=== PATIENT | female | born 1965 | race Caucasian/White ===

== ENCOUNTER 2017-02-21 13:40 | Emergency (ER) | payer OTHER ==
[~2017-02-21] VITALS: Ht 165.1 cm; Wt 60.0 kg
[~2017-02-21 13:40] MED LIST: CALC500T37 PO; CREON24 PO; FERR325T PO; GABA300C5 PO; HYDR50TA94 PO; LANTUS2P SQ; NOVOLOGP2 SQ; PROT40TA PO
[2017-02-21 13:51] VITALS: BP 105/64; PULSE 80; RESP 15; TEMP 97.6; O2SAT 96
[2017-02-21] MEDS ORDERED: SODIUM CHLOR 0.9% 1000 ML INJ 1,000 ML IV SCH (13:53)
[2017-02-21 13:55] VITALS: O2SAT 96
--- NOTE | 2017-02-21 13:55 | PD ---
HPI Chief Complaint: Syncope/Near-Syncope Time Seen by Provider: 13:55 Travel History International Travel<30 days: No Contact w/Intl Traveler<30days: No Traveled to known affect area: No History of Present Illness HPI 52-year-old female with a history of chronic pancreatitis, hypertension, insulin -dependent diabetes is brought to the emergency department by EMS for evaluation of syncopal episode while at the MD office. The patient states that for the past 5 days she has had difficulty eating due to nausea and abdominal pain. States that this does happen to her frequently due to her pancreatitis and gastroparesis. States she has also felt weak over the past 5 days so she went to the MD office today to try to get some Ensure and when she was sitting in her chair she felt lightheaded and apparently passed out. States that she was told by her significant other she passed out for a few seconds. She is now complaining of pain in her left upper abdomen. Denies any fever, chills, chest pain, shortness of breath, difficulty breathing,. States that she last vomited yesterday. States she had 2 episodes of nonbloody diarrhea today. States that she no longer drinks alcohol. No other complaints. PFSH Past Medical History Hx Anticoagulant Therapy: Yes (HEPARIN WHILE ADMITTED TO THE HOSPITAL ) Anxiety: Yes Depression: No Cancer: No Cardiovascular Problems: Yes (htn) High Cholesterol: Yes (PT STATES [facility] STATIN PREVENTATIV) Diabetes: Yes Patient Takes Glucophage: No Diminished Hearing: No Endocrine: Yes Gastrointestinal Disorders: Yes (chronic PANCREATITIS, GASTROPARESIS) GERD: Yes Genitourinary: No Hypertension: Yes Immune Disorder: No Musculoskeletal: Yes Neurologic: Yes Psychiatric: Yes (PTSD) Reproductive: No Respiratory: No Immunizations Current: Yes Migraines: Yes Pancreatitis: Yes Thyroid Disease: Yes ("7 TUMORS ON THYROID", BEING FOLLOWED. THYROID FUNCTION IS GOOD.) ?: Not : 2 Para: 2 Past Surgical History Abdominal Surgery: Yes (APPENDECTOMY) Appendectomy: Yes Section: Yes (x 1) Gynecologic Surgery: Yes (, HYSTERECTOMY WITH BILATERAL OOPHORECTOMY) Hysterectomy: Yes Other Surgery: Yes Social History Alcohol Use: No Tobacco Use: Yes (1/2 PPD) Substance Use: No Allergies-Medications (Allergen,Severity, Reaction): Coded Allergies: Sulfa (Verified Allergy, Severe, Rash, 11/14/16) Ciprofloxacin (Verified Allergy, Mild, Rash, 11/14/16) Reported Meds & Prescriptions Reported Meds & Active Scripts Active Ferrous Sulfate 325 Mg Tab 325 Mg PO BID 30 Days Creon (Amylase/Lipase/Protease) 24,000-76,000-120,000 Units Cap 1 Cap PO TIDAC 30 Days Reported Vitamin B-12 (Cyanocobalamin) 1,000 Mcg Tab 1,000 Mcg PO DAILY Lisinopril 10 Mg Tab 10 Mg PO DAILY Protonix (Pantoprazole Sodium) 40 Mg Tab 40 Mg PO DAILY Lantus Inj (Insulin Glargine) 1,000 Unit/10 Ml Vial 15 Units SQ DAILY Novolog Inj (Insulin Aspart) 1,000 Unit/10 Ml Vial 0 SQ DIRECTED Sliding Scale as directed. Gabapentin 300 Mg Cap 300 Mg PO TID Calcium Ascorbate 500 Mg Tab 500 Mg PO DAILY Review of Systems Except as stated in HPI: all other systems reviewed are Neg Physical Exam Narrative GENERAL: Well-nourished and well-developed pleasant patient in no acute distress who is nontoxic appearing. SKIN: Warm and dry. HEAD: Normocephalic and atraumatic. EYES: No injection, drainage, or hyphema noted. PERRLA. EOMI. ENT: No nasal drainage noted. Oropharynx is clear. NECK: Supple and the trachea is midline. CARDIOVASCULAR: Regular rate and rhythm. RESPIRATORY: Breath sounds are equal bilaterally with no accessory muscle use, wheezing, rhonchi, or crackles. GASTROINTESTINAL: Mild epigastric and left upper quadrant tenderness to palpation. No rebound tenderness or guarding. Negative Rodríguez sign. Negative McBurney's point. Abdomen is soft and nondistended. MUSCULOSKELETAL: No obvious deformities, swelling, cyanosis, or ecchymosis is present throughout the upper and lower extremities. Patient has full range of motion without any signs of neurovascular compromise. NEUROLOGICAL: Awake, alert, and oriented. Normal speech and gait. Cranial nerves are grossly intact. Data Data Last Documented VS Vital Signs Date Time Temp Pulse Resp B/P Pulse Ox O2 Delivery O2 Flow Rate FiO2 02/21/17 14:57 72 15 125/75 98 Room Air 02/21/17 13:51 97.6 Orders Complete Blood Count With Diff (02/21/17 13:53) Comprehensive Metabolic Panel (02/21/17 13:53) Lipase (02/21/17 13:53) Prothrombin Time / Inr (Pt) (02/21/17 13:53) Act Partial Throm Time (Ptt) (02/21/17 13:53) Urinalysis - C+S If Indicated (02/21/17 13:53) Iv Access Insert/Monitor (02/21/17 13:53) Ecg Monitoring (02/21/17 13:53) Oximetry (02/21/17 13:53) Morphine Inj (Morphine Inj) (02/21/17 14:00) Ondansetron Inj (Zofran Inj) (02/21/17 14:00) Sodium Chlor 0.9% 1000 Ml Inj (Ns 1000 M (02/21/17 13:53) Sodium Chloride 0.9% Flush (Ns Flush) (02/21/17 14:00) Electrocardiogram (02/21/17 13:53) Chest, Single Ap (02/21/17 13:53) Troponin I (02/21/17 13:53) Oxycodone-Acetamin 5-325 Mg (Percocet (02/21/17 16:15) Labs Laboratory Tests Test 02/21/17 02/21/17 14:05 16:03 White Blood Count 7.6 TH/MM3 Red Blood Count 4.14 MIL/MM3 Hemoglobin 11.2 GM/DL Hematocrit 33.7 % Mean Corpuscular Volume 81.6 FL Mean Corpuscular Hemoglobin 27.0 PG Mean Corpuscular Hemoglobin 33.1 % Concent Red Cell Distribution Width 20.6 % Platelet Count 248 TH/MM3 Mean Platelet Volume 7.7 FL Neutrophils (%) (Auto) 79.1 % Lymphocytes (%) (Auto) 15.1 % Monocytes (%) (Auto) 4.3 % Eosinophils (%) (Auto) 0.8 % Basophils (%) (Auto) 0.7 % Neutrophils # (Auto) 6.0 TH/MM3 Lymphocytes # (Auto) 1.2 TH/MM3 Monocytes # (Auto) 0.3 TH/MM3 Eosinophils # (Auto) 0.1 TH/MM3 Basophils # (Auto) 0.1 TH/MM3 CBC Comment DIFF FINAL Differential Comment Prothrombin Time 11.7 SEC Prothromb Time International 1.1 RATIO Ratio Activated Partial 26.4 SEC Thromboplast Time Sodium Level 136 MEQ/L Potassium Level 3.7 MEQ/L Chloride Level 104 MEQ/L Carbon Dioxide Level 26.0 MEQ/L Anion Gap 6 MEQ/L Blood Urea Nitrogen 10 MG/DL Creatinine 0.80 MG/DL Estimat Glomerular Filtration 75 ML/MIN Rate Random Glucose 194 MG/DL Calcium Level 8.7 MG/DL Total Bilirubin 0.5 MG/DL Aspartate Amino Transf 13 U/L (AST/SGOT) Alanine Aminotransferase 13 U/L (ALT/SGPT) Alkaline Phosphatase 94 U/L Troponin I LESS THAN 0.02 NG/ML Total Protein 6.8 GM/DL Albumin 3.0 GM/DL Lipase 628 U/L Urine Color LIGHT-YELLOW Urine Turbidity CLEAR Urine pH 5.5 Urine Specific [place] 1.004 Urine Protein NEG mg/dL Urine Glucose (UA) NEG mg/dL Urine Ketones NEG mg/dL Urine Occult Blood NEG Urine Nitrite NEG Urine Bilirubin NEG Urine Urobilinogen LESS THAN 2.0 MG/DL Urine Leukocyte Esterase SMALL Urine RBC 1 /hpf Urine WBC 4 /hpf Urine Squamous Epithelial 2 /hpf Cells Microscopic Urinalysis Comment CULT NOT INDICATED MDM Medical Decision Making Medical Screen Exam Complete: Yes Emergency Medical Condition: Yes Differential Diagnosis Acute on chronic pancreatitis versus dehydration versus electrolyte abnormality versus other Narrative Course 52-year-old female is brought to the emergency department by EMS for syncopal episode and abdominal pain. Patient is afebrile, vital signs are stable. IV access is obtained, labs were drawn and sent. Patient is placed on cardiac telemetry and pulse oximetry monitoring. She is administered morphine 4 mg IV and IV fluids with Zofran. EKG shows sinus rhythm with no acute ST elevations, inverted T waves in inferior and lateral leads. CBC shows mild anemia with hemoglobin 11.2, hematocrit 33.7. CMP is unremarkable for any acute abnormalities. Troponin is less than 0.02. Lipase is slightly elevated at 628. This is around her baseline. Coags are unremarkable. Urinalysis shows small leukocyte esterase and is otherwise unremarkable. Chest x-ray is negative for any acute abnormalities. Patient has remained stable without complaint while here in the emergency department. Her lipase is elevated however this is secondary to her chronic pancreatitis. Otherwise labs and imaging are all reassuring. She is stable to be discharged and follow-up as an outpatient with her PCP. Patient verbalizes understanding and is in agreement with treatment plan. I discussed the case with my attending physician Dr. Amezquita who is aware of the patients history, physical examination findings, and treatment plan. Diagnosis Primary Impression: Chronic pancreatitis Qualified Code: K86.0 - Alcohol-induced chronic pancreatitis Additional Impressions: Abdominal pain Qualified Code: R10.12 - Left upper quadrant pain Syncope Qualified Code: R55 - Syncope, unspecified syncope type Referrals: Primary Care Physician Patient Instructions: General Instructions, Pancreatitis (ED), Syncope (ED) Additional Instructions: Rest. Drink plenty of fluids. Try to maintain adequate nutrition. Follow-up with your Primary Care Physician. Return to the ED for any acute worsening of symptoms. Med/Other Pt SpecificInfo: No Change to Meds Disposition: 01 DISCHARGE HOME Condition: Stable Libby Luther Feb 21, 2017 13:55
[2017-02-21] MEDS ORDERED: VITA10002 PO (13:57)
[2017-02-21] MEDS ORDERED: LISI10TA3 PO (13:57)
[2017-02-21] MEDS ORDERED: SODIUM CHLORIDE 0.9% FLUSH 10 ML FLUSH IV FLUSH PRN (14:00)
[2017-02-21] MEDS ORDERED: ONDANSETRON HCL 4 MG/2 ML VIAL IVP ONE (14:00)
[2017-02-21] MEDS ORDERED: MORPHINE SULFATE 4 MG/ML INJ IV PUSH ONE (14:00)
[2017-02-21 14:22] LABS: BASOPHIL # 0.1 TH/MM3 (0-0.2); BASOPHIL % 0.7 % (0.0-2.0); EOSINOPHIL # 0.1 TH/MM3 (0-0.4); EOSINOPHIL % 0.8 % (0.0-4.0); HEMATOCRIT 33.7 % (35.0-46.0); HEMO FLAGS DIFF FINAL; LYMPH % 15.1 % (9.0-44.0); LYMPHOCYTE # 1.2 TH/MM3 (1.0-4.8); MEAN CELL VOLUME 81.6 FL (80.0-100.0); MEAN CORPUSCULAR HGB CONC 33.1 % (32.0-36.0); MONO % 4.3 % (0.0-8.0); NEUT % 79.1 % (16.0-70.0); PLATELET COUNT 248 TH/MM3 (150-450); RED BLOOD COUNT 4.14 MIL/MM3 (4.00-5.30); RED CELL DISTRIBUTION WIDTH 20.6 % (11.6-17.2); WHITE BLOOD COUNT 7.6 TH/MM3 (4.0-11.0)
[2017-02-21 14:32] LABS: APTT (PATIENT) 26.4 SEC (24.3-30.1); INTERNATIONAL NORMALIZED RATIO 1.1 RATIO; PROTHROMBIN TIME - PATIENT 11.7 SEC (9.8-11.6)
--- NOTE | 2017-02-21 14:38 | RADRPT ---
EXAM DATE/TIME: 02/21/2017 14:01 [facility] COMPARISON: CHEST SINGLE AP, November 04, 2016, 15:46. INDICATIONS : Patient is having left side abdomen pain for two days. She also passed out this afternoon. MEDICAL HISTORY : Hypertension. Diabetes mellitus type II. Pancreatitis. SURGICAL HISTORY : None. ENCOUNTER: Initial ACUITY: 2 days PAIN SCORE: 9/10 LOCATION: Left abdomen. FINDINGS: A single view of the chest demonstrates stable elevation of left hemidiaphragm with become atelectati c changes in the left base. Lungs are otherwise clear. Heart size is normal. Osseous structures are i ntact. CONCLUSION: 1. Stable elevation of the left hemidiaphragm with concomitant atelectatic changes in the base. 2. Lungs are otherwise clear Octaviano Negro MD on February 21, 2017 at 14:36 Board Certified Radiologist. This report was verified electronically.
[2017-02-21 14:50] LABS: ALT (GPT) 13 U/L (10-53); ANION GAP 6 MEQ/L (5-15); AST (GOT) 13 U/L (15-37); BLOOD UREA NITROGEN 10 MG/DL (7-18); CHLORIDE 104 MEQ/L (98-107); GLOMERULAR FILTRATION RATE 75 ML/MIN (>89); POTASSIUM 3.7 MEQ/L (3.5-5.1); SODIUM (NA) 136 MEQ/L (136-145)
[2017-02-21 14:54] LABS: ALKALINE PHOSPHATASE 94 U/L (45-117); TOTAL BILIRUBIN ADULT 0.5 MG/DL (0.2-1.0)
[2017-02-21 14:57] VITALS: BP 125/75; PULSE 72; RESP 15; O2SAT 98
[2017-02-21 16:00] VITALS: BP 112/73
[2017-02-21] MEDS ORDERED: oxyCODONE/ACETAMINOPHEN 5 MG/325 MG TAB PO ONE (16:15)
[2017-02-21 16:28] LABS: BLOOD, URINE NEG (NEG); COMMENT (UR) CULT NOT INDICATED; CULTURE IF INDICATED CULT NOT INDICATED; GLUCOSE,URINE NEG (NEG); KETONE, URINE NEG (NEG); NITRITE,URINE NEG (NEG); PH, URINE 5.5 (5.0-8.5); SQUAMOUS EPITHELIAL CELL URINE 2 /hpf (0-5); URINE COLOR LIGHT-YELLOW (YELLW/STRAW)
[2017-02-21 16:58] VITALS: BP 171/71; PULSE 73; RESP 16
--- NOTE | 2017-02-22 13:28 | EKG ---
Date Performed: 02/21/2017 Time Performed: 14:17:00 PTAGE: 52 years EKG: Sinus rhythm MODERATE T-WAVE ABNORMALITY, CONSIDER ANTEROLATERAL ISCHEMIA MODERATE T-WAVE ABNORMALITY, CONSIDER I NFERIOR ISCHEMIA ABNORMAL ECG PREVIOUS TRACING : 11/04/2016 15.55 Compared to prior tracing no significant change DOCTOR: Tanner Pina Interpretating Date/Time 02/22/2017 13:28:00
== END 2017-02-21 17:00 | disposition home or self-care (01) ==
LOC: NEPC 13:40
DX: K86.0 Alcohol-induced chronic pancreatitis (principal); R10.12 Left upper quadrant pain; R55 Syncope and collapse; R94.31 Abnormal electrocardiogram [ECG] [EKG]; R53.1 Weakness; E78.00 Pure hypercholesterolemia, unspecified; E11.9 Type 2 diabetes mellitus without complications; I10 Essential (primary) hypertension; E07.9 Disorder of thyroid, unspecified; F17.200 Nicotine dependence, unspecified, uncomplicated; Z79.4 Long term (current) use of insulin; Z86.59 Personal history of other mental and behavioral disorders; Z86.79 Personal history of other diseases of the circulatory system; Z87.19 Personal history of other diseases of the digestive system; Z87.39 Personal history of other diseases of the musculoskeletal system and connective tissue; Z86.69 Personal history of other diseases of the nervous system and sense organs
CPT/HCPCS: 71010; 80053; 81001; 83690; 84484; 85025; 85610; 85730; 93005; 96361; 96374; 96375; 99284; J2270; J2405; J7030

== ENCOUNTER 2017-03-28 07:37 | Emergency (ER) | payer OTHER ==
[2017-03-28] VITALS (8 sets, daily range): BP systolic 96–142; BP diastolic 56–85; PULSE 79–112; RESP 18–26; TEMP 97.6–98.6; O2SAT 93–95
[~2017-03-28] VITALS: Ht 165.1 cm; Wt 61.0 kg
[~2017-03-28 07:37] MED LIST changes: -HYDR50TA94 PO; +LISI10TA3 PO; +VITA10002 PO
[2017-03-28] MEDS ORDERED: ASPIRIN 81 MG CHEW TAB PO ONE (07:45)
[2017-03-28] MEDS ORDERED: SODIUM CHLORID 0.9% 500 ML INJ 500 ML IV ONE (07:45)
[2017-03-28] MEDS ORDERED: MORPHINE SULFATE 4 MG/ML INJ IV PUSH ONE (07:45)
[2017-03-28] MEDS ORDERED: SODIUM CHLORIDE 0.9% FLUSH 10 ML FLUSH IVF PRN (07:45)
[2017-03-28] MEDS ORDERED: ONDANSETRON HCL 4 MG/2 ML VIAL IV PUSH ONE (07:45)
--- NOTE | 2017-03-28 07:52 | PD ---
HPI Chief Complaint: shoulder pain Time Seen by Provider: 07:39 Travel History International Travel<30 days: No Contact w/Intl Traveler<30days: No Traveled to known affect area: No History of Present Illness HPI The patient is a 52-year-old female who presents to the emergency department via EMS for shoulder pain. The patient has a history of recent shoulder pain, was evaluated by her physician at the [facility], Dr. Almanzar, who diagnosed her with referred pain from her chronic pancreatitis. The patient notes increasing pain over the last 5 days of the left shoulder. The pain is located over the anterior, lateral, posterior aspect left shoulder, slightly worse with movement, however, still present at rest. The patient does have a history of chronic pancreatitis secondary to chronic alcohol use, quit eating several days ago because she thought it was secondary to her pancreas. However, she continues to have pain. She denies any weakness or numbness of the left upper extremity. She denies any known trauma to the left shoulder. She also notes a cough that started 5 days ago which is slightly productive, does have a history tobacco use. She denies any fever, chills, or sweats. Symptoms are moderate, slightly worse with movement, and there are no current alleviating factors. The patient does have a history of hypertension, hyperlipidemia, and diabetes. PFSH Past Medical History Hx Anticoagulant Therapy: Yes (HEPARIN WHILE ADMITTED TO THE HOSPITAL ) Anxiety: Yes Depression: No Cancer: No Cardiovascular Problems: Yes (htn) High Cholesterol: Yes (PT STATES [facility] PUT HER ON STATIN PREVENTATIV) Diabetes: Yes Diminished Hearing: No Endocrine: Yes Gastrointestinal Disorders: Yes (chronic PANCREATITIS, GASTROPARESIS) GERD: Yes Genitourinary: No Hypertension: Yes Immune Disorder: No Musculoskeletal: Yes Neurologic: Yes Psychiatric: Yes (PTSD) Reproductive: No Respiratory: No Immunizations Current: Yes Migraines: Yes Pancreatitis: Yes Thyroid Disease: Yes ("7 TUMORS ON THYROID", BEING FOLLOWED. THYROID FUNCTION IS GOOD.) : 2 Para: 2 Past Surgical History Abdominal Surgery: Yes (APPENDECTOMY) Appendectomy: Yes Section: Yes (x 1) Gynecologic Surgery: Yes (, HYSTERECTOMY WITH BILATERAL OOPHORECTOMY) Hysterectomy: Yes Other Surgery: Yes Social History Alcohol Use: No Tobacco Use: Yes (1/2 PPD) Substance Use: No Allergies-Medications (Allergen,Severity, Reaction): Coded Allergies: Sulfa (Verified Allergy, Severe, Rash, 11/14/16) Ciprofloxacin (Verified Allergy, Mild, Rash, 11/14/16) Reported Meds & Prescriptions Reported Meds & Active Scripts Active Ferrous Sulfate 325 Mg Tab 325 Mg PO BID 30 Days Creon (Amylase/Lipase/Protease) 24,000-76,000-120,000 Units Cap 1 Cap PO TIDAC 30 Days Reported Vitamin B-12 (Cyanocobalamin) 1,000 Mcg Tab 1,000 Mcg PO DAILY Lisinopril 10 Mg Tab 10 Mg PO DAILY Protonix (Pantoprazole Sodium) 40 Mg Tab 40 Mg PO DAILY Lantus Inj (Insulin Glargine) 1,000 Unit/10 Ml Vial 15 Units SQ DAILY Novolog Inj (Insulin Aspart) 1,000 Unit/10 Ml Vial 0 SQ DIRECTED Sliding Scale as directed. Gabapentin 300 Mg Cap 300 Mg PO TID Calcium Ascorbate 500 Mg Tab 500 Mg PO DAILY Review of Systems Except as stated in HPI: all other systems reviewed are Neg General / Constitutional: No: Fever Cardiovascular: No: Chest Pain or Discomfort Respiratory: Positive: Cough, Shortness of Breath Gastrointestinal: Positive: Nausea, No: Vomiting, Abdominal Pain Musculoskeletal: Positive: Pain Neurologic: No: Paresthesia, Sensory Disturbance Physical Exam Narrative GENERAL: Awake, alert, somewhat anxious 52-year-old female who appears her stated age and is in no acute respiratory distress. Appears anxious. SKIN: Focused skin assessment warm/dry. HEAD: Atraumatic. Normocephalic. EYES: Pupils equal and round. No scleral icterus. No injection or drainage. ENT: No nasal bleeding or discharge. Mucous membranes pink and moist. NECK: Trachea midline. No JVD. CARDIOVASCULAR: Regular, tachycardic with a heart rate of 114. RESPIRATORY: No accessory muscle use. Clear to auscultation. Breath sounds equal bilaterally. GASTROINTESTINAL: Abdomen soft, non-tender, nondistended. No rebound tenderness. MUSCULOSKELETAL: Patient has pain with palpation of the anterior posterior aspect the left shoulder. Slightly worse with external/internal rotation, however, patient is able to raise her left arm above her head. She is able to flex and extend at the left elbow, supinate and pronate the left forearm, and flex and extend the left wrist. Positive left radial pulse. NEUROLOGICAL: Awake and alert. No obvious cranial nerve deficits. Motor grossly within normal limits. Normal speech. PSYCHIATRIC: Appropriate mood and affect; insight and judgment normal. Data Data Last Documented VS Vital Signs Date Time Temp Pulse Resp B/P Pulse Ox O2 Delivery O2 Flow Rate FiO2 03/28/17 10:00 18 03/28/17 09:59 79 113/71 93 Room Air 03/28/17 09:09 97.6 2 Orders Electrocardiogram (03/28/17 07:45) Ckmb (Isoenzyme) Profile (03/28/17 07:45) Complete Blood Count With Diff (03/28/17 07:45) Comprehensive Metabolic Panel (03/28/17 07:45) D-Dimer (03/28/17 07:45) Magnesium (Mg) (03/28/17 07:45) Prothrombin Time / Inr (Pt) (03/28/17 07:45) Act Partial Throm Time (Ptt) (03/28/17 07:45) Troponin I (03/28/17 07:45) Lipase (03/28/17 07:45) Chest, Single Ap (03/28/17 07:45) Ecg Monitoring (03/28/17 07:45) Bilateral Bp Monitoring (03/28/17 07:45) Iv Access Insert/Monitor (03/28/17 07:45) Oximetry (03/28/17 07:45) Oxygen Administration (03/28/17 07:45) Aspirin Chew (Aspirin Chew) (03/28/17 07:45) Morphine Inj (Morphine Inj) (03/28/17 07:45) Sodium Chloride 0.9% Flush (Ns Flush) (03/28/17 07:45) Sodium Chlorid 0.9% 500 Ml Inj (Ns 500 M (03/28/17 07:45) Ondansetron Inj (Zofran Inj) (03/28/17 07:45) Shoulder, Limited(2vws) (03/28/17 ) Ct Pulmonary Angiogram (03/28/17 ) Ketorolac Inj (Toradol Inj) (03/28/17 09:15) Iohexol 350 Inj (Omnipaque 350 Inj) (03/28/17 09:52) Labs Laboratory Tests Test 03/28/17 07:55 White Blood Count 8.0 TH/MM3 Red Blood Count 4.14 MIL/MM3 Hemoglobin 11.4 GM/DL Hematocrit 33.4 % Mean Corpuscular Volume 80.6 FL Mean Corpuscular Hemoglobin 27.5 PG Mean Corpuscular Hemoglobin 34.2 % Concent Red Cell Distribution Width 19.7 % Platelet Count 301 TH/MM3 Mean Platelet Volume 7.4 FL Neutrophils (%) (Auto) 79.7 % Lymphocytes (%) (Auto) 11.7 % Monocytes (%) (Auto) 6.8 % Eosinophils (%) (Auto) 1.3 % Basophils (%) (Auto) 0.5 % Neutrophils # (Auto) 6.4 TH/MM3 Lymphocytes # (Auto) 0.9 TH/MM3 Monocytes # (Auto) 0.5 TH/MM3 Eosinophils # (Auto) 0.1 TH/MM3 Basophils # (Auto) 0.0 TH/MM3 CBC Comment DIFF FINAL Differential Comment Prothrombin Time 10.6 SEC Prothromb Time International 1.0 RATIO Ratio Activated Partial 29.5 SEC Thromboplast Time D-Dimer Quantitative (PE/DVT) 4.17 MG/L FEU Sodium Level 131 MEQ/L Potassium Level 4.3 MEQ/L Chloride Level 95 MEQ/L Carbon Dioxide Level 27.3 MEQ/L Anion Gap 9 MEQ/L Blood Urea Nitrogen 5 MG/DL Creatinine 0.72 MG/DL Estimat Glomerular Filtration 85 ML/MIN Rate Random Glucose 159 MG/DL Calcium Level 9.4 MG/DL Magnesium Level 2.0 MG/DL Total Bilirubin 0.8 MG/DL Aspartate Amino Transf 25 U/L (AST/SGOT) Alanine Aminotransferase 30 U/L (ALT/SGPT) Alkaline Phosphatase 263 U/L Total Creatine Kinase 35 U/L Troponin I LESS THAN 0.02 NG/ML Total Protein 7.8 GM/DL Albumin 3.0 GM/DL Lipase 451 U/L [facility] Medical Decision Making Medical Screen Exam Complete: Yes Emergency Medical Condition: Yes Medical Record Reviewed: Yes Interpretation(s) EKG reveals sinus tachycardia with a heart rate of 113. Nonspecific T wave changes. Laboratory Tests Test 03/28/17 07:55 White Blood Count 8.0 TH/MM3 Red Blood Count 4.14 MIL/MM3 Hemoglobin 11.4 GM/DL Hematocrit 33.4 % Mean Corpuscular Volume 80.6 FL Mean Corpuscular Hemoglobin 27.5 PG Mean Corpuscular Hemoglobin 34.2 % Concent Red Cell Distribution Width 19.7 % Platelet Count 301 TH/MM3 Mean Platelet Volume 7.4 FL Neutrophils (%) (Auto) 79.7 % Lymphocytes (%) (Auto) 11.7 % Monocytes (%) (Auto) 6.8 % Eosinophils (%) (Auto) 1.3 % Basophils (%) (Auto) 0.5 % Neutrophils # (Auto) 6.4 TH/MM3 Lymphocytes # (Auto) 0.9 TH/MM3 Monocytes # (Auto) 0.5 TH/MM3 Eosinophils # (Auto) 0.1 TH/MM3 Basophils # (Auto) 0.0 TH/MM3 CBC Comment DIFF FINAL Differential Comment Prothrombin Time 10.6 SEC Prothromb Time International 1.0 RATIO Ratio Activated Partial 29.5 SEC Thromboplast Time D-Dimer Quantitative (PE/DVT) 4.17 MG/L FEU Sodium Level 131 MEQ/L Potassium Level 4.3 MEQ/L Chloride Level 95 MEQ/L Carbon Dioxide Level 27.3 MEQ/L Anion Gap 9 MEQ/L Blood Urea Nitrogen 5 MG/DL Creatinine 0.72 MG/DL Estimat Glomerular Filtration 85 ML/MIN Rate Random Glucose 159 MG/DL Calcium Level 9.4 MG/DL Magnesium Level 2.0 MG/DL Total Bilirubin 0.8 MG/DL Aspartate Amino Transf 25 U/L (AST/SGOT) Alanine Aminotransferase 30 U/L (ALT/SGPT) Alkaline Phosphatase 263 U/L Total Creatine Kinase 35 U/L Troponin I LESS THAN 0.02 NG/ML Total Protein 7.8 GM/DL Albumin 3.0 GM/DL Lipase 451 U/L CT, angiogram reveals no evidence of pulmonary embolism. Multiple loculated fluid collections within the left upper quadrant which may represent pseudocysts related to previous bouts of pancreatitis. The largest collection measures 9.4 cm but these collections or incompletely evaluated on this examination. Enlarged pancreas. Patchy opacity within the left lower lobe posteriorly with atelectasis and/or infiltrate. Chronic calcific pancreatitis. Nonspecific AP window and subcarinal mediastinal lymphadenopathy. Apparent right subclavian artery. Stable bilateral thyroid nodules. Scattered fibrotic scarring and/or atelectasis within the right posterior lung base. Differential Diagnosis Differential diagnosis includes chronic pancreatitis, referred pain, bursitis, atypical chest pain, pulmonary embolism, pneumonia, Pancoast tumor. Narrative Course IV was established, labs are drawn and sent, and the patient was placed on cardiac telemetry monitoring and continuous pulse oximetry monitoring. EKG was ordered and interpreted. Chest x-ray and left shoulder x-ray were obtained. The patient was administered aspirin, morphine, Zofran, and IV fluids. Lipase is mildly elevated in the 400s, however, d-dimer is positive greater than 4 with tachycardia and atypical left chest pain and shoulder pain. Therefore, CT pulmonary angiogram was ordered to rule out pulmonary embolism. CT reveals no evidence of pulmonary embolism, patient does have infiltrate in the left lower lobe and multiple loculated fluid collections within the left upper quadrant which represent pseudocyst related to previous bouts pancreatitis. Lipase is minimally elevated in the 400s on this examination. The patient's white count is normal and she is afebrile. The patient will be changed with antibiotics and albuterol inhaler on an outpatient basis. Diagnosis Primary Impression: Pneumonia Qualified Code: J18.1 - Pneumonia of left lower lobe due to infectious organism Additional Impressions: Pleurisy Left shoulder pain Qualified Code: M25.512 - Left shoulder pain, unspecified chronicity Patient Instructions: General Instructions Additional Instructions: Medications as directed. Follow-up with her primary physician. Return if symptoms worsen or progress. Med/Other Pt SpecificInfo: Prescription(s) given Scripts Albuterol 18 GM Inh (Ventolin Hfa 18 GM Inh)90 Mcg/Act Aer2 Puff INH Q4H PRN ( SHORTNESS OF BREATH) #1 INHALER Ref 0 Prov:José Miguel Rojas MD 03/28/17 Azithromycin (Zithromax Z-Klaus)250 Mg [id number] Mg PO DIRECTED #1 DSPK Ref 0 500 MG (2 tabs) day 1, then 1 tab days 2-5. Prov:José Miguel Rojas MD 03/28/17 Disposition: 01 DISCHARGE HOME Condition: Stable José Miguel Rojas MD March 28, 2017 07:52
[2017-03-28 08:25] LABS: AUTOMATED NEUTROPHIL # 6.4 TH/MM3 (1.8-7.7); BASOPHIL % 0.5 % (0.0-2.0); EOSINOPHIL # 0.1 TH/MM3 (0-0.4); EOSINOPHIL % 1.3 % (0.0-4.0); HEMATOCRIT 33.4 % (35.0-46.0); HEMO FLAGS DIFF FINAL; LYMPH % 11.7 % (9.0-44.0); LYMPHOCYTE # 0.9 TH/MM3 (1.0-4.8); MEAN CELL VOLUME 80.6 FL (80.0-100.0); MEAN CORPUSCULAR HEMOGLOBIN 27.5 PG (27.0-34.0); MEAN CORPUSCULAR HGB CONC 34.2 % (32.0-36.0); MONO % 6.8 % (0.0-8.0); NEUT % 79.7 % (16.0-70.0); PLATELET COUNT 301 TH/MM3 (150-450); RED BLOOD COUNT 4.14 MIL/MM3 (4.00-5.30); RED CELL DISTRIBUTION WIDTH 19.7 % (11.6-17.2)
[2017-03-28 08:41] LABS: ANION GAP 9 MEQ/L (5-15); AST (GOT) 25 U/L (15-37); BICARBONATE 27.3 MEQ/L (21.0-32.0); BLOOD UREA NITROGEN 5 MG/DL (7-18); CHLORIDE 95 MEQ/L (98-107); GLOMERULAR FILTRATION RATE 85 ML/MIN (>89); POTASSIUM 4.3 MEQ/L (3.5-5.1); SODIUM (NA) 131 MEQ/L (136-145)
[2017-03-28 08:43] LABS: APTT (PATIENT) 29.5 SEC (24.3-30.1); PROTHROMBIN TIME - PATIENT 10.6 SEC (9.8-11.6)
[2017-03-28 08:46] LABS: ALKALINE PHOSPHATASE 263 U/L (45-117); ALT (GPT) 30 U/L (10-53); TOTAL BILIRUBIN ADULT 0.8 MG/DL (0.2-1.0)
[2017-03-28 08:47] LABS: CREATINE KINASE 35 U/L (26-192)
[2017-03-28] MEDS ORDERED: KETOROLAC TROMETHAMINE 30 MG/ML (IVP) VIAL IV PUSH ONE (09:15)
[2017-03-28] MEDS ORDERED: IOHEXOL 350 MG/ML 10 ML VIAL (for RAD DIAG) IV ONE (09:52)
--- NOTE | 2017-03-28 09:58 | RADRPT ---
EXAM DATE/TIME: 03/28/2017 09:00 [facility] COMPARISON: CHEST SINGLE AP, February 21, 2017, 14:01. INDICATIONS : Left upper chest pains, radiating from shoulder. MEDICAL HISTORY : SURGICAL HISTORY : None. ENCOUNTER: Initial ACUITY: >1 year PAIN SCORE: 10/10 LOCATION: Left chest FINDINGS: There is chronic elevation of the left hemidiaphragm. The heart is stable. The pulmonary vascular p attern is normal. The lungs are clear. CONCLUSION: 1. Chronic elevation of left hemidiaphragm. 2. No acute focal pulmonary infiltrate or pulmonary vascular congestion. Jerel Gunter MD on March 28, 2017 at 9:40 Board Certified Radiologist. This report was verified electronically.
--- NOTE | 2017-03-28 10:36 | RADRPT ---
EXAM DATE/TIME: 03/28/2017 09:43 [facility] COMPARISON: CTA THORACIC ABDOMINAL AORTA W 3D RECON, July 30, 2016, 23:23. CT ABDOMEN & PELVIS W CONTRAST, October 26, 2016, 20:00. INDICATIONS : Left shoulder pain that radiates across left side of chest. IV CONTRAST: 60 cc Omnipaque 350 (iohexol) IV RADIATION DOSE: 6.81 CTDIvol (mGy) MEDICAL HISTORY : Diabetes mellitus type 2. Cardiovascular disease Pancreatitis. Hypertension. SURGICAL HISTORY : Appendectomy. Hysterectomy. section. ENCOUNTER: Initial ACUITY: 4 - 6 days PAIN SCALE: 6/10 LOCATION: Left upper chest TECHNIQUE: Volumetric scanning of the chest was performed using a pulmonary embolism protocol MIP images were re constructed. Using automated exposure control and adjustment of the mA and/or kV according to patien t size, radiation dose was kept as low as reasonably achievable to obtain optimal diagnostic quality images. FINDINGS: There is no evidence of pulmonary embolism. Minimal patchy density is noted within the left posterio r lung base consistent with atelectasis and/or mild infiltrate. No pulmonary nodule or mass is noted. Mildly pr ominent AP window and subcarinal mediastinal lymph nodes are noted and are nonspecific. These measures 2.0 and 1.9 cm respectively. No hilar or axillary lymphadenopathy is noted. There are scattered stable thyroid nod ules. There is an aberrant right subclavian artery. There is elevation of the left hemidiaphragm. There are multi ple loculated fluid collections within the left upper quadrant which are incompletely evaluated on this examination . The largest collection measures 9.4 cm in size. These likely are lately related to previous bouts of pancreatiti s and could represent pseudocysts. Multiple calcifications are noted throughout the body of the pancreas consist ent with chronic calcific pancreatitis. The spleen is prominent in size. Scattered fibrotic scarring and/or atelectasis is noted within the right posterior lung base. CONCLUSION: 1. No evidence of pulmonary embolism. 2. Multiple loculated fluid collections within the left upper quadrant which may represent pseudocys ts related to previous bouts of pancreatitis. The largest collection measures 9.4 cm but these colle ctions are incompletely evaluated on this examination. 3. Mild splenomegaly 4. Patchy opacity within the left lower lobe posteriorly with atelectasis and/or infiltrate. 5. Chronic calcific pancreatitis. 6. Nonspecific AP window and subcarinal mediastinal lymphadenopathy. 7. Aberrant right subclavian artery. 8. Stable bilateral thyroid nodules. 9. Scattered fibrotic scarring and/or atelectasis within the right posterior lung base. Jerel Gunter MD on March 28, 2017 at 9:55 Board Certified Radiologist. This report was verified electronically.
[2017-03-28] MEDS ORDERED: AZITHROMYCIN INJ 500 MG in SODIUM CHLOR 0.9% 250 ML INJ 250 ML IV ONE (10:45)
[2017-03-28] MEDS ORDERED: cefTRIAXone INJ 1,000 MG in SODIUM CHLORIDE 0.9% INJ 100 ML IV ONE (10:45)
[2017-03-28] MEDS ORDERED: ZITHTAB PO (10:46)
[2017-03-28] MEDS ORDERED: VENTAER INH (10:46)
--- NOTE | 2017-03-28 10:51 | RADRPT ---
EXAM DATE/TIME: 03/28/2017 08:58 [facility] COMPARISON: No previous studies available for comparison. INDICATIONS : Left shoulder pain x 2 years. MEDICAL HISTORY : None. SURGICAL HISTORY : None. ENCOUNTER: Initial ACUITY: >1 year PAIN SCORE: 10/10 LOCATION: Left shoulder. FINDINGS: There is some degenerative arthritic change of the a.c. joint. Glenohumeral joint is grossly intact. There is no evidence of fracture, dislocation or bony destruction. The adjacent clavicle and ribs kevin ear intact. CONCLUSION: Mild arthritic change most significantly in the a.c. joint Tim Valencia MD on March 28, 2017 at 10:49 Board Certified Radiologist. This report was verified electronically.
--- NOTE | 2017-03-29 16:23 | EKG ---
Date Performed: 03/28/2017 Time Performed: 07:50:18 PTAGE: 52 years EKG: SINUS TACHYCARDIA ABNORMAL RHYTHM ECG Compared to PREVIOUS TRACING of 02/21/2017, nonspecific T-wave changes have resolved. DOCTOR: Tanner Pina Interpretating Date/Time 03/29/2017 16:22:30
== END 2017-03-28 13:39 | disposition home or self-care (01) ==
LOC: NEPE 07:37
DX: J18.9 Pneumonia, unspecified organism (principal); R09.1 Pleurisy; M25.512 Pain in left shoulder; R00.0 Tachycardia, unspecified; K86.0 Alcohol-induced chronic pancreatitis; I10 Essential (primary) hypertension; E78.00 Pure hypercholesterolemia, unspecified; E11.9 Type 2 diabetes mellitus without complications; K86.1 Other chronic pancreatitis; K21.9 Gastro-esophageal reflux disease without esophagitis; F43.10 Post-traumatic stress disorder, unspecified; F17.210 Nicotine dependence, cigarettes, uncomplicated; Z79.4 Long term (current) use of insulin
CPT/HCPCS: 71010; 71275; 73030; 80053; 82550; 83690; 83735; 84484; 85025; 85379; 85610; 85730; 93005; 96361; 96365; 96366; 96368; 96375; 99284; J0456; J0696; J1885; J2270; J2405; J7040; J7050; Q9967

== ENCOUNTER 2017-04-02 09:47 | Emergency (ER) | payer OTHER ==
[~2017-04-02] VITALS: Ht 165.1 cm; Wt 60.0 kg
[~2017-04-02 09:47] MED LIST changes: +VENTAER INH; +ZITHTAB PO
[2017-04-02 09:49] VITALS: BP 150/117; PULSE 76; RESP 17; TEMP 98.2; O2SAT 98
--- NOTE | 2017-04-02 10:12 | PD ---
HPI Chief Complaint: Pain: Acute or Chronic Time Seen by Provider: 10:12 Travel History International Travel<30 days: No Contact w/Intl Traveler<30days: No Traveled to known affect area: No History of Present Illness HPI 52-year-old female came to the emergency room for chronic left shoulder pain. This is her third visit between the ER and primary care. She was in this emergency room 5 days ago when she received an x-ray of the shoulder along with a cardiac workup. X-ray shoulder showed arthritis. She was today at her primary care's office and was discharged home with stronger pain pill. Patient came here to see if anything else could be done. Strep fever or chills. No history of injury. Patient is on disability. Vital signs are relatively stable. PFSH Past Medical History Narrative Medical List of her past medical, surgical, social and family history was reviewed from the nursing note. Hx Anticoagulant Therapy: Yes (HEPARIN WHILE ADMITTED TO THE HOSPITAL ) Anxiety: Yes Depression: No Cancer: No Cardiovascular Problems: Yes (htn) High Cholesterol: Yes ([facility]) Diabetes: Yes Diminished Hearing: No Endocrine: Yes Gastrointestinal Disorders: Yes (chronic PANCREATITIS, GASTROPARESIS) GERD: Yes Genitourinary: No Hypertension: Yes Immune Disorder: No Musculoskeletal: Yes Neurologic: Yes Psychiatric: Yes (PTSD) Reproductive: No Respiratory: Yes (SMOKERS COUGH) Immunizations Current: Yes Migraines: Yes Pancreatitis: Yes (ALCOHOLIC) Thyroid Disease: Yes ("7 TUMORS ON THYROID", BEING FOLLOWED. THYROID FUNCTION IS GOOD.) ?: Not : 2 Para: 2 Past Surgical History Abdominal Surgery: Yes (APPENDECTOMY) Appendectomy: Yes Section: Yes Gynecologic Surgery: Yes (, HYSTERECTOMY WITH BILATERAL OOPHORECTOMY) Hysterectomy: Yes Other Surgery: Yes Social History Alcohol Use: No (STOPPED YEARS AGO. ) Tobacco Use: Yes Substance Use: No Allergies-Medications (Allergen,Severity, Reaction): Coded Allergies: Sulfa (Verified Allergy, Severe, Rash, 04/02/17) Ciprofloxacin (Verified Allergy, Mild, Rash, 04/02/17) Comments List of her allergies reviewed from the nursing note. Reported Meds & Prescriptions Reported Meds & Active Scripts Active Ventolin Hfa 18 GM Inh (Albuterol Sulfate) 90 Mcg/Act Aer 2 Puff INH Q4H PRN Creon (Amylase/Lipase/Protease) 24,000-76,000-120,000 Units Cap 1 Cap PO TIDAC 30 Days Reported Ibuprofen 600 Mg Tab 600 Mg PO TID Hydrocodone-Acetaminophen 5-325 mg Tab 1 Tab PO Q4H PRN Atenolol 50 Mg Tab 50 Mg PO DAILY Vitamin B-12 (Cyanocobalamin) 1,000 Mcg Tab 1,000 Mcg PO DAILY Protonix (Pantoprazole Sodium) 40 Mg Tab 40 Mg PO DAILY Lantus Inj (Insulin Glargine) 1,000 Unit/10 Ml Vial 15 Units SQ DAILY Novolog Inj (Insulin Aspart) 1,000 Unit/10 Ml Vial 0 SQ DIRECTED Sliding Scale as directed. Gabapentin 300 Mg Cap 300 Mg PO TID Calcium Ascorbate 500 Mg Tab 500 Mg PO DAILY Narrative Medication List of her home medications reviewed from the nursing note. Review of Systems Except as stated in HPI: all other systems reviewed are Neg Physical Exam Narrative GENERAL: Awake, alert, moderate distress, disheveled SKIN: Focused skin assessment warm/dry. HEAD: Atraumatic. Normocephalic. EYES: Pupils equal and round. No scleral icterus. No injection or drainage. ENT: No nasal bleeding or discharge. Mucous membranes pink and moist. NECK: Trachea midline. No JVD. CARDIOVASCULAR: Regular rate and rhythm. No murmur appreciated. RESPIRATORY: No accessory muscle use. Clear to auscultation. Breath sounds equal bilaterally. GASTROINTESTINAL: Abdomen soft, non-tender, nondistended. Hepatic and splenic margins not palpable. MUSCULOSKELETAL: No obvious deformities. No clubbing. No cyanosis. No edema. NEUROLOGICAL: Awake and alert. No obvious cranial nerve deficits. Motor grossly within normal limits. Normal speech. Decreased range of motion at the left shoulder joint due to the pain. PSYCHIATRIC: Appropriate mood and affect; insight and judgment normal. Data Data Last Documented VS Vital Signs Date Time Temp Pulse Resp B/P Pulse Ox O2 Delivery O2 Flow Rate FiO2 04/02/17 11:34 20 04/02/17 09:49 98.2 76 150/117 98 Orders Morphine Inj (Morphine Inj) (04/02/17 10:30) Ketorolac Inj (Toradol Inj) (04/02/17 10:30) [facility] Medical Decision Making Medical Screen Exam Complete: Yes Emergency Medical Condition: Yes Medical Record Reviewed: Yes Differential Diagnosis Shoulder joint arthritis, rotator cuff tear Narrative Course 10:37 AM patient is getting IM injection for pain medication. Her know that she needs to follow up with an orthopedist. She is a patient of [facility] and will try to get a referral from [facility] for that. After that she'll be discharged home. Procedures EKG Prior to Arrival: No Diagnosis Primary Impression: Pain, joint, shoulder Qualified Code: M25.512 - Pain in joint of left shoulder Referrals: Primary Care Physician Additional Instructions: Please ask your primary care to give you a referral to an orthopedist [facility]. Continue taking her pain medications like is supposed to. You can apply warm compresses alternating with cold compress on the joint for pain relief. Med/Other Pt SpecificInfo: No Change to Meds Disposition: 01 DISCHARGE HOME Condition: Stable Juan Amezquita MD April 02, 2017 10:12 Juan Amezquita MD April 02, 2017 10:12
[2017-04-02] MEDS ORDERED: KETOROLAC TROMETHAMINE 60 MG/2 ML (IM) VIAL IM ONE (10:30)
[2017-04-02] MEDS ORDERED: MORPHINE SULFATE 8 MG/ML INJ IM ONE (10:30)
[2017-04-02] MEDS ORDERED: HYDR-3516 PO (10:40)
[2017-04-02] MEDS ORDERED: IBUP-232 PO (10:40)
[2017-04-02] MEDS ORDERED: ATEN50TA PO (10:40)
[2017-04-02 11:34] VITALS: RESP 20
== END 2017-04-02 11:35 | disposition home or self-care (01) ==
LOC: NEPD 09:47
DX: M25.512 Pain in left shoulder (principal); I10 Essential (primary) hypertension; E78.00 Pure hypercholesterolemia, unspecified; E11.9 Type 2 diabetes mellitus without complications; Z79.4 Long term (current) use of insulin; Z72.0 Tobacco use
CPT/HCPCS: 96372; 99283; J1885; J2270

== ENCOUNTER 2017-04-11 11:03 | Emergency (ER) | payer OTHER ==
[~2017-04-11] VITALS: Ht 165.1 cm; Wt 60.0 kg
[~2017-04-11 11:03] MED LIST changes: +ATEN50TA PO; -FERR325T PO; +HYDR-3516 PO; +IBUP-232 PO; -LISI10TA3 PO; -ZITHTAB PO
[2017-04-11 11:05] VITALS: BP 160/88; PULSE 70; RESP 20; TEMP 97.8; O2SAT 98
[2017-04-11] MEDS ORDERED: SODIUM CHLORID 0.9% 500 ML INJ 500 ML IV ONE (11:30)
[2017-04-11] MEDS ORDERED: SODIUM CHLORIDE 0.9% FLUSH 10 ML FLUSH IV FLUSH PRN (11:30)
[2017-04-11 11:58] VITALS: O2SAT 96
--- NOTE | 2017-04-11 12:19 | PD ---
HPI Chief Complaint: Abnormal Results Time Seen by Provider: 11:34 Travel History International Travel<30 days: No Contact w/Intl Traveler<30days: No Traveled to known affect area: No History of Present Illness HPI [facility] having found to be hyperkalemic on recent blood tests. Patient states she is having blood work done as pretesting for MRI for her chronic pancreatitis. Patient denies any chest pain , shortness of breath, numbness or tingling, abdominal pain, fevers, or loss or change in bowel or bladder. Patient states she has had intermittent palpitations over the past 3 days. PFSH Past Medical History Hx Anticoagulant Therapy: Yes Anxiety: Yes Depression: No Cancer: No Cardiovascular Problems: Yes (htn) High Cholesterol: Yes (PT STATES [facility] STATIN [facility]) Diabetes: Yes Patient Takes Glucophage: No Diminished Hearing: No Endocrine: Yes Gastrointestinal Disorders: Yes (chronic PANCREATITIS, GASTROPARESIS) GERD: Yes Genitourinary: No Hypertension: Yes Immune Disorder: No Musculoskeletal: Yes Neurologic: Yes Psychiatric: Yes (PTSD) Reproductive: No Respiratory: Yes (SMOKERS COUGH) Immunizations Current: Yes Migraines: Yes Pancreatitis: Yes (ALCOHOLIC) Thyroid Disease: Yes ("7 TUMORS ON THYROID", BEING FOLLOWED. THYROID FUNCTION IS GOOD.) ?: Not : 2 Para: 2 Miscarriage: 0 : 0 Past Surgical History Abdominal Surgery: Yes (APPENDECTOMY) Appendectomy: Yes Section: Yes Gynecologic Surgery: Yes (, HYSTERECTOMY WITH BILATERAL OOPHORECTOMY) Hysterectomy: Yes Other Surgery: Yes Social History Alcohol Use: No Tobacco Use: Yes Substance Use: No Allergies-Medications (Allergen,Severity, Reaction): Coded Allergies: Sulfa (Verified Allergy, Severe, Rash, 04/11/17) Ciprofloxacin (Verified Allergy, Mild, Rash, 04/11/17) Reported Meds & Prescriptions Reported Meds & Active Scripts Active Ventolin Hfa 18 GM Inh (Albuterol Sulfate) 90 Mcg/Act Aer 2 Puff INH Q4H PRN Creon (Amylase/Lipase/Protease) 24,000-76,000-120,000 Units Cap 1 Cap PO TIDAC 30 Days Reported Ibuprofen 600 Mg Tab 600 Mg PO TID Atenolol 50 Mg Tab 50 Mg PO DAILY Vitamin B-12 (Cyanocobalamin) 1,000 Mcg Tab 1,000 Mcg PO DAILY Protonix (Pantoprazole Sodium) 40 Mg Tab 40 Mg PO DAILY Lantus Inj (Insulin Glargine) 1,000 Unit/10 Ml Vial 15 Units SQ DAILY Novolog Inj (Insulin Aspart) 1,000 Unit/10 Ml Vial 0 SQ DIRECTED Sliding Scale as directed. Gabapentin 300 Mg Cap 300 Mg PO TID Calcium Ascorbate 500 Mg Tab 500 Mg PO DAILY Review of Systems Except as stated in HPI: all other systems reviewed are Neg Physical Exam Narrative GENERAL: Well-developed, well nourished, in no acute distress, and non-ill appearing. SKIN: Focused skin assessment warm and dry. HEAD: Atraumatic. Normocephalic. EYES: Pupils equal and round. EOMI. No scleral icterus. No injection or drainage. ENT: No nasal bleeding or discharge. Mucous membranes pink and moist. NECK: Trachea midline. Supple. No nuclear rigidity. CARDIOVASCULAR: Regular rate and rhythm. No murmur appreciated. RESPIRATORY: No accessory muscle use. No respiratory distress. Clear to auscultation. Breath sounds equal bilaterally. MUSCULOSKELETAL: No obvious deformities. No clubbing. No cyanosis. No edema. Full range of motion. NEUROLOGICAL: Awake and alert. No obvious cranial nerve deficits. Motor grossly within normal limits. Normal speech. PSYCHIATRIC: Appropriate mood and affect; insight and judgment normal. Data Data Last Documented VS Vital Signs Date Time Temp Pulse Resp B/P Pulse Ox O2 Delivery O2 Flow Rate FiO2 04/11/17 11:58 96 Room Air 04/11/17 11:05 97.8 70 20 160/88 Orders Basic Metabolic Panel (Bmp) (04/11/17 11:30) Iv Access Insert/Monitor (04/11/17 11:30) Ecg Monitoring (04/11/17 11:30) Oximetry (04/11/17 11:30) Sodium Chloride 0.9% Flush (Ns Flush) (04/11/17 11:30) Electrocardiogram (04/11/17 11:30) Sodium Chlorid 0.9% 500 Ml Inj (Ns 500 M (04/11/17 11:30) Labs Laboratory Tests Test 04/11/17 11:46 Sodium Level 139 MEQ/L Potassium Level 4.1 MEQ/L Chloride Level 103 MEQ/L Carbon Dioxide Level 27.8 MEQ/L Anion Gap 8 MEQ/L Blood Urea Nitrogen 7 MG/DL Creatinine 0.88 MG/DL Estimat Glomerular Filtration 67 ML/MIN Rate Random Glucose 110 MG/DL Calcium Level 9.4 MG/DL MDM Medical Decision Making Medical Screen Exam Complete: Yes Emergency Medical Condition: Yes Interpretation(s) Reviewed by Dr. Amezquita shows sinus rhythm with a ventricular rate of 66. No STEMI. Differential Diagnosis Hyperkalemia, renal failure, arrhythmia, other Narrative Course Patient in no obvious distress upon re-evaluation. All pertinent laboratory result(s) discussed with patient. I discussed patient with Dr. Amezquita prior to discharge, who is in agreement with plan of care and disposition. Any questions/concerns in reference to patient diagnosis/condition discussed and clarified prior to patient's discharge. Reinforced sheer importance of close follow up with patient's primary physician or primary care clinic. Instructed patient to return to ED immediately, if symptoms return/worsen. Pt showed understanding of above instructions. Further instructions and recommendations were detailed in discharge paperwork. Pt ambulated without difficulty out of ED at discharge. Diagnosis Primary Impression: No problem, feared complaint unfounded Additional Instructions: Follow-up with your primary care physician as scheduled. Return to the emergency department if symptoms get worse. Disposition: 01 DISCHARGE HOME Condition: Stable Antonio Chung April 11, 2017 11:37
[2017-04-11 12:22] LABS: BICARBONATE 27.8 MEQ/L (21.0-32.0); POTASSIUM 4.1 MEQ/L (3.5-5.1)
--- NOTE | 2017-04-12 14:37 | EKG ---
Date Performed: 04/11/2017 Time Performed: 11:39:28 PTAGE: 52 years EKG: Sinus rhythm NONSPECIFIC T-WAVE ABNORMALITY Compared to the previous tracing rate has slowed, T wave abnormality persists Clinical correlation is recommended BORDERLINE ECG PREVIOUS TRACING : 03/28/2017 07.50 DOCTOR: Fer Briggs Interpretating Date/Time 04/12/2017 14:36:38
== END 2017-04-11 12:43 | disposition home or self-care (01) ==
LOC: NEPD 11:03
DX: Z03.89 Encounter for observation for other suspected diseases and conditions ruled out (principal); R00.2 Palpitations; R94.31 Abnormal electrocardiogram [ECG] [EKG]; E11.9 Type 2 diabetes mellitus without complications; I10 Essential (primary) hypertension; E07.9 Disorder of thyroid, unspecified; E78.00 Pure hypercholesterolemia, unspecified; Z72.0 Tobacco use; Z79.4 Long term (current) use of insulin; Z79.01 Long term (current) use of anticoagulants; Z86.59 Personal history of other mental and behavioral disorders; Z86.79 Personal history of other diseases of the circulatory system; Z87.19 Personal history of other diseases of the digestive system; Z87.39 Personal history of other diseases of the musculoskeletal system and connective tissue; Z86.69 Personal history of other diseases of the nervous system and sense organs
CPT/HCPCS: 80048; 93005; 96360; 99283; J7040

== ENCOUNTER 2017-04-19 11:37 | Inpatient (IN) | payer OTHER ==
[~2017-04-19] VITALS: Ht 165.1 cm; Wt 61.7 kg
[2017-04-19] VITALS (10 sets, daily range): BP systolic 104–168; BP diastolic 68–93; PULSE 73–93; RESP 16–24; TEMP 98.5–98.8; O2SAT 94–98
[~2017-04-19 11:37] MED LIST changes: -HYDR-3516 PO
[2017-04-19] MEDS ORDERED: SODIUM CHLORIDE 0.9% FLUSH 10 ML FLUSH IVF PRN (12:30)
--- NOTE | 2017-04-19 12:40 | PD ---
HPI Chief Complaint: Respiratory Symptoms Time Seen by Provider: 12:40 Travel History International Travel<30 days: No Contact w/Intl Traveler<30days: No Traveled to known affect area: No History of Present Illness HPI 52 year old female with history of diabetes, chronic pancreatitis, and tobacco dependency presents to the ED for evaluation of an epigastric pain that bands around her upper abdomen as an ache but becomes a sharp pain in her back. The pain started 3 days ago. She reports the epigastric and abdominal pain more like "a kick in the stomach." Patient is concerned that she may have pneumonia again because the pain is exacerbated by deep inspiration. She has not had any fever or chills however she reports being unable to keep any food or drink down since this morning. He denies any hematemesis. Bowel movements and voids have been regular. Patient denies any chest pain or tightness. No difficulty breathing. Patient does smoke half-pack tobacco cigarettes daily. She has no other symptoms to report. PFSH Past Medical History Hx Anticoagulant Therapy: Yes Anxiety: Yes Depression: No Cancer: No Cardiovascular Problems: Yes (htn) High Cholesterol: Yes (PT STATES [facility] PUT HER ON STATIN PREVENTATIV) Diabetes: Yes Patient Takes Glucophage: No Diminished Hearing: No Endocrine: Yes Gastrointestinal Disorders: Yes (chronic PANCREATITIS, GASTROPARESIS) GERD: Yes Genitourinary: No Hypertension: Yes Immune Disorder: No Musculoskeletal: Yes Neurologic: Yes Psychiatric: Yes (PTSD) Reproductive: No Respiratory: Yes (SMOKERS COUGH) Immunizations Current: Yes Migraines: Yes Pancreatitis: Yes (ALCOHOLIC) Thyroid Disease: Yes ("7 TUMORS ON THYROID", BEING FOLLOWED. THYROID FUNCTION IS GOOD.) ?: Not : 2 Para: 2 Miscarriage: 0 : 0 Past Surgical History Abdominal Surgery: Yes (APPENDECTOMY) Appendectomy: Yes Section: Yes Gynecologic Surgery: Yes (, HYSTERECTOMY WITH BILATERAL OOPHORECTOMY) Hysterectomy: Yes Other Surgery: Yes Social History Alcohol Use: No Tobacco Use: Yes Substance Use: No Allergies-Medications (Allergen,Severity, Reaction): Coded Allergies: Sulfa (Verified Allergy, Severe, Rash, 04/19/17) Ciprofloxacin (Verified Allergy, Mild, Rash, 04/19/17) Reported Meds & Prescriptions Reported Meds & Active Scripts Active Ventolin Hfa 18 GM Inh (Albuterol Sulfate) 90 Mcg/Act Aer 2 Puff INH Q4H PRN Creon (Amylase/Lipase/Protease) 24,000-76,000-120,000 Units Cap 1 Cap PO TIDAC 30 Days Reported Ibuprofen 600 Mg Tab 600 Mg PO TID Atenolol 50 Mg Tab 50 Mg PO DAILY Vitamin B-12 (Cyanocobalamin) 1,000 Mcg Tab 1,000 Mcg PO DAILY Protonix (Pantoprazole Sodium) 40 Mg Tab 40 Mg PO DAILY Lantus Inj (Insulin Glargine) 1,000 Unit/10 Ml Vial 15 Units SQ DAILY Novolog Inj (Insulin Aspart) 1,000 Unit/10 Ml Vial 0 SQ DIRECTED Sliding Scale as directed. Gabapentin 300 Mg Cap 300 Mg PO TID Calcium Ascorbate 500 Mg Tab 500 Mg PO DAILY Review of Systems Except as stated in HPI: all other systems reviewed are Neg Physical Exam Narrative GENERAL: Well-nourished female patient, sitting up in bed, in no acute distress SKIN: Focused skin assessment warm/dry. HEAD: Atraumatic. Normocephalic. EYES: Pupils equal and round. No scleral icterus. No injection or drainage. ENT: No nasal bleeding or discharge. Mucous membranes pink and moist. NECK: Trachea midline. No JVD. CARDIOVASCULAR: Regular rate and rhythm. No murmur appreciated. RESPIRATORY: No accessory muscle use. Diminished bases, likely due to patient' s decreased effort for deep inspiration. Clear bilateral upper lobes. Breath sounds equal bilaterally. GASTROINTESTINAL: Abdomen and distended, soft. There is tenderness elicited to palpation in the epigastrium and left upper quadrant region. Slight guarding. No rebound tenderness.. Hepatic and splenic margins not palpable. MUSCULOSKELETAL: No obvious deformities. No clubbing. No cyanosis. No edema. NEUROLOGICAL: Awake and alert. No obvious cranial nerve deficits. Motor grossly within normal limits. Normal speech. PSYCHIATRIC: Appropriate mood and affect; insight and judgment normal. Data Data Last Documented VS Vital Signs Date Time Temp Pulse Resp B/P Pulse Ox O2 Delivery O2 Flow Rate FiO2 04/19/17 12:51 97 Nasal Cannula 2 04/19/17 12:50 81 146/88 04/19/17 11:39 98.8 24 Orders Electrocardiogram (04/19/17 12:19) Ckmb (Isoenzyme) Profile (04/19/17 12:19) Complete Blood Count With Diff (04/19/17 12:19) Comprehensive Metabolic Panel (04/19/17 12:19) Magnesium (Mg) (04/19/17 12:19) Prothrombin Time / Inr (Pt) (04/19/17 12:19) Act Partial Throm Time (Ptt) (04/19/17 12:19) Troponin I (04/19/17 12:19) Chest, Single Ap (04/19/17 12:19) Ecg Monitoring (04/19/17 12:19) Bilateral Bp Monitoring (04/19/17 12:19) Iv Access Insert/Monitor (04/19/17 12:19) Oximetry (04/19/17 12:19) Oxygen Administration (04/19/17 12:19) Sodium Chloride 0.9% Flush (Ns Flush) (04/19/17 12:30) Lipase (04/19/17 12:19) Urinalysis - C+S If Indicated (04/19/17 12:19) Electrocardiogram (04/19/17 12:19) Morphine Inj (Morphine Inj) (04/19/17 13:30) Admit To Inpatient (04/19/17 ) Inpatient Certification (04/19/17 ) Vital Signs (Adult) ANANT.Q4H (04/19/17 13:51) Activity Oob Ad Kim (04/19/17 13:51) Admit Order (Ed Use Only) (04/19/17 13:51) Labs Laboratory Tests Test 04/19/17 12:30 White Blood Count 8.9 TH/MM3 Red Blood Count 3.78 MIL/MM3 Hemoglobin 10.5 GM/DL Hematocrit 30.8 % Mean Corpuscular Volume 81.5 FL Mean Corpuscular Hemoglobin 27.6 PG Mean Corpuscular Hemoglobin 33.9 % Concent Red Cell Distribution Width 20.9 % Platelet Count 375 TH/MM3 Mean Platelet Volume 7.5 FL Neutrophils (%) (Auto) 70.6 % Lymphocytes (%) (Auto) 18.0 % Monocytes (%) (Auto) 8.8 % Eosinophils (%) (Auto) 1.8 % Basophils (%) (Auto) 0.8 % Neutrophils # (Auto) 6.3 TH/MM3 Lymphocytes # (Auto) 1.6 TH/MM3 Monocytes # (Auto) 0.8 TH/MM3 Eosinophils # (Auto) 0.2 TH/MM3 Basophils # (Auto) 0.1 TH/MM3 CBC Comment DIFF FINAL Differential Comment Prothrombin Time 10.5 SEC Prothromb Time International 1.0 RATIO Ratio Activated Partial 26.9 SEC Thromboplast Time Urine Color LIGHT-YELLOW Urine Turbidity CLEAR Urine pH 6.0 Urine Specific [place] 1.005 Urine Protein NEG mg/dL Urine Glucose (UA) 1000 mg/dL Urine Ketones NEG mg/dL Urine Occult Blood NEG Urine Nitrite NEG Urine Bilirubin NEG Urine Urobilinogen LESS THAN 2.0 MG/DL Urine Leukocyte Esterase NEG Urine RBC LESS THAN 1 /hpf Urine Squamous Epithelial <1 /hpf Cells Urine Bacteria RARE /hpf Microscopic Urinalysis Comment CULT NOT INDICATED Sodium Level 135 MEQ/L Potassium Level 3.8 MEQ/L Chloride Level 101 MEQ/L Carbon Dioxide Level 25.9 MEQ/L Anion Gap 8 MEQ/L Blood Urea Nitrogen 7 MG/DL Creatinine 0.86 MG/DL Estimat Glomerular Filtration 69 ML/MIN Rate Random Glucose 334 MG/DL Calcium Level 9.4 MG/DL Magnesium Level 1.9 MG/DL Total Bilirubin 0.5 MG/DL Aspartate Amino Transf 26 U/L (AST/SGOT) Alanine Aminotransferase 27 U/L (ALT/SGPT) Alkaline Phosphatase 142 U/L Total Creatine Kinase 53 U/L Troponin I LESS THAN 0.02 NG/ML Total Protein 7.5 GM/DL Albumin 3.2 GM/DL Lipase 1298 U/L [facility] Medical Decision Making Medical Screen Exam Complete: Yes Emergency Medical Condition: Yes Medical Record Reviewed: Yes Differential Diagnosis Acute on chronic pancreatitis versus GERD versus cholecystitis versus ACS versus pneumonia Narrative Course 52-year-old female presents to emergency department for evaluation. Patient appears without distress. She does have epigastric left upper quadrant tenderness to deep palpation. She otherwise appears well. Laboratory Tests Test 04/19/17 12:30 White Blood Count 8.9 TH/MM3 Red Blood Count 3.78 MIL/MM3 Hemoglobin 10.5 GM/DL Hematocrit 30.8 % Mean Corpuscular Volume 81.5 FL Mean Corpuscular Hemoglobin 27.6 PG Mean Corpuscular Hemoglobin 33.9 % Concent Red Cell Distribution Width 20.9 % Platelet Count 375 TH/MM3 Mean Platelet Volume 7.5 FL Neutrophils (%) (Auto) 70.6 % Lymphocytes (%) (Auto) 18.0 % Monocytes (%) (Auto) 8.8 % Eosinophils (%) (Auto) 1.8 % Basophils (%) (Auto) 0.8 % Neutrophils # (Auto) 6.3 TH/MM3 Lymphocytes # (Auto) 1.6 TH/MM3 Monocytes # (Auto) 0.8 TH/MM3 Eosinophils # (Auto) 0.2 TH/MM3 Basophils # (Auto) 0.1 TH/MM3 CBC Comment DIFF FINAL Differential Comment Prothrombin Time 10.5 SEC Prothromb Time International 1.0 RATIO Ratio Activated Partial 26.9 SEC Thromboplast Time Urine Color LIGHT-YELLOW Urine Turbidity CLEAR Urine pH 6.0 Urine Specific [place] 1.005 Urine Protein NEG mg/dL Urine Glucose (UA) 1000 mg/dL Urine Ketones NEG mg/dL Urine Occult Blood NEG Urine Nitrite NEG Urine Bilirubin NEG Urine Urobilinogen LESS THAN 2.0 MG/DL Urine Leukocyte Esterase NEG Urine RBC LESS THAN 1 /hpf Urine Squamous Epithelial <1 /hpf Cells Urine Bacteria RARE /hpf Microscopic Urinalysis Comment CULT NOT INDICATED Sodium Level 135 MEQ/L Potassium Level 3.8 MEQ/L Chloride Level 101 MEQ/L Carbon Dioxide Level 25.9 MEQ/L Anion Gap 8 MEQ/L Blood Urea Nitrogen 7 MG/DL Creatinine 0.86 MG/DL Estimat Glomerular Filtration 69 ML/MIN Rate Random Glucose 334 MG/DL Calcium Level 9.4 MG/DL Magnesium Level 1.9 MG/DL Total Bilirubin 0.5 MG/DL Aspartate Amino Transf 26 U/L (AST/SGOT) Alanine Aminotransferase 27 U/L (ALT/SGPT) Alkaline Phosphatase 142 U/L Total Creatine Kinase 53 U/L Troponin I LESS THAN 0.02 NG/ML Total Protein 7.5 GM/DL Albumin 3.2 GM/DL Lipase 1298 U/L I spoke with Dr. Castaneda regarding the patient's lab results. Although a history of chronic pancreatitis, her lipase is quite elevated at 1298. She will be admitting to [facility] service. Plan is discussed with the patient. She is in agreement with plan of care. Diagnosis Primary Impression: Acute on chronic pancreatitis Admitting Information Admitting Physician Requests: Admit Condition: Stable Deisi CaseP April 19, 2017 12:40
[2017-04-19 12:51] LABS: AUTOMATED NEUTROPHIL # 6.3 TH/MM3 (1.8-7.7); BASOPHIL # 0.1 TH/MM3 (0-0.2); BASOPHIL % 0.8 % (0.0-2.0); EOSINOPHIL # 0.2 TH/MM3 (0-0.4); EOSINOPHIL % 1.8 % (0.0-4.0); HEMATOCRIT 30.8 % (35.0-46.0); HEMO FLAGS DIFF FINAL; LYMPHOCYTE # 1.6 TH/MM3 (1.0-4.8); MEAN CELL VOLUME 81.5 FL (80.0-100.0); MEAN CORPUSCULAR HEMOGLOBIN 27.6 PG (27.0-34.0); MEAN CORPUSCULAR HGB CONC 33.9 % (32.0-36.0); MONO % 8.8 % (0.0-8.0); NEUT % 70.6 % (16.0-70.0); PLATELET COUNT 375 TH/MM3 (150-450); RED BLOOD COUNT 3.78 MIL/MM3 (4.00-5.30); RED CELL DISTRIBUTION WIDTH 20.9 % (11.6-17.2); WHITE BLOOD COUNT 8.9 TH/MM3 (4.0-11.0)
[2017-04-19 12:58] LABS: BACTERIA, URINE RARE /hpf; BLOOD, URINE NEG (NEG); COMMENT (UR) CULT NOT INDICATED; CULTURE IF INDICATED CULT NOT INDICATED; GLUCOSE,URINE 1000 mg/dL (NEG); KETONE, URINE NEG (NEG); NITRITE,URINE NEG (NEG); SQUAMOUS EPITHELIAL CELL URINE <1 /hpf (0-5); URINE COLOR LIGHT-YELLOW (YELLW/STRAW)
[2017-04-19 13:01] LABS: APTT (PATIENT) 26.9 SEC (24.3-30.1); PROTHROMBIN TIME - PATIENT 10.5 SEC (9.8-11.6)
[2017-04-19 13:21] LABS: ANION GAP 8 MEQ/L (5-15); AST (GOT) 26 U/L (15-37); BICARBONATE 25.9 MEQ/L (21.0-32.0); BLOOD UREA NITROGEN 7 MG/DL (7-18); CHLORIDE 101 MEQ/L (98-107); GLOMERULAR FILTRATION RATE 69 ML/MIN (>89); MAGNESIUM 1.9 MG/DL (1.5-2.5); POTASSIUM 3.8 MEQ/L (3.5-5.1); SODIUM (NA) 135 MEQ/L (136-145)
--- NOTE | 2017-04-19 13:21 | RADRPT ---
EXAM DATE/TIME: 04/19/2017 12:22 [place] COMPARISON: CHEST SINGLE AP, March 28, 2017, 9:00. INDICATIONS : Chest pain MEDICAL HISTORY : Hypertension. Diabetes mellitus type II. Pancreatitis. SURGICAL HISTORY : None. ENCOUNTER: Initial ACUITY: 3 days PAIN SCORE: 9/10 LOCATION: Bilateral chest FINDINGS: There is stable elevation of the left diaphragm. No evidence of infiltrate or effusion. Cardiomediast inal contours are stable. CONCLUSION: Stable elevation of the left diaphragm. Tim Valencia MD on April 19, 2017 at 13:00 Board Certified Radiologist. This report was verified electronically.
[2017-04-19 13:25] LABS: ALKALINE PHOSPHATASE 142 U/L (45-117); ALT (GPT) 27 U/L (10-53); TOTAL BILIRUBIN ADULT 0.5 MG/DL (0.2-1.0)
[2017-04-19] MEDS ORDERED: MORPHINE SULFATE 8 MG/ML INJ IV PUSH ONE (13:30)
[2017-04-19 13:31] LABS: CREATINE KINASE 53 U/L (26-192)
[2017-04-19] MEDS ORDERED: ONDANSETRON HCL 4 MG/2 ML VIAL IV PUSH ONE (14:00)
[2017-04-19] MEDS: PANTOPRAZOLE SODIUM 40 MG VIAL IV PUSH SCH (15:10)
[2017-04-19] MEDS ORDERED: HYDROmorphone HCL PF 1 MG/ML VIAL IV PUSH PRN (15:45)
[2017-04-19] MEDS: POTASSIUM CHLORIDE INJ 10 MEQ in SODIUM CHLOR 0.9% 1000 ML INJ 1,000 ML IV SCH (15:50)
[2017-04-19] MEDS ORDERED: GLUCAGON 1 MG/ML VIAL OTHER PRN (16:00)
[2017-04-19] MEDS ORDERED: HYDROmorphone HCL PF 1 MG/ML VIAL IV PRN (16:00)
[2017-04-19] MEDS ORDERED: ACETAMINOPHEN 325 MG TAB PO PRN (16:00)
[2017-04-19] MEDS ORDERED: ONDANSETRON HCL 4 MG/2 ML VIAL IVP PRN (16:00)
[2017-04-19] MEDS: REMOVE OLD PATCH T-DERMAL SCH (16:00)
[2017-04-19] MEDS ORDERED: SODIUM CHLORIDE 0.9% FLUSH 10 ML FLUSH IV FLUSH PRN (16:00)
[2017-04-19] MEDS ORDERED: NALOXONE HCL 0.4 MG/ML AMP IV PRN (16:00)
[2017-04-19] MEDS ORDERED: DEXTROSE 50% IN WATER 50 ML VIAL(D50) IV PRN (16:00)
[2017-04-19] MEDS ORDERED: MAGNESIUM HYDROXIDE SUSP 30 ML CUP PO PRN (16:00)
[2017-04-19] MEDS ORDERED: ALBUTEROL SULFATE 90 MCG/ACT HFA 8 GM INHALER INH PRN (16:15)
[2017-04-19] MEDS ORDERED: cloNIDine HCL 0.1 MG TAB PO PRN (16:15)
[2017-04-19] MEDS ORDERED: ENALAPRILAT 1.25 MG/ML VIAL IV PRN (16:15)
--- NOTE | 2017-04-19 16:32 | HHI.HP ---
[facility] Ad[facility] Diagnosis Acute on chronic pancreatitis Diagnoses: Chief Complaint: Abdominal pain Travel History International Travel<30 Days: No Contact w/Intl Traveler <30 Da: No Traveled to Known Affected Are: No History of Present Illness This is a 52 year old female with history of diabetes, hypertension, GERD, chronic pancreatitis, anxiety, PTSD and tobacco dependency. She presents to the ED because of epigastric pain that wraps around her upper abdomen. Describes as a constant ache but becomes a severe sharp pain in her back exacerbated by eating and deep inspiration. The pain started 3 days ago. She has not had any fever or chills however she reports being unable to keep any food or drink down today. Denies any hematemesis, constipation, diarrhea and UTI symptoms. No chest pain or tightness. No difficulty breathing. Patient does smoke half- pack tobacco cigarettes daily. All other systems reviewed negative. Lipase over 1200 and patient has been advised admission for further evaluation and treatment. Patient has quit alcohol Review of Systems Except as stated in HPI: all other systems reviewed are Neg Past Family Social History Past Medical History As previously mentioned Past Surgical History Appendectomy, hysterectomy with bilateral oophorectomy, section Reported Medications Atenolol 50 Mg Tab 50 Mg PO DAILY Vitamin B-12 (Cyanocobalamin) 1,000 Mcg Tab 1,000 Mcg PO DAILY Protonix (Pantoprazole Sodium) 40 Mg Tab 40 Mg PO DAILY Lantus Inj (Insulin Glargine) 1,000 Unit/10 Ml Vial 15 Units SQ DAILY Novolog Inj (Insulin Aspart) 1,000 Unit/10 Ml Vial 0 SQ DIRECTED Sliding Scale as directed. Gabapentin 300 Mg Cap 300 Mg PO TID Albuterol Creon BuSpar Allergies: Coded Allergies: Sulfa (Verified Allergy, Severe, Rash, 04/19/17) Ciprofloxacin (Verified Allergy, Mild, Rash, 04/19/17) Family History No diabetes mellitus Social History Used to drink. Continues to smoke half pack per day. Does not use illicit drugs. Lives with her . Physical Exam Vital Signs Vital Signs Date Time Temp Pulse Resp B/P Pulse Ox O2 Delivery O2 Flow Rate FiO2 04/19/17 12:51 97 Nasal Cannula 2 04/19/17 12:50 81 146/88 04/19/17 12:45 83 168/93 04/19/17 12:07 98 Room Air 04/19/17 11:39 98.8 93 24 163/92 98 Room Air Physical Exam GENERAL: This is a well-nourished, well-developed patient, in no apparent distress. SKIN: No rashes, ecchymoses or lesions. Cool and dry. HEAD: Atraumatic. Normocephalic. No temporal or scalp tenderness. EYES: Pupils equal round and reactive. Extraocular motions intact. No scleral icterus. No injection or drainage. ENT: Nose without bleeding, purulent drainage or septal hematoma. Throat without erythema, tonsillar hypertrophy or exudate. Uvula midline. Airway patent. NECK: Trachea midline. No JVD or lymphadenopathy. Supple, nontender, no meningeal signs. CARDIOVASCULAR: Regular rate and rhythm without murmurs, gallops, or rubs. RESPIRATORY: Clear to auscultation. Breath sounds equal bilaterally. No wheezes , rales, or rhonchi. GASTROINTESTINAL: Abdomen soft, tender epigastric, nondistended. No guarding. MUSCULOSKELETAL: Extremities without clubbing, cyanosis, or edema. No joint tenderness, effusion, or edema noted. No calf tenderness. Negative Homans sign bilaterally. NEUROLOGICAL: Awake and alert. Cranial nerves II through XII intact. Motor and sensory grossly within normal limits. Five out of 5 muscle strength in all muscle groups. Normal speech. Laboratory Laboratory Tests Test 04/19/17 12:30 White Blood Count 8.9 Red Blood Count 3.78 Hemoglobin 10.5 Hematocrit 30.8 Mean Corpuscular Volume 81.5 Mean Corpuscular Hemoglobin 27.6 Mean Corpuscular Hemoglobin 33.9 Concent Red Cell Distribution Width 20.9 Platelet Count 375 Mean Platelet Volume 7.5 Neutrophils (%) (Auto) 70.6 Lymphocytes (%) (Auto) 18.0 Monocytes (%) (Auto) 8.8 Eosinophils (%) (Auto) 1.8 Basophils (%) (Auto) 0.8 Neutrophils # (Auto) 6.3 Lymphocytes # (Auto) 1.6 Monocytes # (Auto) 0.8 Eosinophils # (Auto) 0.2 Basophils # (Auto) 0.1 CBC Comment DIFF FINAL Differential Comment Prothrombin Time 10.5 Prothromb Time International 1.0 Ratio Activated Partial 26.9 Thromboplast Time Urine Color LIGHT-YELLOW Urine Turbidity CLEAR Urine pH 6.0 Urine Specific [place] 1.005 Urine Protein NEG Urine Glucose (UA) 1000 Urine Ketones NEG Urine Occult Blood NEG Urine Nitrite NEG Urine Bilirubin NEG Urine Urobilinogen LESS THAN 2.0 Urine Leukocyte Esterase NEG Urine RBC LESS THAN 1 Urine Squamous Epithelial <1 Cells Urine Bacteria RARE Microscopic Urinalysis Comment CULT NOT INDICATED Sodium Level 135 Potassium Level 3.8 Chloride Level 101 Carbon Dioxide Level 25.9 Anion Gap 8 Blood Urea Nitrogen 7 Creatinine 0.86 Estimat Glomerular Filtration 69 Rate Random Glucose 334 Calcium Level 9.4 Magnesium Level 1.9 Total Bilirubin 0.5 Aspartate Amino Transf 26 (AST/SGOT) Alanine Aminotransferase 27 (ALT/SGPT) Alkaline Phosphatase 142 Total Creatine Kinase 53 Troponin I LESS THAN 0.02 Total Protein 7.5 Albumin 3.2 Lipase 1298 Result Diagram: 04/19/17 1230 04/19/17 1230 Imaging EKG tracing interpreted by me with sinus rhythm with nonspecific ST-T wave changes in the inferior oh anterior leads Chest x-ray image interpreted by me with no acute findings Last Impressions Chest X-Ray 04/19/17 1219 Signed Impressions: Service Date/Time: March 12:22 - CONCLUSION: Stable elevation of the left diaphragm. Tim Valencia MD Assessment and Plan Problem List: (1) Acute on chronic pancreatitis ICD Code: K85.9 Status: Acute Assessment and Plan This is a 52 year old female who presents to the ED because of epigastric pain that wraps around her upper abdomen. Describes as a constant ache but becomes a severe sharp pain in her back exacerbated by eating and deep inspiration. Unable to keep any food or drink down today. Lipase over 1200 Acute on chronic pancreatitis. Keep nothing by mouth and start IV hydration, pain management with IV Dilaudid cancel regarding narcotics. Repeat CBC, CMP and lipase in the morning. Pseudohyponatremia. Repeat BMP in the morning. Chronic anemia. Stable repeat CBC in the morning Chronic medical conditions of of diabetes, hypertension, GERD, anxiety, PTSD and tobacco dependency. Continue outpatient medications as upper plate. Monitor fingersticks with sliding scale coverage hold long-acting insulin for now. Tobacco cessation. Nicotinic patch. Discussed Condition With pt and nursing staff Physician Certification 2 Midnight Certification Type: Admission for Inpatient Services Order for Inpatient Services The services are ordered in accordance with Medicare regulations or non- Medicare payer requirements, as applicable. In the case of services not specified as inpatient-only, they are appropriately provided as inpatient services in accordance with the 2-midnight benchmark. Estimated LOS (days): 2 days is the estimated time the patient will need to remain in the hospital, assuming treatment plan goals are met and no additional complications. Post-Hospital Plan: Home AbandDavid gallardo MD April 19, 2017 16:32
[2017-04-19] MEDS: NICOTINE 21 MG/24 HR PATCH T-DERMAL SCH (16:58)
[2017-04-19] MEDS ORDERED: LIPASE/PROTEASE/AMYLASE (24,000/76,000/120,000) CAP PO SCH (17:00)
[2017-04-19 17:05] LABS: AMPHETAMINE, URINE NEG (NEG); BARBITURATES, URINE NEG (NEG); COCAINE, URINE NEG (NEG)
[2017-04-19] MEDS: INSULIN ASPART SUPPLEMENTAL SCALE SQ SCH ×2 (17:47→21:00)
[2017-04-19] MEDS: GABAPENTIN 300 MG CAP PO SCH (18:01)
[2017-04-19] MEDS ORDERED: CREON12 PO (20:03)
[2017-04-19] MEDS ORDERED: BUSP30TA PO (20:03)
[2017-04-19] MEDS: DOCUSATE SODIUM 50 MG/SENNA 8.6 MG TAB PO SCH (21:10)
[2017-04-19] MEDS: HYDROmorphone HCL PF 1 MG/ML VIAL IV PRN (21:12)
[2017-04-19] MEDS: SODIUM CHLORIDE 0.9% FLUSH 10 ML FLUSH IV FLUSH SCH (21:16)
[2017-04-20] VITALS (7 sets, daily range): BP systolic 103–143; BP diastolic 61–82; PULSE 61–113; RESP 16–18; TEMP 96.3–99.2; O2SAT 93–99
[2017-04-20] MEDS: HYDROmorphone HCL PF 1 MG/ML VIAL IV PRN ×7 (02:11→21:15)
[2017-04-20] MEDS: REMOVE OLD PATCH T-DERMAL SCH (02:28)
[2017-04-20] MEDS: POTASSIUM CHLORIDE INJ 10 MEQ in SODIUM CHLOR 0.9% 1000 ML INJ 1,000 ML IV SCH ×2 (05:22→21:08)
[2017-04-20] MEDS: INSULIN ASPART SUPPLEMENTAL SCALE SQ SCH ×4 (05:38→22:06)
[2017-04-20] MEDS: ATENOLOL 50 MG TAB PO SCH (08:25)
[2017-04-20] MEDS: GABAPENTIN 300 MG CAP PO SCH ×3 (08:25→18:01)
[2017-04-20] MEDS: DOCUSATE SODIUM 50 MG/SENNA 8.6 MG TAB PO SCH ×2 (08:26→21:07)
[2017-04-20] MEDS: SODIUM CHLORIDE 0.9% FLUSH 10 ML FLUSH IV FLUSH SCH ×2 (08:30→21:07)
[2017-04-20] MEDS: NICOTINE 21 MG/24 HR PATCH T-DERMAL SCH (09:00)
[2017-04-20] MEDS: LIPASE/PROTEASE/AMYLASE (12,000/38,000/60,000) CAP PO SCH ×3 (09:30→18:30)
[2017-04-20 09:58] LABS: AUTOMATED NEUTROPHIL # 3.4 TH/MM3 (1.8-7.7); BASOPHIL # 0.1 TH/MM3 (0-0.2); BASOPHIL % 2.3 % (0.0-2.0); EOSINOPHIL # 0.2 TH/MM3 (0-0.4); EOSINOPHIL % 3.3 % (0.0-4.0); HEMATOCRIT 30.1 % (35.0-46.0); HEMO FLAGS DIFF FINAL; LYMPH % 34.5 % (9.0-44.0); LYMPHOCYTE # 2.2 TH/MM3 (1.0-4.8); MEAN CELL VOLUME 81.6 FL (80.0-100.0); MEAN CORPUSCULAR HEMOGLOBIN 26.4 PG (27.0-34.0); MEAN CORPUSCULAR HGB CONC 32.4 % (32.0-36.0); MONO % 6.9 % (0.0-8.0); PLATELET COUNT 348 TH/MM3 (150-450); RED BLOOD COUNT 3.69 MIL/MM3 (4.00-5.30); RED CELL DISTRIBUTION WIDTH 20.3 % (11.6-17.2); WHITE BLOOD COUNT 6.3 TH/MM3 (4.0-11.0)
[2017-04-20 10:32] LABS: ALKALINE PHOSPHATASE 121 U/L (45-117); ALT (GPT) 22 U/L (10-53); ANION GAP 7 MEQ/L (5-15); AST (GOT) 20 U/L (15-37); BICARBONATE 28.5 MEQ/L (21.0-32.0); BLOOD UREA NITROGEN 7 MG/DL (7-18); CHLORIDE 102 MEQ/L (98-107); GLOMERULAR FILTRATION RATE 85 ML/MIN (>89); MAGNESIUM 1.8 MG/DL (1.5-2.5); POTASSIUM 3.5 MEQ/L (3.5-5.1); SODIUM (NA) 137 MEQ/L (136-145); TOTAL BILIRUBIN ADULT 0.6 MG/DL (0.2-1.0)
[2017-04-20] MEDS: PANTOPRAZOLE SODIUM 40 MG VIAL IV PUSH SCH (13:07)
--- NOTE | 2017-04-20 14:30 | EKG ---
Date Performed: 04/19/2017 Time Performed: 12:43:17 PTAGE: 52 years EKG: Sinus rhythm NONSPECIFIC ST & T-WAVE ABNORMALITY BORDERLINE ECG Compared to prior tracing no significant change PREVIOUS TRACING : 04/11/2017 11.39 DOCTOR: Tanner Pina Interpretating Date/Time 04/20/2017 14:24:37
--- NOTE | 2017-04-20 14:48 | HHI.PR ---
Subjective Remarks Patient states abdominal pain is improving lipase is trending down denies nausea and vomiting stable vital signs Objective Vitals Vital Signs Date Time Temp Pulse Resp B/P Pulse Ox O2 Delivery O2 Flow Rate FiO2 04/20/17 08:00 98.2 73 16 107/72 93 04/20/17 04:00 98.3 78 18 132/80 96 04/20/17 00:00 99.2 89 18 112/76 95 04/19/17 23:20 94 21 04/19/17 21:53 84 04/19/17 21:00 98.5 86 18 112/84 95 04/19/17 18:01 87 20 104/68 96 Room Air 04/19/17 16:00 82 16 130/82 97 Room Air I/O 04/19/17 04/19/17 04/19/17 04/20/17 04/20/17 04/20/17 07:00 15:00 23:00 07:00 15:00 23:00 Intake Total 912 ml Balance 912 ml Intake IV Total 912 ml # Voids 4 Result Diagram: 04/20/17 0921 04/20/17 0921 Imaging Last Impressions Chest X-Ray 04/19/17 1219 Signed Impressions: Service Date/Time: March 12:22 - CONCLUSION: Stable elevation of the left diaphragm. Tim Valencia MD Objective Remarks GENERAL: This is a well-nourished, well-developed patient, in no apparent distress. SKIN: No rashes, ecchymoses or lesions. Cool and dry. HEAD: Atraumatic. Normocephalic. No temporal or scalp tenderness. EYES: Pupils equal round and reactive. Extraocular motions intact. No scleral icterus. No injection or drainage. ENT: Nose without bleeding, purulent drainage or septal hematoma. Throat without erythema, tonsillar hypertrophy or exudate. Uvula midline. Airway patent. NECK: Trachea midline. No JVD or lymphadenopathy. Supple, nontender, no meningeal signs. CARDIOVASCULAR: Regular rate and rhythm without murmurs, gallops, or rubs. RESPIRATORY: Clear to auscultation. Breath sounds equal bilaterally. No wheezes , rales, or rhonchi. GASTROINTESTINAL: Abdomen soft, tender epigastric, nondistended. No guarding. MUSCULOSKELETAL: Extremities without clubbing, cyanosis, or edema. No joint tenderness, effusion, or edema noted. No calf tenderness. Negative Homans sign bilaterally. NEUROLOGICAL: Awake and alert. Cranial nerves II through XII intact. Motor and sensory grossly within normal limits. Five out of 5 muscle strength in all muscle groups. Normal speech. Procedures none Medications and IVs Current Medications Medications (Trade) Dose Ordered Sig/Bandar Route Start Time Stop Time Status Last Admin Pantoprazole Sodium 40 mg 40 mg Q24H IV PUSH 04/19/17 14:00 04/20/17 13:07 (KCl Inj/NS 1000 ml Inj) 1,005 ml @ 70 mls/hr [id number] IV 04/19/17 15:00 04/20/17 05:22 (Dilaudid Pf Inj) 0.5 mg Q4H PRN IV PUSH 04/19/17 15:45 04/19/17 15:50 (Habitrol 21 Mg Patch.24 Hr) 1 patch DAILY T-DERMAL 04/19/17 16:00 04/19/17 16:58 Miscellaneous Information 1 DAILY T-DERMAL 04/19/17 16:00 04/20/17 02:28 (D50w (Vial) Inj) 50 ml UNSCH PRN IV 04/19/17 16:00 (Glucagon Inj) 1 mg UNSCH PRN OTHER 04/19/17 16:00 (NS Flush) 2 ml UNSCH PRN IV FLUSH 04/19/17 16:00 (NS Flush) 2 ml BID IV FLUSH 04/19/17 21:00 04/20/17 08:30 (Tylenol) 650 mg Q4H PRN PO 04/19/17 16:00 04/20/17 08:25 (Zofran Inj) 4 mg Q6H PRN IVP 04/19/17 16:00 04/20/17 02:10 (Dilaudid Pf Inj) 0.2 mg Q3H PRN IV 04/19/17 16:00 (Dilaudid Pf Inj) 0.5 mg Q3H PRN IV 04/19/17 16:00 04/20/17 18:01 (Narcan Inj) 0.4 mg UNSCH PRN IV 04/19/17 16:00 (Karina-Colace) 1 tab BID PO 04/19/17 21:00 04/20/17 08:26 (Milk Of Dejuan Liq) 30 ml Q12H PRN PO 04/19/17 16:00 (Vasotec Inj) 1.25 mg Q6H PRN IV 04/19/17 16:15 (Catapres) 0.1 mg Q6H PRN PO 04/19/17 16:15 (Proair Hfa Inh) 2 puff Q4H PRN INH 04/19/17 16:15 (Tenormin) 50 mg DAILY PO 04/20/17 09:00 04/20/17 08:25 (Neurontin) 300 mg TID PO 04/19/17 18:00 04/20/17 18:01 (Creon 12-38-60) 1 cap TIDPC PO 04/20/17 09:30 (Buspar) 30 mg BID PO 04/20/17 21:00 Urinary Catheter: No Vascular Central Line Catheter: No A/P Problem List: (1) Acute on chronic pancreatitis ICD Code: K85.9 Status: Acute Plan: Improving, lipase trending down continue Iv fluids, start patient on clear liquid diet. Continue pain control with IV Dilaudid. Continue pancreatic enzymes. (2) HTN (hypertension) ICD Code: I10 Status: Chronic Plan: stable, continue amlodipine. (3) Anxiety ICD Code: F41.9 Status: Chronic Plan: resume buspirone, stable. (4) Tobacco use ICD Code: Z72.0 Status: Chronic Plan: Continue nicotine patch. (5) Anemia ICD Code: D64.9 Status: Chronic Plan: Upon review of records, patient had iron studies in 2016 concurrent with anemia of chronic disease. Anemia of chronic disease likely secondary to an acute pancreatitis. I will repeat iron studies and percent saturation of iron and total iron still low will give IV iron and start on oral iron replacement. Assessment and Plan GI prophylaxis: PPI. DVT prophylaxis: Will Rx Lovenox subcutaneous. Discharge Planning Continue to monitor in the medical floor. Problem Qualifiers (1) HTN (hypertension): Qualified Code: I10 - Essential hypertension (2) Anemia: Qualified Code: D63.8 - Anemia in other chronic diseases classified elsewhere Stephan Cardenas MD April 20, 2017 14:48
[2017-04-20] MEDS: busPIRone HCL 10 MG TAB PO SCH (21:07)
[2017-04-21] VITALS (10 sets, daily range): BP systolic 97–130; BP diastolic 65–81; PULSE 66–81; RESP 16–20; TEMP 97.3–98; O2SAT 94–97
[2017-04-21] MEDS: HYDROmorphone HCL PF 1 MG/ML VIAL IV PRN ×5 (00:10→12:10)
[2017-04-21] MEDS: INSULIN ASPART SUPPLEMENTAL SCALE SQ SCH ×4 (06:45→21:27)
[2017-04-21] MEDS: REMOVE OLD PATCH T-DERMAL SCH (09:00)
[2017-04-21] MEDS: NICOTINE 21 MG/24 HR PATCH T-DERMAL SCH (09:00)
[2017-04-21] MEDS: DOCUSATE SODIUM 50 MG/SENNA 8.6 MG TAB PO SCH ×2 (09:02→21:00)
[2017-04-21] MEDS: LIPASE/PROTEASE/AMYLASE (12,000/38,000/60,000) CAP PO SCH ×3 (09:02→17:18)
[2017-04-21] MEDS: busPIRone HCL 10 MG TAB PO SCH ×2 (09:02→21:23)
[2017-04-21] MEDS: GABAPENTIN 300 MG CAP PO SCH ×3 (09:02→17:18)
[2017-04-21] MEDS: ATENOLOL 50 MG TAB PO SCH (09:03)
[2017-04-21] MEDS: SODIUM CHLORIDE 0.9% FLUSH 10 ML FLUSH IV FLUSH SCH ×2 (09:03→21:24)
[2017-04-21] MEDS: POTASSIUM CHLORIDE INJ 10 MEQ in SODIUM CHLOR 0.9% 1000 ML INJ 1,000 ML IV SCH (10:06)
[2017-04-21 10:57] LABS: ANION GAP 6 MEQ/L (5-15); BICARBONATE 30.1 MEQ/L (21.0-32.0); BLOOD UREA NITROGEN 5 MG/DL (7-18); CHLORIDE 102 MEQ/L (98-107); FERRITIN 197 NG/ML (8-252); GLOMERULAR FILTRATION RATE 84 ML/MIN (>89); POTASSIUM 3.8 MEQ/L (3.5-5.1); SODIUM (NA) 138 MEQ/L (136-145); TRANSFERRIN IRON PROFILE 216 MG/DL (200-360)
[2017-04-21] MEDS ORDERED: oxyCODONE/ACETAMINOPHEN 5 MG/325 MG TAB PO PRN (12:45)
[2017-04-21] MEDS: PANTOPRAZOLE SODIUM 40 MG VIAL IV PUSH SCH (13:42)
--- NOTE | 2017-04-21 15:33 | HHI.PR ---
Subjective Remarks Follow-up acute on chronic pancreatitis, abdominal pain Patient states that the pain is better, tolerated clear liquid diet well Requesting oral pain medications Vital signs stable Objective Vitals Vital Signs Date Time Temp Pulse Resp B/P Pulse Ox O2 Delivery O2 Flow Rate FiO2 04/21/17 12:00 97.9 69 18 112/67 96 04/21/17 10:23 94 21 04/21/17 08:00 97.7 66 20 112/71 94 04/21/17 06:36 18 04/21/17 04:00 98.0 73 17 119/81 95 04/21/17 00:00 97.4 71 16 130/81 95 04/20/17 20:00 67 04/20/17 20:00 98.2 75 16 123/78 95 04/20/17 16:00 96.9 61 16 143/82 95 I/O 04/20/17 04/20/17 04/20/17 04/21/17 04/21/17 04/21/17 06:59 14:59 22:59 06:59 14:59 22:59 Intake Total 912 ml 600 ml 720 ml 1218 ml Balance 912 ml 600 ml 720 ml 1218 ml Intake Oral 600 ml 720 ml 480 ml IV Total 912 ml 738 ml # Voids 4 4 3 6 Result Diagram: 04/20/17 0921 04/21/17 1001 Imaging Last Impressions Chest X-Ray 04/19/17 1219 Signed Impressions: Service Date/Time: March 12:22 - CONCLUSION: Stable elevation of the left diaphragm. Tim Valencia MD Objective Remarks GENERAL: This is a well-nourished, well-developed patient, in no apparent distress. SKIN: No rashes, ecchymoses or lesions. Cool and dry. HEAD: Atraumatic. Normocephalic. No temporal or scalp tenderness. EYES: Pupils equal round and reactive. Extraocular motions intact. No scleral icterus. No injection or drainage. ENT: Nose without bleeding, purulent drainage or septal hematoma. Throat without erythema, tonsillar hypertrophy or exudate. Uvula midline. Airway patent. NECK: Trachea midline. No JVD or lymphadenopathy. Supple, nontender, no meningeal signs. CARDIOVASCULAR: Regular rate and rhythm without murmurs, gallops, or rubs. RESPIRATORY: Clear to auscultation. Breath sounds equal bilaterally. No wheezes , rales, or rhonchi. GASTROINTESTINAL: Abdomen soft, tender epigastric, nondistended. No guarding. MUSCULOSKELETAL: Extremities without clubbing, cyanosis, or edema. No joint tenderness, effusion, or edema noted. No calf tenderness. Negative Homans sign bilaterally. NEUROLOGICAL: Awake and alert. Cranial nerves II through XII intact. Motor and sensory grossly within normal limits. Five out of 5 muscle strength in all muscle groups. Normal speech. Procedures none Medications and IVs Current Medications Medications (Trade) Dose Ordered Sig/Bandar Route Start Time Stop Time Status Last Admin (Protonix Inj) 40 mg Q24H IV PUSH 04/19/17 14:00 04/21/17 13:42 (Habitrol 21 Mg Patch.24 Hr) 1 patch DAILY T-DERMAL 04/19/17 16:00 04/19/17 16:58 Miscellaneous Information 1 DAILY T-DERMAL 04/19/17 16:00 04/20/17 02:28 (D50w (Vial) Inj) 50 ml UNSCH PRN IV 04/19/17 16:00 (Glucagon Inj) 1 mg UNSCH PRN OTHER 04/19/17 16:00 (NS Flush) 2 ml UNSCH PRN IV FLUSH 04/19/17 16:00 (NS Flush) 2 ml BID IV FLUSH 04/19/17 21:00 04/21/17 09:03 (Tylenol) 650 mg Q4H PRN PO 04/19/17 16:00 04/20/17 08:25 (Zofran Inj) 4 mg Q6H PRN IVP 04/19/17 16:00 04/20/17 02:10 (Narcan Inj) 0.4 mg UNSCH PRN IV 04/19/17 16:00 (Karina-Colace) 1 tab BID PO 04/19/17 21:00 04/21/17 09:02 (Milk Of Magnesia Liq) 30 ml Q12H PRN PO 04/19/17 16:00 (Vasotec Inj) 1.25 mg Q6H PRN IV 04/19/17 16:15 (Catapres) 0.1 mg Q6H PRN PO 04/19/17 16:15 (Proair Hfa Inh) 2 puff Q4H PRN INH 04/19/17 16:15 (Tenormin) 50 mg DAILY PO 04/20/17 09:00 04/21/17 09:03 (Neurontin) 300 mg TID PO 04/19/17 18:00 04/21/17 12:10 (Creon 12-38-60) 1 cap TIDPC PO 04/20/17 09:30 04/21/17 12:10 (Buspar) 30 mg BID PO 04/20/17 21:00 04/21/17 09:02 (Percocet 5-325 Mg) 1 tab Q4H PRN PO 04/21/17 12:45 (Percocet 5-325 Mg) 2 tab Q4H PRN PO 04/21/17 12:45 A/P Problem List: (1) Acute on chronic pancreatitis ICD Code: K85.9 Status: Acute Plan: Initially lipase elevated at 298, lipase trending down now 576. Continue Iv fluids, advanced diet to full liquid. Continue pain control with IV Dilaudid. Continue pancreatic enzymes. (2) HTN (hypertension) ICD Code: I10 Status: Chronic Plan: stable, continue amlodipine. (3) Anxiety ICD Code: F41.9 Status: Chronic Plan: Stable continue buspirone. (4) Tobacco use ICD Code: Z72.0 Status: Chronic Plan: Continue nicotine patch. Advised smoking cessation. (5) Anemia ICD Code: D64.9 Status: Chronic Plan: Upon review of records, patient had iron studies in 2016 concurrent with anemia of chronic disease. Anemia of chronic disease likely secondary to acute pancreatitis. Repeat iron studies show a low iron of 28 with a low percent saturation of iron 9.3, normal TIBC of 302 and a normal ferritin of 197. I will give 1 dose of IV iron and then discharged patient on oral iron therapy. Assessment and Plan GI prophylaxis: PPI. DVT prophylaxis: Will Rx Lovenox subcutaneous. Discharge Planning Continue to monitor in the medical floor. Problem Qualifiers (1) HTN (hypertension): Qualified Code: I10 - Essential hypertension (2) Anemia: Qualified Code: D63.8 - Anemia in other chronic diseases classified elsewhere Stephan Cardenas MD April 21, 2017 15:33
[2017-04-21] MEDS: oxyCODONE/ACETAMINOPHEN 5 MG/325 MG TAB PO PRN ×2 (16:06→21:19)
[2017-04-22] VITALS: BP 123/97; PULSE 74; RESP 17; TEMP 98.4; O2SAT 97
[2017-04-22] MEDS: oxyCODONE/ACETAMINOPHEN 5 MG/325 MG TAB PO PRN ×4 (01:33→13:50)
[2017-04-22 04:00] VITALS: BP 111/78; PULSE 72; RESP 17; TEMP 98.6; O2SAT 96
[2017-04-22 06:06] LABS: HEMATOCRIT 29.7 % (35.0-46.0); MEAN CELL VOLUME 83.3 FL (80.0-100.0); MEAN CORPUSCULAR HEMOGLOBIN 27.1 PG (27.0-34.0); MEAN CORPUSCULAR HGB CONC 32.5 % (32.0-36.0); PLATELET COUNT 315 TH/MM3 (150-450); RED BLOOD COUNT 3.57 MIL/MM3 (4.00-5.30); RED CELL DISTRIBUTION WIDTH 19.6 % (11.6-17.2); REVIEW FLAG FINAL; WHITE BLOOD COUNT 5.9 TH/MM3 (4.0-11.0)
[2017-04-22] MEDS: INSULIN ASPART SUPPLEMENTAL SCALE SQ SCH ×2 (06:06→11:43)
[2017-04-22 07:04] LABS: BICARBONATE 29.2 MEQ/L (21.0-32.0); POTASSIUM 4.3 MEQ/L (3.5-5.1)
[2017-04-22 08:00] VITALS: BP 113/74; PULSE 78; RESP 18; TEMP 98.2; O2SAT 98
[2017-04-22 08:21] VITALS: PULSE 62
[2017-04-22] MEDS: NICOTINE 21 MG/24 HR PATCH T-DERMAL SCH (09:00)
[2017-04-22] MEDS: REMOVE OLD PATCH T-DERMAL SCH (09:00)
[2017-04-22] MEDS: DOCUSATE SODIUM 50 MG/SENNA 8.6 MG TAB PO SCH (09:00)
[2017-04-22] MEDS: SODIUM CHLORIDE 0.9% FLUSH 10 ML FLUSH IV FLUSH SCH (09:01)
[2017-04-22] MEDS: GABAPENTIN 300 MG CAP PO SCH ×2 (09:01→13:10)
[2017-04-22] MEDS: busPIRone HCL 10 MG TAB PO SCH (09:01)
[2017-04-22] MEDS: ATENOLOL 50 MG TAB PO SCH (09:01)
[2017-04-22] MEDS: LIPASE/PROTEASE/AMYLASE (12,000/38,000/60,000) CAP PO SCH ×2 (09:01→11:41)
[2017-04-22] MEDS ORDERED: GLUCAGON 1 MG/ML VIAL OTHER PRN (11:45)
[2017-04-22] MEDS ORDERED: DEXTROSE 50% IN WATER 50 ML VIAL(D50) IV PRN (11:45)
[2017-04-22] MEDS ORDERED: INSULIN DETEMIR 100 UNITS/ML VIAL SQ SCH (11:45)
[2017-04-22 12:00] VITALS: BP 130/86; PULSE 63; RESP 18; TEMP 97; O2SAT 97
[2017-04-22] MEDS ORDERED: OXYC1TAB63 PO (12:21)
[2017-04-22] MEDS: PANTOPRAZOLE SODIUM 40 MG VIAL IV PUSH SCH (13:10)
[2017-04-22] MEDS ORDERED: INSULIN ASPART SUPPLEMENTAL SCALE SQ SCH (16:00)
[2017-04-24 08:26] LABS: HEMOGLOBIN A1a 1.2 %; HEMOGLOBIN A1b 1.9 %; HEMOGLOBIN Ao 83.5 %; HEMOGLOBIN LA1C 2.1 %; HEMOGLOBIN P3 5.4 %
--- NOTE | 2017-04-27 10:34 | HHI.DS ---
Discharge Summary Admission Date April 19, 2017 at 13:54 Discharge Date: May 23, 2017 Admitting Diagnosis Acute on chronic pancreatitis (1) Acute on chronic pancreatitis ICD Code: K85.9 Diagnosis: Principal (2) HTN (hypertension) ICD Code: I10 Diagnosis: Principal (3) Anxiety ICD Code: F41.9 Diagnosis: Principal (4) Tobacco use ICD Code: Z72.0 Diagnosis: Principal (5) Anemia ICD Code: D64.9 Diagnosis: Principal Procedures none Brief History - From Admission This is a 52 year old female with history of diabetes, hypertension, GERD, chronic pancreatitis, anxiety, PTSD and tobacco dependency. She presents to the ED because of epigastric pain that wraps around her upper abdomen. Describes as a constant ache but becomes a severe sharp pain in her back exacerbated by eating and deep inspiration. The pain started 3 days ago. She has not had any fever or chills however she reports being unable to keep any food or drink down today. Denies any hematemesis, constipation, diarrhea and UTI symptoms. No chest pain or tightness. No difficulty breathing. Patient does smoke half- pack tobacco cigarettes daily. All other systems reviewed negative. Lipase over 1200 and patient has been advised admission for further evaluation and treatment. Patient has quit alcohol Imaging Last Impressions Chest X-Ray 04/19/17 1219 Signed Impressions: Service Date/Time: March 12:22 - CONCLUSION: Stable elevation of the left diaphragm. Tim Valencia MD PE at Discharge GENERAL: This is a well-nourished, well-developed patient, in no apparent distress. SKIN: No rashes, ecchymoses or lesions. Cool and dry. HEAD: Atraumatic. Normocephalic. No temporal or scalp tenderness. EYES: Pupils equal round and reactive. Extraocular motions intact. No scleral icterus. No injection or drainage. ENT: Nose without bleeding, purulent drainage or septal hematoma. Throat without erythema, tonsillar hypertrophy or exudate. Uvula midline. Airway patent. NECK: Trachea midline. No JVD or lymphadenopathy. Supple, nontender, no meningeal signs. CARDIOVASCULAR: Regular rate and rhythm without murmurs, gallops, or rubs. RESPIRATORY: Clear to auscultation. Breath sounds equal bilaterally. No wheezes , rales, or rhonchi. GASTROINTESTINAL: Abdomen soft, tender epigastric, nondistended. No guarding. MUSCULOSKELETAL: Extremities without clubbing, cyanosis, or edema. No joint tenderness, effusion, or edema noted. No calf tenderness. Negative Homans sign bilaterally. NEUROLOGICAL: Awake and alert. Cranial nerves II through XII intact. Motor and sensory grossly within normal limits. Five out of 5 muscle strength in all muscle groups. Normal speech. Pt update on day of discharge Patient tolerated well. states has some abdominal pain but much better. Pain today is far better than it has ever been.Denies nausea or vomiting. Wants to go home. Hospital Course (1) Acute on chronic pancreatitis Initially lipase elevated at 298, lipase trending down now 576. Treated w IV fluids, bowel rest. Pain control provided with IV Dilaudid. Patient after 1 day of bowel rest and improvement of pain the patient was started on clear liquids which he tolerated and diet was advanced as tolerated. Patient discharged home. (2) HTN (hypertension) Atenolol continued. Bp remained stable. Vitals monitored. (3) Anxiety Buspirone continued. Stable. (4) Tobacco use Rx'd Nicotine patch. Advised smoking cessation. (5) Anemia Upon review of records, patient had iron studies in 2016 concurrent with anemia of chronic disease. Anemia of chronic disease likely secondary to acute pancreatitis. Repeat iron studies show a low iron of 28 with a low percent saturation of iron 9.3, normal TIBC of 302 and a normal ferritin of 197. I will give 1 dose of IV iron and then discharged patient on oral iron therapy. (6) Hyperglycemia Hemoglobin A1C added to labs on day of discharge. Result not available. Instructed patient to follow up with PMD and to request result of HbA1c. Hb A1c 6.9 patirnt has new onset diabetes. This result became available after patient discharged. GI prophylaxis: PPI. DVT prophylaxis: Will Rx Lovenox subcutaneous. Pt Condition on Discharge: Stable Discharge Disposition: Discharge Home Discharge Time: > 30 minutes Discharge Instructions DIET: Follow Instructions for: Diabetic Diet Activities you can perform: Regular-No Restrictions Follow up Referrals: PCP Follow-up - 1 Week New Medications: Oxycodone-Acetaminophen (Oxycodone-Acetaminophen) 5-325 mg Tab 1 TAB PO Q4H PRN pain #31 Ref 0 TAB Continued Medications: Albuterol 18 GM Inh (Ventolin Hfa 18 GM Inh) 90 Mcg/Act Aer 2 PUFF INH Q4H PRN SHORTNESS OF BREATH #1 Ref 0 INHALER Atenolol (Atenolol) 50 Mg Tab 50 MG PO DAILY Blood Pressure Management Ref 0 TAB Buspirone (Buspirone) 30 Mg Tab 30 MG PO BID Anxiety Ref 0 TAB Calcium Ascorbate (Calcium Ascorbate) 500 Mg Tab 500 MG PO DAILY Calcium Supplement Ref 0 TAB Cyanocobalamin (Vitamin B-12) 1,000 Mcg Tab 1000 MCG PO DAILY Nutritional Supplement #1 Ref 0 BOTTLE Ibuprofen (Ibuprofen) 600 Mg Tab 600 MG PO TID Arthritis Pain Ref 0 TAB Insulin Aspart Inj (Novolog Inj) 1,000 Unit/10 Ml Vial 0 SQ DIRECTED Sliding Scale as directed. Blood Sugar Management #10 Ref 0 ML Insulin Glargine Inj (Lantus Inj) 1,000 Unit/10 Ml Vial 15 UNITS SQ DAILY Blood Sugar Management Ref 0 VIAL Pancrelipase (Creon) 12,000-38,000-60,000 Units Cap 1 CAP PO TIDPC Digestive Aid #90 Ref 0 CAP Pantoprazole (Protonix) 40 Mg Tab 40 MG PO DAILY Reflux #30 Ref 0 TAB Stephan Cardenas MD Apr 27, 2017 10:34
== END 2017-04-22 14:03 | disposition home or self-care (01) | DRG 440 ==
LOC: NEPD 11:37 → NEDA 13:54 → HOCA 20:38
PROVIDERS: ADMIT Hospitalist; ATTEND Hospitalist
DX: K85.90 Acute pancreatitis without necrosis or infection, unspecified (principal); G62.9 Polyneuropathy, unspecified; I10 Essential (primary) hypertension; K31.84 Gastroparesis; E11.9 Type 2 diabetes mellitus without complications; D63.8 Anemia in other chronic diseases classified elsewhere; E78.00 Pure hypercholesterolemia, unspecified; K86.1 Other chronic pancreatitis; K21.9 Gastro-esophageal reflux disease without esophagitis; F43.10 Post-traumatic stress disorder, unspecified; F17.210 Nicotine dependence, cigarettes, uncomplicated
CPT/HCPCS: 71010; 80048; 80053; 80307; 81001; 82550; 82728; 82948; 83036; 83540; 83550; 83690; 83735; 84484; 85025; 85027; 85610; 85730; 93005; 96374; C9113; J1170; J1815; J2270; J2405; J3480; J7030

== ENCOUNTER 2017-05-10 19:44 | Inpatient (IN) | payer OTHER ==
[~2017-05-10] VITALS: Ht 165.1 cm; Wt 73.0 kg
[~2017-05-10 19:44] MED LIST changes: +BUSP30TA PO; +CREON12 PO; -CREON24 PO; -GABA300C5 PO; +OXYC1TAB63 PO
[2017-05-10 19:48] VITALS: BP 180/90; PULSE 109; RESP 22; TEMP 97.6; O2SAT 97
--- NOTE | 2017-05-10 21:37 | PD ---
HPI Chief Complaint: Abdominal Pain Time Seen by Provider: 21:30 Travel History International Travel<30 days: No Contact w/Intl Traveler<30days: No Traveled to known affect area: No History of Present Illness HPI This is a 52-year-old female who has a history of chronic pancreatitis who presents to the emergency department with abdominal discomfort, constant, severe that started earlier today, associated with multiple episodes of vomiting. She says this feels like her pancreatitis. She denies any alcohol use. She was just hospitalized in late March for pancreatitis. PFSH Past Medical History Hx Anticoagulant Therapy: Yes Arthritis: Yes (left shoulder) Asthma: No Anxiety: Yes Depression: No Heart Rhythm Problems: No Cancer: No Cardiovascular Problems: Yes (htn) High Cholesterol: Yes (PT STATES [facility] PUT HER ON STATIN PREVENTATIV) Chest Pain: No Congestive Heart Failure: No COPD: No Cerebrovascular Accident: No Diabetes: Yes Patient Takes Glucophage: No Diminished Hearing: No Endocrine: Yes Gastrointestinal Disorders: Yes (chronic PANCREATITIS, GASTROPARESIS) GERD: Yes Genitourinary: No Headaches: Yes Hiatal Hernia: No Hypertension: Yes Immune Disorder: No Kidney Stones: No Musculoskeletal: Yes Neurologic: Yes Psychiatric: Yes (PTSD) Reproductive: No Respiratory: Yes (SMOKERS COUGH) Immunizations Current: Yes Migraines: Yes Pancreatitis: Yes (ALCOHOLIC) Renal Failure: No Seizures: No Sleep Apnea: No Thyroid Disease: Yes ("7 TUMORS ON THYROID", BEING FOLLOWED. THYROID FUNCTION IS GOOD.) Ulcer: No ?: Not : 2 Para: 2 Miscarriage: 0 : 0 Past Surgical History Abdominal Surgery: Yes (APPENDECTOMY) Appendectomy: Yes Section: Yes Gynecologic Surgery: Yes (, HYSTERECTOMY WITH BILATERAL OOPHORECTOMY) Hysterectomy: Yes Insulin Pump: No Joint Replacement: No Pacemaker: No Other Surgery: Yes Social History Alcohol Use: No Tobacco Use: Yes (1/2 PPD) Substance Use: No Allergies-Medications (Allergen,Severity, Reaction): Coded Allergies: Sulfa (Verified Allergy, Severe, Rash, 04/19/17) Ciprofloxacin (Verified Allergy, Mild, Rash, 04/19/17) Reported Meds & Prescriptions Reported Meds & Active Scripts Active Ventolin Hfa 18 GM Inh (Albuterol Sulfate) 90 Mcg/Act Aer 2 Puff INH Q4H PRN Reported Buspirone (Buspirone HCl) 30 Mg Tab 30 Mg PO BID Creon (Amylase/Lipase/Protease) 12,000-38,000-60,000 Units Cap 1 Cap PO TIDPC Ibuprofen 600 Mg Tab 600 Mg PO TID Atenolol 50 Mg Tab 50 Mg PO DAILY Vitamin B-12 (Cyanocobalamin) 1,000 Mcg Tab 1,000 Mcg PO DAILY Protonix (Pantoprazole Sodium) 40 Mg Tab 40 Mg PO DAILY Lantus Inj (Insulin Glargine) 1,000 Unit/10 Ml Vial 15 Units SQ DAILY Novolog Inj (Insulin Aspart) 1,000 Unit/10 Ml Vial 0 SQ DIRECTED Sliding Scale as directed. Calcium Ascorbate 500 Mg Tab 500 Mg PO DAILY Review of Systems Except as stated in HPI: all other systems reviewed are Neg Physical Exam Narrative GENERAL: Uncomfortable appearing, writhing in bed SKIN: Focused skin assessment warm and dry. HEAD: Atraumatic. Normocephalic. EYES: Pupils equal and round. No injection or drainage. ENT: Moist mucous membranes NECK: Trachea midline. CARDIOVASCULAR: Regular rate and rhythm. No murmur appreciated. RESPIRATORY: Clear to auscultation. Breath sounds equal bilaterally. GASTROINTESTINAL: Abdomen soft, tender to palpation in the epigastrium and left upper abdomen with guarding. MUSCULOSKELETAL: No obvious deformities. NEUROLOGICAL: Awake and alert. No obvious cranial nerve deficits. Moving all extremities. PSYCHIATRIC: Poor eye contact, crying "I need something for pain". Data Data Last Documented VS Vital Signs Date Time Temp Pulse Resp B/P Pulse Ox O2 Delivery O2 Flow Rate FiO2 05/10/17 22:18 87 16 168/100 98 Room Air 05/10/17 19:48 97.6 Orders Complete Blood Count With Diff (05/10/17 21:34) Comprehensive Metabolic Panel (05/10/17 21:34) Lipase (05/10/17 21:34) Alcohol (Ethanol) (05/10/17 21:34) ^ Insert Iv (05/10/17 21:34) Sodium Chlor 0.9% 1000 Ml Inj (Ns 1000 M (05/10/17 21:45) Hydromorphone Pf Inj (Dilaudid Pf Inj) (05/10/17 21:45) Ondansetron Inj (Zofran Inj) (05/10/17 21:45) Hydromorphone Pf Inj (Dilaudid Pf Inj) (05/10/17 22:45) Ct Abd/Pel W Iv Contrast(Rout) (05/10/17 ) Lactic Acid (05/10/17 22:51) Iohexol 350 Inj (Omnipaque 350 Inj) (05/10/17 23:23) Admit Order (Ed Use Only) (05/11/17 00:14) Labs Laboratory Tests Test 05/10/17 05/10/17 21:45 23:50 White Blood Count 15.6 TH/MM3 Red Blood Count 4.90 MIL/MM3 Hemoglobin 13.4 GM/DL Hematocrit 40.3 % Mean Corpuscular Volume 82.1 FL Mean Corpuscular Hemoglobin 27.3 PG Mean Corpuscular Hemoglobin 33.2 % Concent Red Cell Distribution Width 18.7 % Platelet Count 313 TH/MM3 Mean Platelet Volume 8.1 FL Neutrophils (%) (Auto) 85.9 % Lymphocytes (%) (Auto) 9.3 % Monocytes (%) (Auto) 3.9 % Eosinophils (%) (Auto) 0.3 % Basophils (%) (Auto) 0.6 % Neutrophils # (Auto) 13.4 TH/MM3 Lymphocytes # (Auto) 1.4 TH/MM3 Monocytes # (Auto) 0.6 TH/MM3 Eosinophils # (Auto) 0.1 TH/MM3 Basophils # (Auto) 0.1 TH/MM3 CBC Comment DIFF FINAL Differential Comment Sodium Level 137 MEQ/L Potassium Level 3.5 MEQ/L Chloride Level 103 MEQ/L Carbon Dioxide Level 21.6 MEQ/L Anion Gap 12 MEQ/L Blood Urea Nitrogen 9 MG/DL Creatinine 0.88 MG/DL Estimat Glomerular Filtration 67 ML/MIN Rate Random Glucose 195 MG/DL Calcium Level 9.5 MG/DL Total Bilirubin 0.6 MG/DL Aspartate Amino Transf 20 U/L (AST/SGOT) Alanine Aminotransferase 17 U/L (ALT/SGPT) Alkaline Phosphatase 123 U/L Total Protein 8.1 GM/DL Albumin 4.0 GM/DL Lipase 3584 U/L Ethyl Alcohol Level LESS THAN 3 MG/DL Lactic Acid Level 1.2 mmol/L MDM Medical Decision Making Medical Screen Exam Complete: Yes Emergency Medical Condition: Yes Interpretation(s) Afebrile, tachycardic, hypertensive Leukocytosis Lactic acid is 1.2 Lipase is 3584 alcohol is negative Last 24 hours Impressions Abdomen/Pelvis CT 05/10/17 0000 Signed Impressions: Service Date/Time: April 23:18 - CONCLUSION: 1. 14 x 10 CM sub-phrenic fluid collection on the left larger than on the prior study. This could be related to pseudocyst or perhaps splenic hematoma. The findings have worsened when compared with the prior examination. 2. Chronic calcific pancreatitis 3. Chronic portal vein thrombosis Tanner Benson MD Differential Diagnosis Acute pancreatitis, pancreatic pseudocyst, necrotizing pancreatitis, dehydration Narrative Course This is a 52-year-old female who presents to the emergency department with severe symptoms of abdominal pain and vomiting consistent with her history of pancreatitis. Labs are obtained which demonstrate a leukocytosis of 15. Lactic acid was normal. CT abdomen and pelvis demonstrates a fluid collection which is increased in size from prior images. Patient will be admitted for pancreatic pseudocyst and possible necrotizing pancreatitis. Diagnosis Primary Impression: Pancreatic pseudocyst Admitting Information Admitting Physician Requests: Admit Jany Shearer MD May 10, 2017 21:37
[2017-05-10] MEDS ORDERED: SODIUM CHLOR 0.9% 1000 ML INJ 1,000 ML IV ONE (21:45)
[2017-05-10] MEDS ORDERED: HYDROmorphone HCL PF 1 MG/ML VIAL IV PUSH ONE ×2 (21:45→22:45)
[2017-05-10] MEDS ORDERED: ONDANSETRON HCL 4 MG/2 ML VIAL IV PUSH ONE (21:45)
[2017-05-10 22:18] VITALS: BP 168/100; PULSE 87; RESP 16; O2SAT 98
[2017-05-10 22:29] LABS: AUTOMATED NEUTROPHIL # 13.4 TH/MM3 (1.8-7.7); BASOPHIL # 0.1 TH/MM3 (0-0.2); BASOPHIL % 0.6 % (0.0-2.0); EOSINOPHIL # 0.1 TH/MM3 (0-0.4); EOSINOPHIL % 0.3 % (0.0-4.0); HEMATOCRIT 40.3 % (35.0-46.0); HEMO FLAGS DIFF FINAL; LYMPH % 9.3 % (9.0-44.0); LYMPHOCYTE # 1.4 TH/MM3 (1.0-4.8); MEAN CELL VOLUME 82.1 FL (80.0-100.0); MEAN CORPUSCULAR HEMOGLOBIN 27.3 PG (27.0-34.0); MEAN CORPUSCULAR HGB CONC 33.2 % (32.0-36.0); MONO % 3.9 % (0.0-8.0); NEUT % 85.9 % (16.0-70.0); PLATELET COUNT 313 TH/MM3 (150-450); RED CELL DISTRIBUTION WIDTH 18.7 % (11.6-17.2); WHITE BLOOD COUNT 15.6 TH/MM3 (4.0-11.0)
[2017-05-10 22:43] LABS: ANION GAP 12 MEQ/L (5-15); AST (GOT) 20 U/L (15-37); BICARBONATE 21.6 MEQ/L (21.0-32.0); BLOOD UREA NITROGEN 9 MG/DL (7-18); CHLORIDE 103 MEQ/L (98-107); GLOMERULAR FILTRATION RATE 67 ML/MIN (>89); POTASSIUM 3.5 MEQ/L (3.5-5.1); SODIUM (NA) 137 MEQ/L (136-145)
[2017-05-10 22:48] LABS: ALKALINE PHOSPHATASE 123 U/L (45-117); ALT (GPT) 17 U/L (10-53); TOTAL BILIRUBIN ADULT 0.6 MG/DL (0.2-1.0)
[2017-05-10] MEDS ORDERED: IOHEXOL 350 MG/ML 10 ML VIAL (for RAD DIAG) IV ONE (23:23)
--- NOTE | 2017-05-10 23:58 | RADRPT ---
EXAM DATE/TIME: 05/10/2017 23:18 [facility] COMPARISON: CT PULMONARY ANGIOGRAM, March 28, 2017, 9:43. CT ABDOMEN & PELVIS W CONTRAST, October 26, 2016, 20:00 . INDICATIONS : Abdominal pain with nausea and vomiting. IV CONTRAST: 90 cc Omnipaque 350 (iohexol) IV ORAL CONTRAST: No oral contrast ingested. RADIATION DOSE: 6.64 CTDIvol (mGy) MEDICAL HISTORY : Diabetes mellitus type 2. Gastroparesis. Pancreatitis.Hypertension. Liver disease. SURGICAL HISTORY : Appendectomy. Hysterectomy. section. ENCOUNTER: Initial ACUITY: 1 day PAIN SCALE: 8/10 LOCATION: abdomen TECHNIQUE: Volumetric scanning of the abdomen and pelvis was performed. Using automated exposure control and ad justment of the mA and/or kV according to patient size, radiation dose was kept as low as reasonably achievable to obtain optimal diagnostic quality images. FINDINGS: There is subsegmental atelectasis in the right base. The liver is normal in size and free of focal de fects. 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 There is a multilocular fluid collection beneath the left hemidiaphragm which may be related to pseudocyst in this patient with findings of chronic calcific pancreatitis. The findings have worsened when compare d with the prior examination. The gallbladder is normal without wall thickening or pericholecystic fl uid. The adrenal glands and kidneys appear normal bilaterally. No hydronephrosis or mass lesions are identified. Examination of the pelvis demonstrates no evidence of free fluid or pelvic mass. No abnormally enlarg ed inguinal or retroperitoneal lymph nodes are present. The bladder is unremarkable. A staple line is present in the sigmoid colon CONCLUSION: 1. 14 x 10 CM sub-phrenic fluid collection on the left larger than on the prior study. This could be related to pseudocyst or perhaps splenic hematoma. The findings have worsened when compared with the prior examination. 2. Chronic calcific pancreatitis 3. Chronic portal vein thrombosis Tanner Benson MD on May 10, 2017 at 23:52 Board Certified Radiologist. This report was verified electronically.
[2017-05-11] VITALS (8 sets, daily range): BP systolic 115–161; BP diastolic 73–98; PULSE 66–86; RESP 16–20; TEMP 95–98.3; O2SAT 94–98
[2017-05-11] MEDS ORDERED: NALOXONE HCL 0.4 MG/ML AMP IV PRN (00:45)
[2017-05-11] MEDS ORDERED: SODIUM CHLORIDE 0.9% FLUSH 10 ML FLUSH IV FLUSH PRN (00:45)
[2017-05-11] MEDS: SODIUM CHLOR 0.9% 1000 ML INJ 1,000 ML IV SCH ×5 (02:09→22:05)
[2017-05-11] MEDS ORDERED: HYDROmorphone HCL PF 1 MG/ML VIAL IV PUSH PRN (02:45)
[2017-05-11] MEDS ORDERED: GLUCAGON 1 MG/ML VIAL OTHER PRN (02:45)
[2017-05-11] MEDS ORDERED: DEXTROSE 50% IN WATER 50 ML VIAL(D50) IV PRN (02:45)
[2017-05-11] MEDS: ONDANSETRON HCL 4 MG/2 ML VIAL IV PUSH PRN (03:11)
--- NOTE | 2017-05-11 04:46 | HHI.HP ---
[facility] Admission Diagnosis pancreatic pseudocyst Diagnoses: Travel History International Travel<30 Days: No Contact w/Intl Traveler <30 Da: No Traveled to Known Affected Are: No Sepsis Criteria SIRS Criteria (2 or more): Heart rate over 90 History of Present Illness History from patient with at the bedside, ER physician communication, and review of medical records. Patient reported that starting yesterday around noontime she started having severe abdominal pain diffusely, with associated nausea and vomiting. Denies any fever. Reports the vomitus is just yellowish in color. No coffee-ground color vomit or bright red blood. Denies urinary burning or pain on urination. Next and denies diarrhea. Denies any black color stool/red color stool. Patient's PCP is Dr. Almanzar from [facility] [place]. Review of Systems Except as stated in HPI: all other systems reviewed are Neg Past Family Social History Past Medical History htn dm chronic pancreatitis portal vein thrombosis - was told of this before and was prescribed blood thinner Past Surgical History hysterectomy Appendectomy Allergies: Coded Allergies: Sulfa (Verified Allergy, Severe, Rash, 04/19/17) Ciprofloxacin (Verified Allergy, Mild, Rash, 04/19/17) Family History mom- lung cancer Social History half a pack a day used to drink etoh heavily, quit about 1 yr ago no drugs Physical Exam Vital Signs Vital Signs Date Time Temp Pulse Resp B/P Pulse Ox O2 Delivery O2 Flow Rate FiO2 05/11/17 04:36 97.7 79 18 152/95 97 05/11/17 03:55 86 05/11/17 02:24 98.0 78 18 151/98 98 05/11/17 01:43 84 16 160/90 96 Room Air 05/10/17 22:18 87 16 168/100 98 Room Air 05/10/17 19:48 97.6 109 22 180/90 97 Room Air Physical Exam GENERAL: This is a thin lady, in acute distress from pain, crying. SKIN: No rashes, ecchymoses or lesions. Cool and dry. HEAD: Atraumatic. Normocephalic. No temporal or scalp tenderness. EYES: No scleral icterus. No injection or drainage. ENT: Nose without bleeding, purulent drainage or septal hematoma. Airway patent. NECK: Trachea midline. No JVD CARDIOVASCULAR: Regular rate and rhythm without murmurs, gallops, or rubs. RESPIRATORY: Clear to auscultation. Breath sounds equal bilaterally. No wheezes , rales, or rhonchi. GASTROINTESTINAL: Abdomen soft, tenderness diffusely, voluntary guarding present. Bowel sounds hypoactive. MUSCULOSKELETAL: Extremities without clubbing, cyanosis, or edema. . No calf tenderness. NEUROLOGICAL: Awake and alert. Motor and sensory grossly within normal limits. Normal speech. Laboratory Laboratory Tests Test 05/10/17 05/10/17 21:45 23:50 White Blood Count 15.6 Red Blood Count 4.90 Hemoglobin 13.4 Hematocrit 40.3 Mean Corpuscular Volume 82.1 Mean Corpuscular Hemoglobin 27.3 Mean Corpuscular Hemoglobin 33.2 Concent Red Cell Distribution Width 18.7 Platelet Count 313 Mean Platelet Volume 8.1 Neutrophils (%) (Auto) 85.9 Lymphocytes (%) (Auto) 9.3 Monocytes (%) (Auto) 3.9 Eosinophils (%) (Auto) 0.3 Basophils (%) (Auto) 0.6 Neutrophils # (Auto) 13.4 Lymphocytes # (Auto) 1.4 Monocytes # (Auto) 0.6 Eosinophils # (Auto) 0.1 Basophils # (Auto) 0.1 CBC Comment DIFF FINAL Differential Comment Sodium Level 137 Potassium Level 3.5 Chloride Level 103 Carbon Dioxide Level 21.6 Anion Gap 12 Blood Urea Nitrogen 9 Creatinine 0.88 Estimat Glomerular Filtration 67 Rate Random Glucose 195 Calcium Level 9.5 Total Bilirubin 0.6 Aspartate Amino Transf 20 (AST/SGOT) Alanine Aminotransferase 17 (ALT/SGPT) Alkaline Phosphatase 123 Total Protein 8.1 Albumin 4.0 Lipase 3584 Ethyl Alcohol Level LESS THAN 3 Lactic Acid Level 1.2 Date/Time Procedure Status Source Growth 05/11/17 01:30 Aerobic Blood Culture Received Blood Peripheral Pending 05/11/17 01:30 Anaerobic Blood Culture Received Blood Peripheral Pending Result Diagram: 05/10/17214405/10/172144 Imaging Last 48 hours Impressions Abdomen/Pelvis CT 05/10/17 0000 Signed Impressions: Service Date/Time: April 23:18 - CONCLUSION: 1. 14 x 10 CM sub-phrenic fluid collection on the left larger than on the prior study. This could be related to pseudocyst or perhaps splenic hematoma. The findings have worsened when compared with the prior examination. 2. Chronic calcific pancreatitis 3. Chronic portal vein thrombosis Tanner Benson MD Assessment and Plan Problem List: (1) Acute on chronic pancreatitis ICD Code: K85.9 Status: Acute (2) Pancreatic pseudocyst ICD Code: K86.3 Status: Acute (3) PVT (portal vein thrombosis) ICD Code: I81 Status: Acute Assessment and Plan Impression: Acute on chronic pancreatitis Pancreatic pseudocyst Portal vein thrombosisaccording to patient's , they were told of this previously as well. She was at one point on blood thinners. Currently she is only on aspirin. Intractable pain Leukocytosis with left shiftlikely due to stress from pain htn dm chronic pancreatitis portal vein thrombosis - was told of this before and was prescribed blood thinner Plan: Aggressive IV fluids. Increase the rate to 150 cc per hour. Pain control with Dilaudid 0.5 mg IV every 2 hours when necessary. We will follow Alize's criteria. GI consult regarding severe acute pancreatitis and portal vein thrombosis. Question need for anticoagulation. Resume home meds. Hold insulin as patient is likely not needed. We'll monitor fingersticks closely. DVT prophylaxiswith Lovenox. GI prophylaxis on pantoprazole. Discussed Condition With Patient, her at the bedside, ER physician Physician Certification 2 Midnight Certification Type: Admission for Inpatient Services Order for Inpatient Services The services are ordered in accordance with Medicare regulations or non- Medicare payer requirements, as applicable. In the case of services not specified as inpatient-only, they are appropriately provided as inpatient services in accordance with the 2-midnight benchmark. Estimated LOS (days): 2 days is the estimated time the patient will need to remain in the hospital, assuming treatment plan goals are met and no additional complications. Post-Hospital Plan: Home Douglas Martines MD May 11, 2017 04:46
[2017-05-11] MEDS: HYDROmorphone HCL PF 1 MG/ML VIAL IV PUSH PRN ×7 (05:13→23:55)
[2017-05-11] MEDS: busPIRone HCL 10 MG TAB PO SCH ×2 (08:50→21:43)
[2017-05-11] MEDS: SODIUM CHLORIDE 0.9% FLUSH 10 ML FLUSH IV FLUSH SCH ×2 (08:50→21:50)
[2017-05-11] MEDS: CYANOCOBALAMIN 1,000 MCG TAB PO SCH (08:51)
[2017-05-11] MEDS: PANTOPRAZOLE SOD 40 MG DELAYED RELEASE TAB PO SCH (08:51)
[2017-05-11] MEDS: ATENOLOL 50 MG TAB PO SCH (08:51)
[2017-05-11] MEDS: ENOXAPARIN SODIUM 40 MG/0.4 ML SYRINGE SQ SCH (08:52)
[2017-05-11] MEDS ORDERED: PANTOPRAZOLE SOD 40 MG DELAYED RELEASE TAB PO SCH (09:00)
--- NOTE | 2017-05-11 09:54 | PD.CONS ---
HPI History of Present Illness This is a 52 year old female with a history of chronic pancreatitis and abdominal pain who came to the ER for evaluation of abdominal pain. She has had intermittent abdominal pain secondary to this for the past 4 years. She reports that she has frequent episodes, more than 10-12 episodes per year. Her last episode was a few weeks ago and she was hospitalized at that time. She then started having severe abdominal pain yesterday. This is a constant sharp stabbing pain throughout her abdomen that radiates to her back. It is constant but varies in intensity. She reports it is a 10 out of 10 and that her Dilaudid is not working and she needs this increased. She has associated nausea , vomiting with clear emesis but no hematemesis. She denies any fevers or chills. She denies any flushing or diarrhea. She reports that she quit drinking completely over a year ago and that she was is taking Ibuprofen for shoulder pain up until her last hospitalization, but quit taking this when she was told that it may have been the etiology for her pancreatitis. She denies any hx of peptic ulcer disease. She denies any new medications. She denies any family history of pancreatitis. She does have GERD and does not have symptoms as long as she takes the Protonix, but otherwise would have symptoms every day. We evaluated her as inpatient back in October of 2016. She had an abnormal CT scan MRI abdomen at that time with portal vein is now thrombosis, evidence for a mild to moderate pancreatitis with a mass in the head of the pancreas. 2. Inflammatory changes in the left upper quadrant. This was followed up with Abdomen MRI (10/28/16) which revealed 1. No evidence of pancreatic mass. 2. Acute pancreatitis with fluid collection adjacent to the tail of the pancreas measuring approximately 4 cm and likely representing pseudocyst. 3. Inflammatory changes surrounding the splenic flexure with focal wall thickening suggesting acute colitis. 4. Fluid adjacent to the anterior aspect of the spleen likely related to adjacent inflammatory changes. 5. Portal vein thrombosis. 6. 4.9 cm splenic lesion which is unchanged compared to the previous examination. Tumor markers were unremarkable with AFP 2.4, CEA 2.4, Ca19-9 14.1. We had recommended EUS with possible FNA as outpatient, but she did not follow up. She was also evaluated in that hospitalization for flushing, facial swelling, lower abdominal cramping, and uncontrollable diarrhea. She was evaluated with chromogranin A 108.0 ( significantly high), Gastrin 86, VIP less than 50. Our office did try to contact her, but they were unable to get in touch with her despite attempted telephone calls and letters mailed to her home. She reports that she follows at the [facility], but is not currently seeing GI because she was told that there was "nothing they could do for me." She reports that she was told that she had a cyst on her pancreas over a year ago and that she was told that it needed to be removed "but the [facility] won't do anything about this." (Jordyn Puente) PFSH Past Medical History Chronic pancreatitis r/t ETOH abuse Multinodular thyroid Cervicalgia Hypertension Chronic pancreatitis Gastroparesis- used to be EES- not on anything now. 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 Posttraumatic stress disorder Anxiety Portal vein thrombosis Elevated chromogranin level Past Surgical History Appendectomy Hysterectomy Colonoscopy EGD (Jordyn Puente) Coded Allergies: Sulfa (Verified Allergy, Severe, Rash, 04/19/17) Ciprofloxacin (Verified Allergy, Mild, Rash, 04/19/17) Medications Allergies Coded Allergies Type Severity Reaction Last Updated Verified Sulfa Allergy Severe Rash 04/19/17 Yes Ciprofloxacin Allergy Mild Rash 04/19/17 Yes Active Scripts Medications Dose Route/Sig Days Date Category Dose Instructions Buspirone (Buspirone HCl) 30 Mg Tab 30 Mg PO BID 04/19/17 Reported Creon (Amylase/Lipase/Protease) 12,000-38,000-60,000 Units Cap 1 Cap PO TIDPC 04/19/17 Reported Ibuprofen 600 Mg Tab 600 Mg PO TID 04/02/17 Reported Atenolol 50 Mg Tab 50 Mg PO DAILY 04/02/17 Reported Ventolin Hfa 18 GM Inh (Albuterol Sulfate) 90 Mcg/Act Aer 2 Puff INH Q4H PRN 03/28/17 Rx Vitamin B-12 (Cyanocobalamin) 1,000 Mcg Tab 1,000 Mcg PO DAILY 02/21/17 Reported Protonix (Pantoprazole Sodium) 40 Mg Tab 40 Mg PO DAILY 10/27/16 Reported Lantus Inj (Insulin Glargine) 1,000 Unit/10 Ml Vial 15 Units SQ DAILY 10/27/16 Reported Novolog Inj (Insulin Aspart) 1,000 Unit/10 Ml Vial 0 SQ DIRECTED 10/27/16 Reported Sliding Scale as directed. Calcium Ascorbate 500 Mg Tab 500 Mg PO DAILY 10/27/16 Reported Family History Mother with lung cancer Father type 2 diabetes developed in 70's Social History Smokes 1/2 a pack of cigarettes per day Used to drink etoh heavily, quit about 1 yr ago no drugs (Jordyn Puente) Review of Systems Constitutional: COMPLAINS OF: Weight loss (30 lb weight loss 3 months), DENIES : Diaphoretic episodes, Fever, Chills, Night Sweats Respiratory: DENIES: Cough, Shortness of breath Cardiovascular: COMPLAINS OF: Chest pain (occasional radiation from abdomen) Gastrointestinal: COMPLAINS OF: Abdominal pain, Nausea, Vomiting, Heartburn, DENIES: Black stools, Bloody stools, Constipation, Diarrhea Musculoskeletal: COMPLAINS OF: Joint pain Integumentary: DENIES: Rash, Jaundice Neurologic: DENIES: Headache Psychiatric: DENIES: Confusion (Jordyn Puente) GI Exam Vitals I&O Vital Signs Date Time Temp Pulse Resp B/P Pulse Ox O2 Delivery O2 Flow Rate FiO2 05/11/17 07:14 98.1 80 18 156/93 98 05/11/17 04:36 97.7 79 18 152/95 97 05/11/17 03:55 86 05/11/17 02:24 98.0 78 18 151/98 98 05/11/17 01:43 84 16 160/90 96 Room Air 05/10/17 22:18 87 16 168/100 98 Room Air 05/10/17 19:48 97.6 109 22 180/90 97 Room Air I/O 05/10/17 05/10/17 05/10/17 05/11/17 05/11/17 05/11/17 07:00 15:00 23:00 07:00 15:00 23:00 Intake Total 10 ml Balance 10 ml Intake Oral 10 ml Imaging Last Impressions Abdomen/Pelvis CT 05/10/17 0000 Signed Impressions: Service Date/Time: April 23:18 - CONCLUSION: 1. 14 x 10 CM sub-phrenic fluid collection on the left larger than on the prior study. This could be related to pseudocyst or perhaps splenic hematoma. The findings have worsened when compared with the prior examination. 2. Chronic calcific pancreatitis 3. Chronic portal vein thrombosis Tanner Benson MD Laboratory Test 05/10/17 05/10/17 21:45 23:50 White Blood Count 15.6 TH/MM3 Red Blood Count 4.90 MIL/MM3 Hemoglobin 13.4 GM/DL Hematocrit 40.3 % Mean Corpuscular Volume 82.1 FL Mean Corpuscular Hemoglobin 27.3 PG Mean Corpuscular Hemoglobin 33.2 % Concent Red Cell Distribution Width 18.7 % Platelet Count 313 TH/MM3 Mean Platelet Volume 8.1 FL Neutrophils (%) (Auto) 85.9 % Lymphocytes (%) (Auto) 9.3 % Monocytes (%) (Auto) 3.9 % Eosinophils (%) (Auto) 0.3 % Basophils (%) (Auto) 0.6 % Neutrophils # (Auto) 13.4 TH/MM3 Lymphocytes # (Auto) 1.4 TH/MM3 Monocytes # (Auto) 0.6 TH/MM3 Eosinophils # (Auto) 0.1 TH/MM3 Basophils # (Auto) 0.1 TH/MM3 CBC Comment DIFF FINAL Differential Comment Sodium Level 137 MEQ/L Potassium Level 3.5 MEQ/L Chloride Level 103 MEQ/L Carbon Dioxide Level 21.6 MEQ/L Anion Gap 12 MEQ/L Blood Urea Nitrogen 9 MG/DL Creatinine 0.88 MG/DL Estimat Glomerular Filtration 67 ML/MIN Rate Random Glucose 195 MG/DL Calcium Level 9.5 MG/DL Total Bilirubin 0.6 MG/DL Aspartate Amino Transf 20 U/L (AST/SGOT) Alanine Aminotransferase 17 U/L (ALT/SGPT) Alkaline Phosphatase 123 U/L Total Protein 8.1 GM/DL Albumin 4.0 GM/DL Lipase 3584 U/L Ethyl Alcohol Level LESS THAN 3 MG/DL Lactic Acid Level 1.2 mmol/L Date/Time Procedure Status Source Growth 05/11/17 01:30 Aerobic Blood Culture Received Blood Peripheral Pending 05/11/17 01:30 Anaerobic Blood Culture Received Blood Peripheral Pending Physical Examination HEENT: Normocephalic; atraumatic; no jaundice. CHEST: CTA CARDIAC: RRR ABDOMEN: Soft, nondistended, diffuse tenderness, severe; no hepatosplenomegaly ; bowel sounds are present in all four quadrants. EXTREMITIES: No clubbing, cyanosis, or edema. SKIN: Normal; no rash; no jaundice. [employer]: No focal deficits; alert and oriented times three. (Jordyn Puente) Assessment and Plan Plan ASSESSMENT: - Acute on chronic pancreatitis with pseudocyst formation. Pt with 4 year hx of pancreatitis (states she has more than 10-12 episodes per year). States last episode was last month. This episode began suddenly yesterday and is the "worst its ever been." She has severe diffuse abdominal pain radiation to back with associated nausea/vomiting- clear emesis. She denies fever or chills. Abdomen/Pelvis CT (05/10/17)---> 1. 14 x 10 CM sub-phrenic fluid collection on the left larger than on the prior study. This could be related to pseudocyst or perhaps splenic hematoma. The findings have worsened when compared with the prior examination. 2. Chronic calcific pancreatitis 3. Chronic portal vein thrombosis. States dilaudid not helping and that this needs to be increased. She quit ETOH use >1 year ago. She reports that she was told more than a year ago that she had a pseudocyst and needed it removed, but that [facility] not [facility]. States she was told one month ago that her ibuprofen use may have caused her pancreatitis and stopped this. Of note, we did recommend EUS with FNA in past, but she did not follow up and she we were unable to contact her by phone or mail. Lipase 3584. WBC 15.6. Afebrile. NPO. - Leukocytosis. WBC 15.6. Afebrile. BCx pending. - Chronic portal vein thrombosis. This is chronic. - Abnormal weight loss. Reports 30 lb weight loss in 3 months. Unintentional - Hx elevated chromogranin level. During a previous hospitalization, she complained of flushing, diarrhea, abdominal pain. She was evaluated with chromogranin A 108.0 (significantly high), Gastrin 86, VIP less than 50. She did not fu. She is not having flushing or diarrhea at this time. PLAN: - Plan for EUS with FNA today - Obtain consents - NPO - IVF - PPI - Pain control per family - CBC, CMP, Lipase in am - Supportive care - Further recommendations to follow based on results of above - Pt seen and examined by Dr. Soares and myself and this note is written on his behalf (Jordyn Puente) Physician Comments Seen and examined with [facility]ITA, complaining of severe abdominal pain. CT scan reviewed with pt. EUS with possible drainage planned for today. Risks discussed with the pt. Will follow, thank you (Tere Soares MD) Jordyn Puente May 11, 2017 09:54 Tere Soares MD May 11, 2017 15:10
[2017-05-11] MEDS: LIPASE/PROTEASE/AMYLASE (12,000/38,000/60,000) CAP PO SCH ×3 (10:34→18:30)
[2017-05-11] MEDS: ACETAMINOPHEN/HYDROcodone 325 MG/5 MG TAB PO PRN (10:35)
[2017-05-11 13:54] LABS: PROTHROMBIN TIME - PATIENT 10.8 SEC (9.8-11.6)
[2017-05-11] MEDS ORDERED: IOHEXOL 350 MG/ML 100 ML BTL (for RAD DIAG) OTHER ONE (15:45)
[2017-05-11] MEDS ORDERED: PROPOFOL 200 MG/20 ML AMP IV ONE (15:45)
[2017-05-11] MEDS ORDERED: GLYCOPYRROLATE 0.2 MG/ML VIAL IV ONE (15:45)
[2017-05-11] MEDS ORDERED: NEOSTIGMINE 3 MG/3 ML SYR IV ONE (15:45)
[2017-05-11] MEDS ORDERED: ONDANSETRON HCL 4 MG/2 ML VIAL IV PUSH ONE (15:45)
[2017-05-11] MEDS ORDERED: PHENYLEPH/NS 1000 MCG/10 ML SYR IV ONE (15:45)
[2017-05-11] MEDS ORDERED: DO NOT ADM ANY ANTICOAGULANT DRUGS PRN (17:58)
[2017-05-11] MEDS ORDERED: fentaNYL CITRATE 250 MCG/5 ML AMP ONE (17:59)
--- NOTE | 2017-05-11 18:06 | RADRPT ---
EXAM DATE/TIME: 05/11/2017 16:12 [facility] COMPARISON: CT ABDOMEN & PELVIS W CONTRAST, May 10, 2017, 23:18. INDICATIONS : Pancreatic cysts drainage and stent placement. FLUORO TIME: 12.25 minutes IMAGE COUNT: 1 CONTRAST: Instilled by Ordering Physician MEDICAL HISTORY : Diabetes mellitus type 2. Gastroparesis. Pancreatitis.Hypertension. Liver disease. SURGICAL HISTORY : Appendectomy. Hysterectomy. section. ENCOUNTER: Subsequent ACUITY: 4 - 6 days PAIN SCORE: Non-responsive. LOCATION: Left upper quadrant FINDINGS: Single spot intraoperative image shows stent in the left upper quadrant of the abdomen. CONCLUSION: Left upper quadrant stent identified. Pollo Almodovar MD on May 11, 2017 at 18:02 Board Certified Radiologist. This report was verified electronically.
--- NOTE | 2017-05-11 18:26 | PD.PROCEDR ---
GI Procedure REFERRING PHYSICIAN MER PROCEDURE PERFORMED EUS with cyst-gastrostomy INDICATION FOR PROCEDURE Large pseudocyst with abdominal pain and elevated white count PROCEDURE: The procedure, risks and benefits were discussed with Ms. Luther and informed consent was obtained. Anesthesia sedated her with Diprivan. She was placed in the left lateral decubitus position. EUS: The Pentax videoscope was introduced through the oropharynx and advanced to the stomach with an initial EGD performed FINDINGS: EGD findings Normal esophagus Bulging in the stomach with food residue Normal duodenum EUS findings Large hypoechoic homogeneous cyst this was aspirated and dark lactose brownish aspirate was obtained and sent for culture and labs a guidewire was passed subsequently the passage was opened up with a needle-knife and dilation subsequently a 7 Angolan 7 cm double pigtail stent was placed good drainage was noted and the procedure was terminated ESTIMATED BLOOD LOSS: About 20 cc SPECIMENS REMOVED: Cyst aspirate was sent for analysis COMPLICATIONS: None IMPRESSION: Large pseudocyst PLAN: Await labs Supportive care Clear liquid diet EGD with stent removal in 2-3 months Repeat abdominal imaging in 1 month to reassess cyst size Steve Corbett MD May 11, 2017 18:26
[2017-05-12] VITALS (11 sets, daily range): BP systolic 89–138; BP diastolic 50–80; PULSE 80–116; RESP 18–20; TEMP 98–99.8; O2SAT 93–98
[2017-05-12] MEDS: HYDROmorphone HCL PF 1 MG/ML VIAL IV PUSH PRN ×9 (02:20→23:37)
[2017-05-12] MEDS: SODIUM CHLOR 0.9% 1000 ML INJ 1,000 ML IV SCH ×3 (03:45→18:05)
[2017-05-12] MEDS: ATENOLOL 50 MG TAB PO SCH (09:00)
[2017-05-12] MEDS: LIPASE/PROTEASE/AMYLASE (12,000/38,000/60,000) CAP PO SCH ×3 (09:17→18:00)
[2017-05-12] MEDS: PANTOPRAZOLE SOD 40 MG DELAYED RELEASE TAB PO SCH (09:18)
[2017-05-12] MEDS: ENOXAPARIN SODIUM 40 MG/0.4 ML SYRINGE SQ SCH (09:19)
[2017-05-12] MEDS: CYANOCOBALAMIN 1,000 MCG TAB PO SCH (09:19)
[2017-05-12] MEDS: busPIRone HCL 10 MG TAB PO SCH ×2 (09:19→20:25)
[2017-05-12 09:37] LABS: AUTOMATED NEUTROPHIL # 5.3 TH/MM3 (1.8-7.7); BASOPHIL % 0.6 % (0.0-2.0); EOSINOPHIL # 0.1 TH/MM3 (0-0.4); HEMATOCRIT 26.7 % (35.0-46.0); HEMO FLAGS DIFF FINAL; LYMPH % 18.1 % (9.0-44.0); LYMPHOCYTE # 1.4 TH/MM3 (1.0-4.8); MEAN CELL VOLUME 83.3 FL (80.0-100.0); MEAN CORPUSCULAR HEMOGLOBIN 27.5 PG (27.0-34.0); MONO % 9.8 % (0.0-8.0); NEUT % 70.5 % (16.0-70.0); PLATELET COUNT 118 TH/MM3 (150-450); RED BLOOD COUNT 3.21 MIL/MM3 (4.00-5.30); RED CELL DISTRIBUTION WIDTH 18.7 % (11.6-17.2); WHITE BLOOD COUNT 7.5 TH/MM3 (4.0-11.0)
--- NOTE | 2017-05-12 09:41 | HHI.PR ---
Subjective Remarks Patient in bed, appears in nad. Says pain is improved since yesterday after the procedure. Pain is epigastric rariating to the back 7/10 in intensity. She is tolerating CLD. No n/v/d/c. Objective Vitals Vital Signs Date Time Temp Pulse Resp B/P Pulse Ox O2 Delivery O2 Flow Rate FiO2 05/12/17 08:00 99.6 83 18 99/61 95 05/12/17 07:21 18 05/12/17 04:00 99.2 85 20 96/59 93 05/12/17 00:28 86 05/12/17 00:00 98.0 80 20 108/65 93 05/11/17 20:00 97.8 83 20 115/73 94 05/11/17 18:30 72 16 100/68 96 Room Air 05/11/17 18:15 73 16 106/68 97 Room Air 05/11/17 18:00 71 16 107/73 96 Nasal Cannula 2 05/11/17 17:52 98.5 73 14 108/55 98 Nasal Cannula 2 05/11/17 14:20 98.3 05/11/17 14:01 66 16 161/90 96 I/O 05/11/17 05/11/17 05/11/17 05/12/17 05/12/17 05/12/17 07:00 15:00 23:00 07:00 15:00 23:00 Intake Total 10 ml 1000 ml Balance 10 ml 1000 ml Intake Oral 10 ml IV Total 1000 ml # Voids 3 1 Result Diagram: 05/10/17214405/10/172144 Imaging Last Impressions GI Procedure 05/11/17 0000 Signed Impressions: Service Date/Time: Thursday, May 11, 2017 16:12 - CONCLUSION: Left upper quadrant stent identified. Pollo Almodovar MD Abdomen/Pelvis CT 05/10/17 0000 Signed Impressions: Service Date/Time: April 23:18 - CONCLUSION: 1. 14 x 10 CM sub-phrenic fluid collection on the left larger than on the prior study. This could be related to pseudocyst or perhaps splenic hematoma. The findings have worsened when compared with the prior examination. 2. Chronic calcific pancreatitis 3. Chronic portal vein thrombosis Tanner Benson MD Objective Remarks GENERAL: This is a thin 52 yo F, doesn't appear in acute distress. CARDIOVASCULAR: Regular rate and rhythm without murmurs, gallops, or rubs. RESPIRATORY: Clear to auscultation. Breath sounds equal bilaterally. No wheezes , rales, or rhonchi. GASTROINTESTINAL: Abdomen soft, tenderness diffusely, voluntary guarding present. Bowel sounds hypoactive. MUSCULOSKELETAL: Extremities without clubbing, cyanosis, or edema. . No calf tenderness. NEUROLOGICAL: Awake and alert. Motor and sensory grossly within normal limits. Normal speech. A/P Problem List: (1) Acute on chronic pancreatitis ICD Code: K85.9 Status: Acute (2) Pancreatic pseudocyst ICD Code: K86.3 Status: Acute (3) PVT (portal vein thrombosis) ICD Code: I81 Status: Acute Assessment and Plan Large pseudocyst with abdominal pain and elevated white count s/p EUS with cyst- gastrostomy / cyst aspiration by Dr Aric FERNANDEZ on 05/11/17. Pathology pending. EGD with stent removal in 2-3 months Repeat abdominal imaging in 1 month to reassess cyst size Acute on chronic pancreatitis Pancreatic pseudocyst Portal vein thrombosisaccording to patient's , they were told of this previously as well. She was at one point on blood thinners. Currently she is only on aspirin. Intractable pain Leukocytosis with left shiftlikely due to stress from pain HTN DM2 Lipase 3584 on admission. Monitor level. Aggressive IV fluids NS at 150 cc per hour. Pain control with Dilaudid 0.5 mg IV every 2 hours when necessary. We will follow Alize's criteria. GI consult regarding severe acute pancreatitis and portal vein thrombosis. Question need for anticoagulation. S/p stent placement needs follow up for removal in 2-3 month per GI Resume home meds. CLD. Hold insulin as patient is likely not needed. We'll monitor fingersticks closely. DVT prophylaxiswith Lovenox. GI prophylaxis on pantoprazole. Discussed Condition With Patient, nurse DC plan: DC when improved and cleared by Aleida Harmon MD May 12, 2017 09:41
[2017-05-12 10:09] LABS: ALKALINE PHOSPHATASE 83 U/L (45-117); ALT (GPT) 12 U/L (10-53); ANION GAP 8 MEQ/L (5-15); AST (GOT) 30 U/L (15-37); BICARBONATE 25.6 MEQ/L (21.0-32.0); BLOOD UREA NITROGEN 12 MG/DL (7-18); CHLORIDE 105 MEQ/L (98-107); GLOMERULAR FILTRATION RATE 94 ML/MIN (>89); POTASSIUM 4.1 MEQ/L (3.5-5.1); SODIUM (NA) 139 MEQ/L (136-145); TOTAL BILIRUBIN ADULT 0.7 MG/DL (0.2-1.0)
--- NOTE | 2017-05-12 14:34 | HHI.GIFU ---
Subjective Remarks Pt sitting up in bed. Says she feels much better and her LUQ pain is much improved, is very pleased. (Ruby Green) Objective Vitals I&O Vital Signs Date Time Temp Pulse Resp B/P Pulse Ox O2 Delivery O2 Flow Rate FiO2 05/12/17 13:57 116 138/80 05/12/17 11:47 99.4 84 20 89/50 93 05/12/17 10:57 94 21 05/12/17 08:00 99.6 83 18 99/61 95 05/12/17 07:21 18 05/12/17 04:00 99.2 85 20 96/59 93 05/12/17 00:28 86 05/12/17 00:00 98.0 80 20 108/65 93 05/11/17 20:00 97.8 83 20 115/73 94 05/11/17 18:30 72 16 100/68 96 Room Air 05/11/17 18:15 73 16 106/68 97 Room Air 05/11/17 18:00 71 16 107/73 96 Nasal Cannula 2 05/11/17 17:52 98.5 73 14 108/55 98 Nasal Cannula 2 I/O 05/11/17 05/11/17 05/11/17 05/12/17 05/12/17 05/12/17 07:00 15:00 23:00 07:00 15:00 23:00 Intake Total 10 ml 1000 ml Balance 10 ml 1000 ml Intake Oral 10 ml IV Total 1000 ml # Voids 3 1 Laboratory Laboratory Tests Test 05/11/17 05/12/17 16:10 07:46 Miscellaneous Test Result White Blood Count 7.5 Red Blood Count 3.21 Hemoglobin 8.8 Hematocrit 26.7 Mean Corpuscular Volume 83.3 Mean Corpuscular Hemoglobin 27.5 Mean Corpuscular Hemoglobin 33.0 Concent Red Cell Distribution Width 18.7 Platelet Count 118 Mean Platelet Volume 8.2 Neutrophils (%) (Auto) 70.5 Lymphocytes (%) (Auto) 18.1 Monocytes (%) (Auto) 9.8 Eosinophils (%) (Auto) 1.0 Basophils (%) (Auto) 0.6 Neutrophils # (Auto) 5.3 Lymphocytes # (Auto) 1.4 Monocytes # (Auto) 0.7 Eosinophils # (Auto) 0.1 Basophils # (Auto) 0.0 CBC Comment DIFF FINAL Differential Comment Sodium Level 139 Potassium Level 4.1 Chloride Level 105 Carbon Dioxide Level 25.6 Anion Gap 8 Blood Urea Nitrogen 12 Creatinine 0.66 Estimat Glomerular Filtration 94 Rate Random Glucose 117 Calcium Level 7.9 Total Bilirubin 0.7 Aspartate Amino Transf 30 (AST/SGOT) Alanine Aminotransferase 12 (ALT/SGPT) Alkaline Phosphatase 83 Total Protein 5.4 Albumin 2.4 Lipase 217 Date/Time Procedure Status Source Growth 05/11/17 16:10 Gram Stain - Final Resulted Fluid Pancreatic Fluid 05/11/17 16:10 Body Fluid Culture - Preliminary Resulted Fluid Pancreatic Fluid NO GROWTH IN 24 HOURS. 05/11/17 16:10 Cancelled Other 05/11/17 16:10 Cancelled Fluid Pancreatic Fluid 05/11/17 01:30 Aerobic Blood Culture - Preliminary Resulted Blood Peripheral NO GROWTH IN 1 DAY 05/11/17 01:30 Anaerobic Blood Culture - Preliminary Resulted Blood Peripheral NO GROWTH IN 1 DAY Imaging Last Impressions GI Procedure 05/11/17 0000 Signed Impressions: Service Date/Time: Thursday, May 11, 2017 16:12 - CONCLUSION: Left upper quadrant stent identified. Pollo Almodovar MD Abdomen/Pelvis CT 05/10/17 0000 Signed Impressions: Service Date/Time: April 23:18 - CONCLUSION: 1. 14 x 10 CM sub-phrenic fluid collection on the left larger than on the prior study. This could be related to pseudocyst or perhaps splenic hematoma. The findings have worsened when compared with the prior examination. 2. Chronic calcific pancreatitis 3. Chronic portal vein thrombosis Tanner Benson MD Physical Exam HEENT:PERRL; normocephalic; atraumatic; no jaundice. CHEST: CTA CARDIAC: RRR ABDOMEN: Soft, nondistended, mild diffuse TTP; no hepatosplenomegaly; bowel sounds are present in all four quadrants. EXTREMITIES: No clubbing, cyanosis, or edema. SKIN: Normal; no rash; no jaundice. BAKER OPERATOR AUTOMATIC: No focal deficits; alert and oriented times three. (Ruby Green) Assessment and Plan Plan ASSESSMENT: - Acute on chronic pancreatitis with pseudocyst formation. Pt with 4 year hx of pancreatitis (states she has more than 10-12 episodes per year). States last episode was last month. This episode began suddenly yesterday and is the "worst its ever been." She has severe diffuse abdominal pain radiation to back with associated nausea/vomiting- clear emesis. She denies fever or chills. Abdomen/Pelvis CT (05/10/17)---> 1. 14 x 10 CM sub-phrenic fluid collection on the left larger than on the prior study. This could be related to pseudocyst or perhaps splenic hematoma. The findings have worsened when compared with the prior examination. 2. Chronic calcific pancreatitis 3. Chronic portal vein thrombosis. States dilaudid not helping and that this needs to be increased. She quit ETOH use >1 year ago. She reports that she was told more than a year ago that she had a pseudocyst and needed it removed, but that the [facility] will not [facility] this. States she was told one month ago that her ibuprofen use may have caused her pancreatitis and stopped this. Of note, we did recommend EUS with FNA in past, but she did not follow up and she we were unable to contact her by phone or mail. WBC wnl. Afebrile. clears. Lipase WNL. s/p EUS w/ cyst gastrostomy --> bulging in stomach w/ food residue, hypoechoic homogenous cyst aspirated dark lactose brownish aspirate obtained, sent for cx, stent placed - Leukocytosis. improved. Afebrile. Bx pending. - Chronic portal vein thrombosis. This is chronic. - Abnormal weight loss. Reports 30 lb weight loss in 3 months. Unintentional - Hx elevated chromogranin level. During a previous hospitalization, she complained of flushing, diarrhea, abdominal pain. She was evaluated with chromogranin A 108.0 (significantly high), Gastrin 86, VIP less than 50. She did not fu. She is not having flushing or diarrhea at this time. PLAN: - clears - PPI - repeat imaging in 1 m to reassess cyst - EGD w/ stent removal 2-3m - Pain control per family - Supportive care - Further recommendations to follow based on results of above - Pt seen and examined by Dr. Corbett and myself and this note is written on his behalf (Ruby Green PA[employer] UP COPY CAMERA OPERATOR) Physician Comments Patient seen and examined Agree with above Continue with current supportive care Monitor labs (Steve Corbett MD) Ruby Green May 12, 2017 14:34 Steve Corbett MD May 12, 2017 15:29
[2017-05-12] MEDS: SODIUM CHLORIDE 0.9% FLUSH 10 ML FLUSH IV FLUSH SCH ×2 (20:25→21:00)
[2017-05-13] VITALS (10 sets, daily range): BP systolic 102–131; BP diastolic 53–76; PULSE 80–111; RESP 20; TEMP 98.2–99.6; O2SAT 93–96
[2017-05-13] MEDS: SODIUM CHLOR 0.9% 1000 ML INJ 1,000 ML IV SCH ×2 (00:45→21:13)
[2017-05-13] MEDS: HYDROmorphone HCL PF 1 MG/ML VIAL IV PUSH PRN ×11 (01:37→23:11)
[2017-05-13] MEDS: ONDANSETRON HCL 4 MG/2 ML VIAL IV PUSH PRN ×3 (03:45→18:55)
[2017-05-13] MEDS: ENOXAPARIN SODIUM 40 MG/0.4 ML SYRINGE SQ SCH (08:22)
[2017-05-13] MEDS: CYANOCOBALAMIN 1,000 MCG TAB PO SCH (08:25)
[2017-05-13] MEDS: LIPASE/PROTEASE/AMYLASE (12,000/38,000/60,000) CAP PO SCH ×3 (08:25→16:47)
[2017-05-13] MEDS: PANTOPRAZOLE SOD 40 MG DELAYED RELEASE TAB PO SCH (08:26)
[2017-05-13] MEDS: SODIUM CHLORIDE 0.9% FLUSH 10 ML FLUSH IV FLUSH SCH ×2 (09:00→21:00)
[2017-05-13] MEDS: ATENOLOL 50 MG TAB PO SCH (09:00)
[2017-05-13] MEDS: busPIRone HCL 10 MG TAB PO SCH ×2 (09:00→21:14)
--- NOTE | 2017-05-13 11:39 | HHI.GIFU ---
Subjective Remarks Pt resting in bed, visiting with friend, and talking on phone. She says she had a bad night with lower abdominal cramping, nausea. She says she needs more pain meds. (Ruby Green) Objective Vitals I&O Vital Signs Date Time Temp Pulse Resp B/P Pulse Ox O2 Delivery O2 Flow Rate FiO2 05/13/17 08:15 96 21 05/13/17 08:00 99.0 93 20 116/68 94 05/13/17 04:00 99.6 105 20 120/75 94 05/13/17 01:16 95 05/13/17 00:00 98.9 111 20 131/76 94 05/12/17 21:07 98 21 05/12/17 20:00 99.7 101 20 115/65 98 05/12/17 16:05 99.8 90 20 116/73 97 05/12/17 13:57 116 138/80 05/12/17 11:47 99.4 84 20 89/50 93 I/O 05/12/17 05/12/17 05/12/17 05/13/17 05/13/17 05/13/17 07:00 15:00 23:00 07:00 15:00 23:00 Intake Total 1000 ml 240 ml Balance 1000 ml 240 ml Intake Oral 240 ml IV Total 1000 ml # Voids 4 2 1 # Bowel Movements 0 0 Laboratory Date/Time Procedure Status Source Growth 05/11/17 16:10 Gram Stain - Final Resulted Fluid Pancreatic Fluid 05/11/17 16:10 Body Fluid Culture - Preliminary Resulted Fluid Pancreatic Fluid NO GROWTH IN 24 HOURS. 05/11/17 16:10 Cancelled Other 05/11/17 16:10 Cancelled Fluid Pancreatic Fluid 05/11/17 01:30 Aerobic Blood Culture - Preliminary Resulted Blood Peripheral NO GROWTH IN 2 DAYS 05/11/17 01:30 Anaerobic Blood Culture - Preliminary Resulted Blood Peripheral NO GROWTH IN 2 DAYS Imaging Last Impressions GI Procedure 05/11/17 0000 Signed Impressions: Service Date/Time: Thursday, May 11, 2017 16:12 - CONCLUSION: Left upper quadrant stent identified. Pollo Almodovar MD Abdomen/Pelvis CT 05/10/17 0000 Signed Impressions: Service Date/Time: April 23:18 - CONCLUSION: 1. 14 x 10 CM sub-phrenic fluid collection on the left larger than on the prior study. This could be related to pseudocyst or perhaps splenic hematoma. The findings have worsened when compared with the prior examination. 2. Chronic calcific pancreatitis 3. Chronic portal vein thrombosis Tanner Benson MD Physical Exam HEENT:PERRL; normocephalic; atraumatic; no jaundice. CHEST: CTA CARDIAC: RRR ABDOMEN: Soft, nondistended,diffuse TTP to light palpation but no TTP to pressure with stethoscope; no hepatosplenomegaly; bowel sounds are present in all four quadrants. EXTREMITIES: No clubbing, cyanosis, or edema. SKIN: Normal; no rash; no jaundice. PROGRAM DIRECTOR/MUSIC DIRECTOR: No focal deficits; alert and oriented times three. (Ruby Green [facility]) Assessment and Plan Plan ASSESSMENT: - Acute on chronic pancreatitis with pseudocyst formation. Pt with 4 year hx of pancreatitis (states she has more than 10-12 episodes per year). States last episode was last month. This episode began suddenly yesterday and is the "worst its ever been." She has severe diffuse abdominal pain radiation to back with associated nausea/vomiting- clear emesis. She denies fever or chills. Abdomen/Pelvis CT (05/10/17)---> 1. 14 x 10 CM sub-phrenic fluid collection on the left larger than on the prior study. This could be related to pseudocyst or perhaps splenic hematoma. The findings have worsened when compared with the prior examination. 2. Chronic calcific pancreatitis 3. Chronic portal vein thrombosis. States dilaudid not helping and that this needs to be increased. She quit ETOH use >1 year ago. She reports that she was told more than a year ago that she had a pseudocyst and needed it removed, but that the [facility] will not approve this. States she was told one month ago that her ibuprofen use may have caused her pancreatitis and stopped this. Of note, we did recommend EUS with FNA in past, but she did not follow up and she we were unable to contact her by phone or mail. WBC wnl. Afebrile. clears. Lipase WNL. s/p EUS w/ cyst gastrostomy --> bulging in stomach w/ food residue, hypoechoic homogenous cyst aspirated dark lactose brownish aspirate obtained, sent for cx, stent placed - Leukocytosis. improved. Afebrile. Bx pending. - Chronic portal vein thrombosis. This is chronic. - Abnormal weight loss. Reports 30 lb weight loss in 3 months. Unintentional - Hx elevated chromogranin level. During a previous hospitalization, she complained of flushing, diarrhea, abdominal pain. She was evaluated with chromogranin A 108.0 (significantly high), Gastrin 86, VIP less than 50. She did not fu. She is not having flushing or diarrhea at this time. PLAN: - rck LFTs, lipase, CBC - clears - PPI - repeat imaging in 1 m to reassess cyst - EGD w/ stent removal 2-3m - Pain control per family - Supportive care - Further recommendations to follow based on results of above - Pt seen and examined by Dr. Corbett and myself and this note is written on his behalf (Ruby Green) Physician Comments Patient seen and examined Agree with above Continue with current supportive care Monitor labs May repeat imaging earlier if any worsening symptoms (Steve Corbett MD) Ruby Green May 13, 2017 11:39 Steve Corbett MD May 13, 2017 13:26
--- NOTE | 2017-05-13 12:22 | HHI.PR ---
Subjective Remarks Still with nausea nad pain. Did not vomit. Doesn't feel comfortable to advance food. She is on CLD at this time. No fever or chills. Pain is still 7/10 in intensity radiating to the back. Objective Vitals Vital Signs Date Time Temp Pulse Resp B/P Pulse Ox O2 Delivery O2 Flow Rate FiO2 05/13/17 11:43 98.9 80 20 102/64 94 05/13/17 08:15 96 21 05/13/17 08:00 99.0 93 20 116/68 94 05/13/17 04:00 99.6 105 20 120/75 94 05/13/17 01:16 95 05/13/17 00:00 98.9 111 20 131/76 94 05/12/17 21:07 98 21 05/12/17 20:00 99.7 101 20 115/65 98 05/12/17 16:05 99.8 90 20 116/73 97 05/12/17 13:57 116 138/80 I/O 05/12/17 05/12/17 05/12/17 05/13/17 05/13/17 05/13/17 07:00 15:00 23:00 07:00 15:00 23:00 Intake Total 1000 ml 240 ml Balance 1000 ml 240 ml Intake Oral 240 ml IV Total 1000 ml # Voids 4 2 1 # Bowel Movements 0 0 Result Diagram: 05/12/17 0746 05/12/17 0746 Imaging Last Impressions GI Procedure 05/11/17 0000 Signed Impressions: Service Date/Time: Thursday, May 11, 2017 16:12 - CONCLUSION: Left upper quadrant stent identified. Pollo Almodovar MD Abdomen/Pelvis CT 05/10/17 0000 Signed Impressions: Service Date/Time: April 23:18 - CONCLUSION: 1. 14 x 10 CM sub-phrenic fluid collection on the left larger than on the prior study. This could be related to pseudocyst or perhaps splenic hematoma. The findings have worsened when compared with the prior examination. 2. Chronic calcific pancreatitis 3. Chronic portal vein thrombosis Tanner Benson MD Objective Remarks GENERAL: This is a thin 52 yo F, doesn't appear in acute distress. CARDIOVASCULAR: Regular rate and rhythm without murmurs, gallops, or rubs. RESPIRATORY: Clear to auscultation. Breath sounds equal bilaterally. No wheezes , rales, or rhonchi. GASTROINTESTINAL: Abdomen soft, tenderness diffusely, voluntary guarding present. Bowel sounds hypoactive. MUSCULOSKELETAL: Extremities without clubbing, cyanosis, or edema. . No calf tenderness. NEUROLOGICAL: Awake and alert. Motor and sensory grossly within normal limits. Normal speech. A/P Problem List: (1) Acute on chronic pancreatitis ICD Code: K85.9 Status: Acute (2) Pancreatic pseudocyst ICD Code: K86.3 Status: Acute (3) PVT (portal vein thrombosis) ICD Code: I81 Status: Acute Assessment and Plan Large pseudocyst with abdominal pain and elevated white count s/p EUS with cyst- gastrostomy / cyst aspiration by Dr Aric FERNANDEZ on 05/11/17. Pathology pending. EGD with stent removal in 2-3 months Repeat abdominal imaging in 1 month to reassess cyst size Acute on chronic pancreatitis Pancreatic pseudocyst Portal vein thrombosisaccording to patient's , they were told of this previously as well. She was at one point on blood thinners. Currently she is only on aspirin. Intractable pain Leukocytosis with left shiftlikely due to stress from pain HTN DM2 Lipase 3584 on admission. Monitor level.Repeat lipase back to normal. Aggressive IV fluids NS at 150 cc per hour. GI consult regarding severe acute pancreatitis and portal vein thrombosis. Question need for anticoagulation. S/p stent placement needs follow up for removal in 2-3 month per GI Resume home meds. CLD. Advance diet as tolerated. Antiemetics as need, pain meds ass need. Hold insulin as patient is likely not needed. We'll monitor fingersticks closely. DVT prophylaxiswith Lovenox. GI prophylaxis on pantoprazole. Discussed Condition With Patient, nurse DC plan: DC when improved and cleared by Aleida Harmon MD May 13, 2017 12:22
[2017-05-14] VITALS (8 sets, daily range): BP systolic 91–119; BP diastolic 54–68; PULSE 75–117; RESP 18–20; TEMP 99–101.1; O2SAT 93–95
[2017-05-14] MEDS: ACETAMINOPHEN 325 MG TAB PO PRN ×2 (00:35→11:42)
--- NOTE | 2017-05-14 00:37 | RADRPT ---
EXAM DATE/TIME: 05/14/2017 00:15 [facility] COMPARISON: CT ABDOMEN & PELVIS W CONTRAST, May 10, 2017, 23:18. CHEST SINGLE AP, April 19, 2017, 12:22. INDICATIONS : Low grade fever. MEDICAL HISTORY : Diabetes mellitus type II. Gastroparesis. Pancreatitis. Hypertension SURGICAL HISTORY : Appendectomy. Hysterectomy. section. ENCOUNTER: Subsequent ACUITY: 1 week PAIN SCORE: 0/10 LOCATION: Bilateral chest FINDINGS: Consolidation and a small effusion have developed at the left lung base. Elevation of the left hemidi aphragm unchanged. No pneumothorax. Normal, stable heart size. CONCLUSION: Consolidation and small effusion have developed at the left lung base. Tim Tinajero MD on May 14, 2017 at 0:34 Board Certified Radiologist. This report was verified electronically.
[2017-05-14] MEDS: HYDROmorphone HCL PF 1 MG/ML VIAL IV PUSH PRN ×9 (01:17→22:55)
[2017-05-14] MEDS: ACETAMINOPHEN/HYDROcodone 325 MG/5 MG TAB PO PRN ×3 (02:21→13:06)
[2017-05-14] MEDS: PIPERACIL-TAZO 4.5 GM PREMIX 100 ML IV SCH ×4 (02:29→20:13)
[2017-05-14 04:26] LABS: BLOOD, URINE NEG (NEG); GLUCOSE,URINE NEG (NEG); KETONE, URINE NEG (NEG); NITRITE,URINE NEG (NEG); URINE COLOR LIGHT-YELLOW (YELLW/STRAW)
[2017-05-14 04:29] LABS: COMMENT (UR) CULT NOT INDICATED; CULTURE IF INDICATED CULT NOT INDICATED
[2017-05-14] MEDS: ENOXAPARIN SODIUM 40 MG/0.4 ML SYRINGE SQ SCH (08:01)
[2017-05-14] MEDS: ATENOLOL 50 MG TAB PO SCH (08:01)
[2017-05-14] MEDS: LIPASE/PROTEASE/AMYLASE (12,000/38,000/60,000) CAP PO SCH ×3 (08:01→17:36)
[2017-05-14] MEDS: PANTOPRAZOLE SOD 40 MG DELAYED RELEASE TAB PO SCH (08:01)
[2017-05-14] MEDS: busPIRone HCL 10 MG TAB PO SCH ×2 (08:01→20:13)
[2017-05-14] MEDS: CYANOCOBALAMIN 1,000 MCG TAB PO SCH (08:01)
[2017-05-14] MEDS: SODIUM CHLORIDE 0.9% FLUSH 10 ML FLUSH IV FLUSH SCH ×2 (08:02→20:14)
[2017-05-14 08:46] LABS: BASOPHIL % 0.4 % (0.0-2.0); EOSINOPHIL # 0.1 TH/MM3 (0-0.4); EOSINOPHIL % 0.6 % (0.0-4.0); HEMATOCRIT 22.8 % (35.0-46.0); HEMO FLAGS DIFF FINAL; LYMPH % 4.8 % (9.0-44.0); LYMPHOCYTE # 0.5 TH/MM3 (1.0-4.8); MEAN CELL VOLUME 84.1 FL (80.0-100.0); MEAN CORPUSCULAR HEMOGLOBIN 27.7 PG (27.0-34.0); MEAN CORPUSCULAR HGB CONC 32.9 % (32.0-36.0); MONO % 9.2 % (0.0-8.0); PLATELET COUNT 144 TH/MM3 (150-450); RED BLOOD COUNT 2.71 MIL/MM3 (4.00-5.30); RED CELL DISTRIBUTION WIDTH 18.5 % (11.6-17.2); WHITE BLOOD COUNT 10.6 TH/MM3 (4.0-11.0)
[2017-05-14 09:13] LABS: INDIRECT BILIRUBIN 0.7 MG/DL (0.0-0.8); TOTAL BILIRUBIN ADULT 1.3 MG/DL (0.2-1.0)
[2017-05-14] MEDS: SODIUM CHLOR 0.9% 1000 ML INJ 1,000 ML IV SCH ×3 (10:05→20:15)
--- NOTE | 2017-05-14 12:12 | HHI.PR ---
Subjective Remarks Says she still has pain in her belly 7/10 in intensity she is asking for more pain meds. She is still nauseated however did not vomit. No feevr or chills. Says she is ready to advance diet. Objective Vitals Vital Signs Date Time Temp Pulse Resp B/P Pulse Ox O2 Delivery O2 Flow Rate FiO2 05/14/17 12:02 100.2 85 18 110/68 94 05/14/17 11:46 16 05/14/17 10:05 15 05/14/17 08:24 93 21 05/14/17 08:02 99.6 90 18 113/67 93 05/14/17 06:21 99.0 75 20 101/58 93 05/14/17 00:10 101.1 98 18 119/64 95 05/13/17 22:44 89 05/13/17 21:41 99.6 105 20 113/53 93 05/13/17 16:00 98.2 92 20 118/71 96 I/O 05/13/17 05/13/17 05/13/17 05/14/17 05/14/17 05/14/17 07:00 15:00 23:00 07:00 15:00 23:00 Intake Total 1578 ml Balance 1578 ml IV Total 1578 ml # Voids 1 2 9 # Bowel Movements 0 Result Diagram: 05/14/17 0837 05/12/17 0746 Imaging Last Impressions Chest X-Ray 05/14/17 0011 Signed Impressions: Service Date/Time: Sunday, May 14, 2017 00:15 - CONCLUSION: Consolidation and small effusion have developed at the left lung base. Tim Tinajero MD GI Procedure 05/11/17 0000 Signed Impressions: Service Date/Time: Thursday, May 11, 2017 16:12 - CONCLUSION: Left upper quadrant stent identified. Pollo Almodovar MD Abdomen/Pelvis CT 05/10/17 0000 Signed Impressions: Service Date/Time: April 23:18 - CONCLUSION: 1. 14 x 10 CM sub-phrenic fluid collection on the left larger than on the prior study. This could be related to pseudocyst or perhaps splenic hematoma. The findings have worsened when compared with the prior examination. 2. Chronic calcific pancreatitis 3. Chronic portal vein thrombosis Tanner Benson MD Objective Remarks GENERAL: This is a thin 52 yo F, doesn't appear in acute distress. CARDIOVASCULAR: Regular rate and rhythm without murmurs, gallops, or rubs. RESPIRATORY: Clear to auscultation. Breath sounds equal bilaterally. No wheezes , rales, or rhonchi. GASTROINTESTINAL: Abdomen soft, tenderness diffusely, voluntary guarding present. Bowel sounds hypoactive. MUSCULOSKELETAL: Extremities without clubbing, cyanosis, or edema. . No calf tenderness. NEUROLOGICAL: Awake and alert. Motor and sensory grossly within normal limits. Normal speech. A/P Problem List: (1) Acute on chronic pancreatitis ICD Code: K85.9 Status: Acute (2) Pancreatic pseudocyst ICD Code: K86.3 Status: Acute (3) PVT (portal vein thrombosis) ICD Code: I81 Status: Acute Assessment and Plan Large pseudocyst with abdominal pain and elevated white count s/p EUS with cyst- gastrostomy / cyst aspiration by Dr Aric FERNANDEZ on 05/11/17. Pathology pending. EGD with stent removal in 2-3 months Repeat abdominal imaging in 1 month to reassess cyst size Acute on chronic pancreatitis Pancreatic pseudocyst Portal vein thrombosisaccording to patient's , they were told of this previously as well. She was at one point on blood thinners. Currently she is only on aspirin. Intractable pain Leukocytosis with left shiftlikely due to stress from pain HTN DM2 Lipase 3584 on admission. Monitor level.Repeat lipase back to normal. Aggressive IV fluids NS at 150 cc per hour. GI consult regarding severe acute pancreatitis and portal vein thrombosis. Question need for anticoagulation. S/p stent placement needs follow up for removal in 2-3 month per GI Resume home meds. Advance to thick liquid diet. Advance diet as tolerated. Antiemetics as need, pain meds ass need. Hold insulin as patient is likely not needed. We'll monitor fingersticks closely. DVT prophylaxiswith Lovenox. GI prophylaxis on pantoprazole. Discussed Condition With Patient, nurse DC plan: DC when improved and cleared by Aleida Harmon MD May 14, 2017 12:12
--- NOTE | 2017-05-14 12:27 | HHI.GIFU ---
Subjective Remarks Resting in bed. No n/v. States pain is slowly improving since procedure, much improved from when she first came in. Does report fevers. (Jordyn Puente) Objective Vitals I&O Vital Signs Date Time Temp Pulse Resp B/P Pulse Ox O2 Delivery O2 Flow Rate FiO2 05/14/17 12:02 100.2 85 18 110/68 94 05/14/17 11:46 16 05/14/17 10:05 15 05/14/17 08:24 93 21 05/14/17 08:02 99.6 90 18 113/67 93 05/14/17 06:21 99.0 75 20 101/58 93 05/14/17 00:10 101.1 98 18 119/64 95 05/13/17 22:44 89 05/13/17 21:41 99.6 105 20 113/53 93 05/13/17 16:00 98.2 92 20 118/71 96 I/O 05/13/17 05/13/17 05/13/17 05/14/17 05/14/17 05/14/17 07:00 15:00 23:00 07:00 15:00 23:00 Intake Total 1578 ml Balance 1578 ml IV Total 1578 ml # Voids 1 2 9 # Bowel Movements 0 Laboratory Laboratory Tests Test 05/14/17 05/14/17 04:05 08:37 Urine Color LIGHT-YELLOW Urine Turbidity CLEAR Urine pH 6.0 Urine Specific [place] 1.002 Urine Protein NEG Urine Glucose (UA) NEG Urine Ketones NEG Urine Occult Blood NEG Urine Nitrite NEG Urine Bilirubin NEG Urine Urobilinogen LESS THAN 2.0 Urine Leukocyte Esterase NEG Urine WBC LESS THAN 1 Microscopic Urinalysis Comment CULT NOT INDICATED White Blood Count 10.6 Red Blood Count 2.71 Hemoglobin 7.5 Hematocrit 22.8 Mean Corpuscular Volume 84.1 Mean Corpuscular Hemoglobin 27.7 Mean Corpuscular Hemoglobin 32.9 Concent Red Cell Distribution Width 18.5 Platelet Count 144 Mean Platelet Volume 7.5 Neutrophils (%) (Auto) 85.0 Lymphocytes (%) (Auto) 4.8 Monocytes (%) (Auto) 9.2 Eosinophils (%) (Auto) 0.6 Basophils (%) (Auto) 0.4 Neutrophils # (Auto) 9.0 Lymphocytes # (Auto) 0.5 Monocytes # (Auto) 1.0 Eosinophils # (Auto) 0.1 Basophils # (Auto) 0.0 CBC Comment DIFF FINAL Differential Comment Total Bilirubin 1.3 Direct Bilirubin 0.6 Indirect Bilirubin 0.7 Aspartate Amino Transf 24 (AST/SGOT) Alanine Aminotransferase 17 (ALT/SGPT) Alkaline Phosphatase 182 Total Protein 5.3 Albumin 2.1 Lipase 246 Date/Time Procedure Status Source Growth 05/14/17 00:59 Aerobic Blood Culture Received Blood Peripheral Pending 05/14/17 00:59 Anaerobic Blood Culture Received Blood Peripheral Pending 05/11/17 16:10 Gram Stain - Final Resulted Fluid Pancreatic Fluid 05/11/17 16:10 Body Fluid Culture - Preliminary Resulted Fluid Pancreatic Fluid 05/11/17 16:10 Cancelled Other 05/11/17 16:10 Cancelled Fluid Pancreatic Fluid 05/11/17 01:30 Aerobic Blood Culture - Preliminary Resulted Blood Peripheral NO GROWTH IN 3 DAYS 05/11/17 01:30 Anaerobic Blood Culture - Preliminary Resulted Blood Peripheral NO GROWTH IN 3 DAYS Imaging Last Impressions Chest X-Ray 05/14/17 0011 Signed Impressions: Service Date/Time: Sunday, May 14, 2017 00:15 - CONCLUSION: Consolidation and small effusion have developed at the left lung base. Tim Tinajero MD GI Procedure 05/11/17 0000 Signed Impressions: Service Date/Time: Thursday, May 11, 2017 16:12 - CONCLUSION: Left upper quadrant stent identified. Pollo Almodovar MD Abdomen/Pelvis CT 05/10/17 0000 Signed Impressions: Service Date/Time: April 23:18 - CONCLUSION: 1. 14 x 10 CM sub-phrenic fluid collection on the left larger than on the prior study. This could be related to pseudocyst or perhaps splenic hematoma. The findings have worsened when compared with the prior examination. 2. Chronic calcific pancreatitis 3. Chronic portal vein thrombosis Tanner Benson MD Physical Exam HEENT:PERRL; normocephalic; atraumatic; no jaundice. CHEST: CTA CARDIAC: RRR ABDOMEN: Soft, nondistended,diffuse tenderness; no hepatosplenomegaly; bowel sounds are present in all four quadrants. EXTREMITIES: No clubbing, cyanosis, or edema. SKIN: Normal; no rash; no jaundice. RACK CLEANER: No focal deficits; alert and oriented times three. (CindiJordyn Bautista [facility]) Assessment and Plan Plan ASSESSMENT: - Acute on chronic pancreatitis with large pseudocyst formation. Pt with 4 year hx of pancreatitis (states she has more than 10-12 episodes per year). States last episode was last month. Abdomen/Pelvis CT (05/10/17)---> 1. 14 x 10 CM sub-phrenic fluid collection on the left larger than on the prior study. This could be related to pseudocyst or perhaps splenic hematoma. The findings have worsened when compared with the prior examination. 2. Chronic calcific pancreatitis 3. Chronic portal vein thrombosis. She quit ETOH use >1 year ago. She reports that she was told more than a year ago that she had a pseudocyst and needed it removed, but that the [facility] will not [facility] this. States she was told one month ago that her ibuprofen use may have caused her pancreatitis and stopped this. Of note, we did recommend EUS with FNA in past, but she did not follow up and she we were unable to contact her by phone or mail. S/P EUS w/ cyst gastrostomy (05/11/17) --> EGD findings Normal esophagus, Bulging in the stomach with food residue, Normal duodenum, EUS findings with hypoechoic homogeneous cyst, which was aspirated and dark lactose brownish aspirate was obtained and sent for culture and labs, s/p 7 Brazilian 7 cm double pigtail stent placement. Pain slowly improving, much improved from admission. Lipase normalized. Tolerating diet. (+) Fevers. Cx pancreatic fluid preliminary- rare WBC, no organisms seen , immature growth of gram positive elisa, no anaerobes, no growth in 24 hours. T Max 101.1. Zosyn. Creon. - Fever/Leukocytosis. BCx pending. T Max 101.1. Zosyn. - Chronic portal vein thrombosis. This is chronic. - Abnormal weight loss. Reports 30 lb weight loss in 3 months. Unintentional - Hx elevated chromogranin level. During a previous hospitalization, she complained of flushing, diarrhea, abdominal pain. She was evaluated with chromogranin A 108.0 (significantly high), Gastrin 86, VIP less than 50. She did not fu. She is not having flushing or diarrhea at this time. PLAN: - MARAH - Await BCx - Cont. PPI - Cont. Creon - Cont. Zosyn - Repeat imaging in 1 month to reassess cyst - EGD w/ stent removal 2-3m - Supportive care - Further recommendations to follow based on results of above - Pt seen and examined by Dr. Escamilla and myself and this note is written on his behalf (Jordyn Puente) Plan Agree with above. (Watson Escamilla MD) Jordyn Puente May 14, 2017 12:27 Watson Escamilla MD May 14, 2017 17:11
--- NOTE | 2017-05-14 15:01 | RADRPT ---
EXAM DATE/TIME: 05/14/2017 14:32 [facility] COMPARISON: GI LAB WIRE DILATATION, May 11, 2017, 16:12. CT ABDOMEN & PELVIS W CONTRAST, May 10, 2017, 23:18. ABDOMEN KUB ONLY, November 14, 2016, 4:05. INDICATIONS : Abdominal pain and fever. MEDICAL HISTORY : Pancreatitis. SURGICAL HISTORY : None. ENCOUNTER: Initial ACUITY: 1 day PAIN SCORE: 10/10 LOCATION: Bilateral lower quadrant abdomen. FINDINGS: There is a stent seen in the left upper quadrant. This is seen on the prior GI wire dilatation exami [facility]. It is unchanged in position when compared to the prior exam. There appears to be increased density and air lucency seen in the left upper quadrant. There is a left pleural effusion. Contrast is identified within the left colon below this level. Calcifications are seen in the region of the pancreas. Bowel zurdo are seen in the rectal region. CONCLUSION: Persistent stent like area seen in the left upper quadrant. There does appear to be increased densit y and air lucency seen in the left upper quadrant. This could be seen if the stent communicates with the known large fluid collection in the left upper quadrant and the stomach. Tim Chadwick MD on May 14, 2017 at 14:43 Board Certified Radiologist. This report was verified electronically.
[2017-05-14] MEDS ORDERED: ACETAMINOPHEN 1000 MG/100 ML VIAL IV ONE ×2 (16:00→17:30)
[2017-05-14 17:43] LABS: AUTOMATED NEUTROPHIL # 8.8 TH/MM3 (1.8-7.7); BASOPHIL % 0.5 % (0.0-2.0); EOSINOPHIL # 0.1 TH/MM3 (0-0.4); EOSINOPHIL % 0.6 % (0.0-4.0); HEMATOCRIT 24.2 % (35.0-46.0); LYMPH % 8.5 % (9.0-44.0); LYMPHOCYTE # 0.9 TH/MM3 (1.0-4.8); MEAN CELL VOLUME 84.3 FL (80.0-100.0); MEAN CORPUSCULAR HGB CONC 32.1 % (32.0-36.0); MONO % 7.6 % (0.0-8.0); NEUT % 82.8 % (16.0-70.0); RED BLOOD COUNT 2.87 MIL/MM3 (4.00-5.30); WHITE BLOOD COUNT 10.6 TH/MM3 (4.0-11.0)
[2017-05-14 17:45] LABS: HEMO FLAGS AUTO DIFF
[2017-05-14] MEDS ORDERED: IBUPROFEN 200 MG TAB PO PRN (18:15)
[2017-05-14] MEDS ORDERED: SODIUM CHLOR 0.9% 1000 ML INJ 1,000 ML IV ONE (18:15)
[2017-05-14] MEDS ORDERED: LEVOFLOXACIN 750 MG PREMIX INJ 150 ML IV SCH (18:30)
[2017-05-14 19:16] LABS: PLATELET COUNT 179 TH/MM3 (150-450)
[2017-05-14 19:17] LABS: SCAN/DIFF AUTO DIFF CONFIRMED
[2017-05-15 00:13] VITALS: BP 104/67; PULSE 73; RESP 20; TEMP 98.4; O2SAT 94
[2017-05-15] MEDS: PIPERACIL-TAZO 4.5 GM PREMIX 100 ML IV SCH ×4 (01:24→20:27)
[2017-05-15] MEDS: HYDROmorphone HCL PF 1 MG/ML VIAL IV PUSH PRN ×10 (01:24→23:11)
[2017-05-15] MEDS: SODIUM CHLOR 0.9% 1000 ML INJ 1,000 ML IV SCH ×3 (03:52→20:28)
[2017-05-15 05:29] VITALS: BP 107/66; PULSE 90; RESP 20; TEMP 99.5; O2SAT 92
[2017-05-15 08:00] VITALS: BP 111/64; PULSE 70; RESP 18; TEMP 98.7; O2SAT 90
[2017-05-15] MEDS: PANTOPRAZOLE SOD 40 MG DELAYED RELEASE TAB PO SCH (08:37)
[2017-05-15] MEDS: ATENOLOL 50 MG TAB PO SCH (08:37)
[2017-05-15] MEDS: LIPASE/PROTEASE/AMYLASE (12,000/38,000/60,000) CAP PO SCH ×3 (08:38→18:02)
[2017-05-15] MEDS: ENOXAPARIN SODIUM 40 MG/0.4 ML SYRINGE SQ SCH (08:38)
[2017-05-15] MEDS: busPIRone HCL 10 MG TAB PO SCH ×2 (08:39→20:26)
[2017-05-15] MEDS: SODIUM CHLORIDE 0.9% FLUSH 10 ML FLUSH IV FLUSH SCH ×2 (08:46→20:27)
[2017-05-15] MEDS: CYANOCOBALAMIN 1,000 MCG TAB PO SCH (10:39)
--- NOTE | 2017-05-15 11:07 | HHI.PR ---
Subjective Remarks No fever overnight. Stilol with nausea/dry heaves, no vomiting. Did not have a BM. No cough. Feels sob at times. Says she is not able to cough because she has pain in her belly. Will add incentive spirometry Objective Vitals Vital Signs Date Time Temp Pulse Resp B/P Pulse Ox O2 Delivery O2 Flow Rate FiO2 05/15/17 09:26 17 05/15/17 08:00 98.7 70 18 111/64 90 05/15/17 05:29 99.5 90 20 107/66 92 05/15/17 00:13 98.4 73 20 104/67 94 05/14/17 23:00 117 05/14/17 20:33 99.7 97 20 110/68 93 05/14/17 18:00 15 05/14/17 16:02 100.0 85 18 91/54 94 05/14/17 12:02 100.2 85 18 110/68 94 I/O 05/14/17 05/14/17 05/14/17 05/15/17 05/15/17 05/15/17 07:00 15:00 23:00 07:00 15:00 23:00 Intake Total 1578 ml 480 ml 1760 ml Balance 1578 ml 480 ml 1760 ml Intake Oral 480 ml IV Total 1578 ml 1760 ml # Voids 9 6 5 Result Diagram: 05/14/17 1657 05/12/17 0746 Imaging Last Impressions Chest X-Ray 05/14/17 0011 Signed Impressions: Service Date/Time: Sunday, May 14, 2017 00:15 - CONCLUSION: Consolidation and small effusion have developed at the left lung base. Tim Tinajero MD Abdomen X-Ray 05/14/17 0000 Signed Impressions: Service Date/Time: Sunday, May 14, 2017 14:32 - CONCLUSION: Persistent stent like area seen in the left upper quadrant. There does appear to be increased density and air lucency seen in the left upper quadrant. This could be seen if the stent communicates with the known large fluid collection in the left upper quadrant and the stomach. Tim Chadwick MD GI Procedure 05/11/17 0000 Signed Impressions: Service Date/Time: Thursday, May 11, 2017 16:12 - CONCLUSION: Left upper quadrant stent identified. Pollo lAmodovar MD Abdomen/Pelvis CT 05/10/17 0000 Signed Impressions: Service Date/Time: April 23:18 - CONCLUSION: 1. 14 x 10 CM sub-phrenic fluid collection on the left larger than on the prior study. This could be related to pseudocyst or perhaps splenic hematoma. The findings have worsened when compared with the prior examination. 2. Chronic calcific pancreatitis 3. Chronic portal vein thrombosis Tanner Benson MD Objective Remarks GENERAL: This is a thin 52 yo F, doesn't appear in acute distress. CARDIOVASCULAR: Regular rate and rhythm without murmurs, gallops, or rubs. RESPIRATORY: Clear to auscultation. Breath sounds equal bilaterally. No wheezes , rales, or rhonchi. GASTROINTESTINAL: Abdomen soft, tenderness diffusely, voluntary guarding present. Bowel sounds hypoactive. MUSCULOSKELETAL: Extremities without clubbing, cyanosis, or edema. . No calf tenderness. NEUROLOGICAL: Awake and alert. Motor and sensory grossly within normal limits. Normal speech. A/P Problem List: (1) Acute on chronic pancreatitis ICD Code: K85.9 Status: Acute (2) Pancreatic pseudocyst ICD Code: K86.3 Status: Acute (3) PVT (portal vein thrombosis) ICD Code: I81 Status: Acute Assessment and Plan Large pseudocyst with abdominal pain and elevated white count s/p EUS with cyst- gastrostomy / cyst aspiration by Dr Aric FERNANDEZ on 05/11/17. Pathology pending. EGD with stent removal in 2-3 months Repeat abdominal imaging in 1 month to reassess cyst size Acute on chronic pancreatitis Pancreatic pseudocyst Portal vein thrombosisaccording to patient's , they were told of this previously as well. She was at one point on blood thinners. Currently she is only on aspirin. Intractable pain Leukocytosis with left shiftlikely due to stress from pain HTN DM2 Lipase 3584 on admission. Monitor level.Repeat lipase back to normal. Aggressive IV fluids NS at 150 cc per hour. GI consult regarding severe acute pancreatitis and portal vein thrombosis. Question need for anticoagulation. S/p stent placement needs follow up for removal in 2-3 month per GI Resume home meds. Advance to thick liquid diet. Advance diet as tolerated. Antiemetics as need, pain meds ass need. Hold insulin as patient is likely not needed. We'll monitor fingersticks closely. On Zosyn. Plan to do CT abdomen discussed with GI specialist. Pneumonia, poss sepsis (tachycardia/ fever, pna). With fever 101. No leukocytosis. Check blood cultures, CXR with infiltrate, poss effusion, patient however without coughing, on IV zosyn. Consul ID specialist. DVT prophylaxiswith Lovenox. GI prophylaxis on pantoprazole. Discussed Condition With Patient, nurse DC plan: DC when improved and cleared by Aleida Harmon MD May 15, 2017 11:07
[2017-05-15 12:00] VITALS: BP 133/70; PULSE 81; RESP 16; TEMP 97.5; O2SAT 93
--- NOTE | 2017-05-15 12:13 | HHI.GIFU ---
Subjective Remarks Pt c/o worsening abdominal pain today. States she is having more bloating and pain today. Continues to have intermittent fevers. C/O constipation with no bowel movement since 05/10. Objective Vitals I&O Vital Signs Date Time Temp Pulse Resp B/P Pulse Ox O2 Delivery O2 Flow Rate FiO2 05/15/17 09:26 17 05/15/17 08:00 98.7 70 18 111/64 90 05/15/17 05:29 99.5 90 20 107/66 92 05/15/17 00:13 98.4 73 20 104/67 94 05/14/17 23:00 117 05/14/17 20:33 99.7 97 20 110/68 93 05/14/17 18:00 15 05/14/17 16:02 100.0 85 18 91/54 94 I/O 05/14/17 05/14/17 05/14/17 05/15/17 05/15/17 05/15/17 07:00 15:00 23:00 07:00 15:00 23:00 Intake Total 1578 ml 480 ml 1760 ml Balance 1578 ml 480 ml 1760 ml Intake Oral 480 ml IV Total 1578 ml 1760 ml # Voids 9 6 5 Laboratory Laboratory Tests Test 05/14/17 16:57 White Blood Count 10.6 Red Blood Count 2.87 Hemoglobin 7.8 Hematocrit 24.2 Mean Corpuscular Volume 84.3 Mean Corpuscular Hemoglobin 27.0 Mean Corpuscular Hemoglobin 32.1 Concent Red Cell Distribution Width 19.0 Platelet Count 179 Mean Platelet Volume 7.9 Neutrophils (%) (Auto) 82.8 Lymphocytes (%) (Auto) 8.5 Monocytes (%) (Auto) 7.6 Eosinophils (%) (Auto) 0.6 Basophils (%) (Auto) 0.5 Neutrophils # (Auto) 8.8 Lymphocytes # (Auto) 0.9 Monocytes # (Auto) 0.8 Eosinophils # (Auto) 0.1 Basophils # (Auto) 0.0 CBC Comment AUTO DIFF Differential Comment AUTO DIFF CONFIRMED B-Type Natriuretic Peptide 154 Date/Time Procedure Status Source Growth 05/14/17 17:09 Aerobic Blood Culture - Preliminary Resulted Blood Peripheral NO GROWTH IN 1 DAY 05/14/17 17:09 Anaerobic Blood Culture - Preliminary Resulted Blood Peripheral NO GROWTH IN 1 DAY 05/11/17 16:10 Gram Stain - Final Resulted Fluid Pancreatic Fluid 05/11/17 16:10 Body Fluid Culture - Preliminary Resulted Viridans Streptococcus Grp 05/11/17 16:10 Cancelled Other 05/11/17 16:10 Cancelled Fluid Pancreatic Fluid Imaging Last Impressions Chest X-Ray 05/14/17 0011 Signed Impressions: Service Date/Time: Sunday, May 14, 2017 00:15 - CONCLUSION: Consolidation and small effusion have developed at the left lung base. Tim Tinajero MD Abdomen X-Ray 05/14/17 0000 Signed Impressions: Service Date/Time: Sunday, May 14, 2017 14:32 - CONCLUSION: Persistent stent like area seen in the left upper quadrant. There does appear to be increased density and air lucency seen in the left upper quadrant. This could be seen if the stent communicates with the known large fluid collection in the left upper quadrant and the stomach. Tim Chadwick MD GI Procedure 05/11/17 0000 Signed Impressions: Service Date/Time: Thursday, May 11, 2017 16:12 - CONCLUSION: Left upper quadrant stent identified. Pollo Almodovar MD Abdomen/Pelvis CT 05/10/17 0000 Signed Impressions: Service Date/Time: April 23:18 - CONCLUSION: 1. 14 x 10 CM sub-phrenic fluid collection on the left larger than on the prior study. This could be related to pseudocyst or perhaps splenic hematoma. The findings have worsened when compared with the prior examination. 2. Chronic calcific pancreatitis 3. Chronic portal vein thrombosis Tanner Benson MD Physical Exam HEENT: Normocephalic; atraumatic; no jaundice. CHEST: CTA CARDIAC: RRR ABDOMEN: Soft, mildly distended, diffuse tenderness; no hepatosplenomegaly; bowel sounds are present in all four quadrants. EXTREMITIES: No clubbing, cyanosis, or edema. SKIN: Normal; no rash; no jaundice. SUIT ATTENDANT: No focal deficits; alert and oriented times three. Assessment and Plan Plan ASSESSMENT: - Acute on chronic pancreatitis with large pseudocyst formation. Pt with 4 year hx of pancreatitis (states she has more than 10-12 episodes per year). States last episode was last month. Abdomen/Pelvis CT (05/10/17)---> 1. 14 x 10 CM sub-phrenic fluid collection on the left larger than on the prior study. This could be related to pseudocyst or perhaps splenic hematoma. The findings have worsened when compared with the prior examination. 2. Chronic calcific pancreatitis 3. Chronic portal vein thrombosis. She quit ETOH use >1 year ago. She reports that she was told more than a year ago that she had a pseudocyst and needed it removed, but that the [facility] will not [facility] this. States she was told one month ago that her ibuprofen use may have caused her pancreatitis and stopped this. Of note, we did recommend EUS with FNA in past, but she did not follow up and she we were unable to contact her by phone or mail. S/P EUS w/ cyst gastrostomy (05/11/17) --> EGD findings Normal esophagus, Bulging in the stomach with food residue, Normal duodenum, EUS findings with hypoechoic homogeneous cyst, which was aspirated and dark lactose brownish aspirate was obtained and sent for culture and labs, s/p 7 Wallisian 7 cm double pigtail stent placement. Lipase normalized. C/O worsening abdominal pain and persistent fevers. Fevers. Pancreatic fluid culture Viridans Streptococcus Grp. On Zosyn. KUB (05/14/17)----> Persistent stent like area seen in the left upper quadrant. There does appear to be increased density and air lucency seen in the left upper quadrant. This could be seen if the stent communicates with the known large fluid collection in the left upper quadrant and the stomach. Will get repeat CT scan today for further evaluation. - Fever/Leukocytosis. BCx no growth 1 day. Pancreatic fluid culture Viridans Streptococcus Grp. T. Max 100.0. On Zosyn - Elevated LFTs, new. T. Bili 1.3, Direct 0.6, AST 24, ALT 17, Alk Phosph 182. Will get CT today. - Chronic portal vein thrombosis. This is chronic. - Abnormal weight loss. Reports 30 lb weight loss in 3 months. Unintentional - Hx elevated chromogranin level. During a previous hospitalization, she complained of flushing, diarrhea, abdominal pain. She was evaluated with chromogranin A 108.0 (significantly high), Gastrin 86, VIP less than 50. She did not fu. She is not having flushing or diarrhea at this time. PLAN: - MARAH - Await final BCx - CT scan abdomen and pelvis - Cont. PPI - Cont. Creon - Cont. Zosyn - Monitor labs - Repeat imaging in 1 month to reassess cyst - EGD w/ stent removal 2-3m - Supportive care - Further recommendations to follow based on results of above - Pt seen and examined by Dr. Escamilla and myself and this note is written on his behalf Jordyn Puente May 15, 2017 12:13
[2017-05-15] MEDS: ACETAMINOPHEN/HYDROcodone 325 MG/5 MG TAB PO PRN ×2 (12:19→18:52)
[2017-05-15] MEDS ORDERED: IOHEXOL 350 MG/ML 10 ML VIAL (for RAD DIAG) IV ONE (15:38)
[2017-05-15 16:00] VITALS: BP 128/72; PULSE 82; RESP 18; TEMP 97.8; O2SAT 94
--- NOTE | 2017-05-15 17:08 | RADRPT ---
EXAM DATE/TIME: 05/15/2017 15:16 [facility] COMPARISON: ABDOMEN KUB ONLY, May 14, 2017, 14:32. CT ABDOMEN & PELVIS W CONTRAST, May 10, 2017, 23:18. INDICATIONS : Abdominal pain, nausea and vomiting status post pancreatic stent insertion on 05-13-2017 IV CONTRAST: 100 cc Omnipaque 350 (iohexol) IV ORAL CONTRAST: Prescribed oral contrast ingested. RADIATION DOSE: 9.21 CTDIvol (mGy) MEDICAL HISTORY : Hypertension. Cardiovascular disease SURGICAL HISTORY : Appendectomy. section .Hysterectomy .pancreatic stent ENCOUNTER: Initial ACUITY: 2 days PAIN SCALE: 7/10 LOCATION: middle abdomen TECHNIQUE: Volumetric scanning of the abdomen and pelvis was performed. Using automated exposure control and ad justment of the mA and/or kV according to patient size, radiation dose was kept as low as reasonably achievable to obtain optimal diagnostic quality images. FINDINGS: There continues to be a complex fluid collection seen in the left upper quadrant. This appears to page rround an abnormal appearance of the spleen. There is air and fluid in this collection. There is a drain extending from the collection into the stomach. Overall the collection currently measures 10.9 x 8.8 x 15.5 cm and is clearly smaller than the prior exam. There is a second fluid collection seen medial to this posterior to the stomach in the lesser sac region measuring 4.6 x 3.8 x 7.1 cm. This collection appears larger on the current exam. There is atrophy at the pancreas. There are calcifications seen throughout the pancreas consistent w ith a pancreatitis. The splenic vein is not clearly seen. It is likely thrombosed. There is vickey us vessels seen at the evaristo hepatis region likely related to cavernous transformation of the portal vein. The liver does appear enlarged. The liver demonstrates diffuse decreased attenuation likely r elated to hepatic steatosis. The adrenal glands and kidneys appear grossly normal. There does appear to be thickening of the colon in the splenic flexure region likely related to infla mmatory change. It does abut the large fluid collection in the left upper quadrant. Again noted is the catheter extending from the large left upper quadrant fluid collection into the stomach. Otherwi se the bowel appears normal. There is a mild amount of ascites seen throughout the peritoneal cavity being most prominent in the p elizabeth. Patient appears to be status post hysterectomy. Bowel zurdo are seen in the lower rectal r egion. There is a moderate left pleural effusion with accompanying atelectasis or consolidation at the left lower lobe. There is a mild right pleural effusion present. The bony structures are grossly intact. CONCLUSION: 1. Persistent large complex fluid collection in the left upper quadrant surrounding an abnormal appe aring spleen. This is smaller. This fluid collection is now being drained into the stomach with an internal drain. 2. Second fluid collection seen medial to this posterior to the stomach likely related to another ps eudo cyst. This cyst appears larger. 3. Inflammatory change in the left side of the colon at the splenic flexure region. This could be s econdary to it being in close proximity to the fluid collection in the left upper quadrant. Focal co litis should be suspected in this region. 4. 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 Tim Chadwick MD on May 15, 2017 at 16:26 Board Certified Radiologist. This report was verified electronically.
--- NOTE | 2017-05-15 17:40 | MB ---
cc: CHAD SAUCEDA MD DATE OF CONSULTATION: 05/15/2017 REQUESTING PHYSICIAN: Dr. Montes. REASON FOR CONSULTATION: Sepsis for antibiotic recommendation. HISTORY OF PRESENT ILLNESS: This is a 52-year-old white female who was readmitted to the hospital on May 11, 2017. The patient was recently discharged from the hospital on April 22, 2017 after treatment for acute pancreatitis. She was released after abdominal pain improved. She did have marked elevation of lipase which had improved down to 576 on 04/21 and on 04/22 it had increased again to 794. The patient was not released with any antibiotics. A white blood cell count was normal on the day of discharge. She was readmitted again on May 01 after she presented with recurring abdominal pain. She also noted to have multiple bouts of vomiting. The temperature was normal and the white blood cell count was elevated at 15.6 and lipase was elevated at 3,584. A CT scan showed a 14 x 10 cm subphrenic fluid collection on the left which was noted to be larger than on previous study. The patient tells me currently she has pain in the 9/10 scale at the left lower abdomen and also across the lower abdomen and radiating to the back. She had temperature of 101.1 degrees on 05/14 which was yesterday morning. Blood cultures were taken. These have no growth so far. Culture of abdominal fluid from 05/11 has Strep viridans. White blood cell count is 10.6. The patient denies cough or sputum production. PAST MEDICAL HISTORY 1. Hypertension 2. Diabetes mellitus 3. Chronic pancreatitis 4. Portal vein thrombosis. 5. Chronic back pain. 6. Gastroesophageal reflux disease 7. Posttraumatic stress disorder 8. Gastroparesis. PAST SURGICAL HISTORY: History of hysterectomy. History of appendectomy. . ALLERGIES SULFA CIPROFLOXACIN MEDICATIONS: Ibuprofen p.r.n. Piperacillin. Tazobactam [place] five p.r.n. Creon BuSpar Vitamin B12 Protonix Lovenox Dilaudid p.r.n. SOCIAL HISTORY The patient is . She smokes half-a-pack of cigarettes a day. No alcohol use. No illicit drugs. FAMILY HISTORY Noncontributory. REVIEW OF SYSTEMS Pertinent mentioned history of present illness otherwise negative. PHYSICAL EXAMINATION IN GENERAL: This is a slender female who is in no acute distress. She is awake and alert and oriented. VITAL SIGNS: Temperature 97.5, blood pressure 133/70, respirations 18, heart rate is 80, HEAD, EYES, EARS, NOSE, AND THROAT: The head is atraumatic. Extraocular movements grossly intact, pupils reactive to light. No icterus. Oropharynx moist mucosa without lesions. NECK: Supple without adenopathy. LUNGS: Clear decreased breath sounds. HEART: Regular S1, S2 without murmurs. ABDOMEN: Distended, soft, mild tenderness of the left lower quadrant and the left upper quadrant. RECTUM: The rectal was not performed. EXTREMITIES: No clubbing, cyanosis or edema. SKIN: No rash. NEUROLOGIC: Nonfocal. PSYCHIATRIC: Calm and cooperative. LABORATORY DATA WBC 10.6, platelets 179, 8% neutrophils, hemoglobin 7.8, creatinine 0.66, BUN 12, sodium 139. IMPRESSION Pancreatitis acute. Probable pancreatic pseudocyst. Patient with history of chronic pancreatitis. Now with improved lipase. Pancreatic fluid with strep viridans group on culture from 05/11. Patient status post endoscopic ultrasound with sphincterotomy, balloon dilatation and the double pigtail stent placement into the common bile duct. After aspiration of a very large pseudocyst. The patient with continued pain. The patient had a leukocytosis which has improved. Culture showing strep. Chest x-ray Shows consolidation and small effusion in the left lung base. However, the patient without clinical evidence of pneumonia. RECOMMENDATIONS 1. Discontinue piperacillin/Tazobactam. 2. Begin ceftriaxone 3. Monitor clinical status and clinical response. 4. Follow repeat radiographic studies to assess the pseudocyst. Thank you for this consultation. I will monitor the patient's progress with you and make further recommendations on followup. Chad Sauceda MD FD/keisha /2:38 PM /5:10 PM LESLIE
[2017-05-15 20:00] VITALS: BP 137/82; PULSE 105; RESP 20; TEMP 100.6; O2SAT 90
[2017-05-15] MEDS: ACETAMINOPHEN 325 MG TAB PO PRN (20:27)
[2017-05-15] MEDS: POLYETHYLENE GLYCOL 17 GM PKG PO SCH (23:09)
[2017-05-16] VITALS (14 sets, daily range): BP systolic 85–191; BP diastolic 53–112; PULSE 73–105; RESP 16–20; TEMP 97.4–100.9; O2SAT 91–98
[2017-05-16] MEDS: PIPERACIL-TAZO 4.5 GM PREMIX 100 ML IV SCH ×3 (01:45→14:15)
[2017-05-16] MEDS: HYDROmorphone HCL PF 1 MG/ML VIAL IV PUSH PRN ×11 (01:46→22:40)
[2017-05-16] MEDS: SODIUM CHLOR 0.9% 1000 ML INJ 1,000 ML IV SCH ×4 (02:05→16:11)
[2017-05-16] MEDS ORDERED: SODIUM CHLORID 0.9% 500 ML IV PRN (06:00)
[2017-05-16] MEDS ORDERED: CHLORHEXIDINE GLUCONATE 2 % 1 PACK (2 CLOTHS) TOPICAL PRN (06:00)
[2017-05-16] MEDS ORDERED: METOPROLOL TARTRATE 25 MG TAB PO PRN (06:00)
[2017-05-16] MEDS ORDERED: LACTATED RINGER'S 1000 ML IV PRN (06:00)
[2017-05-16] MEDS ORDERED: POVIDONE IODINE 5% (ANTISEPSIS KIT) 4 APPLICATIONS EACH NARE PRN (06:00)
[2017-05-16] MEDS ORDERED: INSULIN HUMAN REGULAR 1,000 UNITS/10 ML VIAL SQ PRN (06:00)
[2017-05-16] MEDS: POLYETHYLENE GLYCOL 17 GM PKG PO SCH (08:24)
[2017-05-16] MEDS: ENOXAPARIN SODIUM 40 MG/0.4 ML SYRINGE SQ SCH (08:24)
[2017-05-16] MEDS: LIPASE/PROTEASE/AMYLASE (12,000/38,000/60,000) CAP PO SCH ×3 (08:25→15:11)
[2017-05-16] MEDS: busPIRone HCL 10 MG TAB PO SCH ×2 (08:25→20:21)
[2017-05-16] MEDS: SODIUM CHLORIDE 0.9% FLUSH 10 ML FLUSH IV FLUSH SCH ×2 (08:26→20:21)
[2017-05-16] MEDS: PANTOPRAZOLE SOD 40 MG DELAYED RELEASE TAB PO SCH (08:26)
[2017-05-16] MEDS: CYANOCOBALAMIN 1,000 MCG TAB PO SCH (08:26)
[2017-05-16] MEDS: ATENOLOL 50 MG TAB PO SCH (08:27)
[2017-05-16 08:32] LABS: ALKALINE PHOSPHATASE 202 U/L (45-117); ALT (GPT) 19 U/L (10-53); ANION GAP 10 MEQ/L (5-15); AST (GOT) 21 U/L (15-37); BICARBONATE 23.8 MEQ/L (21.0-32.0); BLOOD UREA NITROGEN 3 MG/DL (7-18); CHLORIDE 109 MEQ/L (98-107); GLOMERULAR FILTRATION RATE 109 ML/MIN (>89); SODIUM (NA) 143 MEQ/L (136-145); TOTAL BILIRUBIN ADULT 0.8 MG/DL (0.2-1.0)
[2017-05-16 08:39] LABS: POTASSIUM 2.5 MEQ/L (3.5-5.1)
[2017-05-16] MEDS ORDERED: POLYETHYLENE GLYCOL 17 GM PKG PO SCH (09:00)
[2017-05-16] MEDS: POTASSIUM CHLOR 10 MEQ PREMIX 100 ML IV SCH ×2 (09:00→09:58)
[2017-05-16] MEDS: POTASSIUM CHLOR 20 MEQ PREMIX 100 ML IV SCH ×3 (10:05→14:55)
[2017-05-16 10:41] LABS: AUTOMATED NEUTROPHIL # 4.5 TH/MM3 (1.8-7.7); BASOPHIL % 0.6 % (0.0-2.0); EOSINOPHIL # 0.1 TH/MM3 (0-0.4); EOSINOPHIL % 1.4 % (0.0-4.0); LYMPH % 10.2 % (9.0-44.0); LYMPHOCYTE # 0.6 TH/MM3 (1.0-4.8); MEAN CELL VOLUME 82.2 FL (80.0-100.0); MEAN CORPUSCULAR HEMOGLOBIN 26.9 PG (27.0-34.0); MEAN CORPUSCULAR HGB CONC 32.7 % (32.0-36.0); MONO % 10.5 % (0.0-8.0); NEUT % 77.3 % (16.0-70.0); PLATELET COUNT 196 TH/MM3 (150-450); RED BLOOD COUNT 2.54 MIL/MM3 (4.00-5.30); RED CELL DISTRIBUTION WIDTH 18.9 % (11.6-17.2); WHITE BLOOD COUNT 5.8 TH/MM3 (4.0-11.0)
[2017-05-16 10:45] LABS: HEMO FLAGS DIFF FINAL
[2017-05-16 10:46] LABS: HEMATOCRIT 20.9 % (35.0-46.0)
[2017-05-16] MEDS ORDERED: SODIUM CHLOR 0.9% 250 ML INJ 250 ML IV ONE (13:00)
--- NOTE | 2017-05-16 14:44 | HHI.GIFU ---
Subjective Remarks Pt resting in bed, c/o of pain in the right mid back. She is very upset that she is not having an EUS today. Objective Vitals I&O Vital Signs Date Time Temp Pulse Resp B/P Pulse Ox O2 Delivery O2 Flow Rate FiO2 05/16/17 12:28 99.6 105 18 116/69 94 05/16/17 08:49 73 05/16/17 08:21 98.3 82 20 111/67 91 05/16/17 04:00 98.8 84 18 116/71 94 05/16/17 00:00 97.8 76 18 85/53 98 05/15/17 20:00 100.6 105 20 137/82 90 05/15/17 18:30 10 05/15/17 16:00 97.8 82 18 128/72 94 I/O 05/15/17 05/15/17 05/15/17 05/16/17 05/16/17 05/16/17 07:00 15:00 23:00 07:00 15:00 23:00 Intake Total 700 ml 1460 ml 400 ml Balance 700 ml 1460 ml 400 ml Intake Oral 700 ml IV Total 1460 ml 400 ml # Voids 5 3 1 4 # Bowel Movements 1 Laboratory Laboratory Tests Test 05/16/17 05/16/17 06:16 10:07 Sodium Level 143 Potassium Level 2.5 Chloride Level 109 Carbon Dioxide Level 23.8 Anion Gap 10 Blood Urea Nitrogen 3 Creatinine 0.58 Estimat Glomerular Filtration 109 Rate Random Glucose 119 Calcium Level 7.9 Total Bilirubin 0.8 Aspartate Amino Transf 21 (AST/SGOT) Alanine Aminotransferase 19 (ALT/SGPT) Alkaline Phosphatase 202 Total Protein 4.9 Albumin 1.8 White Blood Count 5.8 Red Blood Count 2.54 Hemoglobin 6.8 Hematocrit 20.9 Mean Corpuscular Volume 82.2 Mean Corpuscular Hemoglobin 26.9 Mean Corpuscular Hemoglobin 32.7 Concent Red Cell Distribution Width 18.9 Platelet Count 196 Mean Platelet Volume 7.9 Neutrophils (%) (Auto) 77.3 Lymphocytes (%) (Auto) 10.2 Monocytes (%) (Auto) 10.5 Eosinophils (%) (Auto) 1.4 Basophils (%) (Auto) 0.6 Neutrophils # (Auto) 4.5 Lymphocytes # (Auto) 0.6 Monocytes # (Auto) 0.6 Eosinophils # (Auto) 0.1 Basophils # (Auto) 0.0 CBC Comment DIFF FINAL Differential Comment Magnesium Level 1.7 Date/Time Procedure Status Source Growth 05/14/17 17:09 Aerobic Blood Culture - Preliminary Resulted Blood Peripheral NO GROWTH IN 2 DAYS 05/14/17 17:09 Anaerobic Blood Culture - Preliminary Resulted Blood Peripheral NO GROWTH IN 2 DAYS 05/11/17 16:10 Gram Stain - Final Complete Fluid Pancreatic Fluid 05/11/17 16:10 Body Fluid Culture - Final Complete Fluid Pancreatic Fluid NO GROWTH IN 72 HRS.--AEROBICALLY OR ... 05/11/17 16:10 Cancelled Other 05/11/17 16:10 Cancelled Fluid Pancreatic Fluid Imaging Last Impressions Abdomen/Pelvis CT 05/15/17 0000 Signed Impressions: Service Date/Time: Monday, May 15, 2017 15:16 - CONCLUSION: 1. Persistent large complex fluid collection in the left upper quadrant surrounding an abnormal appearing spleen. This is smaller. This fluid collection is now being drained into the stomach with an internal drain. 2. Second fluid collection seen medial to this posterior to the stomach likely related to another pseudo cyst. This cyst appears larger. 3. Inflammatory change in the left side of the colon at the splenic flexure region. This could be secondary to it being in close proximity to the fluid collection in the left upper quadrant. Focal colitis should be suspected in this region. 4. 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 Tim Chadwick MD Chest X-Ray 05/14/17 0011 Signed Impressions: Service Date/Time: Sunday, May 14, 2017 00:15 - CONCLUSION: Consolidation and small effusion have developed at the left lung base. Tim Tinajero MD Abdomen X-Ray 05/14/17 0000 Signed Impressions: Service Date/Time: Sunday, May 14, 2017 14:32 - CONCLUSION: Persistent stent like area seen in the left upper quadrant. There does appear to be increased density and air lucency seen in the left upper quadrant. This could be seen if the stent communicates with the known large fluid collection in the left upper quadrant and the stomach. Tim Chadwick MD GI Procedure 05/11/17 0000 Signed Impressions: Service Date/Time: Thursday, May 11, 2017 16:12 - CONCLUSION: Left upper quadrant stent identified. Pollo Almodovar MD Physical Exam HEENT: Normocephalic; atraumatic; no jaundice. CHEST: CTA CARDIAC: RRR ABDOMEN: Soft, mildly distended, diffuse tenderness; no hepatosplenomegaly; bowel sounds are present in all four quadrants. EXTREMITIES: No clubbing, cyanosis, or edema. SKIN: Normal; no rash; no jaundice. [employer]: No focal deficits; alert and oriented times three. Assessment and Plan Plan ASSESSMENT: - Acute on chronic pancreatitis with large pseudocyst formation. Pt with 4 year hx of pancreatitis (states she has more than 10-12 episodes per year). States last episode was last month. Abdomen/Pelvis CT (05/10/17)---> 1. 14 x 10 CM sub-phrenic fluid collection on the left larger than on the prior study. This could be related to pseudocyst or perhaps splenic hematoma. The findings have worsened when compared with the prior examination. 2. Chronic calcific pancreatitis 3. Chronic portal vein thrombosis. She quit ETOH use >1 year ago. She reports that she was told more than a year ago that she had a pseudocyst and needed it removed, but that the [facility] will not approve this. States she was told one month ago that her ibuprofen use may have caused her pancreatitis and stopped this. Of note, we did recommend EUS with FNA in past, but she did not follow up and she we were unable to contact her by phone or mail. S/P EUS w/ cyst gastrostomy (05/11/17) --> EGD findings Normal esophagus, Bulging in the stomach with food residue, Normal duodenum, EUS findings with hypoechoic homogeneous cyst, which was aspirated and dark lactose brownish aspirate was obtained and sent for culture and labs, s/p 7 [place] 7 cm double pigtail stent placement. Lipase normalized. C/O worsening abdominal pain and persistent fevers. Fevers. Pancreatic fluid culture Viridans Streptococcus Grp. On Zosyn. KUB (05/14/17)----> Persistent stent like area seen in the left upper quadrant. There does appear to be increased density and air lucency seen in the left upper quadrant. This could be seen if the stent communicates with the known large fluid collection in the left upper quadrant and the stomach. CT --> 1. Persistent large complex fluid collection in the left upper quadrant surrounding an abnormal appearing spleen. This is smaller. This fluid collection is now being drained into the stomach with an internal drain. 2. Second fluid collection seen medial to this posterior to the stomach likely related to another pseudo cyst. This cyst appears larger. 3. Inflammatory change in the left side of the colon at the splenic flexure region. This could be secondary to it being in close proximity to the fluid collection in the left upper quadrant. Focal colitis should be suspected in this region. 4. 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 - Fever/Leukocytosis. BCx no growth 2d. Pancreatic fluid culture Viridans Streptococcus Grp. T. Max 100.0. On Zosyn - Elevated LFTs, new. trending down, ALP remains elevated. - Chronic portal vein thrombosis. This is chronic. - Abnormal weight loss. Reports 30 lb weight loss in 3 months. Unintentional - Hx elevated chromogranin level. During a previous hospitalization, she complained of flushing, diarrhea, abdominal pain. She was evaluated with chromogranin A 108.0 (significantly high), Gastrin 86, VIP less than 50. She did not fu. She is not having flushing or diarrhea at this time. PLAN: - EUS tomorrow - obtain consents - NPO after midnight - MARAH today - Await final BCx - Cont. PPI - Cont. Creon - Cont. Zosyn - Monitor labs - Repeat imaging in 1 month to reassess cyst - EGD w/ stent removal 2-3m - Supportive care - Further recommendations to follow based on results of above - Pt seen and examined by Dr. Escamilla and myself and this note is written on his behalf Ruby Green May 16, 2017 14:44
--- NOTE | 2017-05-16 15:04 | HHI.PR ---
Subjective Remarks Patient seen this morning around 11:30 AM. She says that left-sided abdominal pain worsened. Denies any chest pain or shortness of breath. Denies any nausea or vomiting currently. Objective Vital Signs Date Time Temp Pulse Resp B/P Pulse Ox O2 Delivery O2 Flow Rate FiO2 05/16/17 12:28 99.6 105 18 116/69 94 05/16/17 08:49 73 05/16/17 08:21 98.3 82 20 111/67 91 05/16/17 04:00 98.8 84 18 116/71 94 05/16/17 00:00 97.8 76 18 85/53 98 05/15/17 20:00 100.6 105 20 137/82 90 05/15/17 18:30 10 05/15/17 16:00 97.8 82 18 128/72 94 I/O 05/15/17 05/15/17 05/15/17 05/16/17 05/16/17 05/16/17 07:00 15:00 23:00 07:00 15:00 23:00 Intake Total 700 ml 1460 ml 400 ml Balance 700 ml 1460 ml 400 ml Intake Oral 700 ml IV Total 1460 ml 400 ml # Voids 5 3 1 4 # Bowel Movements 1 Result Diagram: 05/16/17 1007 05/16/17 0616 Objective Remarks GENERAL: Patient sitting up in bed. Appears uncomfortable. Alert and oriented 3. SKIN: Warm and dry. HEAD: Normocephalic. EYES: No scleral icterus. No injection or drainage. NECK: Supple, trachea midline. No JVD. CARDIOVASCULAR: Regular rate and rhythm without murmurs, gallops, or rubs. RESPIRATORY: Breath sounds equal bilaterally. No accessory muscle use. GASTROINTESTINAL: Abdomen soft. Tender to moderate palpation left upper and lower quadrants. Nontender on the right. No rebound or guarding. MUSCULOSKELETAL: No cyanosis, or edema. BACK: Nontender without obvious deformity. No CVA tenderness. A/P Assessment and Plan ===05/16/17 //Anemia. Hemoglobin 6.8. Replaced. No signs of bleeding. Follow. //Hypokalemia. Potassium 2.5. Replaced. Follow. //Large pancreatic pseudocyst //Acute on chronic pancreatitis -Lipase 3584 on admission. Repeat normalized. - with abdominal pain and elevated white count s/p EUS with cyst-gastrostomy / cyst aspiration by Dr Corbett GI on 05/11/17. Pathology pending. EGD with stent removal in 2-3 months Repeat abdominal imaging in 1 month to reassess cyst size -Narcotic pain control -Antibiotics as necessary -05/11 fluid culture with viridans strep. ID following. Continue antibiotics as per ID. Appreciate assistance = 05/16. Patient still with pain. Low-grade fever overnight. Continue antibiotics as per ID. Continue to monitor. Appreciate GI assistance. //Sepsis. //Pneumonia. -Chest x-ray 05/14 with consolidation, small effusion left lung base. -Continue antibiotics as per ID. Appreciate assistance //Portal vein thrombosisaccording to patient's , they were told of this previously as well. She was at one point on blood thinners. Currently she is only on aspirin. = Continue aspirin //Leukocytosis with left shiftlikely due to stress from pain //HTN //DM2. Blood sugars acceptable. Most recent A1c 6.9. Blood sugars acceptable. No ketones on most recent UA. continue to monitor. //Prophylaxis. On prophylactic Lovenox. Ger Downey MD May 16, 2017 15:04
[2017-05-16] MEDS ORDERED: cefTRIAXone INJ 2,000 MG in SODIUM CHLORIDE 0.9% INJ 100 ML IV SCH (16:00)
--- NOTE | 2017-05-16 16:04 | HHI.IDPN ---
Note Infectious Disease Note Patient notes severe pain in her abdomen. Afebrile. No other complaints. Patient was readmitted to the hospital on May 11, 2017. The patient was recently discharged from the hospital on April 22, 2017 after treatment for acute pancreatitis. PAST MEDICAL HISTORY 1. Hypertension 2. Diabetes mellitus 3. Chronic pancreatitis 4. Portal vein thrombosis. 5. Chronic back pain. 6. Gastroesophageal reflux disease 7. Posttraumatic stress disorder 8. Gastroparesis. PAST SURGICAL HISTORY: History of hysterectomy. History of appendectomy. . ALLERGIES SULFA CIPROFLOXACIN MEDICATIONS: Medications (Trade) Dose Ordered Sig/Abndar Route PRN Reason Start Time Stop Time Status Last Admin Dose Admin Sodium Chloride (NS 1000 ml Inj) 1,000 ml @ 150 mls/hr Q6H40M IV 05/11/17 00:40 05/15/17 20:28 Sodium Chloride (NS Flush) 2 ml UNSCH PRN IV FLUSH FLUSH AFTER USING IV ACCESS 05/11/17 00:45 Sodium Chloride (NS Flush) 2 ml BID IV FLUSH 05/11/17 09:00 05/15/17 20:27 Naloxone HCl (Narcan Inj) 0.4 mg UNSCH PRN IV SEE LABEL COMMENTS 05/11/17 00:45 Ondansetron HCl (Zofran Inj) 4 mg Q6HR PRN IV PUSH nausea 05/11/17 02:45 05/13/17 18:55 Dextrose (D50w (Vial) Inj) 50 ml UNSCH PRN IV HYPOGLYCEMIA-SEE COMMENTS 05/11/17 02:45 Glucagon (Glucagon Inj) 1 mg UNSCH PRN OTHER HYPOGLYCEMIA-SEE COMMENTS 05/11/17 02:45 Buspirone HCl (Buspar) 30 mg BID PO 05/11/17 09:00 05/16/17 08:25 Cyanocobalamin (Vitamin B12) 1,000 mcg DAILY PO 05/11/17 09:00 05/16/17 08:26 Amylase/Lipase/ Protease (Creon 12-38-60) 1 cap TIDPC PO 05/11/17 09:30 05/16/17 15:11 Pantoprazole Sodium (Protonix) 40 mg DAILY PO 05/11/17 09:00 05/16/17 08:26 Hydromorphone HCl (Dilaudid Pf Inj) 0.5 mg Q2H PRN IV PUSH PAIN SCALE 6 TO 10;IF NPO 05/11/17 05:00 05/16/17 14:13 Enoxaparin Sodium (Lovenox Inj) 40 mg Q24H SQ 05/11/17 09:00 05/15/17 08:38 Acetaminophen/ Hydrocodone Bitart ([place] 5-325 Mg) 1 tab Q6H PRN PO BREAKTHROUGH PAIN 05/11/17 10:30 05/15/17 18:52 Acetaminophen 650 mg 650 mg Q6H PRN PO fever > 100.4 05/14/17 00:15 05/15/17 20:27 Piperacillin Sod/ Tazobactam Sod (Zosyn 4.5 Gm Premix) 100 ml @ 200 mls/hr Q6H IV 05/14/17 02:00 05/16/17 14:15 Atenolol (Tenormin) 50 mg DAILY PO 05/15/17 09:00 Ibuprofen (Advil) 200 mg Q8H PRN PO SEE LABEL COMMENTS 05/14/17 18:15 Polyethylene Glycol 34 gm 34 gm DAILY PO 05/15/17 21:00 05/15/17 23:09 Lactated Ringer's 1,000 ml @ 30 mls/hr Q24H PRN IV SEE LABEL COMMENTS 05/16/17 06:00 05/19/17 05:59 Sodium Chloride 500 ml @ 30 mls/hr [id number] PRN IV SEE LABEL COMMENTS 05/16/17 06:00 05/19/17 05:59 Sodium Chloride (NS 250 ml Inj) 250 ml @ 15 mls/hr ONCE ONCE IV 05/16/17 13:00 05/17/17 05:39 SOCIAL HISTORY The patient is . She smokes half-a-pack of cigarettes a day. No alcohol use. No illicit drugs. OBJECTIVE: Vital Signs Date Time Temp Pulse Resp B/P Pulse Ox O2 Delivery O2 Flow Rate FiO2 05/16/17 12:28 99.6 105 18 116/69 94 05/16/17 08:49 73 05/16/17 08:21 98.3 82 20 111/67 91 05/16/17 04:00 98.8 84 18 116/71 94 05/16/17 00:00 97.8 76 18 85/53 98 05/15/17 20:00 100.6 105 20 137/82 90 05/15/17 18:30 10 05/15/17 16:00 97.8 82 18 128/72 94 05/15/17 05/15/17 05/16/17 15:00 23:00 07:00 Intake Total 700 ml 1460 ml Balance 700 ml 1460 ml Intake Oral 700 ml IV Total 1460 ml # Voids 3 1 4 # Bowel Movements 1 Laboratory Tests Test 05/14/17 05/16/17 16:57 10:07 White Blood Count 10.6 TH/MM3 5.8 TH/MM3 Red Blood Count 2.87 MIL/MM3 2.54 MIL/MM3 Hemoglobin 7.8 GM/DL 6.8 GM/DL Hematocrit 24.2 % 20.9 % Mean Corpuscular Volume 84.3 FL 82.2 FL Mean Corpuscular Hemoglobin 27.0 PG 26.9 PG Mean Corpuscular Hemoglobin 32.1 % 32.7 % Concent Red Cell Distribution Width 19.0 % 18.9 % Platelet Count 179 TH/MM3 196 TH/MM3 Mean Platelet Volume 7.9 FL 7.9 FL Neutrophils (%) (Auto) 82.8 % 77.3 % Lymphocytes (%) (Auto) 8.5 % 10.2 % Monocytes (%) (Auto) 7.6 % 10.5 % Eosinophils (%) (Auto) 0.6 % 1.4 % Basophils (%) (Auto) 0.5 % 0.6 % Neutrophils # (Auto) 8.8 TH/MM3 4.5 TH/MM3 Lymphocytes # (Auto) 0.9 TH/MM3 0.6 TH/MM3 Monocytes # (Auto) 0.8 TH/MM3 0.6 TH/MM3 Eosinophils # (Auto) 0.1 TH/MM3 0.1 TH/MM3 Basophils # (Auto) 0.0 TH/MM3 0.0 TH/MM3 CBC Comment AUTO DIFF DIFF FINAL Differential Comment AUTO DIFF CONFIRMED Laboratory Tests Test 05/14/17 05/16/17 05/16/17 16:57 06:16 10:07 B-Type Natriuretic Peptide 154 PG/ML Sodium Level 143 MEQ/L Potassium Level 2.5 MEQ/L Chloride Level 109 MEQ/L Carbon Dioxide Level 23.8 MEQ/L Anion Gap 10 MEQ/L Blood Urea Nitrogen 3 MG/DL Creatinine 0.58 MG/DL Estimat Glomerular Filtration 109 ML/MIN Rate Random Glucose 119 MG/DL Calcium Level 7.9 MG/DL Total Bilirubin 0.8 MG/DL Aspartate Amino Transf 21 U/L (AST/SGOT) Alanine Aminotransferase 19 U/L (ALT/SGPT) Alkaline Phosphatase 202 U/L Total Protein 4.9 GM/DL Albumin 1.8 GM/DL Magnesium Level 1.7 MG/DL Microbiology Date/Time Procedure Status Source Growth 05/14/17 00:52 Aerobic Blood Culture - Preliminary Resulted Blood Peripheral NO GROWTH IN 2 DAYS 05/14/17 00:52 Anaerobic Blood Culture - Preliminary Resulted Blood Peripheral NO GROWTH IN 2 DAYS 05/14/17 00:59 Aerobic Blood Culture - Preliminary Resulted Blood Peripheral NO GROWTH IN 2 DAYS 05/14/17 00:59 Anaerobic Blood Culture - Preliminary Resulted Blood Peripheral NO GROWTH IN 2 DAYS 05/14/17 16:50 Aerobic Blood Culture - Preliminary Resulted Blood Peripheral NO GROWTH IN 2 DAYS 05/14/17 16:50 Anaerobic Blood Culture - Preliminary Resulted Blood Peripheral NO GROWTH IN 2 DAYS 05/14/17 17:09 Aerobic Blood Culture - Preliminary Resulted Blood Peripheral NO GROWTH IN 2 DAYS 05/14/17 17:09 Anaerobic Blood Culture - Preliminary Resulted Blood Peripheral NO GROWTH IN 2 DAYS IMAGING: Abdomen/Pelvis CT 05/15/17 0000 Signed Impressions: Service Date/Time: Monday, May 15, 2017 15:16 - CONCLUSION: 1. Persistent large complex fluid collection in the left upper quadrant surrounding an abnormal appearing spleen. This is smaller. This fluid collection is now being drained into the stomach with an internal drain. 2. Second fluid collection seen medial to this posterior to the stomach likely related to another pseudo cyst. This cyst appears larger. 3. Inflammatory change in the left side of the colon at the splenic flexure region. This could be secondary to it being in close proximity to the fluid collection in the left upper quadrant. Focal colitis should be suspected in this region. 4. 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 Tim Chadwick MD Chest X-Ray 05/14/17 0011 Signed Impressions: Service Date/Time: Sunday, May 14, 2017 00:15 - CONCLUSION: Consolidation and small effusion have developed at the left lung base. Tim Tinajero MD Abdomen X-Ray 05/14/17 0000 Signed Impressions: Service Date/Time: Sunday, May 14, 2017 14:32 - CONCLUSION: Persistent stent like area seen in the left upper quadrant. There does appear to be increased density and air lucency seen in the left upper quadrant. This could be seen if the stent communicates with the known large fluid collection in the left upper quadrant and the stomach. Tim Chadwick MD GI Procedure 05/11/17 0000 Signed Impressions: Service Date/Time: Thursday, May 11, 2017 16:12 - CONCLUSION: Left upper quadrant stent identified. Pollo Almodovar MD PHYSICAL EXAMINATION GENERAL: No acute distress. She is awake and alert and oriented. HEENT: No icterus. Oropharynx: moist mucosa without lesions. NECK: Supple without adenopathy. LUNGS: Decreased breath sounds. Minute wheezing at R base. HEART: Regular S1, S2 without murmurs. ABDOMEN: Distended, soft, mild tenderness of the left lower quadrant and the left upper quadrant. EXTREMITIES: No clubbing, cyanosis or edema. SKIN: No rash. NEUROLOGIC: Nonfocal. PSYCHIATRIC: Calm and cooperative. IMPRESSION Pancreatitis acute. Probable pancreatic pseudocyst. Patient with history of chronic pancreatitis. Pancreatic fluid with strep viridans group on culture from 05/11. Patient status post endoscopic ultrasound with sphincterotomy, balloon dilatation and the double pigtail stent placement into the common bile duct. After aspiration of a very large pseudocyst. Continues to have abdominal pain. RECOMMENDATIONS 1. Discontinue piperacillin/Tazobactam. 2. Begin ceftriaxone 3. Monitor clinical status.4 4. Reculture if any new drainage of pseudocyst. Anderson Sharpe MD May 16, 2017 16:04
[2017-05-16 16:42] LABS: BICARBONATE 24.1 MEQ/L (21.0-32.0); POTASSIUM 3.2 MEQ/L (3.5-5.1)
[2017-05-16] MEDS: ACETAMINOPHEN 325 MG TAB PO PRN (17:58)
[2017-05-16] MEDS: cefTRIAXone INJ 2,000 MG in SODIUM CHLORIDE 0.9% INJ 100 ML IV SCH (22:38)
[2017-05-17] VITALS (11 sets, daily range): BP systolic 126–175; BP diastolic 77–84; PULSE 68–96; RESP 19–20; TEMP 97.3–99; O2SAT 92–98
[2017-05-17 00:16] LABS: HEMATOCRIT 25.2 % (35.0-46.0); MEAN CELL VOLUME 83.2 FL (80.0-100.0); MEAN CORPUSCULAR HGB CONC 33.7 % (32.0-36.0); PLATELET COUNT 200 TH/MM3 (150-450); RED BLOOD COUNT 3.03 MIL/MM3 (4.00-5.30); REVIEW FLAG FINAL; WHITE BLOOD COUNT 6.6 TH/MM3 (4.0-11.0)
[2017-05-17 00:36] LABS: BICARBONATE 26.7 MEQ/L (21.0-32.0)
[2017-05-17 00:40] LABS: POTASSIUM 2.8 MEQ/L (3.5-5.1)
[2017-05-17] MEDS: HYDROmorphone HCL PF 1 MG/ML VIAL IV PUSH PRN ×6 (00:53→14:47)
[2017-05-17] MEDS ORDERED: MAGNESIUM SULFATE 1 GM PREMIX 100 ML IV ONE (01:15)
[2017-05-17] MEDS ORDERED: POTASSIUM CHLORIDE 20 MEQ CONTROLLED RELEASE TAB PO ONE (01:15)
[2017-05-17] MEDS: NS + KCL 20 MEQ INJ 1,000 ML IV SCH ×2 (01:56→13:49)
[2017-05-17] MEDS: POTASSIUM CHLOR 20 MEQ PREMIX 100 ML IV SCH ×2 (01:59→04:00)
[2017-05-17 06:58] LABS: AUTOMATED NEUTROPHIL # 4.6 TH/MM3 (1.8-7.7); BASOPHIL % 0.6 % (0.0-2.0); EOSINOPHIL # 0.2 TH/MM3 (0-0.4); EOSINOPHIL % 2.5 % (0.0-4.0); HEMATOCRIT 25.2 % (35.0-46.0); HEMO FLAGS DIFF FINAL; LYMPH % 12.7 % (9.0-44.0); LYMPHOCYTE # 0.8 TH/MM3 (1.0-4.8); MEAN CELL VOLUME 82.5 FL (80.0-100.0); MEAN CORPUSCULAR HEMOGLOBIN 27.5 PG (27.0-34.0); MEAN CORPUSCULAR HGB CONC 33.3 % (32.0-36.0); MONO % 11.4 % (0.0-8.0); NEUT % 72.8 % (16.0-70.0); PLATELET COUNT 189 TH/MM3 (150-450); RED BLOOD COUNT 3.05 MIL/MM3 (4.00-5.30); RED CELL DISTRIBUTION WIDTH 18.4 % (11.6-17.2); WHITE BLOOD COUNT 6.3 TH/MM3 (4.0-11.0)
[2017-05-17 07:02] LABS: INTERNATIONAL NORMALIZED RATIO 1.1 RATIO; PROTHROMBIN TIME - PATIENT 12.6 SEC (9.8-11.6)
[2017-05-17 07:25] LABS: BICARBONATE 21.1 MEQ/L (21.0-32.0); MAGNESIUM 1.8 MG/DL (1.5-2.5); POTASSIUM 3.6 MEQ/L (3.5-5.1)
[2017-05-17] MEDS: PANTOPRAZOLE SOD 40 MG DELAYED RELEASE TAB PO SCH (09:00)
[2017-05-17] MEDS: SODIUM CHLORIDE 0.9% FLUSH 10 ML FLUSH IV FLUSH SCH ×2 (09:00→21:57)
[2017-05-17] MEDS: busPIRone HCL 10 MG TAB PO SCH ×2 (09:00→21:00)
[2017-05-17] MEDS: ATENOLOL 50 MG TAB PO SCH (09:00)
[2017-05-17] MEDS: ENOXAPARIN SODIUM 40 MG/0.4 ML SYRINGE SQ SCH (09:00)
[2017-05-17] MEDS: CYANOCOBALAMIN 1,000 MCG TAB PO SCH (09:00)
[2017-05-17] MEDS: POLYETHYLENE GLYCOL 17 GM PKG PO SCH (09:00)
[2017-05-17] MEDS ORDERED: HYDROmorphone HCL PF 1 MG/ML VIAL IV PUSH ONE (09:15)
[2017-05-17] MEDS: ONDANSETRON HCL 4 MG/2 ML VIAL IV PUSH PRN ×2 (09:19→15:28)
[2017-05-17] MEDS: LIPASE/PROTEASE/AMYLASE (12,000/38,000/60,000) CAP PO SCH ×3 (09:30→18:30)
[2017-05-17] MEDS ORDERED: HYDROmorphone HCL PF 1 MG/ML VIAL IV PUSH PRN (11:00)
[2017-05-17] MEDS ORDERED: SODIUM PHOSPHATE INJ 15 MMOL in SODIUM CHLORIDE 0.9% INJ 150 ML IV ONE (11:00)
--- NOTE | 2017-05-17 13:13 | HHI.GIFU ---
Subjective Remarks Pt sitting on edge of bed. C/o abd distension, pain. Nausea, no vomiting. SHe has had liquid BM today. Objective Vitals I&O Vital Signs Date Time Temp Pulse Resp B/P Pulse Ox O2 Delivery O2 Flow Rate FiO2 05/17/17 11:56 96 20 175/77 92 05/17/17 10:48 76 05/17/17 08:00 97.3 92 20 133/83 94 05/17/17 04:00 97.8 84 20 126/77 95 05/17/17 00:00 98.0 87 20 139/84 97 05/16/17 23:00 83 05/16/17 20:00 97.8 91 18 118/73 93 05/16/17 19:54 95 05/16/17 19:53 97.8 91 18 118/73 93 05/16/17 18:18 99.7 85 18 139/86 94 05/16/17 18:00 100.9 95 16 140/89 94 05/16/17 17:42 100.7 93 16 148/80 94 05/16/17 17:27 99.7 98 16 153/90 94 05/16/17 16:00 98.7 86 18 142/87 98 I/O 05/16/17 05/16/17 05/16/17 05/17/17 05/17/17 05/17/17 06:59 14:59 22:59 06:59 14:59 22:59 Intake Total 1460 ml 400 ml 584 ml 1883 ml Output Total 5000 ml Balance 1460 ml 400 ml 584 ml -3117 ml IV Total 1460 ml 400 ml 584 ml 1883 ml Output Urine Total 5000 ml # Voids 4 6 # Bowel Movements 2 Laboratory Laboratory Tests Test 05/16/17 05/16/17 05/16/17 05/17/17 14:08 15:47 23:59 06:43 Blood Type A POSITIVE Antibody Screen NEGATIVE Crossmatch Leukocyte-Reduced Red Blood Cells Blood Bank Comment Sodium Level 141 143 140 Potassium Level 3.2 2.8 3.6 Chloride Level 108 107 108 Carbon Dioxide Level 24.1 26.7 21.1 Anion Gap 9 9 11 Blood Urea Nitrogen 3 4 4 Creatinine 0.66 0.67 0.49 Estimat Glomerular Filtration 94 92 133 Rate Random Glucose 116 114 116 Calcium Level 8.3 8.1 7.6 White Blood Count 6.6 6.3 Red Blood Count 3.03 3.05 Hemoglobin 8.5 8.4 Hematocrit 25.2 25.2 Mean Corpuscular Volume 83.2 82.5 Mean Corpuscular Hemoglobin 28.0 27.5 Mean Corpuscular Hemoglobin 33.7 33.3 Concent Red Cell Distribution Width 18.0 18.4 Platelet Count 200 189 Mean Platelet Volume 7.9 7.7 Neutrophils (%) (Auto) 72.8 Lymphocytes (%) (Auto) 12.7 Monocytes (%) (Auto) 11.4 Eosinophils (%) (Auto) 2.5 Basophils (%) (Auto) 0.6 Neutrophils # (Auto) 4.6 Lymphocytes # (Auto) 0.8 Monocytes # (Auto) 0.7 Eosinophils # (Auto) 0.2 Basophils # (Auto) 0.0 CBC Comment DIFF FINAL Differential Comment Prothrombin Time 12.6 Prothromb Time International 1.1 Ratio Phosphorus Level 1.6 Magnesium Level 1.8 Albumin 1.8 Date/Time Procedure Status Source Growth 05/17/17 07:50 Stool Occult Blood ([facility]) - Final Complete Stool Stool HEMOCCULT POSITIVE 05/14/17 17:09 Aerobic Blood Culture - Preliminary Resulted Blood Peripheral NO GROWTH IN 3 DAYS 05/14/17 17:09 Anaerobic Blood Culture - Preliminary Resulted Blood Peripheral NO GROWTH IN 3 DAYS Imaging Last Impressions Abdomen/Pelvis CT 05/15/17 0000 Signed Impressions: Service Date/Time: Monday, May 15, 2017 15:16 - CONCLUSION: 1. Persistent large complex fluid collection in the left upper quadrant surrounding an abnormal appearing spleen. This is smaller. This fluid collection is now being drained into the stomach with an internal drain. 2. Second fluid collection seen medial to this posterior to the stomach likely related to another pseudo cyst. This cyst appears larger. 3. Inflammatory change in the left side of the colon at the splenic flexure region. This could be secondary to it being in close proximity to the fluid collection in the left upper quadrant. Focal colitis should be suspected in this region. 4. 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 Tim Chadwick MD Chest X-Ray 05/14/17 0011 Signed Impressions: Service Date/Time: Sunday, May 14, 2017 00:15 - CONCLUSION: Consolidation and small effusion have developed at the left lung base. Tim Tinajero MD Abdomen X-Ray 05/14/17 0000 Signed Impressions: Service Date/Time: Sunday, May 14, 2017 14:32 - CONCLUSION: Persistent stent like area seen in the left upper quadrant. There does appear to be increased density and air lucency seen in the left upper quadrant. This could be seen if the stent communicates with the known large fluid collection in the left upper quadrant and the stomach. Tim Chadwick MD GI Procedure 05/11/17 0000 Signed Impressions: Service Date/Time: Thursday, May 11, 2017 16:12 - CONCLUSION: Left upper quadrant stent identified. Pollo Almodovar MD Physical Exam HEENT: Normocephalic; atraumatic; no jaundice. CHEST: CTA CARDIAC: RRR ABDOMEN: Soft, mildly distended, diffuse TTP; no hepatosplenomegaly; bowel sounds faint EXTREMITIES: No clubbing, cyanosis, or edema. SKIN: Normal; no rash; no jaundice. LENS MOLDER: No focal deficits; alert and oriented times three. Assessment and Plan Plan ASSESSMENT: - abdominal pain, distention - pt has not had solid BM in ? she cannot tell me today. SHe has had liquid stool. will do stat CT, NGT. - Acute on chronic pancreatitis with large pseudocyst formation. Pt with 4 year hx of pancreatitis (states she has more than 10-12 episodes per year). States last episode was last month. Abdomen/Pelvis CT (05/10/17)---> 1. 14 x 10 CM sub-phrenic fluid collection on the left larger than on the prior study. This could be related to pseudocyst or perhaps splenic hematoma. The findings have worsened when compared with the prior examination. 2. Chronic calcific pancreatitis 3. Chronic portal vein thrombosis. She quit ETOH use >1 year ago. She reports that she was told more than a year ago that she had a pseudocyst and needed it removed, but that the [facility] will not [facility] this. States she was told one month ago that her ibuprofen use may have caused her pancreatitis and stopped this. Of note, we did recommend EUS with FNA in past, but she did not follow up and she we were unable to contact her by phone or mail. S/P EUS w/ cyst gastrostomy (05/11/17) --> EGD findings Normal esophagus, Bulging in the stomach with food residue, Normal duodenum, EUS findings with hypoechoic homogeneous cyst, which was aspirated and dark lactose brownish aspirate was obtained and sent for culture and labs, s/p 7 Maltese 7 cm double pigtail stent placement. Lipase normalized. C/O worsening abdominal pain and persistent fevers. Fevers. Pancreatic fluid culture Viridans Streptococcus Grp. On Zosyn. KUB (05/14/17)----> Persistent stent like area seen in the left upper quadrant. There does appear to be increased density and air lucency seen in the left upper quadrant. This could be seen if the stent communicates with the known large fluid collection in the left upper quadrant and the stomach. CT --> 1. Persistent large complex fluid collection in the left upper quadrant surrounding an abnormal appearing spleen. This is smaller. This fluid collection is now being drained into the stomach with an internal drain. 2. Second fluid collection seen medial to this posterior to the stomach likely related to another pseudo cyst. This cyst appears larger. 3. Inflammatory change in the left side of the colon at the splenic flexure region. This could be secondary to it being in close proximity to the fluid collection in the left upper quadrant. Focal colitis should be suspected in this region. 4. 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 - Fever/Leukocytosis. BCx no growth 2d. Pancreatic fluid culture Viridans Streptococcus Grp. T. Max 100.0. On Zosyn - Elevated LFTs, new. trending down, ALP remains elevated. - Chronic portal vein thrombosis. This is chronic. - Abnormal weight loss. Reports 30 lb weight loss in 3 months. Unintentional - Hx elevated chromogranin level. During a previous hospitalization, she complained of flushing, diarrhea, abdominal pain. She was evaluated with chromogranin A 108.0 (significantly high), Gastrin 86, VIP less than 50. She did not fu. She is not having flushing or diarrhea at this time. PLAN: - NGT to LIWS - NPO - Await final BCx - Cont. PPI - Cont. Creon - Cont. Zosyn - Monitor labs - Repeat imaging in 1 month to reassess cyst - EGD w/ stent removal 2-3m - Supportive care - Further recommendations to follow based on results of above - Pt seen and examined by Dr. Escamilla and myself and this note is written on his behalf Ruby Green May 17, 2017 13:13
[2017-05-17 13:54] LABS: INDIRECT BILIRUBIN 0.6 MG/DL (0.0-0.8); TOTAL BILIRUBIN ADULT 1.3 MG/DL (0.2-1.0)
--- NOTE | 2017-05-17 14:12 | HHI.PR ---
Subjective Remarks Patient seen this morning around 11:30 AM. She says that abdominal pain is worsening. Denies any chest pain or shortness of breath. She requests increase in pain medication. Objective Vital Signs Date Time Temp Pulse Resp B/P Pulse Ox O2 Delivery O2 Flow Rate FiO2 05/17/17 11:56 96 20 175/77 92 05/17/17 10:48 76 05/17/17 08:00 97.3 92 20 133/83 94 05/17/17 04:00 97.8 84 20 126/77 95 05/17/17 00:00 98.0 87 20 139/84 97 05/16/17 23:00 83 05/16/17 20:00 97.8 91 18 118/73 93 05/16/17 19:54 95 05/16/17 19:53 97.8 91 18 118/73 93 05/16/17 18:18 99.7 85 18 139/86 94 05/16/17 18:00 100.9 95 16 140/89 94 05/16/17 17:42 100.7 93 16 148/80 94 05/16/17 17:27 99.7 98 16 153/90 94 05/16/17 16:00 98.7 86 18 142/87 98 I/O 05/16/17 05/16/17 05/16/17 05/17/17 05/17/17 05/17/17 07:00 15:00 23:00 07:00 15:00 23:00 Intake Total 1460 ml 400 ml 584 ml 1883 ml Output Total 5000 ml Balance 1460 ml 400 ml 584 ml -3117 ml IV Total 1460 ml 400 ml 584 ml 1883 ml Output Urine Total 5000 ml # Voids 4 6 # Bowel Movements 2 Result Diagram: 05/17/17 0643 05/17/17 0643 Objective Remarks GENERAL: Patient sitting up in bed. Appears uncomfortable. Alert and oriented 3. SKIN: Warm and dry. HEAD: Normocephalic. EYES: No scleral icterus. No injection or drainage. NECK: Supple, trachea midline. No JVD. CARDIOVASCULAR: Regular rate and rhythm without murmurs, gallops, or rubs. RESPIRATORY: Breath sounds equal bilaterally. No accessory muscle use. GASTROINTESTINAL: Abdomen more distended today. Increased Tenderness to moderate palpation left upper and lower quadrants. Nontender on the right. No rebound or guarding. MUSCULOSKELETAL: No cyanosis, or edema. BACK: Nontender without obvious deformity. No CVA tenderness. A/P Assessment and Plan ===05/17/17 //Anemia. Appropriate increased to 8.4 after transfusion. Continue to monitor. //Hypokalemia. Resolved after replacement. Potassium 3.6. Continue to monitor. //Pancreatic pseudocyst. Worsening abdominal pain. Increase pain medication. Place Vega to help with abdominal distention. Planning for EUS was afternoon with GI. Discussed with GI. -LFTs reviewed with bilirubin increase. GI assistance appreciated. //Large pancreatic pseudocyst //Acute on chronic pancreatitis -Lipase 3584 on admission. Repeat normalized. - with abdominal pain and elevated white count s/p EUS with cyst-gastrostomy / cyst aspiration by Dr Aric FERNANDEZ on 05/11/17. Pathology pending. EGD with stent removal in 2-3 months Repeat abdominal imaging in 1 month to reassess cyst size -Narcotic pain control -Antibiotics as necessary -05/11 fluid culture with viridans strep. ID following. Continue antibiotics as per ID. Appreciate assistance = 05/16. Patient still with pain. Low-grade fever overnight. = 05/17. Worsening abdominal pain. Increase pain medication. Place Vega to help with abdominal distention. Planning for EUS was afternoon with GI. Discussed with GI. Continue antibiotics as per ID. Continue to monitor. Appreciate GI assistance. //Sepsis. //Pneumonia. -Chest x-ray 05/14 with consolidation, small effusion left lung base. -Continue antibiotics as per ID. Appreciate assistance //Portal vein thrombosisaccording to patient's , they were told of this previously as well. She was at one point on blood thinners. Currently she is only on aspirin. = Continue aspirin //Leukocytosis with left shiftlikely due to stress from pain //Anemia. Hemoglobin 6.8 on 05/16. Replaced. -Possibly secondary to chronic inflammation. -No signs of bleeding Follow. //Hypokalemia. Resolved after replacement. Continue to monitor. //HTN. Blood pressure variable, likely secondary to pain. Continue to monitor. //DM2. Blood sugars continue acceptable. Most recent A1c 6.9. Blood sugars acceptable. No ketones on most recent UA. continue to monitor. Discharge Planning Continued hospitalization for intractable abdominal pain, pancreatitis, sepsis. Ger Downey MD May 17, 2017 14:11
[2017-05-17] MEDS ORDERED: DIATRIZOATE MEGLUM/DIATRIZOATE SOD 9 ML CUP PO ONE (15:00)
--- NOTE | 2017-05-17 15:32 | RADRPT ---
EXAM DATE/TIME: 05/17/2017 15:05 [facility] COMPARISON: GI LAB WIRE DILATATION, May 11, 2017, 16:12. CT ABDOMEN & PELVIS W CONTRAST, May 15, 2017, 15:16. INDICATIONS : Evaluate for distention. ORAL CONTRAST: Prescribed oral contrast ingested. RADIATION DOSE: 9.62 CTDIvol (mGy) MEDICAL HISTORY : Cardiovascular disease. Hypertension. Pancreatitis.Gastroparesis. SURGICAL HISTORY : Appendectomy. section.Hysterectomy.Bilateral oophorectomy. ENCOUNTER: Initial ACUITY: 2 days PAIN SCALE: 10/10 LOCATION: Bilateral upper quadrant TECHNIQUE: Volumetric scanning of the abdomen and pelvis was performed. Using automated exposure control and ad justment of the mA and/or kV according to patient size, radiation dose was kept as low as reasonably achievable to obtain optimal diagnostic quality images. FINDINGS: Imaging through the lung bases demonstrate small bilateral effusions and consolidative changes in the left lung base. Evaluation of the left upper quadrant demonstrates a grossly abnormal appearance the spleen. 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 There is a drain which traverses f rom the stomach into the collection around the splenic capsule. There is gas within this collection. The collection measures at least 14.8 x 11.8 cm however a good portion of this represents splenic tis christie itself. This is compared to the previous study of 05/15/17 and is unchanged. There are multiple calcifications within the pancreas suggesting previous pancreatitis. The liver is normal in appearance. The abdominal aorta is normal in caliber. No significant retroperitoneal adenopathy is seen. The visualized loops of small and large bowel demonstrates contrast to pass or the small bowel be pre sent throughout the colon. There no findings to indicate a bowel obstruction. There is a small amount of free fluid within the pelvis. No iliac or inguinal adenopathy is present. CONCLUSION: 1. There is a 14.8 x 11.8 cm complex fluid collection in the left upper quadrant. 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 There was apparently a large pseudocyst wh ich traversed up into the splenic hilum. There is still considerable residual splenic tissue. There i s a drain which decompresses this collection into the stomach. There is gas within this. The examinat ion also demonstrates a 3.8 x 4.6 cm fluid collection posterior to the stomach. Both of these are unc hanged from previous. 2. No findings to indicate bowel obstruction. 3. Bilateral pleural effusion with consolidative changes in the left lung base. 4. Small amount of free fluid within the pelvis. 5. Vega catheter in good position. Venkata Costa MD on May 17, 2017 at 15:20 Board Certified Radiologist. This report was verified electronically.
[2017-05-17] MEDS ORDERED: KETAMINE HCL 500 MG/5 ML VIAL ONE (16:29)
[2017-05-17] MEDS ORDERED: IOHEXOL 350 MG/ML 100 ML BTL (for RAD DIAG) OTHER ONE (16:41)
[2017-05-17] MEDS ORDERED: SIMETHICONE SUSP DROPS 40 MG/0.6 ML 30 ML BTL ONE (16:45)
[2017-05-17] MEDS ORDERED: methylPREDNISolone SOD SUCC 125 MG/2 ML VIAL ONE (17:31)
--- NOTE | 2017-05-17 18:19 | PD.PROCEDR ---
GI Procedure REFERRING PHYSICIAN MER SEO PERFORMED EUS with cyst gastrostomy INDICATION FOR PROCEDURE A second large pseudocyst PROCEDURE: The procedure, risks and benefits were discussed with Ms. Luther and informed consent was obtained. Anesthesia sedated her with Diprivan she underwent general anesthesia. She was placed in the left lateral decubitus position. EUS: The Pentax videoscope was introduced through the oropharynx and advanced to the stomach. FINDINGS: A large cyst was noted through the gastric wall aspiration revealed darkish chocolatey thick type fluid and a wire was passed then the passage was dilated initially using a Soehendra dilator and then a balloon dilator then a 7 [place] Islander 10 cm stent was placed positioning appeared to be adequate noted was a thin brownish material draining from the cyst ESTIMATED BLOOD LOSS: None SPECIMENS REMOVED: None COMPLICATIONS: None IMPRESSION: Pancreatic pseudocyst PLAN: Supportive care Monitor labs Steve Corbett MD May 17, 2017 18:19
[2017-05-17] MEDS ORDERED: PROPOFOL 1000 MG/100 ML INJ 100 ML ONE (18:36)
[2017-05-17] MEDS ORDERED: DO NOT ADM ANY ANTICOAGULANT DRUGS PRN (18:36)
[2017-05-17 18:45] LABS: BLOOD GAS BASE EXCESS -5.1 mmol/L (-2-2); BLOOD GAS CARBOXYHEMOGLOBIN 2.3 % (0-4); BLOOD GAS HCO3 20 mmol/L (22-26); BLOOD GAS METHEMOGLOBIN 1.1 % (0-2); BLOOD GAS O2 HGB SATURATION 93 % (90-100); BLOOD GAS OXYGEN CONTENT 13.2 Vol % (12.0-20.0); BLOOD GAS PCO2 38 mmHg (38-42); BLOOD GAS PO2 98 mmHg (61-120); CRITICAL VALUE NO; DRAW SITE ART LINE; FIO2 100 %; OXYGEN DEVICE VENTILATOR; STAT NO; TEMP CORR TO 98.6; VENT SETTINGS AC/14/450/PEEP10
--- NOTE | 2017-05-17 18:58 | RADRPT ---
EXAM DATE/TIME: 05/17/2017 17:06 [facility] COMPARISON: GI LAB WIRE DILATATION, May 11, 2017, 16:12. INDICATIONS : Pancreatic cyst; attempted drainage. FLUORO TIME: 7.6 minutes IMAGE COUNT: 1 CONTRAST: Instilled by Ordering Physician MEDICAL HISTORY : Cardiovascular disease. Hypertension. Pancreatitis. Gastroparesis SURGICAL HISTORY : Appendectomy. section. Hysterectomy. Bilateral oophorectomy ENCOUNTER: Subsequent ACUITY: 3 days PAIN SCORE: Non-responsive. LOCATION: Abdomen FINDINGS: A single AP coned down view of the mid and left upper and central abdomen was obtained and again demo nstrates the radius and noted stent catheter in the left upper quadrant. A second pigtail catheter is now visualized in the left side of the abdomen. The endoscope is in place. There is a nonspecific talia wel gas pattern with multiple loops of borderline dilated air containing small L. CONCLUSION: 1. Interval placement of second stent catheter in the left upper quadrant. 2. The previously noted stent catheter is unchanged in appearance. 3. Nonspecific bowel gas pattern. Feng Mahoney MD on May 17, 2017 at 18:53 Board Certified Radiologist. This report was verified electronically.
--- NOTE | 2017-05-17 19:23 | RADRPT ---
EXAM DATE/TIME: 05/17/2017 19:07 [facility] COMPARISON: CHEST SINGLE AP, May 14, 2017, 0:15. INDICATIONS : ET tube and central line placement. MEDICAL HISTORY : Cardiovascular disease. Hypertension. Pancreatitis. Gastroparesis SURGICAL HISTORY : Appendectomy. section. Hysterectomy. Bilateral oophorectomy ENCOUNTER: Subsequent ACUITY: 3 days PAIN SCORE: Non-responsive. LOCATION: chest FINDINGS: A single AP supine view of the chest was obtained and demonstrates interval intubation with the endot hector tube tip 3 cm above the tara. There has been placement of a right internal jugular central venous line with the tip projected over the superior vena cava. There is volume loss now noted in the right hemithorax with mediastinal shift to the right. There is alveolar opacity throughout the left lung and apparent consolidation in the right upper lobe. The heart size is at the upper limits of nor mal. Both costophrenic angles appear blunted. CONCLUSION: 1. Interval intubation and placement of right internal jugular central venous line. There is no visua lized pneumothorax however the sensitivity is limited on this single view supine study. 2. New diffuse opacity in the left lung as well as consolidation in the right upper lobe which could represent partial collapse. 3. Volume loss in the right hemithorax with mediastinal shift to the right. Feng Mahoney MD on May 17, 2017 at 19:18 Board Certified Radiologist. This report was verified electronically.
--- NOTE | 2017-05-17 19:27 | RADRPT ---
EXAM DATE/TIME: 05/17/2017 19:10 [facility] COMPARISON: CT ABDOMEN & PELVIS W/O CONTRAST, May 17, 2017, 15:05. ABDOMEN KUB ONLY, May 14, 2017, 14:32. INDICATIONS : Rule out free air in abdomen post ERCP. MEDICAL HISTORY : Cardiovascular disease. Hypertension. Pancreatitis. Gastroparesis SURGICAL HISTORY : Appendectomy. section. Hysterectomy. Bilateral oophorectomy. ENCOUNTER: Subsequent ACUITY: 3 days PAIN SCORE: Non-responsive. LOCATION: Abdomen. FINDINGS: 2 AP supine views of the abdomen and pelvis were obtained and demonstrate multiple loops of overlying dilated air-containing small bowel throughout the abdomen and pelvis. There is mild gaseous distenti on of the cecum and descending colon. A large ill-defined gas collection is present in the upper and mid abdomen just to left of midline. There are stent catheters along the upper portion of this. This may represent gas within the previously known large complex fluid collection seen on the CT. CONCLUSION: 1. No definite evidence of free air however there is a large ill-defined gas collection in the upper and left abdomen which likely represents gas in the previous known large complex fluid collection was seen on the recent CT.. 2. Nonspecific bowel gas pattern most consistent with an ileus. 3. 2 stent catheters are now identified in the left upper quadrant. Feng Mahoney MD on May 17, 2017 at 19:21 Board Certified Radiologist. This report was verified electronically.
[2017-05-17] MEDS: PROPOFOL 1000 MG/100 ML IV SCH ×2 (20:45→22:01)
--- NOTE | 2017-05-17 21:48 | PD.CONS ---
[facility] Service Critical Care Medicine Consult Requested By [facility] Reason for Consult Hypoxemic Respiratory Failure Primary Care Physician [facility] History of Present Illness 52 y/o woman with chronic pancreatitis underwent endoscopic pseudocyst- gastrostomy today in OR. Cyst was mature and there is no evidence of tract leak. Unable to wean from ventilator after procedure, complicated by large left subphrenic collection, left pleural effusion, and consolidation of left lower lobe. Review of Systems ROS Intubated, no family. Unobtainable. Past Family Social History Allergies: Coded Allergies: Sulfa (Verified Allergy, Severe, Rash, 04/19/17) Ciprofloxacin (Verified Allergy, Mild, Rash, 04/19/17) Past Medical History Past Medical History htn dm chronic pancreatitis portal vein thrombosis - was told of this before and was prescribed blood thinner Past Surgical History hysterectomy Appendectomy Allergies: Coded Allergies: Sulfa (Verified Allergy, Severe, Rash, 04/19/17) Ciprofloxacin (Verified Allergy, Mild, Rash, 04/19/17) Family History mom- lung cancer Social History half a pack a day used to drink etoh heavily, quit about 1 yr ago no drugs Physical Exam Vital Signs Vital Signs Date Time Temp Pulse Resp B/P Pulse Ox O2 Delivery O2 Flow Rate FiO2 05/17/17 20:05 96 100 05/17/17 20:00 81 14 142/99 96 Mechanical Ventilator 05/17/17 19:45 81 14 138/92 95 Mechanical Ventilator 05/17/17 19:30 90 14 143/99 97 Mechanical Ventilator 05/17/17 19:23 95 100 05/17/17 19:15 86 14 141/96 96 Mechanical Ventilator 05/17/17 19:00 83 14 140/88 95 Mechanical Ventilator 05/17/17 18:45 82 14 127/82 96 Mechanical Ventilator 05/17/17 18:37 96 100 05/17/17 18:35 100 05/17/17 18:35 97.5 87 14 147/93 96 Mechanical Ventilator 100 05/17/17 15:53 05/17/17 11:56 96 20 175/77 92 05/17/17 10:48 76 05/17/17 08:00 97.3 92 20 133/83 94 05/17/17 04:00 97.8 84 20 126/77 95 05/17/17 00:00 98.0 87 20 139/84 97 05/16/17 23:00 83 Physical Exam Gen: Intubated, sedated. Head: Normal. Neck: Supple, orally intubated. Lungs: Few rhonchi. Decreased BS bases. Heart: RRR, NL S1S2, no m,r. No JVD. Abdomen: Distended, soft. No peritoneal irritation. BS active. Extremities: Warm, well perfused. Neuro: PERRL. Withdraws 4 limbs. Breathes over vent. Laboratory Laboratory Tests Test 05/16/17 05/17/17 05/17/17 23:59 06:43 18:40 White Blood Count 6.6 6.3 Red Blood Count 3.03 3.05 Hemoglobin 8.5 8.4 Hematocrit 25.2 25.2 Mean Corpuscular Volume 83.2 82.5 Mean Corpuscular Hemoglobin 28.0 27.5 Mean Corpuscular Hemoglobin 33.7 33.3 Concent Red Cell Distribution Width 18.0 18.4 Platelet Count 200 189 Mean Platelet Volume 7.9 7.7 Sodium Level 143 140 Potassium Level 2.8 3.6 Chloride Level 107 108 Carbon Dioxide Level 26.7 21.1 Anion Gap 9 11 Blood Urea Nitrogen 4 4 Creatinine 0.67 0.49 Estimat Glomerular Filtration 92 133 Rate Random Glucose 114 116 Calcium Level 8.1 7.6 Neutrophils (%) (Auto) 72.8 Lymphocytes (%) (Auto) 12.7 Monocytes (%) (Auto) 11.4 Eosinophils (%) (Auto) 2.5 Basophils (%) (Auto) 0.6 Neutrophils # (Auto) 4.6 Lymphocytes # (Auto) 0.8 Monocytes # (Auto) 0.7 Eosinophils # (Auto) 0.2 Basophils # (Auto) 0.0 CBC Comment DIFF FINAL Differential Comment Prothrombin Time 12.6 Prothromb Time International 1.1 Ratio Phosphorus Level 1.6 Magnesium Level 1.8 Total Bilirubin 1.3 Direct Bilirubin 0.7 Indirect Bilirubin 0.6 Aspartate Amino Transf 19 (AST/SGOT) Alanine Aminotransferase 19 (ALT/SGPT) Alkaline Phosphatase 203 Total Protein 5.2 Albumin 1.8 Lipase 143 Blood Gas Puncture Site ART LINE Blood Gas Patient Temperature 98.6 Blood Gas HCO3 20 Blood Gas Base Excess -5.1 Blood Gas Oxygen Saturation 93 Arterial Blood pH 7.33 Arterial Blood Partial 38 Pressure CO2 Arterial Blood Partial 98 Pressure O2 Arterial Blood Oxygen Content 13.2 Arterial Blood 2.3 Carboxyhemoglobin Arterial Blood Methemoglobin 1.1 Blood Gas Hemoglobin 10.0 Oxygen Delivery Device VENTILATOR Blood Gas Ventilator Setting AC/14/450/PEEP10 Blood Gas Inspired Oxygen 100 Date/Time Procedure Status Source Growth 05/17/17 07:50 Stool Occult Blood (FAVIOLA) - Final Complete Stool Stool HEMOCCULT POSITIVE 05/14/17 17:09 Aerobic Blood Culture - Preliminary Resulted Blood Peripheral NO GROWTH IN 3 DAYS 05/14/17 17:09 Anaerobic Blood Culture - Preliminary Resulted Blood Peripheral NO GROWTH IN 3 DAYS Result Diagram: 05/17/17 0643 05/17/17 0643 Imaging CXR with LLL consolidation. ET tube acceptable position. Assessment and Plan Assessment and Plan Assessment: 1. Hypoxemic Respiratory Failure. 2. Chronic Pancreatitis with pseudocyst. 3. S/P cyst-gastrostomy 05/17/17 Plan: 1. PRVC vent mode. 2. Maint IV fluid. 3. Propofol sedation. 4. Electrolyte protocol. 5. Avoid NG tube for fear of snagging stent - unless approved by GI. 6. Change out right neck CVL. Overall impression: She is critically ill with acute hypoxemic respiratory failure and left lung consolidation. She may benefit from a left thoracentesis before extubation. Will consider increased airway mean pressures if left lung does not re-expand. Abdomen is benign tonight aside from moderate distention. Critical Care 48 mins Randy Kent MD May 17, 2017 21:48
[2017-05-17] MEDS: cefTRIAXone INJ 2,000 MG in SODIUM CHLORIDE 0.9% INJ 100 ML IV SCH (22:01)
[2017-05-18] VITALS (19 sets, daily range): BP systolic 125–159; BP diastolic 76–97; PULSE 46–60; RESP 14–15; TEMP 97.6–98.2; O2SAT 95–100
[2017-05-18] MEDS: PROPOFOL 1000 MG/100 ML INJ 100 ML IV SCH ×4 (01:49→20:39)
[2017-05-18] MEDS: HYDROmorphone HCL PF 1 MG/ML VIAL IV PUSH PRN ×4 (04:10→14:35)
[2017-05-18] MEDS: NS + KCL 20 MEQ INJ 1,000 ML IV SCH (04:19)
[2017-05-18 04:31] LABS: HEMATOCRIT 25.4 % (35.0-46.0); MEAN CELL VOLUME 81.9 FL (80.0-100.0); MEAN CORPUSCULAR HGB CONC 34.1 % (32.0-36.0); PLATELET COUNT 223 TH/MM3 (150-450); RED CELL DISTRIBUTION WIDTH 18.4 % (11.6-17.2); REVIEW FLAG FINAL
[2017-05-18 04:51] LABS: ALT (GPT) 17 U/L (10-53); ANION GAP 9 MEQ/L (5-15); AST (GOT) 23 U/L (15-37); BICARBONATE 24.9 MEQ/L (21.0-32.0); BLOOD UREA NITROGEN 6 MG/DL (7-18); CHLORIDE 109 MEQ/L (98-107); GLOMERULAR FILTRATION RATE 133 ML/MIN (>89); POTASSIUM 3.4 MEQ/L (3.5-5.1); SODIUM (NA) 143 MEQ/L (136-145)
[2017-05-18 04:53] LABS: ALKALINE PHOSPHATASE 176 U/L (45-117); TOTAL BILIRUBIN ADULT 0.6 MG/DL (0.2-1.0)
[2017-05-18] MEDS: CHLORHEXIDINE 0.12% (ORAL KIT) 15 ML CUP MT SCH ×2 (08:00→20:00)
--- NOTE | 2017-05-18 08:09 | HHI.CCPN ---
Subjective Remarks/Hospital Course Hospital Course: 52 y/o woman with chronic pancreatitis underwent endoscopic pseudocyst- gastrostomy today in OR. Cyst was mature and there is no evidence of tract leak. Unable to wean from ventilator after procedure, complicated by large left subphrenic collection, left pleural effusion, and consolidation of left lower lobe. Subjective: 05/18: continues to be intubated, but awake and alert at this point. endorses pain over LUQ. denies other complaints. ultrasound of left chest with significant effusion. Objective Vital Signs Date Time Temp Pulse Resp B/P Pulse Ox O2 Delivery O2 Flow Rate FiO2 05/18/17 07:25 95 50 05/18/17 06:00 56 05/18/17 04:40 15 05/18/17 04:00 97.7 134/97 05/17/17 20:00 Mechanical Ventilator Intake and Output 05/17/17 05/17/17 05/18/17 08:00 16:00 00:00 Intake Total 1883 ml 1071 ml Output Total 5000 ml 780 ml Balance -3117 ml 291 ml Result Diagram: 05/18/17 0405 05/18/17 0405 Other Results Microbiology Date/Time Procedure Status Source Growth 05/17/17 07:50 Stool Occult Blood (FAVIOLA) - Final Complete Stool Stool HEMOCCULT POSITIVE Laboratory Tests Test 05/17/17 18:40 Blood Gas Puncture Site ART LINE Blood Gas Patient Temperature 98.6 Blood Gas HCO3 20 mmol/L (22-26) Blood Gas Base Excess -5.1 mmol/L (-2-2) Blood Gas Oxygen Saturation 93 % (90-100) Arterial Blood pH 7.33 (7.380-7.420) Arterial Blood Partial 38 mmHg (38-42) Pressure CO2 Arterial Blood Partial 98 mmHg Pressure O2 (61-120) Arterial Blood Oxygen Content 13.2 Vol % (12.0-20.0) Arterial Blood 2.3 % (0-4) Carboxyhemoglobin Arterial Blood Methemoglobin 1.1 % (0-2) Blood Gas Hemoglobin 10.0 G/DL (12.0-16.0) Oxygen Delivery Device VENTILATOR Blood Gas Ventilator Setting AC/14/450/PEEP10 Blood Gas Inspired Oxygen 100 % Imaging CXR with LLL consolidation. ET tube acceptable position. Objective Remarks Gen: Intubated, sedated. Head: Normal. Neck: Supple, orally intubated. Lungs: Few rhonchi. Decreased BS bases. Heart: RRR, NL S1S2, no m,r. No JVD. Abdomen: Distended, soft. No peritoneal irritation. BS active. Extremities: Warm, well perfused. Neuro: PERRL. Withdraws 4 limbs. Breathes over vent. A/P Assessment and Plan Assessment: 52yF with chronic pancreatitis, pseudocyst and now acute hypoxic respiratory failure. A large component of her respiratory failure is her pseudocyst, but also this large pleural effusion. given the space occupying mass of the pseudocyst raising the diaphragm, will ask interventional radiology to drain left pleural effusion with image guided technology, as I think this is safest for the patient. once drained we can attempt to wean to extubate patient. 1. Acute hypoxic Respiratory Failure. 2. left pleural effusion 3. Chronic Pancreatitis with pseudocyst. 4. S/P cyst-gastrostomy 05/17/17 5. acute pain associated with pancreatic pseudocyst Plan: 1. PRVC vent mode. 2. Maint IV fluid. 3. Propofol sedation. 4. Electrolyte protocol. 5. Avoid NG tube for fear of snagging stent - unless approved by GI. 6. add dilaudid prn for pain 7. consult interventional radiology for left pleural effusion drainage 8. SBT after left chest drainage. Edu Blanco MD May 18, 2017 08:09
[2017-05-18] MEDS: SODIUM CHLORIDE 0.9% FLUSH 10 ML FLUSH IV FLUSH SCH ×2 (08:16→21:00)
[2017-05-18] MEDS: ATENOLOL 50 MG TAB PO SCH (09:00)
[2017-05-18] MEDS: CYANOCOBALAMIN 1,000 MCG TAB PO SCH (09:00)
[2017-05-18] MEDS: busPIRone HCL 10 MG TAB PO SCH ×2 (09:00→20:40)
[2017-05-18] MEDS: POLYETHYLENE GLYCOL 17 GM PKG PO SCH (09:00)
[2017-05-18] MEDS: PANTOPRAZOLE SOD 40 MG DELAYED RELEASE TAB PO SCH (09:00)
[2017-05-18] MEDS: ENOXAPARIN SODIUM 40 MG/0.4 ML SYRINGE SQ SCH (09:00)
[2017-05-18] MEDS: LIPASE/PROTEASE/AMYLASE (12,000/38,000/60,000) CAP PO SCH ×3 (09:30→17:55)
--- NOTE | 2017-05-18 09:49 | RADRPT ---
EXAM DATE/TIME: 05/18/2017 09:09 [place] COMPARISON: No previous studies available for comparison. INDICATIONS : Left pleural effusion. MEDICAL HISTORY : Hypertension. Pancreatitis. Gastroparesis. Thyroid disease. Syncope. Migraines. GERD. Arthritis. Diab etes. Liver disease. PTSD. Anxiety. Anticoagulant therapy. SURGICAL HISTORY : Appendectomy. section. Hysterectomy with bilateral oophorectomy. Blood transfusions. ENCOUNTER: Initial ACUITY: 1 day PAIN SCORE: Nonresponsive. LOCATION: Left chest MEASUREMENTS: SKIN TO PARIETAL PLEURA: 4.5 cm SKIN TO MAX SAFE DEPTH: 7.0 cm ESTIMATED FLUID VOLUME: 890 cc FLUID COMPOSITION: simple FINDINGS: Pleural effusion as above. A iris was placed on the skin surface superficial to the pleural fluid col lection. CONCLUSION: 1. There is a moderate pleural effusion on the left. A iris was placed on the skin surface. Venkata Costa MD on May 18, 2017 at 9:45 Board Certified Radiologist. This report was verified electronically.
--- NOTE | 2017-05-18 14:13 | HHI.GIFU ---
Subjective Remarks Pt going to CT for thoracentesis. Sedated on the ventilator. Nurse reports that they want to place NGT if okay with GI. Objective Vitals I&O Vital Signs Date Time Temp Pulse Resp B/P Pulse Ox O2 Delivery O2 Flow Rate FiO2 05/18/17 12:00 98.2 46 14 99 134/77 05/18/17 12:00 46 05/18/17 11:59 22 05/18/17 11:58 98 50 05/18/17 10:00 47 05/18/17 08:00 53 05/18/17 08:00 97.6 53 14 99 150/85 05/18/17 07:25 95 50 05/18/17 07:00 99 Mechanical Ventilator 14.00 50 05/18/17 06:00 56 05/18/17 04:20 98 70 05/18/17 04:00 97.7 50 15 98 134/97 05/18/17 04:00 50 05/18/17 02:00 54 05/18/17 01:57 98 70 05/18/17 00:00 60 05/18/17 00:00 98.2 60 15 98 147/77 05/17/17 22:51 98 80 05/17/17 22:00 68 05/17/17 20:05 96 100 05/17/17 20:00 99.0 80 19 93 145/82 05/17/17 20:00 80 05/17/17 20:00 81 14 142/99 96 Mechanical Ventilator 05/17/17 19:45 81 14 138/92 95 Mechanical Ventilator 05/17/17 19:30 90 14 143/99 97 Mechanical Ventilator 05/17/17 19:23 95 100 05/17/17 19:15 86 14 141/96 96 Mechanical Ventilator 05/17/17 19:00 83 14 140/88 95 Mechanical Ventilator 05/17/17 18:45 82 14 127/82 96 Mechanical Ventilator 05/17/17 18:37 96 100 05/17/17 18:35 100 05/17/17 18:35 97.5 87 14 147/93 96 Mechanical Ventilator 100 05/17/17 15:53 I/O 05/17/17 05/17/17 05/17/17 05/18/17 05/18/17 05/18/17 07:00 15:00 23:00 07:00 15:00 23:00 Intake Total 1883 ml 1071 ml 815 ml Output Total 5000 ml 780 ml 575 ml Balance -3117 ml 291 ml 240 ml IV Total 1883 ml 271 ml 815 ml Other 800 ml Output Urine Total 5000 ml 775 ml 575 ml Estimated Blood Loss 5 ml # Voids 3 # Bowel Movements 1 0 3 Laboratory Laboratory Tests Test 05/17/17 05/17/17 05/18/17 18:40 21:45 04:05 Blood Gas Puncture Site ART LINE Blood Gas Patient Temperature 98.6 Blood Gas HCO3 20 Blood Gas Base Excess -5.1 Blood Gas Oxygen Saturation 93 Arterial Blood pH 7.33 Arterial Blood Partial 38 Pressure CO2 Arterial Blood Partial 98 Pressure O2 Arterial Blood Oxygen Content 13.2 Arterial Blood 2.3 Carboxyhemoglobin Arterial Blood Methemoglobin 1.1 Blood Gas Hemoglobin 10.0 Oxygen Delivery Device VENTILATOR Blood Gas Ventilator Setting AC/14/450/PEEP10 Blood Gas Inspired Oxygen 100 Nasal Screen MRSA (PCR) MRSA NOT DETECTED White Blood Count 9.0 Red Blood Count 3.10 Hemoglobin 8.7 Hematocrit 25.4 Mean Corpuscular Volume 81.9 Mean Corpuscular Hemoglobin 28.0 Mean Corpuscular Hemoglobin 34.1 Concent Red Cell Distribution Width 18.4 Platelet Count 223 Mean Platelet Volume 7.9 Sodium Level 143 Potassium Level 3.4 Chloride Level 109 Carbon Dioxide Level 24.9 Anion Gap 9 Blood Urea Nitrogen 6 Creatinine 0.49 Estimat Glomerular Filtration 133 Rate Random Glucose 165 Calcium Level 8.1 Total Bilirubin 0.6 Aspartate Amino Transf 23 (AST/SGOT) Alanine Aminotransferase 17 (ALT/SGPT) Alkaline Phosphatase 176 Total Protein 5.3 Albumin 1.8 Date/Time Procedure Status Source Growth 05/17/17 07:50 Stool Occult Blood (FAVIOLA) - Final Complete Stool Stool HEMOCCULT POSITIVE 05/14/17 17:09 Aerobic Blood Culture - Preliminary Resulted Blood Peripheral NO GROWTH IN 4 DAYS 05/14/17 17:09 Anaerobic Blood Culture - Preliminary Resulted Blood Peripheral NO GROWTH IN 4 DAYS Imaging Last Impressions Chest Ultrasound 05/18/17 0000 Signed Impressions: Service Date/Time: Thursday, May 18, 2017 09:09 - CONCLUSION: 1. There is a moderate pleural effusion on the left. A iris was placed on the skin surface. Venkata Costa MD Abdomen/Pelvis CT 05/17/17 1447 Signed Impressions: Service Date/Time: April 15:05 - CONCLUSION: 1. There is a 14.8 x 11.8 cm complex fluid collection in the left upper quadrant. This appears to represent liquefaction of the spleen post splenic infarction. There was apparently a large pseudocyst which traversed up into the splenic hilum. There is still considerable residual splenic tissue. There is a drain which decompresses this collection into the stomach. There is gas within this. The examination also demonstrates a 3.8 x 4.6 cm fluid collection posterior to the stomach. Both of these are unchanged from previous. 2. No findings to indicate bowel obstruction. 3. Bilateral pleural effusion with consolidative changes in the left lung base. 4. Small amount of free fluid within the pelvis. 5. Vega catheter in good position. Venkata Costa MD GI Procedure 05/17/17 0000 Signed Impressions: Service Date/Time: April 17:06 - CONCLUSION: 1. Interval placement of second stent catheter in the left upper quadrant. 2. The previously noted stent catheter is unchanged in appearance. 3. Nonspecific bowel gas pattern. Feng Mahoney MD Chest X-Ray 05/17/17 0000 Signed Impressions: Service Date/Time: April 19:07 - CONCLUSION: 1. Interval intubation and placement of right internal jugular central venous line. There is no visualized pneumothorax however the sensitivity is limited on this single view supine study. 2. New diffuse opacity in the left lung as well as consolidation in the right upper lobe which could represent partial collapse. 3. Volume loss in the right hemithorax with mediastinal shift to the right. Feng Mahoney MD Abdomen X-Ray 05/17/17 0000 Signed Impressions: Service Date/Time: April 19:10 - CONCLUSION: 1. No definite evidence of free air however there is a large ill-defined gas collection in the upper and left abdomen which likely represents gas in the previous known large complex fluid collection was seen on the recent CT.. 2. Nonspecific bowel gas pattern most consistent with an ileus. 3. 2 stent catheters are now identified in the left upper quadrant. Feng Mahoney MD Physical Exam HEENT: Normocephalic; atraumatic; no jaundice. CHEST: Resp even/unlabored. OETT to vent. Diminished CARDIAC: SB ABDOMEN: Soft, mildly distended, no hepatosplenomegaly; bowel sounds faint EXTREMITIES: No clubbing, cyanosis, or edema. SKIN: Normal; no rash; no jaundice. HABITAT MANAGEMENT COORDINATOR: Sedated on vent Assessment and Plan Plan ASSESSMENT: - Acute on chronic pancreatitis with large pseudocyst formation. Pt with 4 year hx of pancreatitis (states she has more than 10-12 episodes per year). States last episode was last month. Abdomen/Pelvis CT (05/10/17)---> 1. 14 x 10 CM sub-phrenic fluid collection on the left larger than on the prior study. This could be related to pseudocyst or perhaps splenic hematoma. The findings have worsened when compared with the prior examination. 2. Chronic calcific pancreatitis 3. Chronic portal vein thrombosis. She quit ETOH use >1 year ago. She reports that she was told more than a year ago that she had a pseudocyst and needed it removed, but that the [facility] will not [facility] this. States she was told one month ago that her ibuprofen use may have caused her pancreatitis and stopped this. Of note, we did recommend EUS with FNA in past, but she did not follow up and she we were unable to contact her by phone or mail. S/P EUS w/ cyst gastrostomy (05/11/17) --> EGD findings Normal esophagus, Bulging in the stomach with food residue, Normal duodenum, EUS findings with hypoechoic homogeneous cyst, which was aspirated and dark lactose brownish aspirate was obtained and sent for culture and labs, s/p 7 Polish 7 cm double pigtail stent placement. Lipase normalized. KUB (05/14/17)----> Persistent stent like area seen in the left upper quadrant. There does appear to be increased density and air lucency seen in the left upper quadrant. This could be seen if the stent communicates with the known large fluid collection in the left upper quadrant and the stomach. CT Abdomen/pelvis ()----> 1. Persistent large complex fluid collection in the left upper quadrant surrounding an abnormal appearing spleen. This is smaller. This fluid collection is now being drained into the stomach with an internal drain. 2. Second fluid collection seen medial to this posterior to the stomach likely related to another pseudo cyst. This cyst appears larger. 3. Inflammatory change in the left side of the colon at the splenic flexure region. This could be secondary to it being in close proximity to the fluid collection in the left upper quadrant. Focal colitis should be suspected in this region. 4. 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 Abdomen/Pelvis CT (05/17/17)----> 1. There is a 14.8 x 11.8 cm complex fluid collection in the left upper quadrant. This appears to represent liquefaction of the spleen post splenic infarction. There was apparently a large pseudocyst which traversed up into the splenic hilum. There is still considerable residual splenic tissue. There is a drain which decompresses this collection into the stomach. There is gas within this. The examination also demonstrates a 3.8 x 4.6 cm fluid collection posterior to the stomach. Both of these are unchanged from previous. 2. No findings to indicate bowel obstruction. 3. Bilateral pleural effusion with consolidative changes in the left lung base. 4. Small amount of free fluid within the pelvis. 5. Vega catheter in good position. S/P EUS with cyst gastrostomy (05/17/17)----> Pancreatic pseudocyst. HH stable. Will d/c lovenox. Pancreatic fluid with viridans streptococcus, no growth. Ceftriaxone, - Splenic infarction with liquefaction, ? secondary to compression from large pseudocyst. GS consulted. D/C Lovenox - Fever/Leukocytosis. BCx no growth 4d. Pancreatic fluid culture Viridans Streptococcus Grp. Ceftriaxone - Respiratory failure, left pleural effusion. Vent per CCM, going for thoracentesis. - Elevated LFTs, new. LFTs improved. T. Bili 0.6, AST 23, ALT 17, ALk Phosph 176. - Chronic portal vein thrombosis. This is chronic. - Abnormal weight loss. Reports 30 lb weight loss in 3 months. Unintentional - Hx elevated chromogranin level. During a previous hospitalization, she complained of flushing, diarrhea, abdominal pain. She was evaluated with chromogranin A 108.0 (significantly high), Gastrin 86, VIP less than 50. She did not fu. She is not having flushing or diarrhea at this time. PLAN: - NPO - Okay to place NGT - KUB afterwards, to confirm placement - D/C Lovenox. - GS evaluation - Cont. Abx - Await final BCx - Cont. PPI - Cont. Creon - Monitor labs - Supportive care - Repeat imaging in 1 month to reassess cyst - EGD w/ stent removal 2-3m - Further recommendations to follow based on results of above - Pt seen and examined by Dr. Escamilla and myself and this note is written on his behalf Jordyn Puente May 18, 2017 14:13
--- NOTE | 2017-05-18 15:46 | HHI.IDPN ---
Note Infectious Disease Note Patient transferred to [facility] after endoscopic ultrasound - pseudocyst gastrostomy. 05/17. Failure to extubate post procedure. On the vent. Went for thoracentesis today 01/18. chest tube placed. pleural fluid culture sent. Afebrile. D/W RN. CT noted. Patient was readmitted to the hospital on May 11, 2017. The patient was recently discharged from the hospital on April 22, 2017 after treatment for acute pancreatitis. PAST MEDICAL HISTORY 1. Hypertension 2. Diabetes mellitus 3. Chronic pancreatitis 4. Portal vein thrombosis. 5. Chronic back pain. 6. Gastroesophageal reflux disease 7. Posttraumatic stress disorder 8. Gastroparesis. PAST SURGICAL HISTORY: History of hysterectomy. History of appendectomy. . ALLERGIES SULFA CIPROFLOXACIN MEDICATIONS: Current Medications Medications (Trade) Dose Ordered Sig/Bandar Route PRN Reason Start Time Stop Time Status Last Admin Dose Admin Sodium Chloride (NS Flush) 2 ml UNSCH PRN IV FLUSH FLUSH AFTER USING IV ACCESS 05/11/17 00:45 Sodium Chloride (NS Flush) 2 ml BID IV FLUSH 05/11/17 09:00 05/18/17 08:16 Naloxone HCl (Narcan Inj) 0.4 mg UNSCH PRN IV SEE LABEL COMMENTS 05/11/17 00:45 Ondansetron HCl (Zofran Inj) 4 mg Q6HR PRN IV PUSH nausea 05/11/17 02:45 05/17/17 15:28 Dextrose (D50w (Vial) Inj) 50 ml UNSCH PRN IV HYPOGLYCEMIA-SEE COMMENTS 05/11/17 02:45 Glucagon (Glucagon Inj) 1 mg UNSCH PRN OTHER HYPOGLYCEMIA-SEE COMMENTS 05/11/17 02:45 Buspirone HCl (Buspar) 30 mg BID PO 05/11/17 09:00 05/16/17 20:21 Cyanocobalamin (Vitamin B12) 1,000 mcg DAILY PO 05/11/17 09:00 05/16/17 08:26 Amylase/Lipase/ Protease ([place] 12-38-60) 1 cap TIDPC PO 05/11/17 09:30 05/16/17 15:11 Pantoprazole Sodium (Protonix) 40 mg DAILY PO 05/11/17 09:00 05/16/17 08:26 Acetaminophen/ Hydrocodone Bitart ([place] 5-325 Mg) 1 tab Q6H PRN PO BREAKTHROUGH PAIN 05/11/17 10:30 05/15/17 18:52 Acetaminophen (Tylenol) 650 mg Q6H PRN PO fever > 100.4 05/14/17 00:15 05/16/17 17:58 Atenolol (Tenormin) 50 mg DAILY PO 05/15/17 09:00 Polyethylene Glycol 34 gm 34 gm DAILY PO 05/15/17 21:00 05/15/17 23:09 Sodium Chloride 500 ml @ 30 mls/hr [id number] PRN IV SEE LABEL COMMENTS 05/16/17 06:00 05/19/17 05:59 Ceftriaxone Sodium/Sodium Chloride (Rocephin Inj/NS Inj) 100 ml @ 200 mls/hr Q24H IV 05/16/17 22:00 05/17/17 22:01 Hydromorphone HCl (Dilaudid Pf Inj) 1.5 mg Q2H PRN IV PUSH PAIN SCALE 6 TO 10;IF NPO 05/17/17 13:00 05/18/17 14:35 Miscellaneous Information ALL NURSING DEPARTME... UNSCH PRN .XX SEE LABEL COMMENTS 05/17/17 18:36 05/18/17 18:35 Chlorhexidine Gluconate 15 ml 15 ml BID@08,20 MT 05/18/17 08:00 05/18/17 08:00 Propofol (Diprivan 1000 Mg/100ml Inj) 100 ml @ 0 mls/hr TITRATE IV 05/17/17 22:15 05/18/17 06:17 SOCIAL HISTORY The patient is . She smokes half-a-pack of cigarettes a day. No alcohol use. No illicit drugs. OBJECTIVE: Vital Signs Date Time Temp Pulse Resp B/P Pulse Ox O2 Delivery O2 Flow Rate FiO2 05/18/17 14:45 100 100 05/18/17 14:00 56 05/18/17 13:59 60 05/18/17 12:00 98.2 46 14 99 134/77 05/18/17 12:00 46 05/18/17 11:59 22 05/18/17 11:58 98 50 05/18/17 10:00 47 05/18/17 08:00 53 05/18/17 08:00 97.6 53 14 99 150/85 05/18/17 07:25 95 50 05/18/17 07:00 99 Mechanical Ventilator 14.00 50 05/18/17 06:00 56 05/18/17 04:20 98 70 05/18/17 04:00 97.7 50 15 98 134/97 05/18/17 04:00 50 05/18/17 02:00 54 05/18/17 01:57 98 70 05/18/17 00:00 60 05/18/17 00:00 98.2 60 15 98 147/77 05/17/17 22:51 98 80 05/17/17 22:00 68 05/17/17 20:05 96 100 05/17/17 20:00 99.0 80 19 93 145/82 05/17/17 20:00 80 05/17/17 20:00 81 14 142/99 96 Mechanical Ventilator 05/17/17 19:45 81 14 138/92 95 Mechanical Ventilator 05/17/17 19:30 90 14 143/99 97 Mechanical Ventilator 05/17/17 19:23 95 100 05/17/17 19:15 86 14 141/96 96 Mechanical Ventilator 05/17/17 19:00 83 14 140/88 95 Mechanical Ventilator 05/17/17 18:45 82 14 127/82 96 Mechanical Ventilator 05/17/17 18:37 96 100 05/17/17 18:35 100 05/17/17 18:35 97.5 87 14 147/93 96 Mechanical Ventilator 100 05/17/17 15:53 05/17/17 05/17/17 05/18/17 15:00 23:00 07:00 Intake Total 1071 ml 815 ml Output Total 780 ml 575 ml Balance 291 ml 240 ml IV Total 271 ml 815 ml Other 800 ml Output Urine Total 775 ml 575 ml Estimated Blood Loss 5 ml # Voids 3 # Bowel Movements 1 0 3 Laboratory Tests Test 05/16/17 05/17/17 05/18/17 23:59 06:43 04:05 White Blood Count 6.6 TH/MM3 6.3 TH/MM3 9.0 TH/MM3 Red Blood Count 3.03 MIL/MM3 3.05 MIL/MM3 3.10 MIL/MM3 Hemoglobin 8.5 GM/DL 8.4 GM/DL 8.7 GM/DL Hematocrit 25.2 % 25.2 % 25.4 % Mean Corpuscular Volume 83.2 FL 82.5 FL 81.9 FL Mean Corpuscular Hemoglobin 28.0 PG 27.5 PG 28.0 PG Mean Corpuscular Hemoglobin 33.7 % 33.3 % 34.1 % Concent Red Cell Distribution Width 18.0 % 18.4 % 18.4 % Platelet Count 200 TH/MM3 189 TH/MM3 223 TH/MM3 Mean Platelet Volume 7.9 FL 7.7 FL 7.9 FL Neutrophils (%) (Auto) 72.8 % Lymphocytes (%) (Auto) 12.7 % Monocytes (%) (Auto) 11.4 % Eosinophils (%) (Auto) 2.5 % Basophils (%) (Auto) 0.6 % Neutrophils # (Auto) 4.6 TH/MM3 Lymphocytes # (Auto) 0.8 TH/MM3 Monocytes # (Auto) 0.7 TH/MM3 Eosinophils # (Auto) 0.2 TH/MM3 Basophils # (Auto) 0.0 TH/MM3 CBC Comment DIFF FINAL Differential Comment Laboratory Tests Test 05/16/17 05/16/17 05/17/17 05/18/17 15:47 23:59 06:43 04:05 Sodium Level 141 MEQ/L 143 MEQ/L 140 MEQ/L 143 MEQ/L Potassium Level 3.2 MEQ/L 2.8 MEQ/L 3.6 MEQ/L 3.4 MEQ/L Chloride Level 108 MEQ/L 107 MEQ/L 108 MEQ/L 109 MEQ/L Carbon Dioxide Level 24.1 MEQ/L 26.7 MEQ/L 21.1 MEQ/L 24.9 MEQ/L Anion Gap 9 MEQ/L 9 MEQ/L 11 MEQ/L 9 MEQ/L Blood Urea Nitrogen 3 MG/DL 4 MG/DL 4 MG/DL 6 MG/DL Creatinine 0.66 MG/DL 0.67 MG/DL 0.49 MG/DL 0.49 MG/DL Estimat Glomerular Filtration 94 ML/MIN 92 ML/MIN 133 ML/MIN 133 ML/MIN Rate Random Glucose 116 MG/DL 114 MG/DL 116 MG/DL 165 MG/DL Calcium Level 8.3 MG/DL 8.1 MG/DL 7.6 MG/DL 8.1 MG/DL Phosphorus Level 1.6 MG/DL Magnesium Level 1.8 MG/DL Total Bilirubin 1.3 MG/DL 0.6 MG/DL Direct Bilirubin 0.7 MG/DL Indirect Bilirubin 0.6 MG/DL Aspartate Amino Transf 19 U/L 23 U/L (AST/SGOT) Alanine Aminotransferase 19 U/L 17 U/L (ALT/SGPT) Alkaline Phosphatase 203 U/L 176 U/L Total Protein 5.2 GM/DL 5.3 GM/DL Albumin 1.8 GM/DL 1.8 GM/DL Lipase 143 U/L Microbiology Date/Time Procedure Status Source Growth 05/17/17 07:50 Stool Occult Blood ([facility]VIOLA) - Final Complete Stool Stool HEMOCCULT POSITIVE 05/18/17 13:45 Gram Stain Received Fluid Pleural Fluid Pending 05/18/17 13:45 Body Fluid Culture Received Fluid Pleural Fluid Pending 05/18/17 13:45 Gram Stain Received Abscess Lung Pending 05/18/17 13:45 Wound Culture Received Abscess Lung Pending IMAGING: Chest Ultrasound 05/18/17 0000 Signed Impressions: Service Date/Time: Thursday, May 18, 2017 09:09 - CONCLUSION: 1. There is a moderate pleural effusion on the left. A iris was placed on the skin surface. Venkata Costa MD Abdomen/Pelvis CT 05/17/17 1447 Signed Impressions: Service Date/Time: April 15:05 - CONCLUSION: 1. There is a 14.8 x 11.8 cm complex fluid collection in the left upper quadrant. This appears to represent liquefaction of the spleen post splenic infarction. There was apparently a large pseudocyst which traversed up into the splenic hilum. There is still considerable residual splenic tissue. There is a drain which decompresses this collection into the stomach. There is gas within this. The examination also demonstrates a 3.8 x 4.6 cm fluid collection posterior to the stomach. Both of these are unchanged from previous. 2. No findings to indicate bowel obstruction. 3. Bilateral pleural effusion with consolidative changes in the left lung base. 4. Small amount of free fluid within the pelvis. 5. Vega catheter in good position. Venkata Costa MD GI Procedure 05/17/17 0000 Signed Impressions: Service Date/Time: April 17:06 - CONCLUSION: 1. Interval placement of second stent catheter in the left upper quadrant. 2. The previously noted stent catheter is unchanged in appearance. 3. Nonspecific bowel gas pattern. Feng Mahoney MD Chest X-Ray 05/17/17 0000 Signed Impressions: Service Date/Time: April 19:07 - CONCLUSION: 1. Interval intubation and placement of right internal jugular central venous line. There is no visualized pneumothorax however the sensitivity is limited on this single view supine study. 2. New diffuse opacity in the left lung as well as consolidation in the right upper lobe which could represent partial collapse. 3. Volume loss in the right hemithorax with mediastinal shift to the right. Feng Mahoney MD Abdomen X-Ray 05/17/17 0000 Signed Impressions: Service Date/Time: April 19:10 - CONCLUSION: 1. No definite evidence of free air however there is a large ill-defined gas collection in the upper and left abdomen which likely represents gas in the previous known large complex fluid collection was seen on the recent CT.. 2. Nonspecific bowel gas pattern most consistent with an ileus. 3. 2 stent catheters are now identified in the left upper quadrant. Feng Mahoney MD Abdomen/Pelvis CT 05/15/17 Signed Impressions: Service Date/Time: Monday, May 15, 2017 15:16 - CONCLUSION: 1. Persistent large complex fluid collection in the left upper quadrant surrounding an abnormal appearing spleen. This is smaller. This fluid collection is now being drained into the stomach with an internal drain. 2. Second fluid collection seen medial to this posterior to the stomach likely related to another pseudo cyst. This cyst appears larger. 3. Inflammatory change in the left side of the colon at the splenic flexure region. This could be secondary to it being in close proximity to the fluid collection in the left upper quadrant. Focal colitis should be suspected in this region. 4. 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 Tim Chadwick MD Chest X-Ray 05/14/17 0011 Signed Impressions: Service Date/Time: Sunday, May 14, 2017 00:15 - CONCLUSION: Consolidation and small effusion have developed at the left lung base. Tim Tinajero MD Abdomen X-Ray 05/14/17 0000 Signed Impressions: Service Date/Time: Sunday, May 14, 2017 14:32 - CONCLUSION: Persistent stent like area seen in the left upper quadrant. There does appear to be increased density and air lucency seen in the left upper quadrant. This could be seen if the stent communicates with the known large fluid collection in the left upper quadrant and the stomach. Tim Chadwick MD GI Procedure 05/11/17 0000 Signed Impressions: Service Date/Time: Thursday, May 11, 2017 16:12 - CONCLUSION: Left upper quadrant stent identified. Pollo Almodovar MD PHYSICAL EXAMINATION GENERAL: No acute distress. On the vent. HEENT: No icterus. NECK: Supple without adenopathy. LUNGS: Decreased breath sounds. HEART: Regular S1, S2 without murmurs. ABDOMEN: Distended, soft. EXTREMITIES: No clubbing, cyanosis or edema. SKIN: No rash. NEUROLOGIC: intubated. IMPRESSION Pancreatitis acute. Infected pancreatic pseudocyst. Strep viridans group on culture from 05/11. Patient status post endoscopic ultrasound with sphincterotomy, balloon dilatation and the double pigtail stent placement into the common bile duct. Acute resp. failure. RECOMMENDATIONS 1. Continue ceftriaxone 2. Monitor pleural fluid culture. 3. Monitor WBC and temp. 4. Monitor clinical status. Anderson Sharpe MD May 18, 2017 15:46
--- NOTE | 2017-05-18 16:35 | RADRPT ---
EXAM DATE/TIME: 05/18/2017 15:45 [place] COMPARISON: No previous studies available for comparison. INDICATIONS : Evaluate for OG tube placement. MEDICAL HISTORY : Cardiovascular disease. Hypertension. Pancreatitis. Gastroparesis SURGICAL HISTORY : Appendectomy. section. Hysterectomy. Bilateral oophorectomy ENCOUNTER: Subsequent ACUITY: 1 day LOCATION: Abdomen FINDINGS: Examination of the abdomen demonstrates 2 separate looped catheters in the left upper quadrant. OG in the stomach. Elevated left hemidiaphragm. No free air identified. CONCLUSION: 1. Orogastric tube tip or overlies distal stomach. Additional catheters present in the left upper dread drant. No free air. Tyrel Aguilar MD on May 18, 2017 at 16:30 Board Certified Radiologist. This report was verified electronically.
--- NOTE | 2017-05-18 16:38 | RADRPT ---
EXAM DATE/TIME: 05/18/2017 13:33 INDICATIONS : Left pleural effusion. DEVICE(S): 1.) 8 Fr Dinh FLUID: Total volume of400 cc of clear, yellow fluid was remoted. Fluid was sent for laboratory ordered studies. MEDICAL HISTORY : Hypertension. Pancreatitis. Diabetes SURGICAL HISTORY : Appendectomy. Hysterectomy. ENCOUNTER: Initial ACUITY: 1 day PAIN SCORE: 0/10 LOCATION: Left chest PROCEDURE : 1. CT guided chest tube placement. The risks, benefits and alternatives to the procedure were explained and verbal and written consent w as obtained. The site was prepped in sterile fashion. Full sterile technique was used, including ca p, mask, sterile gloves and gown and a large sterile sheet. Hand hygiene and 2% chlorhexidine and/or betadine/alcohol prep was utilized per protocol for cutaneous antisepsis. The skin and subcutaneous tissues were infiltrated with local anesthetic solution. Using automated exposure control and adjus tment of the mA and/or kV according to patient size, radiation dose was kept as low as reasonably ach ievable to obtain optimal diagnostic quality images. DICOM format image data is available electronic ally for review and comparison. Under CT guidance an 8-[place] catheter was placed in the left pleural space and 70 cc of fluid were r emoved and sent for stat Gram stain and culture. Chest tube was left in good position to Pleur-evac suction at 40 cm. If the cultures Gram stain is negative the tube can be removed. CONCLUSION: Uncomplicated left chest tube placement. If Gram stain is negative the tube can be removed. Chest x -ray is pending in the a.. Seamus Costa MD FACR on May 18, 2017 at 16:34 Board Certified Radiologist. This report was verified electronically.
--- NOTE | 2017-05-18 17:06 | PD.CONS ---
cc: Michael Chan MD HPI Service General Surgery Consult Requested By Jordyn MOYA Reason for Consult Large pseudocysts s/p EUS; splenic infarction Primary Care Physician [facility] History of Present Illness This is a 52 year old female with a longstanding history of pancreatitis. She arrived to the emergency room with abdominal pain, nausea and vomiting. She has been evaluated by GI and had a endoscopic pseudocyst-gastrostomy. The cyst was mature and there was no evidence of tract leak. Post- procedure she unable to wean from ventilator and she was transferred to [facility]. She has been followed by GI for sometime but has not been compliant with outpatient follow up or procedures. A General Surgery consultation has been requested for evaluation of large pseudocysts s/p EUS and splenic infarction. Review of Systems ROS Limitations: Other (information from ROS from ) Constitutional: COMPLAINS OF: Weight loss Endocrine: DENIES: Polydipsia, Polyuria, Polyphagia Eyes: DENIES: Diplopia Ears, nose, mouth, throat: DENIES: Hearing loss Cardiovascular: DENIES: Chest pain Gastrointestinal: COMPLAINS OF: Abdominal pain, Nausea Genitourinary: DENIES: Urinary frequency Musculoskeletal: COMPLAINS OF: Joint pain (LEFT shoulder pain ) Integumentary: DENIES: Rash Hematologic/lymphatic: DENIES: Bruising Immunologic/allergic: DENIES: Eczema Neurologic: DENIES: Headache Psychiatric: DENIES: Mood changes, Depression, Hallucinations Past Family Social History Past Medical History Hypertension Diabetes Mellitus Chronic pancreatitis Portal Vein Thrombosis Past Surgical History Hysterectomy Appendectomy Reported Medications Buspirone Albuterol Atenolol Creon Insulin Ibuprofen Protonix Vitam B-12 Calcium Allergies: Coded Allergies: Sulfa (Verified Allergy, Severe, Rash, 04/19/17) Ciprofloxacin (Verified Allergy, Mild, Rash, 04/19/17) Active Ordered Medications Current Medications Medications (Trade) Dose Ordered Sig/Bandar Route Start Time Stop Time Status Last Admin (NS Flush) 2 ml UNSCH PRN IV FLUSH 05/11/17 00:45 (NS Flush) 2 ml BID IV FLUSH 05/11/17 09:00 05/18/17 08:16 (Narcan Inj) 0.4 mg UNSCH PRN IV 05/11/17 00:45 (Zofran Inj) 4 mg Q6HR PRN IV PUSH 05/11/17 02:45 05/17/17 15:28 (D50w (Vial) Inj) 50 ml UNSCH PRN IV 05/11/17 02:45 (Glucagon Inj) 1 mg UNSCH PRN OTHER 05/11/17 02:45 (Buspar) 30 mg BID PO 05/11/17 09:00 05/16/17 20:21 (Vitamin B12) 1,000 mcg DAILY PO 05/11/17 09:00 05/16/17 08:26 (Creon 12-38-60) 1 cap TIDPC PO 05/11/17 09:30 05/16/17 15:11 (Protonix) 40 mg DAILY PO 05/11/17 09:00 05/16/17 08:26 ([place] 5-325 Mg) 1 tab Q6H PRN PO 05/11/17 10:30 05/15/17 18:52 (Tylenol) 650 mg Q6H PRN PO 05/14/17 00:15 05/16/17 17:58 (Tenormin) 50 mg DAILY PO 05/15/17 09:00 Polyethylene Glycol 34 gm 34 gm DAILY PO 05/15/17 21:00 05/15/17 23:09 Sodium Chloride 500 ml @ 30 mls/hr [id number] PRN IV 05/16/17 06:00 05/19/17 05:59 (Rocephin Inj/NS Inj) 100 ml @ 200 mls/hr Q24H IV 05/16/17 22:00 05/17/17 22:01 (Dilaudid Pf Inj) 1.5 mg Q2H PRN IV PUSH 05/17/17 13:00 05/18/17 14:35 Miscellaneous Information ALL NURSING DEPARTME... UNSCH PRN .XX 05/17/17 18:36 05/18/17 18:35 Chlorhexidine Gluconate 15 ml 15 ml BID@08,20 MT 05/18/17 08:00 05/18/17 08:00 (Diprivan 1000 Mg/100ml Inj) 100 ml @ 0 mls/hr TITRATE IV 05/17/17 22:15 05/18/17 06:17 Family History Mother had lung cancer Social History Information obtained from at bedside: Tobacco use--- 1/2 PPD ETOH-- prior history of heavy ETOH use; quit appx 1 year ago Denies illicit drug use Physical Exam Vital Signs Vital Signs Date Time Temp Pulse Resp B/P Pulse Ox O2 Delivery O2 Flow Rate FiO2 05/18/17 16:13 99 50 05/18/17 14:45 100 100 05/18/17 14:00 56 05/18/17 13:59 60 05/18/17 12:00 98.2 46 14 99 134/77 05/18/17 12:00 46 05/18/17 11:59 22 05/18/17 11:58 98 50 05/18/17 10:00 47 05/18/17 08:00 53 05/18/17 08:00 97.6 53 14 99 150/85 05/18/17 07:25 95 50 05/18/17 07:00 99 Mechanical Ventilator 14.00 50 05/18/17 06:00 56 05/18/17 04:20 98 70 05/18/17 04:00 97.7 50 15 98 134/97 05/18/17 04:00 50 05/18/17 02:00 54 05/18/17 01:57 98 70 05/18/17 00:00 60 05/18/17 00:00 98.2 60 15 98 147/77 05/17/17 22:51 98 80 05/17/17 22:00 68 05/17/17 20:05 96 100 05/17/17 20:00 99.0 80 19 93 145/82 05/17/17 20:00 80 05/17/17 20:00 81 14 142/99 96 Mechanical Ventilator 05/17/17 19:45 81 14 138/92 95 Mechanical Ventilator 05/17/17 19:30 90 14 143/99 97 Mechanical Ventilator 05/17/17 19:23 95 100 05/17/17 19:15 86 14 141/96 96 Mechanical Ventilator 05/17/17 19:00 83 14 140/88 95 Mechanical Ventilator 05/17/17 18:45 82 14 127/82 96 Mechanical Ventilator 05/17/17 18:37 96 100 05/17/17 18:35 100 6/22/17 18:35 97.5 87 14 147/93 96 Mechanical Ventilator 100 Physical Exam GENERAL: Critically ill 52 year old female in bed on mechanical ventilator. SKIN: Warm and dry. HEAD: Atraumatic. Normocephalic. EYES: Pupils equal and round. No scleral icterus. No injection or drainage. ENT: No nasal bleeding or discharge. Mucous membranes pink and moist. NECK: Trachea midline. CARDIOVASCULAR: Regular rate and rhythm. RESPIRATORY: No accessory muscle use. Clear to auscultation. Breath sounds equal bilaterally. GASTROINTESTINAL: Abdomen soft, mildly distended; faint healed midline incision ; healed low transverse incision. MUSCULOSKELETAL: Extremities without clubbing, cyanosis, or edema. No obvious deformities. NEUROLOGICAL: Unable to exam. PSYCHIATRIC: Unable to exam. Laboratory Laboratory Tests Test 05/17/17 05/17/17 05/18/17 18:40 21:45 04:05 Blood Gas Puncture Site ART LINE Blood Gas Patient Temperature 98.6 Blood Gas HCO3 20 Blood Gas Base Excess -5.1 Blood Gas Oxygen Saturation 93 Arterial Blood pH 7.33 Arterial Blood Partial 38 Pressure CO2 Arterial Blood Partial 98 Pressure O2 Arterial Blood Oxygen Content 13.2 Arterial Blood 2.3 Carboxyhemoglobin Arterial Blood Methemoglobin 1.1 Blood Gas Hemoglobin 10.0 Oxygen Delivery Device VENTILATOR Blood Gas Ventilator Setting AC/14/450/PEEP10 Blood Gas Inspired Oxygen 100 Nasal Screen MRSA (PCR) MRSA NOT DETECTED White Blood Count 9.0 Red Blood Count 3.10 Hemoglobin 8.7 Hematocrit 25.4 Mean Corpuscular Volume 81.9 Mean Corpuscular Hemoglobin 28.0 Mean Corpuscular Hemoglobin 34.1 Concent Red Cell Distribution Width 18.4 Platelet Count 223 Mean Platelet Volume 7.9 Sodium Level 143 Potassium Level 3.4 Chloride Level 109 Carbon Dioxide Level 24.9 Anion Gap 9 Blood Urea Nitrogen 6 Creatinine 0.49 Estimat Glomerular Filtration 133 Rate Random Glucose 165 Calcium Level 8.1 Total Bilirubin 0.6 Aspartate Amino Transf 23 (AST/SGOT) Alanine Aminotransferase 17 (ALT/SGPT) Alkaline Phosphatase 176 Total Protein 5.3 Albumin 1.8 Date/Time Procedure Status Source Growth 05/18/17 13:45 Gram Stain Received Fluid Pleural Fluid Pending 05/18/17 13:45 Body Fluid Culture Received Fluid Pleural Fluid Pending 05/17/17 07:50 Stool Occult Blood (FAVIOLA) - Final Complete Stool Stool HEMOCCULT POSITIVE 05/14/17 17:09 Aerobic Blood Culture - Preliminary Resulted Blood Peripheral NO GROWTH IN 4 DAYS 05/14/17 17:09 Anaerobic Blood Culture - Preliminary Resulted Blood Peripheral NO GROWTH IN 4 DAYS Result Diagram: 05/18/17 0405 05/18/17 0405 Imaging Last 48 hours Impressions Chest Tube Insertion 05/18/17 1308 Signed Impressions: Service Date/Time: Thursday, May 18, 2017 13:33 - CONCLUSION: Uncomplicated left chest tube placement. If Gram stain is negative the tube can be removed. Chest x-ray is pending in the a.m. Seamus Costa MD FACR Chest Ultrasound 05/18/17 0000 Signed Impressions: Service Date/Time: Thursday, May 18, 2017 09:09 - CONCLUSION: 1. There is a moderate pleural effusion on the left. A iris was placed on the skin surface. Venkata Costa MD Abdomen X-Ray 05/18/17 0000 Signed Impressions: Service Date/Time: Thursday, May 18, 2017 15:45 - CONCLUSION: 1. Orogastric tube tip or overlies distal stomach. Additional catheters present in the left upper quadrant. No free air. Tyrel Aguilar MD Abdomen/Pelvis CT 05/17/17 1447 Signed Impressions: Service Date/Time: April 15:05 - CONCLUSION: 1. There is a 14.8 x 11.8 cm complex fluid collection in the left upper quadrant. This appears to represent liquefaction of the spleen post splenic infarction. There was apparently a large pseudocyst which traversed up into the splenic hilum. There is still considerable residual splenic tissue. There is a drain which decompresses this collection into the stomach. There is gas within this. The examination also demonstrates a 3.8 x 4.6 cm fluid collection posterior to the stomach. Both of these are unchanged from previous. 2. No findings to indicate bowel obstruction. 3. Bilateral pleural effusion with consolidative changes in the left lung base. 4. Small amount of free fluid within the pelvis. 5. Vega catheter in good position. Venkata Costa MD GI Procedure 05/17/17 0000 Signed Impressions: Service Date/Time: April 17:06 - CONCLUSION: 1. Interval placement of second stent catheter in the left upper quadrant. 2. The previously noted stent catheter is unchanged in appearance. 3. Nonspecific bowel gas pattern. Feng Mahoney MD Chest X-Ray 05/17/17 0000 Signed Impressions: Service Date/Time: , May 17, 2017 19:07 - CONCLUSION: 1. Interval intubation and placement of right internal jugular central venous line. There is no visualized pneumothorax however the sensitivity is limited on this single view supine study. 2. New diffuse opacity in the left lung as well as consolidation in the right upper lobe which could represent partial collapse. 3. Volume loss in the right hemithorax with mediastinal shift to the right. Feng Mahoney MD Abdomen X-Ray 05/17/17 0000 Signed Impressions: Service Date/Time: April 19:10 - CONCLUSION: 1. No definite evidence of free air however there is a large ill-defined gas collection in the upper and left abdomen which likely represents gas in the previous known large complex fluid collection was seen on the recent CT.. 2. Nonspecific bowel gas pattern most consistent with an ileus. 3. 2 stent catheters are now identified in the left upper quadrant. Feng Mahoney MD Assessment and Plan Assessment and Plan 52 year old female with longstanding history of chronic pancreatitis s/p endoscopic pseudocyst-gastrostomy; splenic infarction -NPO -NGT -CT scans reviewed -s/p LEFT chest tube place for pleural effusion -Vent per [facility] -Need to closely monitor H/H -Currently patient stable and not in septic shock -No operative plans at this time -Thank you for this consult; we will continue to follow Discussed Condition With Dr. Dustin Frost RN Luther () Attending Statement The exam, history, and the medical decision-making described in the above note were completed with the assistance of the mid-level provider. I reviewed and agree with the findings presented. I attest that I had a [id number] encounter with the patient on the same day, and personally performed and documented my assessment and findings in the medical record. abdominal exam soft, non-distended, no rebound tenderness or peritonitis imaging reviewed agree with GI management and internal drainage, would only consider surgical drainage if internal drainage fails follow up with surgery on a PRN basis, contact information provided Lissa Pandey May 18, 2017 17:06 Michael Chan MD May 23, 2017 13:38
[2017-05-18] MEDS: cefTRIAXone INJ 2,000 MG in SODIUM CHLORIDE 0.9% INJ 100 ML IV SCH (20:39)
[2017-05-19] VITALS (19 sets, daily range): BP systolic 148–174; BP diastolic 60–90; PULSE 44–84; RESP 14–28; TEMP 97.5–98.7; O2SAT 93–100
[2017-05-19] MEDS: HYDROmorphone HCL PF 1 MG/ML VIAL IV PUSH PRN ×5 (00:17→21:03)
[2017-05-19] MEDS: PROPOFOL 1000 MG/100 ML INJ 100 ML IV SCH ×2 (03:59→08:00)
--- NOTE | 2017-05-19 04:43 | RADRPT ---
EXAM DATE/TIME: 05/19/2017 03:56 [place] COMPARISON: CHEST SINGLE AP, May 17, 2017, 19:07. INDICATIONS : Evaluate left side pnuemothorax and chest tube- taken upon expiration. MEDICAL HISTORY : Cardiovascular disease. Hypertension. Pancreatitis. Gastroparesis SURGICAL HISTORY : Appendectomy. section. Hysterectomy. Bilateral oophorectomy ENCOUNTER: Subsequent ACUITY: 4 - 6 days PAIN SCORE: Non-responsive. LOCATION: Bilateral chest FINDINGS: A single frontal expiratory view of the chest was performed. Bibasilar densities. Endotracheal tube u nchanged. Nasogastric tube with tip likely in stomach. Right jugular central line stable. Small calib er left-sided chest tubes. No pneumothorax.. The cardio-mediastinal contours and bronchopulmonary markings are unremarkable for an expiratory exam . Osseous structures are intact. CONCLUSION: Bibasilar densities. No pneumothorax. Tavares Hartley MD on May 19, 2017 at 4:41 Board Certified Radiologist. This report was verified electronically.
[2017-05-19 05:05] LABS: HEMATOCRIT 22.7 % (35.0-46.0); MEAN CELL VOLUME 82.5 FL (80.0-100.0); MEAN CORPUSCULAR HEMOGLOBIN 27.7 PG (27.0-34.0); MEAN CORPUSCULAR HGB CONC 33.5 % (32.0-36.0); PLATELET COUNT 236 TH/MM3 (150-450); RED BLOOD COUNT 2.74 MIL/MM3 (4.00-5.30); RED CELL DISTRIBUTION WIDTH 18.4 % (11.6-17.2); REVIEW FLAG FINAL; WHITE BLOOD COUNT 7.9 TH/MM3 (4.0-11.0)
[2017-05-19 05:39] LABS: BICARBONATE 27.3 MEQ/L (21.0-32.0); POTASSIUM 3.8 MEQ/L (3.5-5.1)
[2017-05-19] MEDS: CHLORHEXIDINE 0.12% (ORAL KIT) 15 ML CUP MT SCH ×2 (08:00→20:00)
[2017-05-19] MEDS: POLYETHYLENE GLYCOL 17 GM PKG PO SCH (08:16)
[2017-05-19] MEDS: busPIRone HCL 10 MG TAB PO SCH ×2 (08:16→21:04)
[2017-05-19] MEDS: CYANOCOBALAMIN 1,000 MCG TAB PO SCH (08:17)
[2017-05-19] MEDS: PANTOPRAZOLE SOD 40 MG DELAYED RELEASE TAB PO SCH (08:17)
[2017-05-19] MEDS: ATENOLOL 50 MG TAB PO SCH (08:18)
[2017-05-19] MEDS: SODIUM CHLORIDE 0.9% FLUSH 10 ML FLUSH IV FLUSH SCH ×2 (08:18→21:04)
--- NOTE | 2017-05-19 08:19 | HHI.CCPN ---
Subjective Remarks/Hospital Course Hospital Course: 52 y/o woman with chronic pancreatitis underwent endoscopic pseudocyst- gastrostomy today in OR. Cyst was mature and there is no evidence of tract leak. Unable to wean from ventilator after procedure, complicated by large left subphrenic collection, left pleural effusion, and consolidation of left lower lobe. Subjective: 05/18: continues to be intubated, but awake and alert at this point. endorses pain over LUQ. denies other complaints. ultrasound of left chest with significant effusion. 05/19: IR guided left chest tube placed yesterday with 490 mL milky serous fluid drained. pulmonary mechanics slightly improved. somewhat agitated overnight. still follows commands. Objective Vital Signs Date Time Temp Pulse Resp B/P Pulse Ox O2 Delivery O2 Flow Rate FiO2 05/19/17 07:00 100 Mechanical Ventilator 45 05/19/17 06:00 44 05/19/17 04:00 97.8 14 159/80 05/18/17 19:00 14.00 Intake and Output 05/18/17 05/18/17 05/19/17 08:00 16:00 00:00 Intake Total 815 ml 835 ml 309 ml Output Total 575 ml 850 ml 330 ml Balance 240 ml -15 ml -21 ml Result Diagram: 05/19/17 0452 05/19/17 0452 Other Results Microbiology Date/Time Procedure Status Source Growth 05/17/17 07:50 Stool Occult Blood (FAVIOLA) - Final Complete Stool Stool HEMOCCULT POSITIVE Imaging CXR with LLL consolidation. ET tube acceptable position. Objective Remarks Gen: Intubated, sedated. Head: Normal. Neck: trachea midline, orally intubated. Lungs: Few rhonchi. Decreased BS bases. Heart: RRR, sinus by tele. no JVD. Abdomen: Distended, soft. No peritoneal irritation. Extremities: Warm, well perfused. Neuro: PERRL. Withdraws 4 limbs. Breathes over vent. A/P Assessment and Plan Assessment: 52yF with chronic pancreatitis, pseudocyst and now acute hypoxic respiratory failure. Pulmonary mechanics are improving. will attempt to wean to extubate. Agitation may be a problem. 1. Acute hypoxic Respiratory Failure. 2. left pleural effusion 3. Chronic Pancreatitis with pseudocyst. 4. S/P cyst-gastrostomy 05/17/17 5. acute pain associated with pancreatic pseudocyst Plan: 1. PRVC vent mode. vent bundle. nebs 2. Maint IV fluid. 3. Propofol sedation. 4. Electrolyte protocol. 5. Avoid NG tube for fear of snagging stent - unless approved by GI. 6. continue dilaudid. 7. wean fio2 for spo2 > 90%. 8. continue left chest tube to suction 9. f/u cultures 10. continue to hold abx 11. SBT today. will pursue extubation if she passes. Edu Blanco MD May 19, 2017 08:18
[2017-05-19] MEDS: LIPASE/PROTEASE/AMYLASE (12,000/38,000/60,000) CAP PO SCH ×3 (09:30→16:30)
--- NOTE | 2017-05-19 12:27 | HHI.PR ---
Subjective Subjective Notes flailing around on vent, wants to be extubated Objective Vitals/I&O Vital Signs Date Time Temp Pulse Resp B/P Pulse Ox O2 Delivery O2 Flow Rate FiO2 05/19/17 11:45 94 40 05/19/17 10:00 50 05/19/17 08:00 97.5 20 152/89 05/19/17 07:00 Mechanical Ventilator 05/18/17 19:00 14.00 Labs Laboratory Tests Test 05/18/17 05/19/17 18:00 04:52 Potassium Level 3.8 3.8 White Blood Count 7.9 Red Blood Count 2.74 Hemoglobin 7.6 Hematocrit 22.7 Mean Corpuscular Volume 82.5 Mean Corpuscular Hemoglobin 27.7 Mean Corpuscular Hemoglobin 33.5 Concent Red Cell Distribution Width 18.4 Platelet Count 236 Mean Platelet Volume 8.1 Sodium Level 144 Chloride Level 110 Carbon Dioxide Level 27.3 Anion Gap 7 Blood Urea Nitrogen 13 Creatinine 0.50 Estimat Glomerular Filtration 130 Rate Random Glucose 145 Calcium Level 8.0 Date/Time Procedure Status Source Growth 05/18/17 13:45 Gram Stain - Final Resulted Fluid Pleural Fluid 05/18/17 13:45 Body Fluid Culture Resulted Fluid Pleural Fluid Pending 05/18/17 13:45 Cancelled Abscess Lung 05/17/17 07:50 Stool Occult Blood (FAVIOLA) - Final Complete Stool Stool HEMOCCULT POSITIVE 05/14/17 17:09 Aerobic Blood Culture - Final Complete Blood Peripheral NO GROWTH IN 5 DAYS 05/14/17 17:09 Anaerobic Blood Culture - Final Complete Blood Peripheral NO GROWTH IN 5 DAYS Radiology Last 48 hours Impressions Chest Tube Insertion 05/18/17 1308 Signed Impressions: Service Date/Time: Thursday, May 18, 2017 13:33 - CONCLUSION: Uncomplicated left chest tube placement. If Gram stain is negative the tube can be removed. Chest x-ray is pending in the a.m. Seamus Costa MD FACR Chest Ultrasound 05/18/17 0000 Signed Impressions: Service Date/Time: Thursday, May 18, 2017 09:09 - CONCLUSION: 1. There is a moderate pleural effusion on the left. A iris was placed on the skin surface. Venkata Costa MD Abdomen X-Ray 05/18/17 0000 Signed Impressions: Service Date/Time: Thursday, May 18, 2017 15:45 - CONCLUSION: 1. Orogastric tube tip or overlies distal stomach. Additional catheters present in the left upper quadrant. No free air. Tyrel Aguilar MD Abdomen/Pelvis CT 05/17/17 1447 Signed Impressions: Service Date/Time: April 15:05 - CONCLUSION: 1. There is a 14.8 x 11.8 cm complex fluid collection in the left upper quadrant. This appears to represent liquefaction of the spleen post splenic infarction. There was apparently a large pseudocyst which traversed up into the splenic hilum. There is still considerable residual splenic tissue. There is a drain which decompresses this collection into the stomach. There is gas within this. The examination also demonstrates a 3.8 x 4.6 cm fluid collection posterior to the stomach. Both of these are unchanged from previous. 2. No findings to indicate bowel obstruction. 3. Bilateral pleural effusion with consolidative changes in the left lung base. 4. Small amount of free fluid within the pelvis. 5. Vega catheter in good position. Venkata Costa MD GI Procedure 05/17/17 0000 Signed Impressions: Service Date/Time: April 17:06 - CONCLUSION: 1. Interval placement of second stent catheter in the left upper quadrant. 2. The previously noted stent catheter is unchanged in appearance. 3. Nonspecific bowel gas pattern. Feng Mahoney MD Chest X-Ray 05/17/17 0000 Signed Impressions: Service Date/Time: April 19:07 - CONCLUSION: 1. Interval intubation and placement of right internal jugular central venous line. There is no visualized pneumothorax however the sensitivity is limited on this single view supine study. 2. New diffuse opacity in the left lung as well as consolidation in the right upper lobe which could represent partial collapse. 3. Volume loss in the right hemithorax with mediastinal shift to the right. Feng Mahoney MD Abdomen X-Ray 05/17/17 0000 Signed Impressions: Service Date/Time: , May 17, 2017 19:10 - CONCLUSION: 1. No definite evidence of free air however there is a large ill-defined gas collection in the upper and left abdomen which likely represents gas in the previous known large complex fluid collection was seen on the recent CT.. 2. Nonspecific bowel gas pattern most consistent with an ileus. 3. 2 stent catheters are now identified in the left upper quadrant. Feng Mahoney MD Abdomen: Non-distended, Non-tender A/P Assessment and Plan large pancreatic pseudocyst dw dr george - no surgical indications at this time. he agrees will follow peripherally - dr george will be here Iris Almazan MD May 19, 2017 12:27
--- NOTE | 2017-05-19 12:28 | HHI.IDPN ---
Note Infectious Disease Note ID COVERAGE Patient was readmitted to the hospital on May 11, 2017. The patient was recently discharged from the hospital on April 22, 2017 after treatment for acute pancreatitis. Notes reviewed D/W RN Underwent endoscopic ultrasound - pseudocyst gastrostomy. 05/17. Remained on the vent post procedure On CPAP this morning, has been very restless [place] Has CT on L - clear yellow fluid PAST MEDICAL HISTORY 1. Hypertension 2. Diabetes mellitus 3. Chronic pancreatitis 4. Portal vein thrombosis. 5. Chronic back pain. 6. Gastroesophageal reflux disease 7. Posttraumatic stress disorder 8. Gastroparesis. PAST SURGICAL HISTORY: History of hysterectomy. History of appendectomy. . ALLERGIES SULFA CIPROFLOXACIN SOCIAL HISTORY The patient is . She smokes half-a-pack of cigarettes a day. No alcohol use. No illicit drugs. OBJECTIVE: Vital Signs Date Time Temp Pulse Resp B/P Pulse Ox O2 Delivery O2 Flow Rate FiO2 05/19/17 11:45 94 40 05/19/17 10:17 100 40 05/19/17 10:00 50 05/19/17 08:18 100 40 05/19/17 08:00 46 05/19/17 08:00 45 05/19/17 08:00 97.5 46 20 152/89 100 05/19/17 07:00 100 Mechanical Ventilator 45 05/19/17 06:00 44 05/19/17 04:01 100 45 05/19/17 04:00 49 05/19/17 04:00 97.8 46 14 100 159/80 05/19/17 04:00 45 05/19/17 02:00 49 05/19/17 00:47 99 45 05/19/17 00:00 47 05/19/17 00:00 45 05/19/17 00:00 98.7 62 19 99 174/90 05/18/17 22:00 49 05/18/17 20:20 100 45 05/18/17 20:00 45 05/18/17 20:00 50 05/18/17 20:00 97.7 50 14 100 159/76 05/18/17 19:00 100 Mechanical Ventilator 14.00 45 05/18/17 18:00 48 05/18/17 16:13 99 50 05/18/17 16:00 50 05/18/17 16:00 97.6 50 14 100 125/77 05/18/17 16:00 45 05/18/17 14:45 100 100 05/18/17 14:00 56 05/18/17 13:59 60 Vital Signs Date Time Temp Pulse Resp B/P Pulse Ox O2 Delivery O2 Flow Rate FiO2 05/18/17 14:45 100 100 05/18/17 14:00 56 05/18/17 13:59 60 05/18/17 12:00 98.2 46 14 99 134/77 05/18/17 12:00 46 05/18/17 11:59 22 05/18/17 11:58 98 50 05/18/17 10:00 47 05/18/17 08:00 53 05/18/17 08:00 97.6 53 14 99 150/85 05/18/17 07:25 95 50 05/18/17 07:00 99 Mechanical Ventilator 14.00 50 05/18/17 06:00 56 05/18/17 04:20 98 70 05/18/17 04:00 97.7 50 15 98 134/97 05/18/17 04:00 50 05/18/17 02:00 54 05/18/17 01:57 98 70 05/18/17 00:00 60 05/18/17 00:00 98.2 60 15 98 147/77 05/17/17 22:51 98 80 05/17/17 22:00 68 05/17/17 20:05 96 100 05/17/17 20:00 99.0 80 19 93 145/82 05/17/17 20:00 80 05/17/17 20:00 81 14 142/99 96 Mechanical Ventilator 05/17/17 19:45 81 14 138/92 95 Mechanical Ventilator 05/17/17 19:30 90 14 143/99 97 Mechanical Ventilator 05/17/17 19:23 95 100 05/17/17 19:15 86 14 141/96 96 Mechanical Ventilator 05/17/17 19:00 83 14 140/88 95 Mechanical Ventilator 05/17/17 18:45 82 14 127/82 96 Mechanical Ventilator 05/17/17 18:37 96 100 05/17/17 18:35 100 05/17/17 18:35 97.5 87 14 147/93 96 Mechanical Ventilator 100 05/17/17 15:53 05/17/17 05/17/17 05/18/17 15:00 23:00 07:00 Intake Total 1071 ml 815 ml Output Total 780 ml 575 ml Balance 291 ml 240 ml IV Total 271 ml 815 ml Other 800 ml Output Urine Total 775 ml 575 ml Estimated Blood Loss 5 ml # Voids 3 # Bowel Movements 1 0 3 Laboratory Tests Test 05/18/17 05/19/17 04:05 04:52 White Blood Count 9.0 TH/MM3 7.9 TH/MM3 Red Blood Count 3.10 MIL/MM3 2.74 MIL/MM3 Hemoglobin 8.7 GM/DL 7.6 GM/DL Hematocrit 25.4 % 22.7 % Mean Corpuscular Volume 81.9 FL 82.5 FL Mean Corpuscular Hemoglobin 28.0 PG 27.7 PG Mean Corpuscular Hemoglobin 34.1 % 33.5 % Concent Red Cell Distribution Width 18.4 % 18.4 % Platelet Count 223 TH/MM3 236 TH/MM3 Mean Platelet Volume 7.9 FL 8.1 FL Laboratory Tests Test 05/18/17 05/18/17 05/19/17 04:05 18:00 04:52 Sodium Level 143 MEQ/L 144 MEQ/L Potassium Level 3.4 MEQ/L 3.8 MEQ/L 3.8 MEQ/L Chloride Level 109 MEQ/L 110 MEQ/L Carbon Dioxide Level 24.9 MEQ/L 27.3 MEQ/L Anion Gap 9 MEQ/L 7 MEQ/L Blood Urea Nitrogen 6 MG/DL 13 MG/DL Creatinine 0.49 MG/DL 0.50 MG/DL Estimat Glomerular Filtration 133 ML/MIN 130 ML/MIN Rate Random Glucose 165 MG/DL 145 MG/DL Calcium Level 8.1 MG/DL 8.0 MG/DL Total Bilirubin 0.6 MG/DL Aspartate Amino Transf 23 U/L (AST/SGOT) Alanine Aminotransferase 17 U/L (ALT/SGPT) Alkaline Phosphatase 176 U/L Total Protein 5.3 GM/DL Albumin 1.8 GM/DL Microbiology Date/Time Procedure Status Source Growth 05/17/17 07:50 Stool Occult Blood (FAVIOLA) - Final Complete Stool Stool HEMOCCULT POSITIVE 05/18/17 13:45 Gram Stain - Final Resulted Fluid Pleural Fluid 05/18/17 13:45 Body Fluid Culture Resulted Fluid Pleural Fluid Pending 05/18/17 13:45 Cancelled Abscess Lung Laboratory Tests Test 05/16/17 05/17/17 05/18/17 23:59 06:43 04:05 White Blood Count 6.6 TH/MM3 6.3 TH/MM3 9.0 TH/MM3 Red Blood Count 3.03 MIL/MM3 3.05 MIL/MM3 3.10 MIL/MM3 Hemoglobin 8.5 GM/DL 8.4 GM/DL 8.7 GM/DL Hematocrit 25.2 % 25.2 % 25.4 % Mean Corpuscular Volume 83.2 FL 82.5 FL 81.9 FL Mean Corpuscular Hemoglobin 28.0 PG 27.5 PG 28.0 PG Mean Corpuscular Hemoglobin 33.7 % 33.3 % 34.1 % Concent Red Cell Distribution Width 18.0 % 18.4 % 18.4 % Platelet Count 200 TH/MM3 189 TH/MM3 223 TH/MM3 Mean Platelet Volume 7.9 FL 7.7 FL 7.9 FL Neutrophils (%) (Auto) 72.8 % Lymphocytes (%) (Auto) 12.7 % Monocytes (%) (Auto) 11.4 % Eosinophils (%) (Auto) 2.5 % Basophils (%) (Auto) 0.6 % Neutrophils # (Auto) 4.6 TH/MM3 Lymphocytes # (Auto) 0.8 TH/MM3 Monocytes # (Auto) 0.7 TH/MM3 Eosinophils # (Auto) 0.2 TH/MM3 Basophils # (Auto) 0.0 TH/MM3 CBC Comment DIFF FINAL Differential Comment Laboratory Tests Test 05/16/17 05/16/17 05/17/17 05/18/17 15:47 23:59 06:43 04:05 Sodium Level 141 MEQ/L 143 MEQ/L 140 MEQ/L 143 MEQ/L Potassium Level 3.2 MEQ/L 2.8 MEQ/L 3.6 MEQ/L 3.4 MEQ/L Chloride Level 108 MEQ/L 107 MEQ/L 108 MEQ/L 109 MEQ/L Carbon Dioxide Level 24.1 MEQ/L 26.7 MEQ/L 21.1 MEQ/L 24.9 MEQ/L Anion Gap 9 MEQ/L 9 MEQ/L 11 MEQ/L 9 MEQ/L Blood Urea Nitrogen 3 MG/DL 4 MG/DL 4 MG/DL 6 MG/DL Creatinine 0.66 MG/DL 0.67 MG/DL 0.49 MG/DL 0.49 MG/DL Estimat Glomerular Filtration 94 ML/MIN 92 ML/MIN 133 ML/MIN 133 ML/MIN Rate Random Glucose 116 MG/DL 114 MG/DL 116 MG/DL 165 MG/DL Calcium Level 8.3 MG/DL 8.1 MG/DL 7.6 MG/DL 8.1 MG/DL Phosphorus Level 1.6 MG/DL Magnesium Level 1.8 MG/DL Total Bilirubin 1.3 MG/DL 0.6 MG/DL Direct Bilirubin 0.7 MG/DL Indirect Bilirubin 0.6 MG/DL Aspartate Amino Transf 19 U/L 23 U/L (AST/SGOT) Alanine Aminotransferase 19 U/L 17 U/L (ALT/SGPT) Alkaline Phosphatase 203 U/L 176 U/L Total Protein 5.2 GM/DL 5.3 GM/DL Albumin 1.8 GM/DL 1.8 GM/DL Lipase 143 U/L Microbiology Date/Time Procedure Status Source Growth 05/17/17 07:50 Stool Occult Blood (FAVIOLA) - Final Complete Stool Stool HEMOCCULT POSITIVE 05/18/17 13:45 Gram Stain Received Fluid Pleural Fluid Pending 05/18/17 13:45 Body Fluid Culture Received Fluid Pleural Fluid Pending 05/18/17 13:45 Gram Stain Received Abscess Lung Pending 05/18/17 13:45 Wound Culture Received Abscess Lung Pending IMAGING: Chest Ultrasound 05/18/17 0000 Signed Impressions: Service Date/Time: Thursday, May 18, 2017 09:09 - CONCLUSION: 1. There is a moderate pleural effusion on the left. A iris was placed on the skin surface. Venkata Costa MD Abdomen/Pelvis CT 05/17/17 1447 Signed Impressions: Service Date/Time: April 15:05 - CONCLUSION: 1. There is a 14.8 x 11.8 cm complex fluid collection in the left upper quadrant. This appears to represent liquefaction of the spleen post splenic infarction. There was apparently a large pseudocyst which traversed up into the splenic hilum. There is still considerable residual splenic tissue. There is a drain which decompresses this collection into the stomach. There is gas within this. The examination also demonstrates a 3.8 x 4.6 cm fluid collection posterior to the stomach. Both of these are unchanged from previous. 2. No findings to indicate bowel obstruction. 3. Bilateral pleural effusion with consolidative changes in the left lung base. 4. Small amount of free fluid within the pelvis. 5. Vega catheter in good position. Venkata Costa MD GI Procedure 05/17/17 Signed Impressions: Service Date/Time: April 17:06 - CONCLUSION: 1. Interval placement of second stent catheter in the left upper quadrant. 2. The previously noted stent catheter is unchanged in appearance. 3. Nonspecific bowel gas pattern. Feng Mahoney MD Chest X-Ray 05/17/17 0000 Signed Impressions: Service Date/Time: April 19:07 - CONCLUSION: 1. Interval intubation and placement of right internal jugular central venous line. There is no visualized pneumothorax however the sensitivity is limited on this single view supine study. 2. New diffuse opacity in the left lung as well as consolidation in the right upper lobe which could represent partial collapse. 3. Volume loss in the right hemithorax with mediastinal shift to the right. Feng Mahoney MD Abdomen X-Ray 05/17/17 Signed Impressions: Service Date/Time: April 19:10 - CONCLUSION: 1. No definite evidence of free air however there is a large ill-defined gas collection in the upper and left abdomen which likely represents gas in the previous known large complex fluid collection was seen on the recent CT.. 2. Nonspecific bowel gas pattern most consistent with an ileus. 3. 2 stent catheters are now identified in the left upper quadrant. Feng Mahoney MD Abdomen/Pelvis CT 05/15/17 0000 Signed Impressions: Service Date/Time: Monday, May 15, 2017 15:16 - CONCLUSION: 1. Persistent large complex fluid collection in the left upper quadrant surrounding an abnormal appearing spleen. This is smaller. This fluid collection is now being drained into the stomach with an internal drain. 2. Second fluid collection seen medial to this posterior to the stomach likely related to another pseudo cyst. This cyst appears larger. 3. Inflammatory change in the left side of the colon at the splenic flexure region. This could be secondary to it being in close proximity to the fluid collection in the left upper quadrant. Focal colitis should be suspected in this region. 4. 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 Tim Chadwick MD Chest X-Ray 05/14/17 0011 Signed Impressions: Service Date/Time: Sunday, May 14, 2017 00:15 - CONCLUSION: Consolidation and small effusion have developed at the left lung base. Tim Tinajero MD Abdomen X-Ray 05/14/17 0000 Signed Impressions: Service Date/Time: Sunday, May 14, 2017 14:32 - CONCLUSION: Persistent stent like area seen in the left upper quadrant. There does appear to be increased density and air lucency seen in the left upper quadrant. This could be seen if the stent communicates with the known large fluid collection in the left upper quadrant and the stomach. Tim Chadwick MD GI Procedure 05/11/17 0000 Signed Impressions: Service Date/Time: Thursday, May 11, 2017 16:12 - CONCLUSION: Left upper quadrant stent identified. Pollo Almodovar MD PHYSICAL EXAMINATION GENERAL: Awake, very restless, on the vent, tachypneic. SKIN: Warm, no rash HEENT: [place] conjunctivae. No icterus. No nasal discharge. Orally intubated NECK: Supple without adenopathy. LUNGS: Decreased breath sounds. L CT in place, with serous fluid HEART: Regular S1, S2 without murmurs. ABDOMEN: Distended, soft. (+) BS, no guarding EXTREMITIES: No clubbing, cyanosis or edema. NEUROLOGIC: Restless : Vega in place, urine clear IMPRESSION Pancreatitis acute. Infected pancreatic pseudocyst. Strep viridans group on culture from 05/11. EUS, S/P endoscopic cyst gastrostomy, and S/P stent placement in CBD Acute resp. failure. RECOMMENDATIONS Continue ceftriaxone Monitor pleural fluid culture. Monitor WBC and temp. Monitor clinical status. Weaning per [facility] Spoke with D/W RN D/W Leonila Mckinnon MD May 19, 2017 12:28
[2017-05-19] MEDS ORDERED: LABETALOL HCL 100 MG/20 ML VIAL ONE (12:39)
--- NOTE | 2017-05-19 13:05 | HHI.GIFU ---
Subjective Remarks Resting in bed. Recently extubated. C/O significant back pain and is requesting pain meds, but concerned about the dosage of her Dilaudid being too low. No vomiting. She denies any abdominal pain- stating it is always her back , not her abdomen. at the bedside. (Jordyn Puente) Objective Vitals I&O Vital Signs Date Time Temp Pulse Resp B/P Pulse Ox O2 Delivery O2 Flow Rate FiO2 05/19/17 11:45 94 40 05/19/17 10:17 100 40 05/19/17 10:00 50 05/19/17 08:18 100 40 05/19/17 08:00 46 05/19/17 08:00 45 05/19/17 08:00 97.5 46 20 152/89 100 05/19/17 07:00 100 Mechanical Ventilator 45 05/19/17 06:00 44 05/19/17 04:01 100 45 05/19/17 04:00 49 05/19/17 04:00 97.8 46 14 100 159/80 05/19/17 04:00 45 05/19/17 02:00 49 05/19/17 00:47 99 45 05/19/17 00:00 47 05/19/17 00:00 45 05/19/17 00:00 98.7 62 19 99 174/90 05/18/17 22:00 49 05/18/17 20:20 100 45 05/18/17 20:00 45 05/18/17 20:00 50 05/18/17 20:00 97.7 50 14 100 159/76 05/18/17 19:00 100 Mechanical Ventilator 14.00 45 05/18/17 18:00 48 05/18/17 16:13 99 50 05/18/17 16:00 50 05/18/17 16:00 97.6 50 14 100 125/77 05/18/17 16:00 45 05/18/17 14:45 100 100 05/18/17 14:00 56 05/18/17 13:59 60 I/O 05/18/17 05/18/17 05/18/17 05/19/17 05/19/17 05/19/17 07:00 15:00 23:00 07:00 15:00 23:00 Intake Total 815 ml 835 ml 309 ml 478 ml Output Total 575 ml 850 ml 330 ml 535 ml Balance 240 ml -15 ml -21 ml -57 ml IV Total 815 ml 835 ml 309 ml 478 ml Output Urine Total 575 ml 250 ml 300 ml 375 ml Stool Total 200 ml 0 ml 100 ml Chest Tube Drainage Total 400 ml 30 ml 60 ml # Bowel Movements 3 Laboratory Laboratory Tests Test 05/18/17 05/19/17 18:00 04:52 Potassium Level 3.8 3.8 White Blood Count 7.9 Red Blood Count 2.74 Hemoglobin 7.6 Hematocrit 22.7 Mean Corpuscular Volume 82.5 Mean Corpuscular Hemoglobin 27.7 Mean Corpuscular Hemoglobin 33.5 Concent Red Cell Distribution Width 18.4 Platelet Count 236 Mean Platelet Volume 8.1 Sodium Level 144 Chloride Level 110 Carbon Dioxide Level 27.3 Anion Gap 7 Blood Urea Nitrogen 13 Creatinine 0.50 Estimat Glomerular Filtration 130 Rate Random Glucose 145 Calcium Level 8.0 Date/Time Procedure Status Source Growth 05/18/17 13:45 Gram Stain - Final Resulted Fluid Pleural Fluid 05/18/17 13:45 Body Fluid Culture - Preliminary Resulted Fluid Pleural Fluid NO GROWTH IN 24 HOURS. 05/18/17 13:45 Cancelled Abscess Lung 05/17/17 07:50 Stool Occult Blood (FAVIOLA) - Final Complete Stool Stool HEMOCCULT POSITIVE 05/14/17 17:09 Aerobic Blood Culture - Final Complete Blood Peripheral NO GROWTH IN 5 DAYS 05/14/17 17:09 Anaerobic Blood Culture - Final Complete Blood Peripheral NO GROWTH IN 5 DAYS Imaging Last Impressions Chest X-Ray 05/19/17 0000 Signed Impressions: Service Date/Time: Friday, May 19, 2017 03:56 - CONCLUSION: Bibasilar densities. No pneumothorax. Tavares Hartley MD Chest Tube Insertion 05/18/17 1308 Signed Impressions: Service Date/Time: Thursday, May 18, 2017 13:33 - CONCLUSION: Uncomplicated left chest tube placement. If Gram stain is negative the tube can be removed. Chest x-ray is pending in the a.m. Seamus Costa MD FACR Chest Ultrasound 05/18/17 0000 Signed Impressions: Service Date/Time: Thursday, May 18, 2017 09:09 - CONCLUSION: 1. There is a moderate pleural effusion on the left. A iris was placed on the skin surface. Venkata Costa MD Abdomen X-Ray 05/18/17 0000 Signed Impressions: Service Date/Time: Thursday, May 18, 2017 15:45 - CONCLUSION: 1. Orogastric tube tip or overlies distal stomach. Additional catheters present in the left upper quadrant. No free air. Tyrel Aguilar MD Abdomen/Pelvis CT 05/17/17 1447 Signed Impressions: Service Date/Time: April 15:05 - CONCLUSION: 1. There is a 14.8 x 11.8 cm complex fluid collection in the left upper quadrant. This appears to represent liquefaction of the spleen post splenic infarction. There was apparently a large pseudocyst which traversed up into the splenic hilum. There is still considerable residual splenic tissue. There is a drain which decompresses this collection into the stomach. There is gas within this. The examination also demonstrates a 3.8 x 4.6 cm fluid collection posterior to the stomach. Both of these are unchanged from previous. 2. No findings to indicate bowel obstruction. 3. Bilateral pleural effusion with consolidative changes in the left lung base. 4. Small amount of free fluid within the pelvis. 5. Vega catheter in good position. Venkata Costa MD GI Procedure 05/17/17 0000 Signed Impressions: Service Date/Time: April 17:06 - CONCLUSION: 1. Interval placement of second stent catheter in the left upper quadrant. 2. The previously noted stent catheter is unchanged in appearance. 3. Nonspecific bowel gas pattern. Feng Mahoney MD Physical Exam HEENT: Normocephalic; atraumatic; no jaundice. CHEST: Resp shallow, mildly labored. Just extubated. On 5L via n/c. O2 Sat 92%., CT on left CARDIAC: RRR ABDOMEN: Soft, mildly distended, diffuse tenderness no hepatosplenomegaly; bowel sounds faint EXTREMITIES: No clubbing, cyanosis, or edema. SKIN: Normal; no rash; no jaundice. AUTHORIZATION REPRESENTATIVE: Awake, oriented to self an dplace (Jordyn Puente) Assessment and Plan Plan ASSESSMENT: - Acute on chronic pancreatitis with large pseudocyst formation. Pt with 4 year hx of pancreatitis (states she has more than 10-12 episodes per year). States last episode was last month. Abdomen/Pelvis CT (05/10/17)---> 1. 14 x 10 CM sub-phrenic fluid collection on the left larger than on the prior study. This could be related to pseudocyst or perhaps splenic hematoma. The findings have worsened when compared with the prior examination. 2. Chronic calcific pancreatitis 3. Chronic portal vein thrombosis. She quit ETOH use >1 year ago. She reports that she was told more than a year ago that she had a pseudocyst and needed it removed, but that the [facility] will not [facility] this. States she was told one month ago that her ibuprofen use may have caused her pancreatitis and stopped this. Of note, we did recommend EUS with FNA in past, but she did not follow up and she we were unable to contact her by phone or mail. S/P EUS w/ cyst gastrostomy (05/11/17) --> EGD findings Normal esophagus, Bulging in the stomach with food residue, Normal duodenum, EUS findings with hypoechoic homogeneous cyst, which was aspirated and dark lactose brownish aspirate was obtained and sent for culture and labs, s/p 7 [place] 7 cm double pigtail stent placement. Lipase normalized. KUB (05/14/17)----> Persistent stent like area seen in the left upper quadrant. There does appear to be increased density and air lucency seen in the left upper quadrant. This could be seen if the stent communicates with the known large fluid collection in the left upper quadrant and the stomach. CT Abdomen/pelvis ()----> 1. Persistent large complex fluid collection in the left upper quadrant surrounding an abnormal appearing spleen. This is smaller. This fluid collection is now being drained into the stomach with an internal drain. 2. Second fluid collection seen medial to this posterior to the stomach likely related to another pseudo cyst. This cyst appears larger. 3. Inflammatory change in the left side of the colon at the splenic flexure region. This could be secondary to it being in close proximity to the fluid collection in the left upper quadrant. Focal colitis should be suspected in this region. 4. 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 Abdomen/Pelvis CT (05/17/17)----> 1. There is a 14.8 x 11.8 cm complex fluid collection in the left upper quadrant. This appears to represent liquefaction of the spleen post splenic infarction. There was apparently a large pseudocyst which traversed up into the splenic hilum. There is still considerable residual splenic tissue. There is a drain which decompresses this collection into the stomach. There is gas within this. The examination also demonstrates a 3.8 x 4.6 cm fluid collection posterior to the stomach. Both of these are unchanged from previous. 2. No findings to indicate bowel obstruction. 3. Bilateral pleural effusion with consolidative changes in the left lung base. 4. Small amount of free fluid within the pelvis. 5. Vega catheter in good position. S/P EUS with cyst gastrostomy (05/17/17)----> Pancreatic pseudocyst. HH stable. Pancreatic fluid with viridans streptococcus and then no growth. WBC 7.9 Ceftriaxone. - Splenic infarction with liquefaction, ? secondary to compression from large pseudocyst. Lovenox d/c'd. HH from 8.7/25.4----> 7.6/22.7. WBC 7.9. Temp. 97.5. GS following. - Fever/Leukocytosis. Pancreatic fluid culture Viridans Streptococcus Grp. and then no growth on 05/11. BCx no growth 5 day, Pleural fluid no growth 24 hours. Afebrile. Ceftriaxone - Respiratory failure, left pleural effusion. S/P CT insertion on left. - Elevated LFTs, new. LFTs improved. - Chronic portal vein thrombosis. This is chronic. - Abnormal weight loss. Reports 30 lb weight loss in 3 months. Unintentional - Hx elevated chromogranin level. During a previous hospitalization, she complained of flushing, diarrhea, abdominal pain. She was evaluated with chromogranin A 108.0 (significantly high), Gastrin 86, VIP less than 50. She did not fu. She is not having flushing or diarrhea at this time. PLAN: - Clear liquids - Cont. PPI - Cont. Creon - Cont. Abx per ID recommendations - GS following - Monitor labs - Supportive care - Repeat imaging in 1 month to reassess cyst - EGD w/ stent removal 2-3m - Further recommendations to follow based on results of above - Pt seen and examined by Dr. Mehta and myself and this note is written on his behalf (Jordyn Puente) Plan Patient was seen and examined, agree with above note and plan (Juan Mehta MD ) Jordyn Puente May 19, 2017 13:05 Juan Mehta MD May 19, 2017 17:27
[2017-05-19] MEDS ORDERED: DEXTROSE 50% IN WATER 50 ML VIAL(D50) IV PUSH PRN (18:00)
[2017-05-19] MEDS: INSULIN NovoLIN REGULAR SUPPLEMENTAL SCALE SQ SCH (21:00)
[2017-05-19] MEDS: cefTRIAXone INJ 2,000 MG in SODIUM CHLORIDE 0.9% INJ 100 ML IV SCH (21:03)
--- NOTE | 2017-05-19 21:58 | RADRPT ---
EXAM DATE/TIME: 05/19/2017 21:42 [facility] COMPARISON: CHEST SINGLE AP, May 17, 2017, 19:07. INDICATIONS : Evaluate central line placement. MEDICAL HISTORY : Cardiovascular disease. Hypertension. Pancreatitis. Gastroparesis SURGICAL HISTORY : Appendectomy. section. Hysterectomy. Bilateral oophorectomy ENCOUNTER: Subsequent ACUITY: 1 day PAIN SCORE: 3/10 LOCATION: Bilateral chest FINDINGS: Right internal jugular central line has its tip in the superior vena cava. There is no pneumothorax. Right perihilar and bibasilar patchiness is noted consistent with atelectasis and/or pneumonia. CONCLUSION: 1. No pneumothorax status post placement of right internal jugular central line which has its tip in the superior vena cava. 2. Right perihilar and bibasilar patchiness consistent with atelectasis and/or infiltrates. 3. Stable mild cardiomegaly. Jerel Gunter MD on May 19, 2017 at 21:51 Board Certified Radiologist. This report was verified electronically.
[2017-05-20] VITALS (13 sets, daily range): BP systolic 154–168; BP diastolic 65–96; PULSE 72–95; RESP 16–21; TEMP 97.2–98.4; O2SAT 94–98
[2017-05-20] MEDS: HYDROmorphone HCL PF 1 MG/ML VIAL IV PUSH PRN (02:49)
[2017-05-20] MEDS: INSULIN NovoLIN REGULAR SUPPLEMENTAL SCALE SQ SCH ×5 (03:00→20:21)
[2017-05-20 04:09] LABS: MEAN CELL VOLUME 82.7 FL (80.0-100.0); MEAN CORPUSCULAR HEMOGLOBIN 27.7 PG (27.0-34.0); MEAN CORPUSCULAR HGB CONC 33.5 % (32.0-36.0); PLATELET COUNT 277 TH/MM3 (150-450); RED BLOOD COUNT 3.14 MIL/MM3 (4.00-5.30); RED CELL DISTRIBUTION WIDTH 18.9 % (11.6-17.2); REVIEW FLAG FINAL; WHITE BLOOD COUNT 8.2 TH/MM3 (4.0-11.0)
[2017-05-20 04:31] LABS: BICARBONATE 28.9 MEQ/L (21.0-32.0); POTASSIUM 3.4 MEQ/L (3.5-5.1)
[2017-05-20] MEDS: ACETAMINOPHEN/HYDROcodone 325 MG/5 MG TAB PO PRN ×2 (05:51→18:19)
[2017-05-20] MEDS ORDERED: MAGNESIUM SULFATE INJ 2 GM in SODIUM CHLORIDE 0.9% INJ 96 ML IV PRN (06:15)
[2017-05-20] MEDS ORDERED: SODIUM PHOSPHATE INJ 30 MMOL in SODIUM CHLOR 0.9% 250 ML INJ 240 ML IV PRN (06:15)
[2017-05-20] MEDS ORDERED: POTASSIUM PHOSPHATE MONOBASIC 500 MG TAB PO/TUBE PRN (06:15)
[2017-05-20] MEDS ORDERED: MAGNESIUM SULFATE INJ 4 GM in SODIUM CHLORIDE 0.9% INJ 92 ML IV PRN (06:15)
[2017-05-20] MEDS ORDERED: POTASSIUM PHOSPHATE INJ 30 MMOL in SODIUM CHLOR 0.9% 250 ML INJ 250 ML IV PRN (06:15)
[2017-05-20] MEDS ORDERED: MAGNESIUM OXIDE 400 MG TAB PO PRN (06:15)
[2017-05-20] MEDS ORDERED: POTASSIUM PHOSPHATE MONOBASIC 500 MG TAB PO PRN (06:15)
[2017-05-20] MEDS ORDERED: POTASSIUM CHLOR 40 MEQ PREMIX 100 ML IV PRN ×2 (06:15)
[2017-05-20] MEDS ORDERED: POTASSIUM CHLOR 20 MEQ PREMIX 100 ML IV PRN ×2 (06:15)
[2017-05-20] MEDS: SODIUM CHLORIDE 0.9% FLUSH 10 ML FLUSH IV FLUSH SCH ×2 (07:28→20:18)
[2017-05-20] MEDS: CHLORHEXIDINE 0.12% (ORAL KIT) 15 ML CUP MT SCH (07:28)
[2017-05-20] MEDS: ATENOLOL 50 MG TAB PO SCH (08:50)
[2017-05-20] MEDS: POLYETHYLENE GLYCOL 17 GM PKG PO SCH (08:50)
[2017-05-20] MEDS: LIPASE/PROTEASE/AMYLASE (12,000/38,000/60,000) CAP PO SCH ×3 (08:52→17:16)
[2017-05-20] MEDS: PANTOPRAZOLE SOD 40 MG DELAYED RELEASE TAB PO SCH (08:52)
[2017-05-20] MEDS: CYANOCOBALAMIN 1,000 MCG TAB PO SCH (08:52)
[2017-05-20] MEDS: busPIRone HCL 10 MG TAB PO SCH ×2 (08:53→20:18)
--- NOTE | 2017-05-20 10:19 | HHI.CCPN ---
Subjective Remarks/Hospital Course Hospital Course: 52 y/o woman with chronic pancreatitis underwent endoscopic pseudocyst- gastrostomy today in OR. Cyst was mature and there is no evidence of tract leak. Unable to wean from ventilator after procedure, complicated by large left subphrenic collection, left pleural effusion, and consolidation of left lower lobe. Subjective: 05/18: continues to be intubated, but awake and alert at this point. endorses pain over LUQ. denies other complaints. ultrasound of left chest with significant effusion. 05/19: IR guided left chest tube placed yesterday with 490 mL milky serous fluid drained. pulmonary mechanics slightly improved. somewhat agitated overnight. still follows commands. 05/20: extubated yesterday. tolerating regular diet. clinically improving. chest tube put out ~150cc/12h, serous. cultures have been NGTD. denies complaints. pain better controlled. Objective Vital Signs Date Time Temp Pulse Resp B/P Pulse Ox O2 Delivery O2 Flow Rate FiO2 05/20/17 10:00 77 05/20/17 08:00 98.4 19 156/65 96 05/20/17 07:53 Nasal Cannula 2.00 05/19/17 12:00 45 Intake and Output 05/19/17 05/19/17 05/20/17 08:00 16:00 00:00 Intake Total 478 ml 513 ml 296 ml Output Total 535 ml 800 ml 950 ml Balance -57 ml -287 ml -654 ml Result Diagram: 05/20/17 0355 05/20/17 0355 Imaging CXR with LLL consolidation. ET tube acceptable position. Objective Remarks Gen: awake, alert, no acute distress. Head: Normal. Neck: trachea midline no jvd. Lungs: Few rhonchi. Decreased BS bases. Heart: RRR, sinus by tele. no JVD. Abdomen: Distended, soft. No peritoneal irritation. Extremities: Warm, well perfused. Neuro: PERRL. a+ox3. fc x 4. RASS 0. CAM -. A/P Assessment and Plan Assessment: 52yF with chronic pancreatitis, pseudocyst and now acute hypoxic respiratory failure. Pulmonary mechanics improved. chest tube with minimal output. will d/c chest tube today and follow up chest xray. stable for transfer to floor. 1. Acute hypoxic Respiratory Failure - resolved. 2. left pleural effusion - resolved. 3. Chronic Pancreatitis with pseudocyst - persistent, stable. 4. S/P cyst-gastrostomy 05/17/17 5. acute pain associated with pancreatic pseudocyst - improved. Plan: 1. d/c art line 2. oob to chair and ambulating tid. 3. pt/ot consult 4. advance diet as tolerated. 5. continue current pain regimen. 6. wean NC o2 for spo2 > 90% 7. will remove chest tube today. follow up cxr 8. f/u cultures: currently NGTD. stable for transfer to floor. will consult hospitalists. Edu Blanco MD May 20, 2017 10:19
--- NOTE | 2017-05-20 11:22 | HHI.GIFU ---
Subjective Remarks Resting in bed, in no apparent distress. Was extubated yesterday. Tolerating diet. Denies vomiting. No abdominal pain. (Tawnya Alejandra) Objective Vitals I&O Vital Signs Date Time Temp Pulse Resp B/P Pulse Ox O2 Delivery O2 Flow Rate FiO2 05/20/17 10:00 77 05/20/17 08:00 85 05/20/17 08:00 98.4 84 19 156/65 96 05/20/17 07:53 98 Nasal Cannula 2.00 05/20/17 07:00 98 Nasal Cannula 3.00 05/20/17 06:51 13 05/20/17 06:00 90 05/20/17 04:00 97.7 86 21 154/90 96 05/20/17 04:00 74 05/20/17 02:00 97.6 83 16 159/85 95 05/20/17 02:00 74 05/20/17 00:00 74 05/19/17 22:00 74 05/19/17 20:39 97 Nasal Cannula 2.00 05/19/17 20:00 97.6 84 19 148/60 96 05/19/17 20:00 96 Nasal Cannula 3.00 05/19/17 20:00 72 05/19/17 18:00 82 05/19/17 16:00 82 05/19/17 16:00 97.8 61 16 158/85 98 05/19/17 14:00 81 05/19/17 12:25 96 Nasal Cannula 4 05/19/17 12:00 98.5 62 28 157/89 93 05/19/17 12:00 45 05/19/17 12:00 62 05/19/17 11:45 94 40 I/O 05/19/17 05/19/17 05/19/17 05/20/17 05/20/17 05/20/17 07:00 15:00 23:00 07:00 15:00 23:00 Intake Total 478 ml 513 ml 296 ml 1286 ml Output Total 535 ml 800 ml 950 ml 730 ml Balance -57 ml -287 ml -654 ml 556 ml Intake Oral 720 ml IV Total 478 ml 513 ml 296 ml 566 ml Output Urine Total 375 ml 700 ml 850 ml 650 ml Stool Total 100 ml 0 ml 0 ml 0 ml Chest Tube Drainage Total 60 ml 100 ml 100 ml 80 ml Laboratory Laboratory Tests Test 05/20/17 03:55 White Blood Count 8.2 Red Blood Count 3.14 Hemoglobin 8.7 Hematocrit 26.0 Mean Corpuscular Volume 82.7 Mean Corpuscular Hemoglobin 27.7 Mean Corpuscular Hemoglobin 33.5 Concent Red Cell Distribution Width 18.9 Platelet Count 277 Mean Platelet Volume 7.8 Sodium Level 144 Potassium Level 3.4 Chloride Level 109 Carbon Dioxide Level 28.9 Anion Gap 6 Blood Urea Nitrogen 8 Creatinine 0.51 Estimat Glomerular Filtration 127 Rate Random Glucose 96 Calcium Level 7.8 Date/Time Procedure Status Source Growth 05/18/17 13:45 Gram Stain - Final Resulted Fluid Pleural Fluid 05/18/17 13:45 Body Fluid Culture - Preliminary Resulted Fluid Pleural Fluid NO GROWTH IN 48 HOURS. 05/18/17 13:45 Cancelled Abscess Lung 05/17/17 07:50 Stool Occult Blood (FAVIOLA) - Final Complete Stool Stool HEMOCCULT POSITIVE Physical Exam HEENT: Normocephalic; atraumatic; no jaundice. CHEST: Decreased breath sounds in bases. On 2L via n/c. O2 Sat 98%., CT on left CARDIAC: RRR ABDOMEN: Soft, mildly distended, diffuse tenderness no hepatosplenomegaly; bowel sounds faint EXTREMITIES: No clubbing, cyanosis, or edema. SKIN: Normal; no rash; no jaundice. GRAVE CLEANER: Awake and oriented. (Tawnya Alejandra) Assessment and Plan Plan ASSESSMENT: - Acute on chronic pancreatitis with large pseudocyst formation. Pt with 4 year hx of pancreatitis (states she has more than 10-12 episodes per year). States last episode was last month. Abdomen/Pelvis CT (05/10/17)---> 1. 14 x 10 CM sub-phrenic fluid collection on the left larger than on the prior study. This could be related to pseudocyst or perhaps splenic hematoma. The findings have worsened when compared with the prior examination. 2. Chronic calcific pancreatitis 3. Chronic portal vein thrombosis. She quit ETOH use >1 year ago. She reports that she was told more than a year ago that she had a pseudocyst and needed it removed, but that the [facility] will not [facility] this. States she was told one month ago that her ibuprofen use may have caused her pancreatitis and stopped this. Of note, we did recommend EUS with FNA in past, but she did not follow up and she we were unable to contact her by phone or mail. S/P EUS w/ cyst gastrostomy (05/11/17) --> EGD findings Normal esophagus, Bulging in the stomach with food residue, Normal duodenum, EUS findings with hypoechoic homogeneous cyst, which was aspirated and dark lactose brownish aspirate was obtained and sent for culture and labs, s/p 7 [place] 7 cm double pigtail stent placement. Lipase normalized. KUB (05/14/17)----> Persistent stent like area seen in the left upper quadrant. There does appear to be increased density and air lucency seen in the left upper quadrant. This could be seen if the stent communicates with the known large fluid collection in the left upper quadrant and the stomach. CT Abdomen/pelvis ()----> 1. Persistent large complex fluid collection in the left upper quadrant surrounding an abnormal appearing spleen. This is smaller. This fluid collection is now being drained into the stomach with an internal drain. 2. Second fluid collection seen medial to this posterior to the stomach likely related to another pseudo cyst. This cyst appears larger. 3. Inflammatory change in the left side of the colon at the splenic flexure region. This could be secondary to it being in close proximity to the fluid collection in the left upper quadrant. Focal colitis should be suspected in this region. 4. 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 Abdomen/Pelvis CT (05/17/17)----> 1. There is a 14.8 x 11.8 cm complex fluid collection in the left upper quadrant. This appears to represent liquefaction of the spleen post splenic infarction. There was apparently a large pseudocyst which traversed up into the splenic hilum. There is still considerable residual splenic tissue. There is a drain which decompresses this collection into the stomach. There is gas within this. The examination also demonstrates a 3.8 x 4.6 cm fluid collection posterior to the stomach. Both of these are unchanged from previous. 2. No findings to indicate bowel obstruction. 3. Bilateral pleural effusion with consolidative changes in the left lung base. 4. Small amount of free fluid within the pelvis. 5. Vega catheter in good position. S/P EUS with cyst gastrostomy (05/17/17)----> Pancreatic pseudocyst. HH stable. Pancreatic fluid with viridans streptococcus and then no growth. WBC 8.2 Ceftriaxone. - Splenic infarction with liquefaction, ? secondary to compression from large pseudocyst. Lovenox d/c'd. HH from 7.6/22.7 to 8.7/26. WBC 8.2. Temp. 98.4 GS following. - Fever/Leukocytosis. Pancreatic fluid culture Viridans Streptococcus Grp. and then no growth on 05/11. BCx no growth 5 day, Pleural fluid no growth 48 hours. Afebrile. Ceftriaxone - Respiratory failure, left pleural effusion. S/P CT insertion on left. - Elevated LFTs, new. LFTs improved. - Chronic portal vein thrombosis. This is chronic. - Abnormal weight loss. Reports 30 lb weight loss in 3 months. Unintentional - Hx elevated chromogranin level. During a previous hospitalization, she complained of flushing, diarrhea, abdominal pain. She was evaluated with chromogranin A 108.0 (significantly high), Gastrin 86, VIP less than 50. She did not fu. She is not having flushing or diarrhea at this time. PLAN: - Clear liquids - Cont. PPI - Cont. Creon - Cont. Abx per ID recommendations - GS following - Monitor labs - Supportive care - Repeat imaging in 1 month to reassess cyst - EGD w/ stent removal 2-3m - Further recommendations to follow based on results of above Patient seen and examined by Dr. Mehta and myself and this note is written on his behalf (Tawnya Alejandra) Physician Comments Patient was seen and examined agree with above note, continue supportive care and agree with the plan (Juan Mehta MD) Tawnya Alejandra May 20, 2017 11:22 Juan Mehta MD May 20, 2017 12:49
--- NOTE | 2017-05-20 11:30 | HHI.IDPN ---
Note Infectious Disease Note ID COVERAGE Patient was readmitted to the hospital on May 11, 2017. The patient was recently discharged from the hospital on April 22, 2017 after treatment for acute pancreatitis. Notes reviewed D/W RN Extubated and doing well On nasal O2 Underwent endoscopic ultrasound - pseudocyst gastrostomy. 05/17. [place] Has CT on L - clear yellow fluid PAST MEDICAL HISTORY 1. Hypertension 2. Diabetes mellitus 3. Chronic pancreatitis 4. Portal vein thrombosis. 5. Chronic back pain. 6. Gastroesophageal reflux disease 7. Posttraumatic stress disorder 8. Gastroparesis. PAST SURGICAL HISTORY: History of hysterectomy. History of appendectomy. . ALLERGIES SULFA CIPROFLOXACIN SOCIAL HISTORY The patient is . She smokes half-a-pack of cigarettes a day. No alcohol use. No illicit drugs. OBJECTIVE: Vital Signs Date Time Temp Pulse Resp B/P Pulse Ox O2 Delivery O2 Flow Rate FiO2 05/20/17 10:00 77 05/20/17 08:00 85 05/20/17 08:00 98.4 84 19 156/65 96 05/20/17 07:53 98 Nasal Cannula 2.00 05/20/17 07:00 98 Nasal Cannula 3.00 05/20/17 06:51 13 05/20/17 06:00 90 05/20/17 04:00 97.7 86 21 154/90 96 05/20/17 04:00 74 05/20/17 02:00 97.6 83 16 159/85 95 05/20/17 02:00 74 05/20/17 00:00 74 05/19/17 22:00 74 05/19/17 20:39 97 Nasal Cannula 2.00 05/19/17 20:00 97.6 84 19 148/60 96 05/19/17 20:00 96 Nasal Cannula 3.00 05/19/17 20:00 72 05/19/17 18:00 82 05/19/17 16:00 82 05/19/17 16:00 97.8 61 16 158/85 98 05/19/17 14:00 81 05/19/17 12:25 96 Nasal Cannula 4 05/19/17 12:00 98.5 62 28 157/89 93 05/19/17 12:00 45 05/19/17 12:00 62 05/19/17 11:45 94 40 Vital Signs Date Time Temp Pulse Resp B/P Pulse Ox O2 Delivery O2 Flow Rate FiO2 05/19/17 11:45 94 40 05/19/17 10:17 100 40 05/19/17 10:00 50 05/19/17 08:18 100 40 05/19/17 08:00 46 05/19/17 08:00 45 05/19/17 08:00 97.5 46 20 152/89 100 05/19/17 07:00 100 Mechanical Ventilator 45 05/19/17 06:00 44 05/19/17 04:01 100 45 05/19/17 04:00 49 05/19/17 04:00 97.8 46 14 100 159/80 05/19/17 04:00 45 05/19/17 02:00 49 05/19/17 00:47 99 45 05/19/17 00:00 47 05/19/17 00:00 45 05/19/17 00:00 98.7 62 19 99 174/90 05/18/17 22:00 49 05/18/17 20:20 100 45 05/18/17 20:00 45 05/18/17 20:00 50 05/18/17 20:00 97.7 50 14 100 159/76 05/18/17 19:00 100 Mechanical Ventilator 14.00 45 05/18/17 18:00 48 05/18/17 16:13 99 50 05/18/17 16:00 50 05/18/17 16:00 97.6 50 14 100 125/77 05/18/17 16:00 45 05/18/17 14:45 100 100 05/18/17 14:00 56 05/18/17 13:59 60 Laboratory Tests Test 05/19/17 05/20/17 04:52 03:55 White Blood Count 7.9 TH/MM3 8.2 TH/MM3 Red Blood Count 2.74 MIL/MM3 3.14 MIL/MM3 Hemoglobin 7.6 GM/DL 8.7 GM/DL Hematocrit 22.7 % 26.0 % Mean Corpuscular Volume 82.5 FL 82.7 FL Mean Corpuscular Hemoglobin 27.7 PG 27.7 PG Mean Corpuscular Hemoglobin 33.5 % 33.5 % Concent Red Cell Distribution Width 18.4 % 18.9 % Platelet Count 236 TH/MM3 277 TH/MM3 Mean Platelet Volume 8.1 FL 7.8 FL Laboratory Tests Test 05/18/17 05/19/17 05/20/17 18:00 04:52 03:55 Potassium Level 3.8 MEQ/L 3.8 MEQ/L 3.4 MEQ/L Sodium Level 144 MEQ/L 144 MEQ/L Chloride Level 110 MEQ/L 109 MEQ/L Carbon Dioxide Level 27.3 MEQ/L 28.9 MEQ/L Anion Gap 7 MEQ/L 6 MEQ/L Blood Urea Nitrogen 13 MG/DL 8 MG/DL Creatinine 0.50 MG/DL 0.51 MG/DL Estimat Glomerular Filtration 130 ML/MIN 127 ML/MIN Rate Random Glucose 145 MG/DL 96 MG/DL Calcium Level 8.0 MG/DL 7.8 MG/DL Microbiology Date/Time Procedure Status Source Growth 05/18/17 13:45 Gram Stain - Final Resulted Fluid Pleural Fluid 05/18/17 13:45 Body Fluid Culture - Preliminary Resulted Fluid Pleural Fluid NO GROWTH IN 48 HOURS. 05/18/17 13:45 Cancelled Abscess Lung IMAGING: Chest Ultrasound 05/18/17 0000 Signed Impressions: Service Date/Time: Thursday, May 18, 2017 09:09 - CONCLUSION: 1. There is a moderate pleural effusion on the left. A iris was placed on the skin surface. Venkata Costa MD Abdomen/Pelvis CT 05/17/17 1447 Signed Impressions: Service Date/Time: April 15:05 - CONCLUSION: 1. There is a 14.8 x 11.8 cm complex fluid collection in the left upper quadrant. This appears to represent liquefaction of the spleen post splenic infarction. There was apparently a large pseudocyst which traversed up into the splenic hilum. There is still considerable residual splenic tissue. There is a drain which decompresses this collection into the stomach. There is gas within this. The examination also demonstrates a 3.8 x 4.6 cm fluid collection posterior to the stomach. Both of these are unchanged from previous. 2. No findings to indicate bowel obstruction. 3. Bilateral pleural effusion with consolidative changes in the left lung base. 4. Small amount of free fluid within the pelvis. 5. Vega catheter in good position. Venkata Costa MD GI Procedure 05/17/17 0000 Signed Impressions: Service Date/Time: April 17:06 - CONCLUSION: 1. Interval placement of second stent catheter in the left upper quadrant. 2. The previously noted stent catheter is unchanged in appearance. 3. Nonspecific bowel gas pattern. Feng Mahoney MD Chest X-Ray 05/17/17 0000 Signed Impressions: Service Date/Time: April 19:07 - CONCLUSION: 1. Interval intubation and placement of right internal jugular central venous line. There is no visualized pneumothorax however the sensitivity is limited on this single view supine study. 2. New diffuse opacity in the left lung as well as consolidation in the right upper lobe which could represent partial collapse. 3. Volume loss in the right hemithorax with mediastinal shift to the right. Feng Mahoney MD Abdomen X-Ray 05/17/17 Signed Impressions: Service Date/Time: April 19:10 - CONCLUSION: 1. No definite evidence of free air however there is a large ill-defined gas collection in the upper and left abdomen which likely represents gas in the previous known large complex fluid collection was seen on the recent CT.. 2. Nonspecific bowel gas pattern most consistent with an ileus. 3. 2 stent catheters are now identified in the left upper quadrant. Feng Mahoney MD Abdomen/Pelvis CT 05/15/17 Signed Impressions: Service Date/Time: Monday, May 15, 2017 15:16 - CONCLUSION: 1. Persistent large complex fluid collection in the left upper quadrant surrounding an abnormal appearing spleen. This is smaller. This fluid collection is now being drained into the stomach with an internal drain. 2. Second fluid collection seen medial to this posterior to the stomach likely related to another pseudo cyst. This cyst appears larger. 3. Inflammatory change in the left side of the colon at the splenic flexure region. This could be secondary to it being in close proximity to the fluid collection in the left upper quadrant. Focal colitis should be suspected in this region. 4. 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 Tim Chadwick MD Chest X-Ray 05/14/17 0011 Signed Impressions: Service Date/Time: Sunday, May 14, 2017 00:15 - CONCLUSION: Consolidation and small effusion have developed at the left lung base. Tim Tinajero MD Abdomen X-Ray 05/14/17 0000 Signed Impressions: Service Date/Time: Sunday, May 14, 2017 14:32 - CONCLUSION: Persistent stent like area seen in the left upper quadrant. There does appear to be increased density and air lucency seen in the left upper quadrant. This could be seen if the stent communicates with the known large fluid collection in the left upper quadrant and the stomach. Tim Chadwick MD GI Procedure 05/11/17 0000 Signed Impressions: Service Date/Time: Thursday, May 11, 2017 16:12 - CONCLUSION: Left upper quadrant stent identified. Pollo Almodovar MD PHYSICAL EXAMINATION GENERAL: Awake, and alert, NAD SKIN: Warm, no rash HEENT: [place] conjunctivae. No icterus. No nasal discharge. Orally intubated NECK: Supple without adenopathy. LUNGS: Decreased breath sounds L side. L CT in place, with serous fluid HEART: Regular S1, S2 without murmurs. ABDOMEN: Distended, soft. (+) BS, no guarding EXTREMITIES: No clubbing, cyanosis or edema. NEUROLOGIC: Non-focal PSYCH: calm and cooperative : Vega in place, urine clear IMPRESSION Pancreatitis acute. Infected pancreatic pseudocyst. Strep viridans group on culture from 05/11. EUS, S/P endoscopic cyst gastrostomy, and S/P stent placement in CBD Acute resp. failure., doing well post extubation RECOMMENDATIONS Continue ceftriaxone Monitor pleural fluid culture. Monitor WBC and temp. Monitor progress D/W Leonila Torre MD May 20, 2017 11:29
--- NOTE | 2017-05-20 14:44 | HHI.PR ---
Subjective Subjective Notes feels better, no pain currently, eating Objective Vitals/I&O Vital Signs Date Time Temp Pulse Resp B/P Pulse Ox O2 Delivery O2 Flow Rate FiO2 05/20/17 14:00 82 05/20/17 12:00 97.8 16 154/91 98 Arterial Line 05/20/17 07:53 Nasal Cannula 2.00 05/19/17 12:00 45 Labs Laboratory Tests Test 05/20/17 03:55 White Blood Count 8.2 Red Blood Count 3.14 Hemoglobin 8.7 Hematocrit 26.0 Mean Corpuscular Volume 82.7 Mean Corpuscular Hemoglobin 27.7 Mean Corpuscular Hemoglobin 33.5 Concent Red Cell Distribution Width 18.9 Platelet Count 277 Mean Platelet Volume 7.8 Sodium Level 144 Potassium Level 3.4 Chloride Level 109 Carbon Dioxide Level 28.9 Anion Gap 6 Blood Urea Nitrogen 8 Creatinine 0.51 Estimat Glomerular Filtration 127 Rate Random Glucose 96 Calcium Level 7.8 Date/Time Procedure Status Source Growth 05/18/17 13:45 Gram Stain - Final Resulted Fluid Pleural Fluid 05/18/17 13:45 Body Fluid Culture - Preliminary Resulted Fluid Pleural Fluid NO GROWTH IN 48 HOURS. 05/18/17 13:45 Cancelled Abscess Lung 05/17/17 07:50 Stool Occult Blood (FAVIOLA) - Final Complete Stool Stool HEMOCCULT POSITIVE Radiology Last 48 hours Impressions Chest Tube Insertion 05/18/17 1308 Signed Impressions: Service Date/Time: Thursday, May 18, 2017 13:33 - CONCLUSION: Uncomplicated left chest tube placement. If Gram stain is negative the tube can be removed. Chest x-ray is pending in the a.m. Seamus Costa MD FACR Chest Ultrasound 05/18/17 0000 Signed Impressions: Service Date/Time: Thursday, May 18, 2017 09:09 - CONCLUSION: 1. There is a moderate pleural effusion on the left. A iris was placed on the skin surface. Venkata Costa MD Abdomen X-Ray 05/18/17 0000 Signed Impressions: Service Date/Time: Thursday, May 18, 2017 15:45 - CONCLUSION: 1. Orogastric tube tip or overlies distal stomach. Additional catheters present in the left upper quadrant. No free air. Tyrel Aguilar MD Abdomen/Pelvis CT 05/17/17 1447 Signed Impressions: Service Date/Time: April 15:05 - CONCLUSION: 1. There is a 14.8 x 11.8 cm complex fluid collection in the left upper quadrant. This appears to represent liquefaction of the spleen post splenic infarction. There was apparently a large pseudocyst which traversed up into the splenic hilum. There is still considerable residual splenic tissue. There is a drain which decompresses this collection into the stomach. There is gas within this. The examination also demonstrates a 3.8 x 4.6 cm fluid collection posterior to the stomach. Both of these are unchanged from previous. 2. No findings to indicate bowel obstruction. 3. Bilateral pleural effusion with consolidative changes in the left lung base. 4. Small amount of free fluid within the pelvis. 5. Vega catheter in good position. Venkata Costa MD GI Procedure 05/17/17 0000 Signed Impressions: Service Date/Time: April 17:06 - CONCLUSION: 1. Interval placement of second stent catheter in the left upper quadrant. 2. The previously noted stent catheter is unchanged in appearance. 3. Nonspecific bowel gas pattern. Feng Mahoney MD Chest X-Ray 05/17/17 0000 Signed Impressions: Service Date/Time: April 19:07 - CONCLUSION: 1. Interval intubation and placement of right internal jugular central venous line. There is no visualized pneumothorax however the sensitivity is limited on this single view supine study. 2. New diffuse opacity in the left lung as well as consolidation in the right upper lobe which could represent partial collapse. 3. Volume loss in the right hemithorax with mediastinal shift to the right. Feng Mahoney MD Abdomen X-Ray 05/17/17 0000 Signed Impressions: Service Date/Time: April 19:10 - CONCLUSION: 1. No definite evidence of free air however there is a large ill-defined gas collection in the upper and left abdomen which likely represents gas in the previous known large complex fluid collection was seen on the recent CT.. 2. Nonspecific bowel gas pattern most consistent with an ileus. 3. 2 stent catheters are now identified in the left upper quadrant. Feng Mahoney MD Abdomen: Non-distended, Non-tender A/P Assessment and Plan 52yo female with pseudocyst s/p endoscopic drainage, dong well. agree with current plan of care and follow up if fails endoscopic drainage will need surgical eval, d/w patient and family can follow up with me on a PRN basis, will sign off Michael Chan MD May 20, 2017 14:44
--- NOTE | 2017-05-20 16:05 | RADRPT ---
EXAM DATE/TIME: 05/20/2017 15:12 [facility] COMPARISON: CHEST SINGLE AP, May 19, 2017, 21:42. INDICATIONS : Left chest tube removal. Chest pain and shortness of breath. MEDICAL HISTORY : Pancreatitis. Cardiovascular disease. Hypertension. SURGICAL HISTORY : None. ENCOUNTER: Initial ACUITY: 1 day PAIN SCORE: 3/10 LOCATION: Left chest FINDINGS: There is increased density at the bases bilaterally being worse on the left. There appears to be two drainage tubes seen over the left lower chest and upper abdomen region. There is silhouetting of th e hemidiaphragms bilaterally. The cardiac silhouette is difficult to evaluate given that the left he art border is silhouetted. Overall, it is suspected to be enlarged. The previously seen right inter nal jugular central catheter has been removed. There was a left-sided chest tube in place which appe ars to have been removed. CONCLUSION: 1. Drainage catheters over the left lower chest and upper abdomen region. 2. Suspected bibasilar areas of consolidation, atelectasis and effusions. When compared to the prio r examination, the right-sided changes appear worse. The left-sided changes appear stable. Tim Chadwick MD on May 20, 2017 at 15:53 Board Certified Radiologist. This report was verified electronically.
[2017-05-20] MEDS: cefTRIAXone INJ 2,000 MG in SODIUM CHLORIDE 0.9% INJ 100 ML IV SCH (22:49)
[2017-05-21] VITALS (9 sets, daily range): BP systolic 117–161; BP diastolic 81–97; PULSE 78–143; RESP 18–35; TEMP 97.3–98.5; O2SAT 93–100
[2017-05-21] MEDS: ACETAMINOPHEN/HYDROcodone 325 MG/5 MG TAB PO PRN ×4 (01:27→19:00)
[2017-05-21] MEDS: INSULIN NovoLIN REGULAR SUPPLEMENTAL SCALE SQ SCH ×5 (03:00→21:00)
[2017-05-21 06:03] LABS: MEAN CELL VOLUME 82.6 FL (80.0-100.0); MEAN CORPUSCULAR HEMOGLOBIN 28.1 PG (27.0-34.0); MEAN CORPUSCULAR HGB CONC 33.9 % (32.0-36.0); PLATELET COUNT 271 TH/MM3 (150-450); RED BLOOD COUNT 3.02 MIL/MM3 (4.00-5.30); RED CELL DISTRIBUTION WIDTH 19.3 % (11.6-17.2); REVIEW FLAG FINAL; WHITE BLOOD COUNT 8.1 TH/MM3 (4.0-11.0)
[2017-05-21 06:26] LABS: BICARBONATE 28.8 MEQ/L (21.0-32.0)
[2017-05-21] MEDS: POLYETHYLENE GLYCOL 17 GM PKG PO SCH (09:00)
--- NOTE | 2017-05-21 09:21 | HHI.GIFU ---
Subjective Remarks Pt sitting up in bed. Waiting on her creon before she eats breakfast. No n/v. C/O left sided pain that radiates to back. Improved. C/O Diarrhea- 3 dark stools today. Objective Vitals I&O Vital Signs Date Time Temp Pulse Resp B/P Pulse Ox O2 Delivery O2 Flow Rate FiO2 05/21/17 04:00 98.4 96 19 161/83 93 05/21/17 00:00 97.3 98 19 158/83 93 05/20/17 20:23 Room Air 05/20/17 20:03 95 05/20/17 20:00 97.2 88 18 168/96 94 05/20/17 19:54 96 21 05/20/17 16:55 162/93 94 05/20/17 16:30 Room Air 05/20/17 14:00 82 05/20/17 12:00 78 05/20/17 12:00 97.8 72 16 154/91 98 Arterial Line 05/20/17 10:00 77 I/O 05/20/17 05/20/17 05/20/17 05/21/17 05/21/17 05/21/17 07:00 15:00 23:00 07:00 15:00 23:00 Intake Total 1286 ml 840 ml 240 ml 390 ml Output Total 730 ml 1701 ml 1250 ml 1250 ml Balance 556 ml -861 ml -1010 ml -860 ml Intake Oral 720 ml 840 ml 240 ml 280 ml IV Total 566 ml 110 ml Output Urine Total 650 ml 1600 ml 1250 ml 1250 ml Stool Total 0 ml 1 ml Chest Tube Drainage Total 80 ml 100 ml # Bowel Movements 1 1 Laboratory Laboratory Tests Test 05/20/17 05/21/17 18:47 05:42 Potassium Level 3.2 3.0 White Blood Count 8.1 Red Blood Count 3.02 Hemoglobin 8.5 Hematocrit 25.0 Mean Corpuscular Volume 82.6 Mean Corpuscular Hemoglobin 28.1 Mean Corpuscular Hemoglobin 33.9 Concent Red Cell Distribution Width 19.3 Platelet Count 271 Mean Platelet Volume 7.8 Sodium Level 143 Chloride Level 105 Carbon Dioxide Level 28.8 Anion Gap 9 Blood Urea Nitrogen 2 Creatinine 0.44 Estimat Glomerular Filtration 150 Rate Random Glucose 117 Calcium Level 8.1 Date/Time Procedure Status Source Growth 05/18/17 13:45 Gram Stain - Final Complete Fluid Pleural Fluid 05/18/17 13:45 Body Fluid Culture - Final Complete Fluid Pleural Fluid NO GROWTH IN 72 HRS.--AEROBICALLY OR ... 05/18/17 13:45 Cancelled Abscess Lung 05/17/17 07:50 Stool Occult Blood (FAVIOLA) - Final Complete Stool Stool HEMOCCULT POSITIVE Imaging Last Impressions Chest X-Ray 05/20/17 1400 Signed Impressions: Service Date/Time: Saturday, May 20, 2017 15:12 - CONCLUSION: 1. Drainage catheters over the left lower chest and upper abdomen region. 2. Suspected bibasilar areas of consolidation, atelectasis and effusions. When compared to the prior examination, the right-sided changes appear worse. The left-sided changes appear stable. Tim Chadwick MD Chest Tube Insertion 05/18/17 1308 Signed Impressions: Service Date/Time: Thursday, May 18, 2017 13:33 - CONCLUSION: Uncomplicated left chest tube placement. If Gram stain is negative the tube can be removed. Chest x-ray is pending in the a.m. Seamus Costa MD FACR Chest Ultrasound 05/18/17 0000 Signed Impressions: Service Date/Time: Thursday, May 18, 2017 09:09 - CONCLUSION: 1. There is a moderate pleural effusion on the left. A iris was placed on the skin surface. Venkata Costa MD Abdomen X-Ray 05/18/17 0000 Signed Impressions: Service Date/Time: Thursday, May 18, 2017 15:45 - CONCLUSION: 1. Orogastric tube tip or overlies distal stomach. Additional catheters present in the left upper quadrant. No free air. Tyrel Aguilar MD Abdomen/Pelvis CT 05/17/17 1447 Signed Impressions: Service Date/Time: April 15:05 - CONCLUSION: 1. There is a 14.8 x 11.8 cm complex fluid collection in the left upper quadrant. This appears to represent liquefaction of the spleen post splenic infarction. There was apparently a large pseudocyst which traversed up into the splenic hilum. There is still considerable residual splenic tissue. There is a drain which decompresses this collection into the stomach. There is gas within this. The examination also demonstrates a 3.8 x 4.6 cm fluid collection posterior to the stomach. Both of these are unchanged from previous. 2. No findings to indicate bowel obstruction. 3. Bilateral pleural effusion with consolidative changes in the left lung base. 4. Small amount of free fluid within the pelvis. 5. Vega catheter in good position. Venkata Costa MD GI Procedure 05/17/17 0000 Signed Impressions: Service Date/Time: April 17:06 - CONCLUSION: 1. Interval placement of second stent catheter in the left upper quadrant. 2. The previously noted stent catheter is unchanged in appearance. 3. Nonspecific bowel gas pattern. Feng Mahoney MD Physical Exam HEENT: Normocephalic; atraumatic; no jaundice. CHEST: Resp. even/unlabored CARDIAC: RRR ABDOMEN: Soft, mildly distended, diffuse tenderness no hepatosplenomegaly; bowel sounds present EXTREMITIES: No clubbing, cyanosis, or edema. SKIN: Normal; no rash; no jaundice. KETTLE ROOM HELPER: Awake and oriented. Assessment and Plan Plan ASSESSMENT: - Acute on chronic pancreatitis with large pseudocyst formation. Pt with 4 year hx of pancreatitis (states she has more than 10-12 episodes per year). States last episode was last month. Abdomen/Pelvis CT (05/10/17)---> 1. 14 x 10 CM sub-phrenic fluid collection on the left larger than on the prior study. This could be related to pseudocyst or perhaps splenic hematoma. The findings have worsened when compared with the prior examination. 2. Chronic calcific pancreatitis 3. Chronic portal vein thrombosis. She quit ETOH use >1 year ago. She reports that she was told more than a year ago that she had a pseudocyst and needed it removed, but that the [facility] will not [facility] this. States she was told one month ago that her ibuprofen use may have caused her pancreatitis and stopped this. Of note, we did recommend EUS with FNA in past, but she did not follow up and she we were unable to contact her by phone or mail. S/P EUS w/ cyst gastrostomy (05/11/17) --> EGD findings Normal esophagus, Bulging in the stomach with food residue, Normal duodenum, EUS findings with hypoechoic homogeneous cyst, which was aspirated and dark lactose brownish aspirate was obtained and sent for culture and labs, s/p 7 Greek 7 cm double pigtail stent placement. Lipase normalized. KUB (05/14/17)----> Persistent stent like area seen in the left upper quadrant. There does appear to be increased density and air lucency seen in the left upper quadrant. This could be seen if the stent communicates with the known large fluid collection in the left upper quadrant and the stomach. CT Abdomen/pelvis ()----> 1. Persistent large complex fluid collection in the left upper quadrant surrounding an abnormal appearing spleen. This is smaller. This fluid collection is now being drained into the stomach with an internal drain. 2. Second fluid collection seen medial to this posterior to the stomach likely related to another pseudo cyst. This cyst appears larger. 3. Inflammatory change in the left side of the colon at the splenic flexure region. This could be secondary to it being in close proximity to the fluid collection in the left upper quadrant. Focal colitis should be suspected in this region. 4. 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 Abdomen/Pelvis CT (05/17/17)----> 1. There is a 14.8 x 11.8 cm complex fluid collection in the left upper quadrant. This appears to represent liquefaction of the spleen post splenic infarction. There was apparently a large pseudocyst which traversed up into the splenic hilum. There is still considerable residual splenic tissue. There is a drain which decompresses this collection into the stomach. There is gas within this. The examination also demonstrates a 3.8 x 4.6 cm fluid collection posterior to the stomach. Both of these are unchanged from previous. 2. No findings to indicate bowel obstruction. 3. Bilateral pleural effusion with consolidative changes in the left lung base. 4. Small amount of free fluid within the pelvis. 5. Vega catheter in good position. S/P EUS with cyst gastrostomy (05/17/17)----> Pancreatic pseudocyst. HH stable. Pancreatic fluid with viridans streptococcus and then no growth. WBC 8.2 Ceftriaxone. - Diarrhea. 3 dark stools so far today. States she has been having diarrhea for a few days. Will send for cdiff. - Splenic infarction with liquefaction, ? secondary to compression from large pseudocyst. HH stable 8.6/25.3. WBC 8.1. Afebrile GS following. - Fever/Leukocytosis. Pancreatic fluid culture Viridans Streptococcus Grp. and then no growth on 05/11. BCx no growth 5 day, Pleural fluid no growth 48 hours. Afebrile. Ceftriaxone - Respiratory failure, left pleural effusion. S/P CT insertion on left. - Elevated LFTs, new. LFTs improved. - Chronic portal vein thrombosis. This is chronic. - Abnormal weight loss. Reports 30 lb weight loss in 3 months. Unintentional - Hx elevated chromogranin level. During a previous hospitalization, she complained of flushing, diarrhea, abdominal pain. She was evaluated with chromogranin A 108.0 (significantly high), Gastrin 86, VIP less than 50. She did not fu. She is not having flushing or diarrhea at this time. PLAN: - Low fat diet - Send stool for cdiff pcr - Cont. PPI - Cont. Creon - Cont. Abx per ID recommendations - Monitor labs - S/P GS evaluation, signed off - Supportive care - Repeat imaging in 1 month to reassess cyst - EGD w/ stent removal 2-3m - Further recommendations to follow based on results of above - Patient seen and examined by Dr. Escamilla and myself and this note is written on his behalf Jordyn Puente May 21, 2017 09:21
[2017-05-21] MEDS: LIPASE/PROTEASE/AMYLASE (12,000/38,000/60,000) CAP PO SCH ×3 (09:28→17:36)
[2017-05-21] MEDS: ATENOLOL 50 MG TAB PO SCH (09:29)
[2017-05-21] MEDS: busPIRone HCL 10 MG TAB PO SCH ×2 (09:29→21:00)
[2017-05-21] MEDS: CYANOCOBALAMIN 1,000 MCG TAB PO SCH (09:29)
[2017-05-21] MEDS: PANTOPRAZOLE SOD 40 MG DELAYED RELEASE TAB PO SCH (09:29)
[2017-05-21] MEDS: SODIUM CHLORIDE 0.9% FLUSH 10 ML FLUSH IV FLUSH SCH (09:30)
[2017-05-21] MEDS: POTASSIUM CHLOR 20 MEQ PREMIX 100 ML IV SCH ×2 (14:05→17:43)
--- NOTE | 2017-05-21 14:21 | HHI.IDPN ---
Note Infectious Disease Note Patient feels better. Notes reviewed. Afebrile. Post thoracentesis 01/18. chest tube placed and removed. pleural fluid culture has no growth. Notes she is having pasty dark stools. pseudocyst gastrostomy. 05/17. Patient was readmitted to the hospital on May 11, 2017. The patient was recently discharged from the hospital on April 22, 2017 after treatment for acute pancreatitis. PAST MEDICAL HISTORY 1. Hypertension 2. Diabetes mellitus 3. Chronic pancreatitis 4. Portal vein thrombosis. 5. Chronic back pain. 6. Gastroesophageal reflux disease 7. Posttraumatic stress disorder 8. Gastroparesis. PAST SURGICAL HISTORY: History of hysterectomy. History of appendectomy. . ALLERGIES SULFA CIPROFLOXACIN MEDICATIONS: SOCIAL HISTORY The patient is . She smokes half-a-pack of cigarettes a day. No alcohol use. No illicit drugs. OBJECTIVE: Vital Signs Date Time Temp Pulse Resp B/P Pulse Ox O2 Delivery O2 Flow Rate FiO2 05/21/17 12:00 97.9 78 18 135/95 95 05/21/17 08:00 98.2 89 18 141/81 93 05/21/17 04:00 98.4 96 19 161/83 93 05/21/17 00:00 97.3 98 19 158/83 93 05/20/17 20:23 Room Air 05/20/17 20:03 95 05/20/17 20:00 97.2 88 18 168/96 94 05/20/17 19:54 96 21 05/20/17 16:55 162/93 94 05/20/17 16:30 Room Air 05/20/17 05/20/17 05/21/17 15:00 23:00 07:00 Intake Total 840 ml 240 ml 390 ml Output Total 1701 ml 1250 ml 1250 ml Balance -861 ml -1010 ml -860 ml Intake Oral 840 ml 240 ml 280 ml IV Total 110 ml Output Urine Total 1600 ml 1250 ml 1250 ml Stool Total 1 ml Chest Tube Drainage Total 100 ml # Bowel Movements 1 1 Laboratory Tests Test 05/20/17 05/21/17 03:55 05:42 White Blood Count 8.2 TH/MM3 8.1 TH/MM3 Red Blood Count 3.14 MIL/MM3 3.02 MIL/MM3 Hemoglobin 8.7 GM/DL 8.5 GM/DL Hematocrit 26.0 % 25.0 % Mean Corpuscular Volume 82.7 FL 82.6 FL Mean Corpuscular Hemoglobin 27.7 PG 28.1 PG Mean Corpuscular Hemoglobin 33.5 % 33.9 % Concent Red Cell Distribution Width 18.9 % 19.3 % Platelet Count 277 TH/MM3 271 TH/MM3 Mean Platelet Volume 7.8 FL 7.8 FL Laboratory Tests Test 05/20/17 05/20/17 05/21/17 03:55 18:47 05:42 Sodium Level 144 MEQ/L 143 MEQ/L Potassium Level 3.4 MEQ/L 3.2 MEQ/L 3.0 MEQ/L Chloride Level 109 MEQ/L 105 MEQ/L Carbon Dioxide Level 28.9 MEQ/L 28.8 MEQ/L Anion Gap 6 MEQ/L 9 MEQ/L Blood Urea Nitrogen 8 MG/DL 2 MG/DL Creatinine 0.51 MG/DL 0.44 MG/DL Estimat Glomerular Filtration 127 ML/MIN 150 ML/MIN Rate Random Glucose 96 MG/DL 117 MG/DL Calcium Level 7.8 MG/DL 8.1 MG/DL IMAGING: Chest X-Ray 05/20/17 1400 Signed Impressions: Service Date/Time: Saturday, May 20, 2017 15:12 - CONCLUSION: 1. Drainage catheters over the left lower chest and upper abdomen region. 2. Suspected bibasilar areas of consolidation, atelectasis and effusions. When compared to the prior examination, the right-sided changes appear worse. The left-sided changes appear stable. Tim Chadwick MD Chest Ultrasound 05/18/17 0000 Signed Impressions: Service Date/Time: Thursday, May 18, 2017 09:09 - CONCLUSION: 1. There is a moderate pleural effusion on the left. A iris was placed on the skin surface. Venkata Costa MD Abdomen/Pelvis CT 05/17/17 1447 Signed Impressions: Service Date/Time: April 15:05 - CONCLUSION: 1. There is a 14.8 x 11.8 cm complex fluid collection in the left upper quadrant. This appears to represent liquefaction of the spleen post splenic infarction. There was apparently a large pseudocyst which traversed up into the splenic hilum. There is still considerable residual splenic tissue. There is a drain which decompresses this collection into the stomach. There is gas within this. The examination also demonstrates a 3.8 x 4.6 cm fluid collection posterior to the stomach. Both of these are unchanged from previous. 2. No findings to indicate bowel obstruction. 3. Bilateral pleural effusion with consolidative changes in the left lung base. 4. Small amount of free fluid within the pelvis. 5. Vega catheter in good position. Venkata Costa MD GI Procedure 05/17/17 Signed Impressions: Service Date/Time: April 17:06 - CONCLUSION: 1. Interval placement of second stent catheter in the left upper quadrant. 2. The previously noted stent catheter is unchanged in appearance. 3. Nonspecific bowel gas pattern. Feng Mahoney MD Chest X-Ray 05/17/17 Signed Impressions: Service Date/Time: April 19:07 - CONCLUSION: 1. Interval intubation and placement of right internal jugular central venous line. There is no visualized pneumothorax however the sensitivity is limited on this single view supine study. 2. New diffuse opacity in the left lung as well as consolidation in the right upper lobe which could represent partial collapse. 3. Volume loss in the right hemithorax with mediastinal shift to the right. Feng Mahoney MD Abdomen X-Ray 05/17/17 Signed Impressions: Service Date/Time: April 19:10 - CONCLUSION: 1. No definite evidence of free air however there is a large ill-defined gas collection in the upper and left abdomen which likely represents gas in the previous known large complex fluid collection was seen on the recent CT.. 2. Nonspecific bowel gas pattern most consistent with an ileus. 3. 2 stent catheters are now identified in the left upper quadrant. Feng Mahoney MD Abdomen/Pelvis CT 05/15/17 Signed Impressions: Service Date/Time: Monday, May 15, 2017 15:16 - CONCLUSION: 1. Persistent large complex fluid collection in the left upper quadrant surrounding an abnormal appearing spleen. This is smaller. This fluid collection is now being drained into the stomach with an internal drain. 2. Second fluid collection seen medial to this posterior to the stomach likely related to another pseudo cyst. This cyst appears larger. 3. Inflammatory change in the left side of the colon at the splenic flexure region. This could be secondary to it being in close proximity to the fluid collection in the left upper quadrant. Focal colitis should be suspected in this region. 4. 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 Tim Chadwick MD Chest X-Ray 05/14/17 0011 Signed Impressions: Service Date/Time: Sunday, May 14, 2017 00:15 - CONCLUSION: Consolidation and small effusion have developed at the left lung base. Tim Tinajero MD Abdomen X-Ray 05/14/17 0000 Signed Impressions: Service Date/Time: Sunday, May 14, 2017 14:32 - CONCLUSION: Persistent stent like area seen in the left upper quadrant. There does appear to be increased density and air lucency seen in the left upper quadrant. This could be seen if the stent communicates with the known large fluid collection in the left upper quadrant and the stomach. Tim Chadwick MD GI Procedure 05/11/17 0000 Signed Impressions: Service Date/Time: Thursday, May 11, 2017 16:12 - CONCLUSION: Left upper quadrant stent identified. Pollo Almodovar MD PHYSICAL EXAMINATION GENERAL: No acute distress. HEENT: No icterus. NECK: Supple without adenopathy. LUNGS: Decreased breath sounds bilateral. HEART: Regular S1, S2 without murmurs. ABDOMEN: Distended, soft, non tender. EXTREMITIES: No clubbing, cyanosis or edema. SKIN: No rash. NEUROLOGIC: Awake and alert and oriented. IMPRESSION Pancreatitis acute. Infected pancreatic pseudocyst. Strep viridans group on culture from 05/11. Patient status post endoscopic ultrasound with sphincterotomy, balloon dilatation and the double pigtail stent placement into the common bile duct. Also post pseudocyst gastrostomy. Looks stable. RECOMMENDATIONS 1. Continue ceftriaxone another 4 days of she remains stable. 2. Monitor WBC and temp. 3. Monitor clinical status. Anderson Sharpe MD May 21, 2017 14:21
--- NOTE | 2017-05-21 16:10 | HHI.PR ---
Subjective Remarks The patient said she was trying to tolerate meals. She has been ambulating. She still has chronic abdominal pain. Discussed with nursing. Objective Vitals Vital Signs Date Time Temp Pulse Resp B/P Pulse Ox O2 Delivery O2 Flow Rate FiO2 05/21/17 12:00 97.9 78 18 135/95 95 05/21/17 08:00 98.2 89 18 141/81 93 05/21/17 04:00 98.4 96 19 161/83 93 05/21/17 00:00 97.3 98 19 158/83 93 05/20/17 20:23 Room Air 05/20/17 20:03 95 05/20/17 20:00 97.2 88 18 168/96 94 05/20/17 19:54 96 21 05/20/17 16:55 162/93 94 05/20/17 16:30 Room Air I/O 05/20/17 05/20/17 05/20/17 05/21/17 05/21/17 05/21/17 07:00 15:00 23:00 07:00 15:00 23:00 Intake Total 1286 ml 840 ml 240 ml 390 ml Output Total 730 ml 1701 ml 1250 ml 1250 ml Balance 556 ml -861 ml -1010 ml -860 ml Intake Oral 720 ml 840 ml 240 ml 280 ml IV Total 566 ml 110 ml Output Urine Total 650 ml 1600 ml 1250 ml 1250 ml Stool Total 0 ml 1 ml Chest Tube Drainage Total 80 ml 100 ml # Bowel Movements 1 1 Result Diagram: 05/21/17 0542 05/21/17 0542 Imaging Last Impressions Chest X-Ray 05/20/17 1400 Signed Impressions: Service Date/Time: Saturday, May 20, 2017 15:12 - CONCLUSION: 1. Drainage catheters over the left lower chest and upper abdomen region. 2. Suspected bibasilar areas of consolidation, atelectasis and effusions. When compared to the prior examination, the right-sided changes appear worse. The left-sided changes appear stable. Tmi Chadwick MD Chest Tube Insertion 05/18/17 1308 Signed Impressions: Service Date/Time: Thursday, May 18, 2017 13:33 - CONCLUSION: Uncomplicated left chest tube placement. If Gram stain is negative the tube can be removed. Chest x-ray is pending in the a.m. Seamus Costa MD FACR Chest Ultrasound 05/18/17 0000 Signed Impressions: Service Date/Time: Thursday, May 18, 2017 09:09 - CONCLUSION: 1. There is a moderate pleural effusion on the left. A iris was placed on the skin surface. Venkata Costa MD Abdomen X-Ray 05/18/17 0000 Signed Impressions: Service Date/Time: Thursday, May 18, 2017 15:45 - CONCLUSION: 1. Orogastric tube tip or overlies distal stomach. Additional catheters present in the left upper quadrant. No free air. Tyrel Aguilar MD Abdomen/Pelvis CT 05/17/17 1447 Signed Impressions: Service Date/Time: April 15:05 - CONCLUSION: 1. There is a 14.8 x 11.8 cm complex fluid collection in the left upper quadrant. This appears to represent liquefaction of the spleen post splenic infarction. There was apparently a large pseudocyst which traversed up into the splenic hilum. There is still considerable residual splenic tissue. There is a drain which decompresses this collection into the stomach. There is gas within this. The examination also demonstrates a 3.8 x 4.6 cm fluid collection posterior to the stomach. Both of these are unchanged from previous. 2. No findings to indicate bowel obstruction. 3. Bilateral pleural effusion with consolidative changes in the left lung base. 4. Small amount of free fluid within the pelvis. 5. Vega catheter in good position. Venkata Costa MD GI Procedure 05/17/17 0000 Signed Impressions: Service Date/Time: April 17:06 - CONCLUSION: 1. Interval placement of second stent catheter in the left upper quadrant. 2. The previously noted stent catheter is unchanged in appearance. 3. Nonspecific bowel gas pattern. Feng Mahoney MD Objective Remarks Gen: awake, alert, no acute distress. Head: Normal. Neck: trachea midline no jvd. Lungs: Few rhonchi. Decreased BS bases. Heart: RRR, sinus by tele. no JVD. Abdomen: Distended, soft. No peritoneal irritation. Extremities: Warm, well perfused. Neuro: No gross deficits. Psych: Mood and affect appropriate. Medications and IVs Current Medications Medications (Trade) Dose Ordered Sig/Bandar Route Start Time Stop Time Status Last Admin (NS Flush) 2 ml UNSCH PRN IV FLUSH 05/11/17 00:45 05/21/17 00:08 (NS Flush) 2 ml BID IV FLUSH 05/11/17 09:00 05/21/17 09:30 (Narcan Inj) 0.4 mg UNSCH PRN IV 05/11/17 00:45 (Zofran Inj) 4 mg Q6HR PRN IV PUSH 05/11/17 02:45 05/17/17 15:28 (Buspar) 30 mg BID PO 05/11/17 09:00 05/21/17 09:29 (Vitamin B12) 1,000 mcg DAILY PO 05/11/17 09:00 05/21/17 09:29 (Creon 12-38-60) 1 cap TIDPC PO 05/11/17 09:30 05/21/17 17:36 (Protonix) 40 mg DAILY PO 05/11/17 09:00 05/21/17 09:29 ([place] 5-325 Mg) 1 tab Q6H PRN PO 05/11/17 10:30 05/21/17 12:39 (Tylenol) 650 mg Q6H PRN PO 05/14/17 00:15 05/16/17 17:58 (Tenormin) 50 mg DAILY PO 05/15/17 09:00 05/21/17 09:29 Polyethylene Glycol 34 gm 34 gm DAILY PO 05/15/17 21:00 05/20/17 08:50 (Rocephin Inj/NS Inj) 100 ml @ 200 mls/hr Q24H IV 05/16/17 22:00 05/20/17 22:49 (Dilaudid Pf Inj) 1.5 mg Q2H PRN IV PUSH 05/17/17 13:00 05/20/17 02:49 (D50w (Vial) Inj) 25 ml UNSCH PRN IV PUSH 05/19/17 18:00 (Roxicodone) 5 mg Q4H PRN PO 05/19/17 18:00 05/21/17 17:37 (Mycostatin Powder) 1 applic Q12HR TOPICAL 05/21/17 13:00 05/21/17 17:43 A/P Problem List: (1) Acute on chronic pancreatitis ICD Code: K85.9 Status: Acute (2) Pancreatic pseudocyst ICD Code: K86.3 Status: Acute (3) PVT (portal vein thrombosis) ICD Code: I81 Status: Acute Assessment and Plan Acute hypoxic respiratory failure The pt had a left pleural effusion. S/p chest tube. Currently breathing well on room air. - oxygen and nebs as needed. - encourage ambulation. Chronic Pancreatitis with infected pseudocyst S/P cyst-gastrostomy 05/17/17. Fluid culture grew viridans strep. ID consult appreciated. - antibiotics per ID. Currently on IV ceftriaxone. - follow culture data. - pain control with a bowel regimen. - ADAT. Continue Creon. - PPI. - repeat EGD with stent removal as an outpt. Anemia Requiring blood transfusion. She endorses black stools. - follow CBC and transfuse as needed. - follow up with GI. Severe hypokalemia S/t decreased PO intake. - replete with IV KCl. - monitor. PPx: SCDs Discharge Planning Awaiting clinical improvement Feng Marques DO May 21, 2017 16:10
[2017-05-21] MEDS: NYSTATIN 100,000 U/GM PWD 15 GM BTL TOPICAL SCH ×2 (17:43→21:00)
[2017-05-21] MEDS ORDERED: PROPOFOL 1000 MG/100 ML INJ 100 ML ONE (20:05)
[2017-05-21] MEDS ORDERED: PHENYLEPHRINE HCL 10 MG/ML VIAL ONE (20:41)
--- NOTE | 2017-05-21 20:54 | HHI.CCPN ---
Subjective Remarks/Hospital Course Hospital Course: 52 y/o woman with chronic pancreatitis underwent endoscopic pseudocyst- gastrostomy today in OR. Cyst was mature and there is no evidence of tract leak. Unable to wean from ventilator after procedure, complicated by large left subphrenic collection, left pleural effusion, and consolidation of left lower lobe. 05/18: continues to be intubated, but awake and alert at this point. endorses pain over LUQ. denies other complaints. ultrasound of left chest with significant effusion. 05/19: IR guided left chest tube placed yesterday with 490 mL milky serous fluid drained. pulmonary mechanics slightly improved. somewhat agitated overnight. still follows commands. 05/20: extubated yesterday. tolerating regular diet. clinically improving. chest tube put out ~150cc/12h, serous. cultures have been NGTD. denies complaints. pain better controlled. Subjective: 05/21: Re consulted secondary to acute lower GI bleed. Halicat was called secondary to bright red blood per rectum. Patient was hypotensive and pale. Brought to room 514 and was intubated without anesthesia. Started on vasopressors. Received massive transfusion protocol. Notify Dr. Escamilla /GI. No intervention from his standpoint. Notify Dr. Villalpando and recommended no surgical intervention at this time due to complexity of medical to localize source of bleeding. Currently down for CT abdomen/pelvis. IR notified. Objective Vital Signs Date Time Temp Pulse Resp B/P Pulse Ox O2 Delivery O2 Flow Rate FiO2 05/21/17 16:00 98.5 81 18 142/97 94 05/21/17 08:00 Room Air 05/20/17 19:54 21 05/20/17 07:53 2.00 Intake and Output 05/20/17 05/20/17 05/21/17 08:00 16:00 00:00 Intake Total 1286 ml 840 ml 240 ml Output Total 730 ml 1701 ml 1250 ml Balance 556 ml -861 ml -1010 ml Result Diagram: 05/21/17 0542 05/21/17 0542 Other Results Microbiology Date/Time Procedure Status Source Growth 05/18/17 13:45 Gram Stain - Final Complete Fluid Pleural Fluid 05/18/17 13:45 Body Fluid Culture - Final Complete Fluid Pleural Fluid NO GROWTH IN 72 HRS.--AEROBICALLY OR ... 05/18/17 13:45 Cancelled Abscess Lung 05/17/17 07:50 Stool Occult Blood (FAVIOLA) - Final Complete Stool Stool HEMOCCULT POSITIVE Imaging Last Impressions Chest X-Ray 05/21/17 0000 Signed Impressions: Service Date/Time: Sunday, May 21, 2017 20:32 - CONCLUSION: 1. Interval intubation and placement of right internal jugular central venous line with no visualized pneumothorax on this supine exam. 2. Mild patchy opacity at the left lung base which appears improved. Feng Mahoney MD Abdomen X-Ray 05/21/17 0000 Signed Impressions: Service Date/Time: Sunday, May 21, 2017 21:42 - CONCLUSION: Possible free air in the upper abdomen which may be present in the previous noted large complex fluid collection. A CT is pending for further evaluation. Feng Mahoney MD Chest Tube Insertion 05/18/17 1308 Signed Impressions: Service Date/Time: Thursday, May 18, 2017 13:33 - CONCLUSION: Uncomplicated left chest tube placement. If Gram stain is negative the tube can be removed. Chest x-ray is pending in the a.m. Seamus Costa MD FACR Chest Ultrasound 05/18/17 0000 Signed Impressions: Service Date/Time: Thursday, May 18, 2017 09:09 - CONCLUSION: 1. There is a moderate pleural effusion on the left. A iris was placed on the skin surface. Venkata Costa MD Abdomen/Pelvis CT 05/17/17 1447 Signed Impressions: Service Date/Time: April 15:05 - CONCLUSION: 1. There is a 14.8 x 11.8 cm complex fluid collection in the left upper quadrant. This appears to represent liquefaction of the spleen post splenic infarction. There was apparently a large pseudocyst which traversed up into the splenic hilum. There is still considerable residual splenic tissue. There is a drain which decompresses this collection into the stomach. There is gas within this. The examination also demonstrates a 3.8 x 4.6 cm fluid collection posterior to the stomach. Both of these are unchanged from previous. 2. No findings to indicate bowel obstruction. 3. Bilateral pleural effusion with consolidative changes in the left lung base. 4. Small amount of free fluid within the pelvis. 5. Vega catheter in good position. Venkata Costa MD GI Procedure 05/17/17 0000 Signed Impressions: Service Date/Time: , May 17, 2017 17:06 - CONCLUSION: 1. Interval placement of second stent catheter in the left upper quadrant. 2. The previously noted stent catheter is unchanged in appearance. 3. Nonspecific bowel gas pattern. Feng Mahoney MD Objective Remarks GENERAL: 52-year-old female, critically ill currently resting in bed SKIN: Cool and mottled.. HEAD: Atraumatic. Normocephalic. EYES: Pupils equal and round about 2 mm bilaterally and reactive. No scleral icterus. No injection or drainage. ENT: No nasal bleeding or discharge. Mucous membranes pink and moist. NECK: Trachea midline. No JVD. CARDIOVASCULAR: Regular rate and rhythm. S1, S2. No S4. RESPIRATORY: Care crackles heard throughout all lung baker.. Breath sounds equal bilaterally. GASTROINTESTINAL: Abdomen soft, no tenderness elicited, somewhat protuberant. Hypoactive bowel sounds significant. MUSCULOSKELETAL: Extremities without significant peripheral, or edema. No obvious deformities. NEUROLOGICAL: Sedated on the ventilator. A/P Assessment and Plan Neuro/Psych: Posttraumatic stress disorder Acute toxic metabolic encephalopathy Currently on propofol/fentanyl and Versed drips for sedation while intubated Goal of RA SS -2 Daily sedation vacation Holding BuSpar 30 mg twice a day medication for anxiety CV: Severe shock secondary to hypovolemia Lactic acidosis Status post splenic artery embolization Status post 6 PRBCs/6 FFP 1 cryoprecipitate. 1 platelet Normal saline at 84 cc an hour Currently off all vasopressors after massive transfusion Trending lactates until cleared Resp: Acute respiratory failure PRVC 16/500/1.1/5/100 Ventilator bundle Duo nebs every 6 hours with albuterol every 2 hours when necessary dyspnea Spontaneous breathing trials daily Intubated emergently due to unstable condition GI: Lower GI bleed Chronic Pancreatitis with pseudocyst - persistent, stable. S/P cyst-gastrostomy 05/17/17I Status post endoscopic ultrasound with sphincterotomy, balloon dilatation and the double pigtail stent placement into the common bile duct. Discussed with Dr. Escamilla - plan for stat CT abdomen/pelvis. - Splenic artery embolization KUB revealed possible free air in the abdomen. Jean Paul Fuentes did not recommend surgery Noted pancreatic drains 2 : Vega catheter for accurate I's and O's in a critically ill patient Endo: Hyperglycemia Sliding scale insulin with Accu-Cheks to maintain euglycemia Renal: Monitor urine output Accurate I's and O's Heme: Acute post hemorrhagic blood loss anemia Elevated PTT Leukocytosis Thrombocytopenia Status post massive transfusion protocol 5 mg Amicar 1 Monitor CBC daily. Follow trends ID: Pseudocyst infection - strep viridian 05/11 Continue Rocephin 2 g IV every 24 hours for an infected pseudocyst Infectious disease following Panculture 2 blood culture now FEN: Replace electrolytes as clinically indicated MSK: PT evaluate and treat Access -Right IJ CVL/left femoral Cordis day #1 placed 05/21 Prophylaxis - GI - Protonix - DVT - SCDs/pharmacological prophylaxis contra indicated with acute hemorrhage Critical Care: The total critical care time was 55 minutes. Time to perform other separately billable procedures was not included in the critical care time. active GI bleeding 1. Acute hypoxic Respiratory Failure - resolved. 2. left pleural effusion - resolved. 3. Plan: 1. d/c art line 2. oob to chair and ambulating tid. 3. pt/ot consult 4. advance diet as tolerated. 5. continue current pain regimen. 6. wean NC o2 for spo2 > 90% 7. will remove chest tube today. follow up cxr 8. f/u cultures: currently NGTD. stable for transfer to floor. will consult hospitalists. Param Rodriguez MD May 21, 2017 20:54
--- NOTE | 2017-05-21 21:08 | RADRPT ---
EXAM DATE/TIME: 05/21/2017 20:32 [facility] COMPARISON: CHEST SINGLE AP, May 20, 2017, 15:12. INDICATIONS : Post intubation and central line placement. MEDICAL HISTORY : None. SURGICAL HISTORY : None. ENCOUNTER: Initial ACUITY: 1 day PAIN SCORE: Non-responsive. LOCATION: Bilateral chest FINDINGS: A single AP portable supine view of the chest was obtained and demonstrates interval intubation with endotracheal tube tip approximately 3 cm above the tara. There is been placement of a right interna l jugular central venous line with the tip projected over the superior vena cava. There is no visuali zed pneumothorax on this supine study. The left hemidiaphragm remains mildly elevated. The heart size is within normal limits. There is mild patchy opacity at the left lung base which is improved from t he prior study. The overlying electrocardiogram leads and oxygen tubing. There are multiple catheters again noted projected in the left upper abdomen. CONCLUSION: 1. Interval intubation and placement of right internal jugular central venous line with no visualized pneumothorax on this supine exam. 2. Mild patchy opacity at the left lung base which appears improved. Feng Mahoney MD on May 21, 2017 at 21:04 Board Certified Radiologist. This report was verified electronically.
[2017-05-21 21:31] LABS: MEAN CORPUSCULAR HEMOGLOBIN 27.3 PG (27.0-34.0); MEAN CORPUSCULAR HGB CONC 31.4 % (32.0-36.0); PLATELET COUNT 86 TH/MM3 (150-450); RED BLOOD COUNT 3.11 MIL/MM3 (4.00-5.30); RED CELL DISTRIBUTION WIDTH 17.6 % (11.6-17.2); WHITE BLOOD COUNT 17.6 TH/MM3 (4.0-11.0)
[2017-05-21 21:32] LABS: REVIEW FLAG FINAL
[2017-05-21 21:38] LABS: INTERNATIONAL NORMALIZED RATIO 1.4 RATIO; PROTHROMBIN TIME - PATIENT 15.9 SEC (9.8-11.6)
[2017-05-21] MEDS ORDERED: NOREPINEPHRINE 4 MG/D5W 250 ML IV SCH (21:45)
--- NOTE | 2017-05-21 21:46 | HHI.GIFU ---
Subjective Remarks Pt had syncopal event and passed bloody stool. Brought to ICU and resuscitated by the team. I was called for endoscopy. She is intubated and shocky. Massive transfusion protocol was called by Dr Rodriguez. stated she did complain of pain in upper left side of chest earlier in the evening. Otherwise she had been doing well. After 4 units of blood transfused in the MTP, she appears pink and pressors are off. BP is normalized. Objective Vitals I&O Vital Signs Date Time Temp Pulse Resp B/P Pulse Ox O2 Delivery O2 Flow Rate FiO2 05/21/17 16:00 98.5 81 18 142/97 94 05/21/17 12:00 97.9 78 18 135/95 95 05/21/17 08:00 84 05/21/17 08:00 98.2 89 18 141/81 93 05/21/17 08:00 Room Air 05/21/17 04:00 98.4 96 19 161/83 93 05/21/17 00:00 97.3 98 19 158/83 93 I/O 05/20/17 05/20/17 05/20/17 05/21/17 05/21/17 05/21/17 07:00 15:00 23:00 07:00 15:00 23:00 Intake Total 1286 ml 840 ml 240 ml 390 ml 960 ml Output Total 730 ml 1701 ml 1250 ml 1250 ml Balance 556 ml -861 ml -1010 ml -860 ml 960 ml Intake Oral 720 ml 840 ml 240 ml 280 ml 960 ml IV Total 566 ml 110 ml Output Urine Total 650 ml 1600 ml 1250 ml 1250 ml Stool Total 0 ml 1 ml Chest Tube Drainage Total 80 ml 100 ml # Voids 7 # Bowel Movements 1 1 Laboratory Laboratory Tests Test 05/21/17 05/21/17 05/21/17 05/21/17 05:42 20:30 21:10 21:18 White Blood Count 8.1 17.6 Red Blood Count 3.02 3.11 Hemoglobin 8.5 8.5 Hematocrit 25.0 27.0 Mean Corpuscular Volume 82.6 87.0 Mean Corpuscular Hemoglobin 28.1 27.3 Mean Corpuscular Hemoglobin 33.9 31.4 Concent Red Cell Distribution Width 19.3 17.6 Platelet Count 271 86 Mean Platelet Volume 7.8 8.1 Sodium Level 143 Potassium Level 3.0 Chloride Level 105 Carbon Dioxide Level 28.8 Anion Gap 9 Blood Urea Nitrogen 2 Creatinine 0.44 Estimat Glomerular Filtration 150 Rate Random Glucose 117 Calcium Level 8.1 Blood Type A POSITIVE Antibody Screen NEGATIVE Crossmatch Leukocyte-Reduced Red Blood Cells Blood Bank Comment Date/Time Procedure Status Source Growth 05/18/17 13:45 Gram Stain - Final Complete Fluid Pleural Fluid 05/18/17 13:45 Body Fluid Culture - Final Complete Fluid Pleural Fluid NO GROWTH IN 72 HRS.--AEROBICALLY OR ... 05/18/17 13:45 Cancelled Abscess Lung 05/17/17 07:50 Stool Occult Blood (FAVIOLA) - Final Complete Stool Stool HEMOCCULT POSITIVE Physical Exam HEENT: face is now pink CHEST: on vent CARDIAC: RRR ABDOMEN: Tense abdomen, tympanitic. EXTREMITIES: No cyanosis SKIN: normal. 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 Pt with 4 year hx of pancreatitis (states she has more than 10-12 episodes per year). States last episode was last month. Abdomen/Pelvis CT (05/10/17)---> 1. 14 x 10 CM sub-phrenic fluid collection on the left larger than on the prior study. This could be related to pseudocyst or perhaps splenic hematoma. The findings have worsened when compared with the prior examination. 2. Chronic calcific pancreatitis 3. Chronic portal vein thrombosis. She quit ETOH use >1 year ago. She reports that she was told more than a year ago that she had a pseudocyst and needed it removed, but that the [facility] will not approve this. States she was told one month ago that her ibuprofen use may have caused her pancreatitis and stopped this. Of note, we did recommend EUS with FNA in past, but she did not follow up and she we were unable to contact her by phone or mail. S/P EUS w/ cyst gastrostomy (05/11/17) --> EGD findings Normal esophagus, Bulging in the stomach with food residue, Normal duodenum, EUS findings with hypoechoic homogeneous cyst, which was aspirated and dark lactose brownish aspirate was obtained and sent for culture and labs, s/p 7 [place]ian 7 cm double pigtail stent placement. Lipase normalized. KUB (05/14/17)----> Persistent stent like area seen in the left upper quadrant. There does appear to be increased density and air lucency seen in the left upper quadrant. This could be seen if the stent communicates with the known large fluid collection in the left upper quadrant and the stomach. CT Abdomen/pelvis ()----> 1. Persistent large complex fluid collection in the left upper quadrant surrounding an abnormal appearing spleen. This is smaller. This fluid collection is now being drained into the stomach with an internal drain. 2. Second fluid collection seen medial to this posterior to the stomach likely related to another pseudo cyst. This cyst appears larger. 3. Inflammatory change in the left side of the colon at the splenic flexure region. This could be secondary to it being in close proximity to the fluid collection in the left upper quadrant. Focal colitis should be suspected in this region. 4. 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 Abdomen/Pelvis CT (05/17/17)----> 1. There is a 14.8 x 11.8 cm complex fluid collection in the left upper quadrant. This appears to represent liquefaction of the spleen post splenic infarction. There was apparently a large pseudocyst which traversed up into the splenic hilum. There is still considerable residual splenic tissue. There is a drain which decompresses this collection into the stomach. There is gas within this. The examination also demonstrates a 3.8 x 4.6 cm fluid collection posterior to the stomach. Both of these are unchanged from previous. 2. No findings to indicate bowel obstruction. 3. Bilateral pleural effusion with consolidative changes in the left lung base. 4. Small amount of free fluid within the pelvis. 5. Vega catheter in good position. S/P EUS with cyst gastrostomy (05/17/17)----> Pancreatic pseudocyst. HH stable. Pancreatic fluid with viridans streptococcus and then no growth. WBC 8.2 Ceftriaxone. - Diarrhea. 3 dark stools so far today. States she has been having diarrhea for a few days. Will send for cdiff. - Splenic infarction with liquefaction, ? secondary to compression from large pseudocyst. HH stable 8.6/25.3. WBC 8.1. Afebrile GS following. - Fever/Leukocytosis. Pancreatic fluid culture Viridans Streptococcus Grp. and then no growth on 05/11. BCx no growth 5 day, Pleural fluid no growth 48 hours. Afebrile. Ceftriaxone - Respiratory failure, left pleural effusion. S/P CT insertion on left. - Elevated LFTs, new. LFTs improved. - Chronic portal vein thrombosis. This is chronic. - Abnormal weight loss. Reports 30 lb weight loss in 3 months. Unintentional - Hx elevated chromogranin level. During a previous hospitalization, she complained of flushing, diarrhea, abdominal pain. She was evaluated with chromogranin A 108.0 (significantly high), Gastrin 86, VIP less than 50. She did not fu. She is not having flushing or diarrhea at this time. - Sudden massive GI bleed with concern for perforated viscus. Possible bleeding from pancreas or splenic artery aneurysm. PLAN: - Consult IR for possible angiogram - Cross table lateral Xray to check for free air. - General surgery called, recommended IR for treatment. - CT scan abdomen if stabilizes. Watson Escamilla MD May 21, 2017 21:46
[2017-05-21 21:48] LABS: POTASSIUM 4.3 MEQ/L (3.5-5.1)
[2017-05-21 21:49] LABS: APTT (PATIENT) 94.8 SEC (24.3-30.1)
[2017-05-21 22:00] LABS: CALCIUM-PROTEIN CORRECTED 9.4 MG/DL (8.5-10.1)
[2017-05-21] MEDS: metroNIDAZOLE 500 MG INJ 100 ML IV SCH (22:00)
[2017-05-21] MEDS ORDERED: TERBUTALINE INJ 1 MG/ML AMP SQ PRN (22:00)
[2017-05-21] MEDS ORDERED: MICAFUNGIN INJ 100 MG in SODIUM CHLORIDE 0.9% INJ 100 ML IV ONE (22:00)
[2017-05-21] MEDS ORDERED: PIPERACIL-TAZO 4.5 GM PREMIX 100 ML IV SCH (22:00)
[2017-05-21] MEDS: cefTRIAXone INJ 2,000 MG in SODIUM CHLORIDE 0.9% INJ 100 ML IV SCH (22:00)
[2017-05-21] MEDS ORDERED: PHENYLEPHRINE 40 MG/D5W 496 ML ADMIX IV SCH ×2 (22:00)
--- NOTE | 2017-05-21 22:13 | RADRPT ---
EXAM DATE/TIME: 05/21/2017 21:42 [facility] COMPARISON: CT GUIDED CHEST TUBE PLACEMENT LEFT, May 18, 2017, 13:33. CT ABDOMEN & PELVIS W/O CONTRAST, April, 15:05. CHEST SINGLE AP, May 20, 2017, 15:12. CHEST SINGLE AP, May 21, 2017, 20:32. INDICATIONS : Large complex fluid collection in the left upper abdomen containing air. Please evaluate for free air ... MEDICAL HISTORY : None. SURGICAL HISTORY : None. ENCOUNTER: Initial ACUITY: 1 day PAIN SCORE: Non-responsive. LOCATION: Bilateral abdomen. FINDINGS: Lateral view of the abdomen demonstrate multiple air-fluid levels. There is a collection in the upper abdomen which may represent free air. No free air is identified. No organomegaly is evident. CONCLUSION: Possible free air in the upper abdomen which may be present in the previous noted large complex fluid collection. A CT is pending for further evaluation. Feng Mahoney MD on May 21, 2017 at 22:08 Board Certified Radiologist. This report was verified electronically.
[2017-05-21 22:14] LABS: AUTOMATED NEUTROPHIL # 17.3 TH/MM3 (1.8-7.7); BASOPHIL # 0.2 TH/MM3 (0-0.2); BASOPHIL % 1.1 % (0.0-2.0); EOSINOPHIL # 0.1 TH/MM3 (0-0.4); EOSINOPHIL % 0.7 % (0.0-4.0); HEMATOCRIT 25.7 % (35.0-46.0); LYMPH % 11.5 % (9.0-44.0); LYMPHOCYTE # 2.4 TH/MM3 (1.0-4.8); MEAN CELL VOLUME 83.5 FL (80.0-100.0); MEAN CORPUSCULAR HGB CONC 32.4 % (32.0-36.0); MONO % 2.1 % (0.0-8.0); NEUT % 84.6 % (16.0-70.0); PLATELET COUNT 90 TH/MM3 (150-450); RED BLOOD COUNT 3.07 MIL/MM3 (4.00-5.30); RED CELL DISTRIBUTION WIDTH 17.6 % (11.6-17.2); WHITE BLOOD COUNT 20.5 TH/MM3 (4.0-11.0)
[2017-05-21 22:15] LABS: HEMO FLAGS AUTO DIFF
[2017-05-21 22:42] LABS: BANDS 27 % (0-6); CORRECTED NUCLEATED RBC 2 /100 WBC (0-0); METAMYELOCYTES 1 % (0-1); MYELOCYTES 1 % (0-0); NEUTROPHIL # MANUAL DIFF 19.3 TH/MM3 (1.8-7.7); POLYS (SEG NEUTROPHILS) 65 % (16-70); WBC DIFF SAMPLE 100
--- NOTE | 2017-05-21 22:42 | PD.PROCEDR ---
Central Line Procedure REASON FOR PROCEDURE Central venous access PROCEDURE PERFORMED Central line placement: Right IJ CVL CONSENT Informed consent for procedure was obtained. The risks and benefits of the procedure were discussed to include but limited to bleeding, clot formation, infection, and even . ANESTHESIA Local injection of 1% Lidocaine DESCRIPTION OF THE PROCEDURE The patient was placed in supine, mild Trendelenburg position. The area was exposed and cleansed with ChloraPrep, times two. Large sterile drape was used to cover the patient, with the site exposed, under sterile conditions including cap, face mask, sterile gown, and sterile gloves. On single attempt, the introducer needle was inserted with negative pressure in syringe and venous flash was obtained. The guide wire was then advanced without any restriction and the needle was removed. The dilator was used without any complications. Using Seldinger technique the triple-lumen catheter was advanced over the guide wire to a depth of 16 centimeters. The guide wire was removed. All ports were aspirated with dark venous blood return and flushed easily with sterile saline. All ports were capped. Antibiotic disc was placed around central line at puncture site. The central line was secured to the skin with two interrupted 2.0 silk sutures. The area was bandaged with sterile see-through central line bandage. RADIOLOGICAL DATA Ultrasound guidance was used to locate right internal jugular vein. Doppler/ color flow was used to confirm venous flow. COMPLICATIONS: No apparent complications ESTIMATED BLOOD LOSS: Less than 1 cc. Param Rodriguez MD May 21, 2017 22:42
--- NOTE | 2017-05-21 22:43 | PD.PROCEDR ---
Procedure Note Procedure DATE: 05/21/2017 PROCEDURE: Left femoral arterial catheter placement INDICATION: Hemodynamic access DETAILS OF PROCEDURE The patient was placed in supine position. The skin was cleansed with Chloraprep. Additional barrier precautions included large sterile drape, sterile gloves, sterile gown, face mask, and hat. 1% lidocaine was used for local anesthesia. Under direct ultrasound guidance and on the initial attempt, the artery was accessed with an introducer needle. The guide wire was advanced. Using Seldinger technique 20 gauge arterial catheter was placed. The guide wire was removed. The catheter was connected to a transducer line and flushed with saline. The video monitor displayed normal arterial wave forms. The catheter was secured with 2-0 silk. A sterile dressing with antibiotic disc was applied. ESTIMATED BLOOD LOSS: minimal COMPLICATIONS: None Param Rodriguez MD May 21, 2017 22:43
--- NOTE | 2017-05-21 22:44 | PD.PROCEDR ---
Procedure Note Procedure DATE: 05/21/2017 CENTRAL LINE PLACEMENT: Left femoral vein. Ultrasound-guided INDICATION: Central venous access CONSENT Informed consent for procedure was obtained. DESCRIPTION OF THE PROCEDURE The patient was placed in supine position. The skin was cleansed with Chloraprep. Additional barrier precautions included large sterile drape, sterile gloves, sterile gown, face mask, and hat. 1 % lidocaine was used for local anesthesia. Under direct ultrasound guidance and on initial attempt, the vein was accessed with an introducer needle. The guide wire was advanced and the tract was dilated. Using Seldinger technique a Cordis catheter was advanced to a depth of 10.5 centimeters. The guide wire was removed. The Cordis had return of dark venous blood. The central line was secured with 2.0 silk. A sterile dressing with antibiotic disc was applied. ESTIMATED BLOOD LOSS: Minimal COMPLICATIONS: No apparent complications. Param Rodriguez MD May 21, 2017 22:44
[2017-05-21 22:45] LABS: PLATELET ESTIMATE SMEAR LOW (NORMAL); PLATELET MORPHOLOGY NORMAL (NORMAL); SCAN/DIFF FINAL DIFF MANUAL
--- NOTE | 2017-05-21 22:45 | PD.PROCEDR ---
Procedure Note Procedure DATE: 05/21/2017 PROCEDURE: Orotracheal intubation INDICATION: Acute hypoxemic respiratory failure DETAILS OF PROCEDURE The patient was placed in optimal position and preoxygenated with 100% FiO2 via bag valve mask. At the start oxygen saturation was []%. The patient was administered no medication. I entered the oropharynx with a size 4 GVL glidescope blade and obtained a grade 2 view of the airway. On single attempt a size 7.5 cuffed endotracheal tube was passed through the vocal cords. Correct tube location was confirmed with end tidal CO2 detector and by auscultating over bilateral lung baker. The endotracheal tube was secured with adhesive tape at a depth of 23 cm at the lips. The patient was connected to the ventilator. The patient tolerated the procedure well without any apparent complications. Oxygen saturations were maintained greater than 95% all times. STAT chest x-ray revealed adequate positioning of ET tube. Param Rodriguez MD May 21, 2017 22:44
[2017-05-21] MEDS ORDERED: IOHEXOL 350 MG/ML 10 ML VIAL (for RAD DIAG) IV ONE (22:48)
--- NOTE | 2017-05-21 22:57 | RADRPT ---
EXAM DATE/TIME: 05/21/2017 22:36 [facility] COMPARISON: CT ABDOMEN & PELVIS W/O CONTRAST, May 17, 2017, 15:05. INDICATIONS : Left upper chest pain. RADIATION DOSE: 5.27 CTDIvol (mGy) MEDICAL HISTORY : Hypercholesterolemia. Pancreatitis. Gastroesophageal reflux disease. Gastroparesis. Diabetes. SURGICAL HISTORY : Hysterectomy. section.Appendectomy. Oopherectomy. ENCOUNTER: Initial ACUITY: 1 day PAIN SCALE: Non-responsive LOCATION: Left upper chest TECHNIQUE: Volumetric scanning of the chest was performed. Using automated exposure control and adjustment of t he mA and/or kV according to patient size, radiation dose was kept as low as reasonably achievable to obtain optimal diagnostic quality images. DICOM format image data is available electronically for r eview and comparison. FINDINGS: LUNGS: There is no pneumothorax. There is consolidation in both posterior lung bases left greater than right with air bronchograms. There is lobation of the left hemidiaphragm. No concerning pulmonary nodule i s visualized. PLEURAE: There is small bilateral pleural effusions. MEDIASTINUM: The heart and great vessels demonstrate no acute abnormality. There is no mediastinal or hilar lymph adenopathy. An endotracheal tube and nasogastric tube are present. AXILLAE: Within normal limits. No lymphadenopathy. MUSCULOSKELETAL: Within normal limits for patient age. MISCELLANEOUS: There is ascites in the upper abdomen. A nasogastric tube is noted in place. There is a large collect ion again noted in the left upper abdomen which contains 2 internal catheters. There is no defined fl uid collection posterior to the stomach as well. CONCLUSION: 1. Small bilateral pleural effusions with consolidation in both posterior lung bases. There is elevat ion of the left hemidiaphragm. 2. Complex fluid collection again noted in the left upper abdomen with internal catheters. Feng Mahoney MD on May 21, 2017 at 22:50 Board Certified Radiologist. This report was verified electronically.
[2017-05-21] MEDS ORDERED: AMINOCAPROIC ACID INJ 5,000 MG in SODIUM CHLOR 0.9% 250 ML INJ 230 ML IV ONE (23:15)
--- NOTE | 2017-05-21 23:16 | RADRPT ---
EXAM DATE/TIME: 05/21/2017 22:36 This report includes an Addendum and supersedes previous reports for this exam. [facility] COMPARISON: CHEST EXPIRATION ONLY, May 19, 2017, 3:56. CT GUIDED CHEST TUBE PLACEMENT LEFT, May 18, 2017, 13:3 3. US CHEST LEFT, May 18, 2017, 9:09. CT ABDOMEN & PELVIS W/O CONTRAST, May 17, 2017, 15:05. INDICATIONS : Syncopal episode, blood in stool large complex mass in the left upper abdomen. Possible free air on p merrill film. IV CONTRAST: 100 cc Omnipaque 350 (iohexol) IV ORAL CONTRAST: No oral contrast ingested. RADIATION DOSE: 7.06 CTDIvol (mGy) MEDICAL HISTORY : Hypertension. Pancreatitis. Gastroesophageal reflux disease.Gastroparesis. Diabetes. SURGICAL HISTORY : section. Hysterectomy.Appendectomy.Oopherectomy. ENCOUNTER: Initial ACUITY: 1 day PAIN SCALE: Non-responsive LOCATION: Abdomen/pelvis TECHNIQUE: Volumetric scanning was performed using a multi-row detector CT scanner. The data was post processed with a variety of visualization algorithms including full volume maximum intensity projection, multi -planar sliding thin slab reformation, curved planar reformation, and surface rendering techniques. Using automated exposure control and adjustment of the mA and/or kV according to patient size, radiat ion dose was kept as low as reasonably achievable to obtain optimal diagnostic quality images. DICOM format image data is available electronically for review and comparison. FINDINGS: A large complex fluid collection is again noted in the left upper abdomen measuring up to approximate ly 13.6 x 11 cm. On prior study this was slightly larger measuring approximately 15 x 12 cm. Ther e are 2 internal catheter is within the collection which appeared to extend into the stomach. The pre viously noted air fluid level is located within the upper portion of this collection. There is elevat ion of the left hemidiaphragm. There are small pleural effusions with consolidation in both posterior lung bases. The more simple cystic collection posterior to the stomach is not significant changed an d measures approximately 4.2 x 4.3 cm. Gas and stool is noted throughout the colon. There is no evide nce of free air. ABDOMINAL AORTA: The lumen is smooth without significant narrowing or aneurismal dilation. The proximal celiac and sup erior mesenteric arteries are patent and normal in diameter. There are solitary renal arteries bilat erally without gross abnormality. BIFURCATION: Normal. RIGHT PELVIS: The right common iliac, internal iliac and external iliac vessels are patent without luminal irregula rity. LEFT PELVIS: The left common iliac, internal iliac and external iliac vessels are patent and without luminal irreg ularity. CONCLUSION: 1. The abdominal aorta is within normal limits with no evidence of aneurysm or dissection. 2. Large complex fluid collection again noted in left upper abdomen with no normal spleen identified. This is slightly smaller in size and has 2 internal drainage catheters. The air-fluid level seen on the plain film is located within this collection. There is no true free air. 3. Smaller cystic structure posterior to the stomach which is not significantly changed. 4. Mildly nonspecific, nonobstructive bowel gas pattern. 5. Small bilateral pleural effusions with consolidation in both posterior lung bases. Feng Mahoney MD on May 21, 2017 at 22:57 Board Certified Radiologist. This report was verified electronically. 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 Tim Valencia MD on May 21, 2017 at 23:50 Board Certified Radiologist. This report was verified electronically.
[2017-05-21] MEDS: PROPOFOL 1000 MG/100 ML INJ 100 ML IV SCH (23:45)
[2017-05-22] VITALS (18 sets, daily range): BP systolic 109–173; BP diastolic 64–101; PULSE 79–111; RESP 16; TEMP 97.5–99.8; O2SAT 95–100
[2017-05-22 00:09] LABS: BLOOD GAS BASE EXCESS -2.2 mmol/L (-2-2); BLOOD GAS CARBOXYHEMOGLOBIN 1.2 % (0-4); BLOOD GAS HCO3 22 mmol/L (22-26); BLOOD GAS METHEMOGLOBIN 1.2 % (0-2); BLOOD GAS O2 HGB SATURATION 98 % (90-100); BLOOD GAS OXYGEN CONTENT 14.2 Vol % (12.0-20.0); BLOOD GAS PCO2 34 mmHg (38-42); BLOOD GAS PO2 360 mmHg (61-120); BLOOD GAS TOTAL HGB 9.7 G/DL (12.0-16.0); TEMP CORR TO 98.6
[2017-05-22 00:10] LABS: CRITICAL VALUE NO; DRAW SITE RT BRACHIAL; FIO2 100 %; NUMBER OF ARTERIAL PUNCTURES 2; OXYGEN DEVICE VENTILATOR; STAT NO; VENT SETTINGS AC 12/500/5PEEP
[2017-05-22] MEDS ORDERED: ceFAZolin 2 GM PREMIX 50 ML ONE (00:38)
[2017-05-22] MEDS ORDERED: SODIUM CHLORIDE 0.9% FLUSH 10 ML FLUSH IVF PRN (00:45)
[2017-05-22] MEDS ORDERED: GELATIN 12 MM/7 MM FOAM I-ARTERIAL ONE (01:15)
[2017-05-22] MEDS ORDERED: IODIXANOL 320 MG/ML 50 ML VIAL (for RAD SPEC) I-ARTERIAL ONE (01:15)
--- NOTE | 2017-05-22 01:27 | PD.RAD ---
Post Procedure Progress Note Pre Procedure Diagnosis: (1) GI bleed Post Procedure Diagnosis: (1) GI bleed Procedure Date: May 22, 2017 Supervising Radiologist: Tim Valencia Proceduralist/Assist: RT Brijesh(R) Anesthesia: Local, Conscious Sedation Plan of Activity Patient to Unit: Critical Care Patient Condition: Critical See PACS Report for procedural detail/treatment Vascular-Arterial Procedure Procedure 1 Procedure Site: Celiac, Superior Mesenteric Artery Procedure(s): Angiogram, Embolization Access Access Site(s): Right Femoral Artery Closure Site(s): Right vascular closure device Findings: splenic artery pseudoaneurysm Treament Area: splenic artery embolization Tim Valencia MD May 22, 2017 01:27
[2017-05-22] MEDS: fentaNYL DRIP 250 ML IV SCH ×2 (02:44→18:36)
[2017-05-22 02:55] LABS: MRSA PCR NEGATIVE (NEGATIVE); STAPH AUREUS PCR NEGATIVE (NEGATIVE)
[2017-05-22] MEDS ORDERED: MIDAZOLAM 100 MG/ML INJ 100 ML IV SCH (03:15)
[2017-05-22] MEDS ORDERED: CLEVIDIPINE INJ 50 ML IV SCH (03:15)
[2017-05-22] MEDS ORDERED: LABETALOL HCL 100 MG/20 ML VIAL IV PUSH PRN (03:15)
[2017-05-22] MEDS ORDERED: DEXTROSE 50% IN WATER 50 ML VIAL(D50) IV PRN (03:30)
[2017-05-22] MEDS ORDERED: GLUCAGON 1 MG/ML VIAL OTHER PRN (03:30)
[2017-05-22 03:56] LABS: AUTOMATED NEUTROPHIL # 19.1 TH/MM3 (1.8-7.7); BASOPHIL # 0.1 TH/MM3 (0-0.2); BASOPHIL % 0.4 % (0.0-2.0); EOSINOPHIL % 0.1 % (0.0-4.0); HEMATOCRIT 22.6 % (35.0-46.0); LYMPHOCYTE # 1.1 TH/MM3 (1.0-4.8); MEAN CELL VOLUME 79.6 FL (80.0-100.0); MEAN CORPUSCULAR HEMOGLOBIN 27.7 PG (27.0-34.0); MEAN CORPUSCULAR HGB CONC 34.8 % (32.0-36.0); MONO % 4.1 % (0.0-8.0); NEUT % 90.4 % (16.0-70.0); PLATELET COUNT 75 TH/MM3 (150-450); RED BLOOD COUNT 2.84 MIL/MM3 (4.00-5.30); RED CELL DISTRIBUTION WIDTH 16.5 % (11.6-17.2); WHITE BLOOD COUNT 21.1 TH/MM3 (4.0-11.0)
[2017-05-22 04:00] LABS: HEMO FLAGS AUTO DIFF
[2017-05-22] MEDS: INSULIN NovoLIN REGULAR SUPPLEMENTAL SCALE SQ SCH ×5 (04:00→20:00)
[2017-05-22 04:01] LABS: HEMATOCRIT 22.4 % (35.0-46.0)
[2017-05-22 04:03] LABS: REVIEW FLAG FINAL
[2017-05-22 04:21] LABS: APTT (PATIENT) 27.6 SEC (24.3-30.1); INTERNATIONAL NORMALIZED RATIO 1.1 RATIO; PROTHROMBIN TIME - PATIENT 12.4 SEC (9.8-11.6)
[2017-05-22 04:23] LABS: BICARBONATE 26.6 MEQ/L (21.0-32.0); CALCIUM-PROTEIN CORRECTED 8.1 MG/DL (8.5-10.1); MAGNESIUM 1.7 MG/DL (1.5-2.5); POTASSIUM 3.1 MEQ/L (3.5-5.1); TOTAL BILIRUBIN ADULT 0.9 MG/DL (0.2-1.0)
[2017-05-22] MEDS: PROPOFOL 1000 MG/100 ML INJ 100 ML IV SCH ×2 (04:55→18:36)
[2017-05-22] MEDS: metroNIDAZOLE 500 MG INJ 100 ML IV SCH ×3 (04:56→22:30)
[2017-05-22] MEDS: PANTOPRAZOLE SODIUM 40 MG VIAL IV PUSH SCH ×2 (04:56→17:12)
[2017-05-22 05:28] LABS: BANDS 39 % (0-6); CORRECTED NUCLEATED RBC 3 /100 WBC (0-0); METAMYELOCYTES 2 % (0-1); MYELOCYTES 3 % (0-0); NEUTROPHIL # MANUAL DIFF 19.6 TH/MM3 (1.8-7.7); PLATELET ESTIMATE SMEAR LOW (NORMAL); PLATELET MORPHOLOGY NORMAL (NORMAL); POLYS (SEG NEUTROPHILS) 49 % (16-70); SCAN/DIFF FINAL DIFF MANUAL; WBC DIFF SAMPLE 100
[2017-05-22 05:29] LABS: TOXIC GRANULATION 1+ (NORMAL)
[2017-05-22] MEDS ORDERED: RESP: ALBUTEROL 2.5 MG/3 ML NEB (PRN) NEB (05:30)
[2017-05-22] MEDS ORDERED: POTASSIUM CHLORIDE INJ 30 MEQ in SODIUM CHLORIDE 0.9% INJ 100 ML IV-CENTRAL ONE (05:45)
[2017-05-22] MEDS: MAGNESIUM SULFATE 1 GM PREMIX 100 ML IV SCH ×2 (06:45→08:08)
[2017-05-22] MEDS: RESP: ALBUTEROL 2.5 MG/IPRATROPIUM 0.5 MG NEB (SCH) NEB ×3 (07:24→20:31)
[2017-05-22] MEDS: CHLORHEXIDINE 0.12% (ORAL KIT) 15 ML CUP MT SCH ×2 (08:00→22:33)
[2017-05-22] MEDS: NYSTATIN 100,000 U/GM PWD 15 GM BTL TOPICAL SCH (09:00)
[2017-05-22] MEDS: SODIUM CHLORIDE 0.9% FLUSH 10 ML FLUSH IVF SCH (09:00)
[2017-05-22] MEDS: CYANOCOBALAMIN 1,000 MCG TAB PO SCH (09:00)
[2017-05-22 10:04] LABS: INHIB SCRN PT PATIENT 12.7 SEC (9.8-11.6)
[2017-05-22 10:05] LABS: INHIBITOR SCRN PT NORMAL 10.5 SEC; INHIBITOR SCRN-PT CONTROL 10.9 SEC; PT 1N:1P 1HR-37C 11.4 SEC (9.8-11.6); PT 1PT:1NL 11.2 SEC (9.8-11.6); PT 1PT:4NL 10.7 SEC (9.8-11.6); PT NORM 1 HR-37C 10.7 SEC
--- NOTE | 2017-05-22 10:28 | RADRPT ---
EXAM DATE/TIME: 05/22/2017 00:11 [facility] COMPARISON: No previous studies available for comparison. INDICATIONS : Patient with massive GI bleed in need of angiogram and embolization of splenic artery. MEDICAL HISTORY : History of portal vein thrombosis, chronic pancreatitis, HTN, DM, acute respiratory failure, left ple ural effusion, anemia, thyroid disorder, gastroparesis, ETOH abuse, PTSD. SURGICAL HISTORY : History of appendectomy, hysterectomy, . ENCOUNTER: Initial ACUITY: 1 day PAIN SCORE: 0/10 LOCATION: Patient is vented. FLUORO TIME: 15.95 minutes IMAGE SERIES: 6 ACCESS SITE: Right Femoral artery CONTRAST: 1.) 50 cc Visipaque (iodixanol) MEDICATION(S): 1.) 2 g cefazolin (Ancef) IV DEVICE(S): 1.) Splenic artery 12-7 mm Gelfoam 2.) Splenic artery 10/5 Tornado embolic coil(s) 3.) Right common femoral artery 6Fr hemostasis device Starclose PROCEDURE : 1. Ultrasound-guided puncture of the right common femoral artery access site. 2. Angiography of the right common femoral artery access site prior to closure device. 3. Conscious sedation with continuous EKG and Oximetry monitoring. 4. Percutaneous closure of the right common femoral artery access site. 5. selective catheterization, superior mesenteric artery 6. Angiography of the superior mesenteric artery 7. selective catheterization, splenic artery 8. Celiac arteriography and selective splenic arteriography 9. Transcatheter embolization, splenic artery 10. Followup arteriography following embolization, splenic artery PROCEDURE: The patient was placed supine on the angiography table. The right groin was prepped in sterile fashio n. Full sterile technique was used, including cap, mask, sterile gloves and gown and a large sterile sheet. Hand hygiene and 2% chlorhexidine and/or betadine/alcohol prep was utilized per protocol for c utaneous antisepsis. The skin and subcutaneous tissues were infiltrated with lidocaine solution. Blun t dissection was utilized to free up the tissues superficial to the common femoral artery. Under dire ct ultrasound guidance, micropuncture access was accomplished into the common femoral artery allowing placement of a 4 Albanian vascular sheath. The ultrasound images depicting access guidance were saved and stored to PACS for permanent record. A 4 Albanian catheter was introduced and used to select the superior mesenteric artery. Superior mesent jenelle arteriography was performed. The catheter was then used to select the celiac artery and selectiv e celiac arteriography was performed. Presence of a pseudoaneurysm at the splenic hilum was confirmed . A 6.5 Albanian 55 cm steerable guide catheter was then introduced and used to engage the celiac artery origin. Through this, a 4 Albanian Glidex angled taper catheter and glide wire combination was introduc ed and manipulated out into the splenic artery. Selective splenic arteriography was performed. Embolization was then accomplished with introduction of Gelfoam slurry followed by a 10/5 tornado coi l followed by additional Gelfoam to complete occlusion of the vessel. Followup arteriography performe d from the proximal splenic revealed total cessation of antegrade flow past the coils with eliminatio n of filling of the pseudoaneurysm. Sheath arteriography was performed at the right groin and the arteriotomy was then closed with the St arclose device. The patient tolerated the procedure well and was returned to the intensive care unit in satisfactory condition. FINDINGS: Superior mesenteric artery is widely patent and normal in appearance with no suspicious findings to s uggest a hemorrhagic focus. Celiac artery is normal in appearance with classical branching pattern. I n the splenic hilar region, a 1.5 cm pseudoaneurysm is identified arising from one of the proximal sp lenic branch vessels. The location of the pseudoaneurysm is immediately adjacent to the loop of one o f the patient's cyst gastrostomy drainage catheters. Active bleeding was not identified at the time o f the angiogram. The splenic artery was embolized with combination of Gelfoam and coil as described i n detail above. CONCLUSION: Splenic hilar pseudoaneurysm embolized as described in detail above. Tim Valencia MD on May 22, 2017 at 10:13 Board Certified Radiologist. This report was verified electronically.
--- NOTE | 2017-05-22 11:20 | HHI.IDPN ---
Note Infectious Disease Note Patient coded last night. Had embolization of the splenic artery aneurysm. Intubated and on the vent. 70% FIO2. Multiple units of blood given. Afebrile. BP elevated. Post thoracentesis 01/18. chest tube placed and removed. Post pseudocyst gastrostomy. 05/17. Patient was readmitted to the hospital on May 11, 2017. The patient was recently discharged from the hospital on April 22, 2017 after treatment for acute pancreatitis. PAST MEDICAL HISTORY 1. Hypertension 2. Diabetes mellitus 3. Chronic pancreatitis 4. Portal vein thrombosis. 5. Chronic back pain. 6. Gastroesophageal reflux disease 7. Posttraumatic stress disorder 8. Gastroparesis. PAST SURGICAL HISTORY: History of hysterectomy. History of appendectomy. . ALLERGIES SULFA CIPROFLOXACIN ANTIBIOTICS: Ceftriaxone. Flagyl. SOCIAL HISTORY The patient is . She smokes half-a-pack of cigarettes a day. No alcohol use. No illicit drugs. OBJECTIVE: Vital Signs Date Time Temp Pulse Resp B/P Pulse Ox O2 Delivery O2 Flow Rate FiO2 05/22/17 10:00 96 05/22/17 08:00 93 05/22/17 08:00 97.7 95 16 95 142/97 05/22/17 08:00 70 05/22/17 07:24 100 70 05/22/17 06:00 100 05/22/17 05:30 70 05/22/17 05:21 100 80 05/22/17 04:00 97.6 82 16 123/88 100 152/99 05/22/17 04:00 80 05/22/17 04:00 82 05/22/17 02:45 100 90 05/22/17 02:00 79 05/22/17 00:00 100 100 05/22/17 00:00 95 16 173/101 96 05/22/17 00:00 80 05/22/17 00:00 95 05/21/17 22:15 100 100 05/21/17 22:00 111 05/21/17 20:00 100 100 05/21/17 20:00 143 35 117/83 05/21/17 20:00 100 05/21/17 20:00 143 05/21/17 19:45 100 3.00 05/21/17 19:45 100 3.00 05/21/17 16:00 98.5 81 18 142/97 94 05/21/17 12:00 97.9 78 18 135/95 95 05/21/17 05/21/17 05/22/17 14:59 22:59 06:59 Intake Total 960 ml 4803 ml Output Total 1950 ml Balance 960 ml 2853 ml Intake Oral 960 ml Packed Cells 3125 ml FFP 1428 ml Cryoprecipitate 250 ml Output Urine Total 1650 ml Gastric Drainage Total 300 ml # Voids 7 Laboratory Tests Test 05/21/17 05/21/17 05/21/17 05/22/17 05:42 21:10 21:55 03:24 White Blood Count 8.1 TH/MM3 17.6 TH/MM3 20.5 TH/MM3 21.1 TH/MM3 Red Blood Count 3.02 MIL/MM3 3.11 MIL/MM3 3.07 MIL/MM3 2.84 MIL/MM3 Hemoglobin 8.5 GM/DL 8.5 GM/DL 8.3 GM/DL 7.9 GM/DL Hematocrit 25.0 % 27.0 % 25.7 % 22.6 % Mean Corpuscular Volume 82.6 FL 87.0 FL 83.5 FL 79.6 FL Mean Corpuscular Hemoglobin 28.1 PG 27.3 PG 27.0 PG 27.7 PG Mean Corpuscular Hemoglobin 33.9 % 31.4 % 32.4 % 34.8 % Concent Red Cell Distribution Width 19.3 % 17.6 % 17.6 % 16.5 % Platelet Count 271 TH/MM3 86 TH/MM3 90 TH/MM3 75 TH/MM3 Mean Platelet Volume 7.8 FL 8.1 FL 7.6 FL 7.5 FL Neutrophils (%) (Auto) 84.6 % 90.4 % Lymphocytes (%) (Auto) 11.5 % 5.0 % Monocytes (%) (Auto) 2.1 % 4.1 % Eosinophils (%) (Auto) 0.7 % 0.1 % Basophils (%) (Auto) 1.1 % 0.4 % Neutrophils # (Auto) 17.3 TH/MM3 19.1 TH/MM3 Lymphocytes # (Auto) 2.4 TH/MM3 1.1 TH/MM3 Monocytes # (Auto) 0.4 TH/MM3 0.9 TH/MM3 Eosinophils # (Auto) 0.1 TH/MM3 0.0 TH/MM3 Basophils # (Auto) 0.2 TH/MM3 0.1 TH/MM3 CBC Comment AUTO DIFF AUTO DIFF Differential Total Cells 100 100 Counted Neutrophils % (Manual) 65 % 49 % Band Neutrophils % 27 % 39 % Lymphocytes % 5 % 6 % Monocytes % 1 % 1 % Neutrophils # (Manual) 19.3 TH/MM3 19.6 TH/MM3 Metamyelocytes 1 % 2 % Myelocytes 1 % 3 % Nucleated Red Blood Cells 2 /100 WBC 3 /100 WBC Differential Comment FINAL DIFF FINAL DIFF MANUAL MANUAL Platelet Estimate LOW LOW Platelet Morphology Comment NORMAL NORMAL Toxic Granulation 1+ Laboratory Tests Test 05/20/17 05/21/17 05/21/17 05/21/17 18:47 05:42 21:00 21:10 Potassium Level 3.2 MEQ/L 3.0 MEQ/L 4.3 MEQ/L Sodium Level 143 MEQ/L 144 MEQ/L Chloride Level 105 MEQ/L 109 MEQ/L Carbon Dioxide Level 28.8 MEQ/L 11.0 MEQ/L Anion Gap 9 MEQ/L 24 MEQ/L Blood Urea Nitrogen 2 MG/DL 4 MG/DL Creatinine 0.44 MG/DL 0.90 MG/DL Estimat Glomerular Filtration 150 ML/MIN 66 ML/MIN Rate Random Glucose 117 MG/DL 359 MG/DL Calcium Level 8.1 MG/DL 6.5 MG/DL Protein Corrected Calcium 9.4 MG/DL Total Creatine Kinase 39 U/L Total Protein 2.3 GM/DL Lactic Acid Level 14.7 mmol/L Test 05/21/17 05/22/17 21:55 03:24 Lactic Acid Level 10.7 mmol/L 1.3 mmol/L Sodium Level 144 MEQ/L Potassium Level 3.1 MEQ/L Chloride Level 108 MEQ/L Carbon Dioxide Level 26.6 MEQ/L Anion Gap 9 MEQ/L Blood Urea Nitrogen 5 MG/DL Creatinine 0.73 MG/DL Estimat Glomerular Filtration 84 ML/MIN Rate Random Glucose 204 MG/DL Calcium Level 6.9 MG/DL Protein Corrected Calcium 8.1 MG/DL Phosphorus Level 3.8 MG/DL Magnesium Level 1.7 MG/DL Total Bilirubin 0.9 MG/DL Aspartate Amino Transf 518 U/L (AST/SGOT) Alanine Aminotransferase 205 U/L (ALT/SGPT) Alkaline Phosphatase 118 U/L Troponin I 0.47 NG/ML Total Protein 4.8 GM/DL Albumin 2.1 GM/DL Lipase 503 U/L IMAGING: Splenic Arteriogram 05/22/17 0000 Signed Impressions: Service Date/Time: Monday, May 22, 2017 00:11 - CONCLUSION: Splenic hilar pseudoaneurysm embolized as described in detail above. Tim Valencia MD Chest X-Ray 05/21/17 0000 Signed Impressions: Service Date/Time: Sunday, May 21, 2017 20:32 - CONCLUSION: 1. Interval intubation and placement of right internal jugular central venous line with no visualized pneumothorax on this supine exam. 2. Mild patchy opacity at the left lung base which appears improved. Feng Mahoney MD Chest CT 05/21/17 0000 Signed Impressions: Service Date/Time: Sunday, May 21, 2017 22:36 - CONCLUSION: 1. Small bilateral pleural effusions with consolidation in both posterior lung bases. There is elevation of the left hemidiaphragm. 2. Complex fluid collection again noted in the left upper abdomen with internal catheters. Feng Mahoney MD Abdomen/Pelvis CT 05/21/17 0000 Signed Impressions: Service Date/Time: Sunday, May 21, 2017 22:36 - CONCLUSION: 1. The abdominal aorta is within normal limits with no evidence of aneurysm or dissection. 2. Large complex fluid collection again noted in left upper abdomen with no normal spleen identified. This is slightly smaller in size and has 2 internal drainage catheters. The air-fluid level seen on the plain film is located within this collection. There is no true free air. 3. Smaller cystic structure posterior to the stomach which is not significantly changed. 4. Mildly nonspecific, nonobstructive bowel gas pattern. 5. Small bilateral pleural effusions with consolidation in both posterior lung bases. Feng Mahoney MD ADDENDUM: Attention to the splenic hilar region reveals a 15 mm pseudoaneurysm arising from a proximal branch of the splenic artery immediately adjacent to the above-described heterogeneous collection and presumed to reflect source for recent known hemorrhage. Tim Valencia MD Abdomen X-Ray 05/21/17 0000 Signed Impressions: Service Date/Time: Sunday, May 21, 2017 21:42 - CONCLUSION: Possible free air in the upper abdomen which may be present in the previous noted large complex fluid collection. A CT is pending for further evaluation. Feng Mahoney MD Chest X-Ray 05/20/17 1400 Signed Impressions: Service Date/Time: Saturday, May 20, 2017 15:12 - CONCLUSION: 1. Drainage catheters over the left lower chest and upper abdomen region. 2. Suspected bibasilar areas of consolidation, atelectasis and effusions. When compared to the prior examination, the right-sided changes appear worse. The left-sided changes appear stable. Tim Chadwick MD PHYSICAL EXAMINATION GENERAL: Intubated and on the vent. Awakens easily and nods head appropriately. HEENT: No icterus. NECK: Supple without adenopathy. LUNGS: Good air movement. No rhonchi. HEART: Regular S1, S2 without murmurs. ABDOMEN: Distended, soft, non tender. EXTREMITIES: No clubbing, cyanosis or edema. SKIN: No rash. NEUROLOGIC: Awakens on the vent. IMPRESSION Pancreatitis acute. Infected pancreatic pseudocyst. Strep viridans group on culture from 05/11. (Patient status post endoscopic ultrasound with sphincterotomy, balloon dilatation and the double pigtail stent placement into the common bile duct.) Post pseudocyst gastrostomy. GI bleed. - Post splenic artery aneurysm embolization. Acute respiratory failure. Leukocytosis probably reactive. RECOMMENDATIONS 1. Continue ceftriaxone. 2. Continue Flagyl. 3. Monitor WBC. 4. Monitor temps. 5. Monitor clinical status. Anderson Sharpe MD May 22, 2017 11:20
--- NOTE | 2017-05-22 11:24 | HHI.CCPN ---
Subjective Remarks/Hospital Course Hospital Course: 52 y/o woman with chronic pancreatitis underwent endoscopic pseudocyst- gastrostomy today in OR. Cyst was mature and there is no evidence of tract leak. Unable to wean from ventilator after procedure, complicated by large left subphrenic collection, left pleural effusion, and consolidation of left lower lobe. 05/18: continues to be intubated, but awake and alert at this point. endorses pain over LUQ. denies other complaints. ultrasound of left chest with significant effusion. 05/19: IR guided left chest tube placed yesterday with 490 mL milky serous fluid drained. pulmonary mechanics slightly improved. somewhat agitated overnight. still follows commands. 05/20: extubated yesterday. tolerating regular diet. clinically improving. chest tube put out ~150cc/12h, serous. cultures have been NGTD. denies complaints. pain better controlled. Subjective: 05/21: Re consulted secondary to acute lower GI bleed. Halicat was called secondary to bright red blood per rectum. Patient was hypotensive and pale. Brought to room 514 and was intubated without anesthesia. Started on vasopressors. Received massive transfusion protocol. Notify Dr. Escamilla /GI. No intervention from his standpoint. Notify Dr. Villalpando and recommended no surgical intervention at this time due to complexity of medical to localize source of bleeding. Currently down for CT abdomen/pelvis. IR notified. 05/22: Patient is status post splenic embolization early this a.m.. She remains intubated and sedated, due to large fluid shifts no sedation holiday today. OGT output 300 cc since 12 midnight. Hemoglobin this a.m. 7.9 patient receiving 1 unit of packed red blood cells post transfusion hemoglobin pending. Objective Vital Signs Date Time Temp Pulse Resp B/P Pulse Ox O2 Delivery O2 Flow Rate FiO2 05/22/17 10:00 96 05/22/17 08:00 97.7 16 95 142/97 05/22/17 08:00 70 05/21/17 19:45 3.00 05/21/17 08:00 Room Air Intake and Output 05/21/17 05/21/17 05/22/17 08:00 16:00 00:00 Intake Total 390 ml 960 ml Output Total 1250 ml Balance -860 ml 960 ml Result Diagram: 05/22/17 0324 05/22/17 0324 Other Results Laboratory Tests Test 05/22/17 00:00 Blood Gas Puncture Site RT BRACHIAL Blood Gas Patient Temperature 98.6 Blood Gas HCO3 22 mmol/L (22-26) Blood Gas Base Excess -2.2 mmol/L (-2-2) Blood Gas Oxygen Saturation 98 % (90-100) Arterial Blood pH 7.42 (7.380-7.420) Arterial Blood Partial 34 mmHg (38-42) Pressure CO2 Arterial Blood Partial 360 mmHg Pressure O2 (61-120) Arterial Blood Oxygen Content 14.2 Vol % (12.0-20.0) Arterial Blood 1.2 % (0-4) Carboxyhemoglobin Arterial Blood Methemoglobin 1.2 % (0-2) Blood Gas Hemoglobin 9.7 G/DL (12.0-16.0) Oxygen Delivery Device VENTILATOR Blood Gas Ventilator Setting AC 12/500/5PEEP Blood Gas Inspired Oxygen 100 % Imaging Last Impressions Chest X-Ray 05/21/17 0000 Signed Impressions: Service Date/Time: Sunday, May 21, 2017 20:32 - CONCLUSION: 1. Interval intubation and placement of right internal jugular central venous line with no visualized pneumothorax on this supine exam. 2. Mild patchy opacity at the left lung base which appears improved. Feng Mahoney MD Abdomen X-Ray 05/21/17 0000 Signed Impressions: Service Date/Time: Sunday, May 21, 2017 21:42 - CONCLUSION: Possible free air in the upper abdomen which may be present in the previous noted large complex fluid collection. A CT is pending for further evaluation. Feng Mahoney MD Chest Tube Insertion 05/18/17 1308 Signed Impressions: Service Date/Time: Thursday, May 18, 2017 13:33 - CONCLUSION: Uncomplicated left chest tube placement. If Gram stain is negative the tube can be removed. Chest x-ray is pending in the a.m. Seamus Costa MD FACR Chest Ultrasound 05/18/17 0000 Signed Impressions: Service Date/Time: Thursday, May 18, 2017 09:09 - CONCLUSION: 1. There is a moderate pleural effusion on the left. A iris was placed on the skin surface. Venkata Costa MD Abdomen/Pelvis CT 05/17/17 1447 Signed Impressions: Service Date/Time: April 15:05 - CONCLUSION: 1. There is a 14.8 x 11.8 cm complex fluid collection in the left upper quadrant. This appears to represent liquefaction of the spleen post splenic infarction. There was apparently a large pseudocyst which traversed up into the splenic hilum. There is still considerable residual splenic tissue. There is a drain which decompresses this collection into the stomach. There is gas within this. The examination also demonstrates a 3.8 x 4.6 cm fluid collection posterior to the stomach. Both of these are unchanged from previous. 2. No findings to indicate bowel obstruction. 3. Bilateral pleural effusion with consolidative changes in the left lung base. 4. Small amount of free fluid within the pelvis. 5. Vega catheter in good position. Venkata Costa MD GI Procedure 05/17/17 0000 Signed Impressions: Service Date/Time: April 17:06 - CONCLUSION: 1. Interval placement of second stent catheter in the left upper quadrant. 2. The previously noted stent catheter is unchanged in appearance. 3. Nonspecific bowel gas pattern. Feng Mahoney MD Objective Remarks GENERAL: 52-year-old female, critically ill intubated and sedated SKIN: Warm and dry. HEAD: Atraumatic. Normocephalic. EYES: Pupils equal and round about 2 mm bilaterally and reactive. No scleral icterus. No injection or drainage. ENT: No nasal bleeding or discharge. Mucous membranes pink and moist. Orotracheally intubated NECK: Trachea midline. No JVD. CARDIOVASCULAR: Regular rate and rhythm. S1, S2. No S4. RESPIRATORY: Scattered rhonchi heard throughout all lung baker.. Breath sounds equal bilaterally. GASTROINTESTINAL: Abdomen soft, no tenderness elicited. Hypoactive bowel sounds significant. MUSCULOSKELETAL: Extremities without significant peripheral, or edema. No obvious deformities. NEUROLOGICAL: Sedated on the ventilator.RASS -2. When sedation decrease the patient is alert and following commands. Procedures S/P splenic embolization Urinary Catheter: Yes Assessment to: Continue Vega insert reason: Measure Accurate Output A/P Assessment and Plan Neuro/Psych: Posttraumatic stress disorder Acute toxic metabolic encephalopathy Currently on propofol/fentanyl infusion for sedation while intubated for ventilator synchrony Goal of RASS -2 Daily sedation vacation to begin tomorrow Holding BuSpar 30 mg twice a day medication for anxiety CV: Severe shock secondary to hypovolemia Lactic acidosis Status post splenic artery embolization Status post 6 PRBCs/6 FFP 1 cryoprecipitate. 1 platelet Normal saline at 84 cc an hour 05/22 Currently off all vasopressors after massive transfusion Trending lactates until cleared Resp: Acute respiratory failure PRVC 16/500/1.11/30/49 Ventilator bundle Duo nebs every 6 hours with albuterol every 2 hours when necessary dyspnea Spontaneous breathing trials daily Intubated emergently due to unstable condition GI: Lower GI bleed Chronic Pancreatitis with pseudocyst - persistent, stable. S/P cyst-gastrostomy 05/17/17I Status post endoscopic ultrasound with sphincterotomy, balloon dilatation and the double pigtail stent placement into the common bile duct. Discussed with Dr. Escamilla - plan for stat CT abdomen/pelvis. - Splenic artery embolization KUB revealed possible free air in the abdomen. Jean Paul Fuentes did not recommend surgery Noted pancreatic drains 2 : Vega catheter for accurate I's and O's in a critically ill patient Endo: Hyperglycemia Sliding scale insulin with Accu-Cheks to maintain euglycemia Renal: Monitor urine output Accurate I's and O's Heme: Acute post hemorrhagic blood loss anemia Elevated PTT Leukocytosis Thrombocytopenia S/P 05/21 massive transfusion protocol 5 mg Amicar 1 Monitor CBC daily. Follow trends Hgb 7.9, 1 u PRBC this am F/U post transfusion hgb ID: Pseudocyst infection - strep viridian 05/11 Continue Rocephin 2 g IV every 24 hours for an infected pseudocyst Infectious disease following Dr. Sharpe Panculture 2 blood culture now FEN: Replace electrolytes as clinically indicated MSK: PT evaluate and treat Access -Right IJ CVL/left femoral Cordis day #2 placed 05/21 Prophylaxis - GI - Protonix - DVT - SCDs/pharmacological prophylaxis contra indicated with acute hemorrhage Critical Care: This patient remains critically ill with one or more organ systems which are or may become a threat to life. I have spent in excess of 30 minutes discontinuously in the care and management of this patient. This time is exclusive of procedures, and includes, but is not limited to, evaluation of the patient, review of the medical record, discussions with family, consultants, nursing staff, or respiratory therapy, and documentation in the medical record. 1. Acute hypoxic Respiratory Failure - resolved. 2. left pleural effusion - resolved. 3. Plan: 1. d/c art line 2. oob to chair and ambulating tid. 3. pt/ot consult 4. advance diet as tolerated. 5. continue current pain regimen. 6. wean NC o2 for spo2 > 90% 7. will remove chest tube today. follow up cxr 8. f/u cultures: currently NGTD. stable for transfer to floor. will consult hospitalists. Physician Anita Sung MD May 22, 2017 11:24
--- NOTE | 2017-05-22 11:39 | HHI.GIFU ---
Subjective Remarks Pt transferred to unit overnight for massive GI bleeding. S/P multiple transfusions. Went to IR and had embolization of splenic artery embolization. Has not had further active bleeding according to the nurse. Lightly sedated on vent- c/o abdominal pain. Objective Vitals I&O Vital Signs Date Time Temp Pulse Resp B/P Pulse Ox O2 Delivery O2 Flow Rate FiO2 05/22/17 10:00 96 05/22/17 08:00 93 05/22/17 08:00 97.7 95 16 95 142/97 05/22/17 08:00 70 05/22/17 07:24 100 70 05/22/17 06:00 100 05/22/17 05:30 70 05/22/17 05:21 100 80 05/22/17 04:00 97.6 82 16 123/88 100 152/99 05/22/17 04:00 80 05/22/17 04:00 82 05/22/17 02:45 100 90 05/22/17 02:00 79 05/22/17 00:00 100 100 05/22/17 00:00 95 16 173/101 96 05/22/17 00:00 80 05/22/17 00:00 95 05/21/17 22:15 100 100 05/21/17 22:00 111 05/21/17 20:00 100 100 05/21/17 20:00 143 35 117/83 05/21/17 20:00 100 05/21/17 20:00 143 05/21/17 19:45 100 3.00 05/21/17 19:45 100 3.00 05/21/17 16:00 98.5 81 18 142/97 94 05/21/17 12:00 97.9 78 18 135/95 95 I/O 05/21/17 05/21/17 05/21/17 05/22/17 05/22/17 05/22/17 07:00 15:00 23:00 07:00 15:00 23:00 Intake Total 390 ml 960 ml 4803 ml Output Total 1250 ml 1950 ml Balance -860 ml 960 ml 2853 ml Intake Oral 280 ml 960 ml IV Total 110 ml Packed Cells 3125 ml FFP 1428 ml Cryoprecipitate 250 ml Output Urine Total 1250 ml 1650 ml Gastric Drainage Total 300 ml # Voids 7 # Bowel Movements 1 Laboratory Laboratory Tests Test 05/21/17 05/21/17 05/21/17 05/21/17 20:00 20:30 20:33 21:00 Nasal Screen MRSA (PCR) NEGATIVE Staphylococcus aureus NEGATIVE (PCR)(LAB) Blood Type A POSITIVE A POSITIVE Antibody Screen NEGATIVE Crossmatch Leukocyte-Reduced Leukocyte-Reduced Red Blood Red Blood Cells Cells Blood Bank Comment Prothrombin Time 15.9 Prothromb Time International 1.4 Ratio Activated Partial 94.8 Thromboplast Time Fibrinogen 161 Sodium Level 144 Potassium Level 4.3 Chloride Level 109 Carbon Dioxide Level 11.0 Anion Gap 24 Blood Urea Nitrogen 4 Creatinine 0.90 Estimat Glomerular Filtration 66 Rate Random Glucose 359 Calcium Level 6.5 Protein Corrected Calcium 9.4 Total Creatine Kinase 39 Total Protein 2.3 Test 05/21/17 05/21/17 05/21/17 05/21/17 21:10 21:18 21:55 22:55 White Blood Count 17.6 20.5 Red Blood Count 3.11 3.07 Hemoglobin 8.5 8.3 Hematocrit 27.0 25.7 Mean Corpuscular Volume 87.0 83.5 Mean Corpuscular Hemoglobin 27.3 27.0 Mean Corpuscular Hemoglobin 31.4 32.4 Concent Red Cell Distribution Width 17.6 17.6 Platelet Count 86 90 Mean Platelet Volume 8.1 7.6 Lactic Acid Level 14.7 10.7 Crossmatch Leukocyte-Reduced Red Blood Cells Blood Bank Comment Neutrophils (%) (Auto) 84.6 Lymphocytes (%) (Auto) 11.5 Monocytes (%) (Auto) 2.1 Eosinophils (%) (Auto) 0.7 Basophils (%) (Auto) 1.1 Neutrophils # (Auto) 17.3 Lymphocytes # (Auto) 2.4 Monocytes # (Auto) 0.4 Eosinophils # (Auto) 0.1 Basophils # (Auto) 0.2 CBC Comment AUTO DIFF Differential Total Cells 100 Counted Neutrophils % (Manual) 65 Band Neutrophils % 27 Lymphocytes % 5 Monocytes % 1 Neutrophils # (Manual) 19.3 Metamyelocytes 1 Myelocytes 1 Nucleated Red Blood Cells 2 Differential Comment FINAL DIFF MANUAL Platelet Estimate LOW Platelet Morphology Comment NORMAL Test 05/22/17 05/22/17 00:00 03:24 Blood Gas Puncture Site RT BRACHIAL Blood Gas Patient Temperature 98.6 Blood Gas HCO3 22 Blood Gas Base Excess -2.2 Blood Gas Oxygen Saturation 98 Arterial Blood pH 7.42 Arterial Blood Partial 34 Pressure CO2 Arterial Blood Partial 360 Pressure O2 Arterial Blood Oxygen Content 14.2 Arterial Blood 1.2 Carboxyhemoglobin Arterial Blood Methemoglobin 1.2 Blood Gas Hemoglobin 9.7 Oxygen Delivery Device VENTILATOR Blood Gas Ventilator Setting AC 12/500/5PEEP Blood Gas Inspired Oxygen 100 White Blood Count 21.1 Red Blood Count 2.84 Hemoglobin 7.9 Hematocrit 22.6 Mean Corpuscular Volume 79.6 Mean Corpuscular Hemoglobin 27.7 Mean Corpuscular Hemoglobin 34.8 Concent Red Cell Distribution Width 16.5 Platelet Count 75 Mean Platelet Volume 7.5 Neutrophils (%) (Auto) 90.4 Lymphocytes (%) (Auto) 5.0 Monocytes (%) (Auto) 4.1 Eosinophils (%) (Auto) 0.1 Basophils (%) (Auto) 0.4 Neutrophils # (Auto) 19.1 Lymphocytes # (Auto) 1.1 Monocytes # (Auto) 0.9 Eosinophils # (Auto) 0.0 Basophils # (Auto) 0.1 CBC Comment AUTO DIFF Differential Total Cells 100 Counted Neutrophils % (Manual) 49 Band Neutrophils % 39 Lymphocytes % 6 Monocytes % 1 Neutrophils # (Manual) 19.6 Metamyelocytes 2 Myelocytes 3 Nucleated Red Blood Cells 3 Differential Comment FINAL DIFF MANUAL Toxic Granulation 1+ Platelet Estimate LOW Platelet Morphology Comment NORMAL Prothrombin Time 12.7 Prothrombin Time Control 10.9 Prothromb Time International 1.1 Ratio Activated Partial 27.6 Thromboplast Time Mix PT Normal Plasma Immediate 10.5 Mix PT Normal Plasma 1 Hour 10.7 Mix PT Patient/Normal 1:4 10.7 Immediate Mix PT Patient/Normal 1:1 11.2 Immediate Mix PT Patient/Normal 1:1 1 11.4 Hr 37c Mix PT Patient/Normal 4:1 12.0 Immediate Fibrinogen 275 Coagulation Factor Inhibitor Screen Sodium Level 144 Potassium Level 3.1 Chloride Level 108 Carbon Dioxide Level 26.6 Anion Gap 9 Blood Urea Nitrogen 5 Creatinine 0.73 Estimat Glomerular Filtration 84 Rate Random Glucose 204 Lactic Acid Level 1.3 Calcium Level 6.9 Protein Corrected Calcium 8.1 Phosphorus Level 3.8 Magnesium Level 1.7 Total Bilirubin 0.9 Aspartate Amino Transf 518 (AST/SGOT) Alanine Aminotransferase 205 (ALT/SGPT) Alkaline Phosphatase 118 Troponin I 0.47 Total Protein 4.8 Albumin 2.1 Lipase 503 Date/Time Procedure Status Source Growth 05/18/17 13:45 Gram Stain - Final Complete Fluid Pleural Fluid 05/18/17 13:45 Body Fluid Culture - Final Complete Fluid Pleural Fluid NO GROWTH IN 72 HRS.--AEROBICALLY OR ... 05/18/17 13:45 Cancelled Abscess Lung Imaging Last Impressions Splenic Arteriogram 05/22/17 0000 Signed Impressions: Service Date/Time: Monday, May 22, 2017 00:11 - CONCLUSION: Splenic hilar pseudoaneurysm embolized as described in detail above. Tim Valencia MD Chest X-Ray 05/21/17 0000 Signed Impressions: Service Date/Time: Sunday, May 21, 2017 20:32 - CONCLUSION: 1. Interval intubation and placement of right internal jugular central venous line with no visualized pneumothorax on this supine exam. 2. Mild patchy opacity at the left lung base which appears improved. Feng Mahoney MD Chest CT 05/21/17 0000 Signed Impressions: Service Date/Time: Sunday, May 21, 2017 22:36 - CONCLUSION: 1. Small bilateral pleural effusions with consolidation in both posterior lung bases. There is elevation of the left hemidiaphragm. 2. Complex fluid collection again noted in the left upper abdomen with internal catheters. Feng Mahoney MD Abdomen/Pelvis CT 05/21/17 0000 Signed Impressions: Service Date/Time: Sunday, May 21, 2017 22:36 - CONCLUSION: 1. The abdominal aorta is within normal limits with no evidence of aneurysm or dissection. 2. Large complex fluid collection again noted in left upper abdomen with no normal spleen identified. This is slightly smaller in size and has 2 internal drainage catheters. The air-fluid level seen on the plain film is located within this collection. There is no true free air. 3. Smaller cystic structure posterior to the stomach which is not significantly changed. 4. Mildly nonspecific, nonobstructive bowel gas pattern. 5. Small bilateral pleural effusions with consolidation in both posterior lung bases. Feng Mahoney MD ADDENDUM: Attention to the splenic hilar region reveals a 15 mm pseudoaneurysm arising from a proximal branch of the splenic artery immediately adjacent to the above-described heterogeneous collection and presumed to reflect source for recent known hemorrhage. Tim Valencia MD Abdomen X-Ray 05/21/17 0000 Signed Impressions: Service Date/Time: Sunday, May 21, 2017 21:42 - CONCLUSION: Possible free air in the upper abdomen which may be present in the previous noted large complex fluid collection. A CT is pending for further evaluation. Feng Mahoney MD Chest Tube Insertion 05/18/17 1308 Signed Impressions: Service Date/Time: Thursday, May 18, 2017 13:33 - CONCLUSION: Uncomplicated left chest tube placement. If Gram stain is negative the tube can be removed. Chest x-ray is pending in the a.m. Seamus Costa MD FACR Chest Ultrasound 05/18/17 0000 Signed Impressions: Service Date/Time: Thursday, May 18, 2017 09:09 - CONCLUSION: 1. There is a moderate pleural effusion on the left. A iris was placed on the skin surface. Venkata Costa MD GI Procedure 05/17/17 0000 Signed Impressions: Service Date/Time: April 17:06 - CONCLUSION: 1. Interval placement of second stent catheter in the left upper quadrant. 2. The previously noted stent catheter is unchanged in appearance. 3. Nonspecific bowel gas pattern. Feng Mahoney MD Physical Exam HEENT: Normocephalic, atraumatic. CHEST: Resp. even/unlabored. OETT to vent. CTA CARDIAC: RRR ABDOMEN: Abdomen semifirm, mildly distended, diffuse abdominal tenderness- more so on left side. bowel sounds active EXTREMITIES: No cyanosis SKIN: normal. PRISON CLASSIFICATION COUNSELOR: Lightly sedated on vent, follows commands and nods appropriately Assessment and Plan Plan ASSESSMENT: - Massive bleeding secondary to splenic pseudoaneurysm. Pt had sudden onset of rectal bleeding last night and was transferred to the unit. S/P 8 units PRBC, 4 units liquid plasma, 4 units FFP, 1 unit platelets, 1 cryoprecipitate overnight. S/P Angiogram with embolization of splenic hilar pseudoaneurysm by IR (05/22/17). No further bleeding. HH 7.9/22.6. - Acute on chronic pancreatitis with large pseudocyst formation. Pt with 4 year hx of pancreatitis (states she has more than 10-12 episodes per year). States last episode was last month. Abdomen/Pelvis CT (05/10/17)---> 1. 14 x 10 CM sub-phrenic fluid collection on the left larger than on the prior study. This could be related to pseudocyst or perhaps splenic hematoma. The findings have worsened when compared with the prior examination. 2. Chronic calcific pancreatitis 3. Chronic portal vein thrombosis. She quit ETOH use >1 year ago. She reports that she was told more than a year ago that she had a pseudocyst and needed it removed, but that the [facility] will not approve this. States she was told one month ago that her ibuprofen use may have caused her pancreatitis and stopped this. Of note, we did recommend EUS with FNA in past, but she did not follow up and she we were unable to contact her by phone or mail. S/P EUS w/ cyst gastrostomy (05/11/17) --> EGD findings Normal esophagus, Bulging in the stomach with food residue, Normal duodenum, EUS findings with hypoechoic homogeneous cyst, which was aspirated and dark lactose brownish aspirate was obtained and sent for culture and labs, s/p 7 Chinese 7 cm double pigtail stent placement. Lipase normalized. Abdomen/Pelvis CT (05/17/17)----> 1. There is a 14.8 x 11.8 cm complex fluid collection in the left upper quadrant. This appears to represent liquefaction of the spleen post splenic infarction. There was apparently a large pseudocyst which traversed up into the splenic hilum. There is still considerable residual splenic tissue. There is a drain which decompresses this collection into the stomach. There is gas within this. The examination also demonstrates a 3.8 x 4.6 cm fluid collection posterior to the stomach. Both of these are unchanged from previous. 2. No findings to indicate bowel obstruction. 3. Bilateral pleural effusion with consolidative changes in the left lung base. 4. Small amount of free fluid within the pelvis. 5. Vega catheter in good position. S/P EUS with cyst gastrostomy (05/17/17)----> Pancreatic pseudocyst. Ceftriaxone, Flagyl. - Diarrhea. None today. - Splenic infarction with liquefaction, likely secondary to compression from large pseudocyst with bleeding from splenic hilar aneurysm overnight. HH stable 7.9/22.6. WBC 21.1. Afebrile. GS following. - Respiratory failure. Vent per CCM. - Fever/Leukocytosis. WBC 21.1. Flagyl, Ceftriaxone. - Respiratory failure, left pleural effusion. S/P CT insertion on left. - Elevated LFTs, new. These had improved, but went up overnight. ? Shocked liver. T. Bili 0.9, AST 518, ALT 205, ALk Phosph 118. - Chronic portal vein thrombosis. This is chronic. - Abnormal weight loss. Reports 30 lb weight loss in 3 months. Unintentional - Hx elevated chromogranin level. During a previous hospitalization, she complained of flushing, diarrhea, abdominal pain. She was evaluated with chromogranin A 108.0 (significantly high), Gastrin 86, VIP less than 50. She did not fu. She is not having flushing or diarrhea at this time. PLAN: - NPO - S/P embolization of splenic hilar pseudoaneurysm by IR overnight - Monitor HH - Transfuse as necessary - Cont. PPI - Cont. Abx per ID recommendations, on ceftriaxone and flagyl - CBC, CMP in am - Repeat imaging in 1 month to reassess cyst - EGD w/ stent removal 2-3m - Further recommendations to follow based on results of above - Pt seen and examined by Dr. Escamilla and myself and this note is written on his behalf Jordyn Puente May 22, 2017 11:39
[2017-05-22 12:41] LABS: HEMATOCRIT 23.4 % (35.0-46.0)
[2017-05-22 12:42] LABS: REVIEW FLAG FINAL
[2017-05-22 13:33] LABS: BLOOD GAS BASE EXCESS 1.3 mmol/L (-2-2); BLOOD GAS CARBOXYHEMOGLOBIN 1.4 % (0-4); BLOOD GAS HCO3 25 mmol/L (22-26); BLOOD GAS METHEMOGLOBIN 1.1 % (0-2); BLOOD GAS O2 HGB SATURATION 97 % (90-100); BLOOD GAS OXYGEN CONTENT 11.5 Vol % (12.0-20.0); BLOOD GAS PCO2 33 mmHg (38-42); BLOOD GAS PO2 199 mmHg (61-120); BLOOD GAS TOTAL HGB 8.1 G/DL (12.0-16.0); TEMP CORR TO 98.6
[2017-05-22 13:34] LABS: CRITICAL VALUE NO; OXYGEN DEVICE VENTILATOR
[2017-05-22 13:35] LABS: DRAW SITE ART LINE; FIO2 70 %; STAT NO; ULNAR PULSE PRESENT; VENT SETTINGS PRVC/AC
[2017-05-22] MEDS: cefTRIAXone INJ 2,000 MG in SODIUM CHLORIDE 0.9% INJ 100 ML IV SCH (22:30)
[2017-05-23] VITALS (19 sets, daily range): BP systolic 100–129; BP diastolic 62–82; PULSE 99–108; RESP 12–16; TEMP 98.6–99.5; O2SAT 95–100
[2017-05-23] MEDS: RESP: ALBUTEROL 2.5 MG/IPRATROPIUM 0.5 MG NEB (SCH) NEB ×4 (03:13→21:02)
[2017-05-23] MEDS: PROPOFOL 1000 MG/100 ML INJ 100 ML IV SCH ×2 (03:40→13:50)
[2017-05-23] MEDS: fentaNYL DRIP 250 ML IV SCH (03:40)
[2017-05-23] MEDS: NYSTATIN 100,000 U/GM PWD 15 GM BTL TOPICAL SCH ×3 (03:41→20:34)
[2017-05-23] MEDS: PANTOPRAZOLE SODIUM 40 MG VIAL IV PUSH SCH ×2 (03:41→16:00)
[2017-05-23] MEDS: INSULIN NovoLIN REGULAR SUPPLEMENTAL SCALE SQ SCH ×6 (03:59→20:00)
[2017-05-23] MEDS: metroNIDAZOLE 500 MG INJ 100 ML IV SCH ×3 (04:14→20:34)
--- NOTE | 2017-05-23 05:38 | RADRPT ---
EXAM DATE/TIME: 05/23/2017 04:24 [facility] COMPARISON: ANGIOGRAM, SPLENIC ARTERY, May 22, 2017, 0:11. CTA ABDOMEN & PELVIS W 3D RECON, May 21, 2017, 22:3 6. CHEST SINGLE AP, May 21, 2017, 20:32. INDICATIONS : Shortness of breath. MEDICAL HISTORY : Hypercholesterolemia. Pancreatitis. Gastroesophageal reflux disease. Gastroparesis, Diabetes. SURGICAL HISTORY : Hysterectomy. section.Appendectomy. Oopherectomy ENCOUNTER: Subsequent ACUITY: 2 weeks PAIN SCORE: Non-responsive. LOCATION: Bilateral chest FINDINGS: Endotracheal tube tip well above the tara. Right internal jugular catheter tip projects over the p roximal superior vena cava. Gastric tube traverses the [id number]. 2 internal stents seen in the left upper quadrant. Elevation left hemidiaphragm similar to prior. The right lung is clear. No e vidence of mediastinal shift. The heart is stable in configuration. CONCLUSION: Stable left lower lobe consolidation. Harvey Stack MD on May 23, 2017 at 5:34 Board Certified Radiologist. This report was verified electronically.
[2017-05-23 05:43] LABS: MEAN CORPUSCULAR HEMOGLOBIN 27.1 PG (27.0-34.0); MEAN CORPUSCULAR HGB CONC 34.2 % (32.0-36.0); PLATELET COUNT 165 TH/MM3 (150-450); RED BLOOD COUNT 2.36 MIL/MM3 (4.00-5.30); RED CELL DISTRIBUTION WIDTH 17.7 % (11.6-17.2); WHITE BLOOD COUNT 19.1 TH/MM3 (4.0-11.0)
[2017-05-23 06:08] LABS: BICARBONATE 25.8 MEQ/L (21.0-32.0); MAGNESIUM 2.1 MG/DL (1.5-2.5); POTASSIUM 3.5 MEQ/L (3.5-5.1)
[2017-05-23 06:16] LABS: REVIEW FLAG FINAL
[2017-05-23 06:21] LABS: CALCIUM-PROTEIN CORRECTED 8.4 MG/DL (8.5-10.1); HEMATOCRIT 18.6 % (35.0-46.0)
[2017-05-23] MEDS: SODIUM CHLORIDE 0.9% FLUSH 10 ML FLUSH IVF SCH (09:00)
[2017-05-23] MEDS: CYANOCOBALAMIN 1,000 MCG TAB PO SCH (09:20)
[2017-05-23] MEDS: CHLORHEXIDINE 0.12% (ORAL KIT) 15 ML CUP MT SCH ×2 (09:21→20:18)
[2017-05-23 11:47] LABS: INDIRECT BILIRUBIN 0.2 MG/DL (0.0-0.8); TOTAL BILIRUBIN ADULT 0.3 MG/DL (0.2-1.0)
--- NOTE | 2017-05-23 11:52 | HHI.GIFU ---
Subjective Remarks Lightly sedated on CPAP. Pain controlled. NGT clamped, but possible extubation today. HH did drop some today, but no obvious active bleeding. VSS. Objective Vitals I&O Vital Signs Date Time Temp Pulse Resp B/P Pulse Ox O2 Delivery O2 Flow Rate FiO2 05/23/17 10:00 104 05/23/17 08:27 98 35 05/23/17 08:00 35 05/23/17 08:00 98.6 100 16 102/82 95 05/23/17 08:00 104 05/23/17 06:00 101 05/23/17 04:03 98 40 05/23/17 04:00 40 05/23/17 04:00 99.1 108 16 100/62 97 125/69 05/23/17 04:00 108 05/23/17 02:00 104 05/23/17 01:03 100 50 05/23/17 00:00 99.5 104 16 105/66 100 127/76 05/23/17 00:00 104 05/23/17 00:00 50 05/22/17 22:03 99 50 05/22/17 22:00 111 05/22/17 20:00 50 05/22/17 20:00 107 05/22/17 20:00 99.8 107 16 109/64 99 117/76 05/22/17 19:10 99 50 05/22/17 18:00 100 05/22/17 16:00 50 05/22/17 16:00 100 05/22/17 16:00 97.5 106 16 126/83 96 05/22/17 14:00 100 05/22/17 12:00 100 05/22/17 12:00 97.8 100 16 135/93 95 05/22/17 12:00 70 I/O 05/22/17 05/22/17 05/22/17 05/23/17 05/23/17 05/23/17 07:00 15:00 23:00 07:00 15:00 23:00 Intake Total 4803 ml 185 ml 795 ml Output Total 1950 ml 400 ml 750 ml Balance 2853 ml -215 ml 45 ml IV Total 185 ml 795 ml Packed Cells 3125 ml FFP 1428 ml Cryoprecipitate 250 ml Output Urine Total 1650 ml 400 ml 550 ml Gastric Drainage Total 300 ml 200 ml Laboratory Laboratory Tests Test 05/22/17 05/22/17 05/23/17 11:42 13:18 03:40 Hemoglobin 7.9 6.4 Hematocrit 23.4 18.6 Blood Gas Puncture Site ART LINE Blood Gas Patient Temperature 98.6 Blood Gas HCO3 25 Blood Gas Base Excess 1.3 Blood Gas Oxygen Saturation 97 Arterial Blood pH 7.48 Arterial Blood Partial 33 Pressure CO2 Arterial Blood Partial 199 Pressure O2 Arterial Blood Oxygen Content 11.5 Arterial Blood 1.4 Carboxyhemoglobin Arterial Blood Methemoglobin 1.1 Blood Gas Hemoglobin 8.1 Oxygen Delivery Device VENTILATOR Blood Gas Ventilator Setting PRVC/AC Blood Gas Inspired Oxygen 70 White Blood Count 19.1 Red Blood Count 2.36 Mean Corpuscular Volume 79.0 Mean Corpuscular Hemoglobin 27.1 Mean Corpuscular Hemoglobin 34.2 Concent Red Cell Distribution Width 17.7 Platelet Count 165 Mean Platelet Volume 9.0 Sodium Level 146 Potassium Level 3.5 Chloride Level 111 Carbon Dioxide Level 25.8 Anion Gap 9 Blood Urea Nitrogen 11 Creatinine 0.85 Estimat Glomerular Filtration 70 Rate Random Glucose 119 Calcium Level 6.8 Protein Corrected Calcium 8.4 Phosphorus Level 3.6 Magnesium Level 2.1 Total Protein 4.2 Date/Time Procedure Status Source Growth 05/18/17 13:45 Gram Stain - Final Complete Fluid Pleural Fluid 05/18/17 13:45 Body Fluid Culture - Final Complete Fluid Pleural Fluid NO GROWTH IN 72 HRS.--AEROBICALLY OR ... 05/18/17 13:45 Cancelled Abscess Lung Imaging Last Impressions Chest X-Ray 05/23/17 0600 Signed Impressions: Service Date/Time: Tuesday, May 23, 2017 04:24 - CONCLUSION: Stable left lower lobe consolidation. Harvey Stack MD Splenic Arteriogram 05/22/17 0000 Signed Impressions: Service Date/Time: Monday, May 22, 2017 00:11 - CONCLUSION: Splenic hilar pseudoaneurysm embolized as described in detail above. Tim Valencia MD Chest CT 05/21/17 0000 Signed Impressions: Service Date/Time: Sunday, May 21, 2017 22:36 - CONCLUSION: 1. Small bilateral pleural effusions with consolidation in both posterior lung bases. There is elevation of the left hemidiaphragm. 2. Complex fluid collection again noted in the left upper abdomen with internal catheters. Feng Mahoney MD Abdomen/Pelvis CT 05/21/17 0000 Signed Impressions: Service Date/Time: Sunday, May 21, 2017 22:36 - CONCLUSION: 1. The abdominal aorta is within normal limits with no evidence of aneurysm or dissection. 2. Large complex fluid collection again noted in left upper abdomen with no normal spleen identified. This is slightly smaller in size and has 2 internal drainage catheters. The air-fluid level seen on the plain film is located within this collection. There is no true free air. 3. Smaller cystic structure posterior to the stomach which is not significantly changed. 4. Mildly nonspecific, nonobstructive bowel gas pattern. 5. Small bilateral pleural effusions with consolidation in both posterior lung bases. Feng Mahoney MD ADDENDUM: Attention to the splenic hilar region reveals a 15 mm pseudoaneurysm arising from a proximal branch of the splenic artery immediately adjacent to the above-described heterogeneous collection and presumed to reflect source for recent known hemorrhage. Tim Valencia MD Abdomen X-Ray 05/21/17 0000 Signed Impressions: Service Date/Time: Sunday, May 21, 2017 21:42 - CONCLUSION: Possible free air in the upper abdomen which may be present in the previous noted large complex fluid collection. A CT is pending for further evaluation. Feng Mahoney MD Chest Tube Insertion 05/18/17 1308 Signed Impressions: Service Date/Time: Thursday, May 18, 2017 13:33 - CONCLUSION: Uncomplicated left chest tube placement. If Gram stain is negative the tube can be removed. Chest x-ray is pending in the a.m. Seamus Costa MD FACR Chest Ultrasound 05/18/17 0000 Signed Impressions: Service Date/Time: Thursday, May 18, 2017 09:09 - CONCLUSION: 1. There is a moderate pleural effusion on the left. A iris was placed on the skin surface. Venkata Costa MD GI Procedure 05/17/17 0000 Signed Impressions: Service Date/Time: April 17:06 - CONCLUSION: 1. Interval placement of second stent catheter in the left upper quadrant. 2. The previously noted stent catheter is unchanged in appearance. 3. Nonspecific bowel gas pattern. Feng Mahoney MD Physical Exam HEENT: Normocephalic, atraumatic. CHEST: Resp. even/unlabored. OETT to vent- on CPAP. CTA CARDIAC: RRR ABDOMEN: Abdomen semifirm, mildly distended, mild diffuse abdominal tenderness - more so on left side. bowel sounds active EXTREMITIES: No cyanosis SKIN: normal. [employer]NAGER: Lightly sedated on vent, follows commands and nods appropriately Assessment and Plan Plan ASSESSMENT: - Massive bleeding secondary to splenic pseudoaneurysm. Pt had sudden onset of rectal bleeding evening of 05/21/early 05/22 and he was transferred to the unit. S/P Angiogram with embolization of splenic hilar pseudoaneurysm by IR (05/22/17). No further bleeding. S/P 12 units PRBC, 4 units liquid plasma, 4 units FFP, 1 unit platelets, 1 cryoprecipitate. HH did drop slightly to 6.4/18.6. D/W CCM, feels this may be dilutional, as there was no obvious blood loss and she received large volumes yesterday. Received another unit of PRBC today. Will closely monitor. - Acute on chronic pancreatitis with large pseudocyst formation. Pt with 4 year hx of pancreatitis (states she has more than 10-12 episodes per year). States last episode was last month. Abdomen/Pelvis CT (05/10/17)---> 1. 14 x 10 CM sub-phrenic fluid collection on the left larger than on the prior study. This could be related to pseudocyst or perhaps splenic hematoma. The findings have worsened when compared with the prior examination. 2. Chronic calcific pancreatitis 3. Chronic portal vein thrombosis. She quit ETOH use >1 year ago. She reports that she was told more than a year ago that she had a pseudocyst and needed it removed, but that the [facility] will not approve this. States she was told one month ago that her ibuprofen use may have caused her pancreatitis and stopped this. Of note, we did recommend EUS with FNA in past, but she did not follow up and she we were unable to contact her by phone or mail. S/P EUS w/ cyst gastrostomy (05/11/17) --> EGD findings Normal esophagus, Bulging in the stomach with food residue, Normal duodenum, EUS findings with hypoechoic homogeneous cyst, which was aspirated and dark lactose brownish aspirate was obtained and sent for culture and labs, s/p 7 [place] 7 cm double pigtail stent placement. Lipase normalized. Abdomen/Pelvis CT (05/17/17)----> 1. There is a 14.8 x 11.8 cm complex fluid collection in the left upper quadrant. This appears to represent liquefaction of the spleen post splenic infarction. There was apparently a large pseudocyst which traversed up into the splenic hilum. There is still considerable residual splenic tissue. There is a drain which decompresses this collection into the stomach. There is gas within this. The examination also demonstrates a 3.8 x 4.6 cm fluid collection posterior to the stomach. Both of these are unchanged from previous. 2. No findings to indicate bowel obstruction. 3. Bilateral pleural effusion with consolidative changes in the left lung base. 4. Small amount of free fluid within the pelvis. 5. Vega catheter in good position. S/P EUS with cyst gastrostomy (05/17/17)----> Pancreatic pseudocyst. Ceftriaxone - Diarrhea. None today. 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 HH stable had slight drop today to 6.4/18.6. D/W CCM, feels this may be dilutional, as there was no obvious blood loss and she received large volumes yesterday. Received another unit of PRBC today. Will closely monitor. GS following. - Respiratory failure. Vent per CCM. - Fever/Leukocytosis. WBC 19.1. Ceftriaxone. - Respiratory failure, left pleural effusion. S/P CT insertion on left during this hospitalization. - Elevated LFTs, new. These had improved, but went up overnight. ? Shocked liver. Will recheck today. - Chronic portal vein thrombosis. This is chronic. - Abnormal weight loss. Reports 30 lb weight loss in 3 months. Unintentional - Hx elevated chromogranin level. During a previous hospitalization, she complained of flushing, diarrhea, abdominal pain. She was evaluated with chromogranin A 108.0 (significantly high), Gastrin 86, VIP less than 50. She did not fu. She is not having flushing or diarrhea at this time. PLAN: - NPO, possible extubation. ? Clears if extubated and HH stable after transfusion. - S/P embolization of splenic hilar pseudoaneurysm by IR (05/22/17) - Monitor HH - Transfuse as necessary - Cont. PPI - Cont. Abx per ID recommendations, ceftriaxone - CBC, CMP in am - Repeat imaging in 1 month to reassess cyst - EGD w/ stent removal 2-3m - Further recommendations to follow based on results of above - Pt seen and examined by Dr. Escamilla and myself and this note is written on his behalf Jordyn Puente May 23, 2017 11:52
--- NOTE | 2017-05-23 11:54 | HHI.IDPN ---
Note Infectious Disease Note Had embolization of the splenic artery aneurysm. Intubated and on the vent. 35% FIO2. Awakens easily. Responsive. Afebrile. Post thoracentesis 01/18. chest tube placed and removed. Post pseudocyst gastrostomy. 05/17. Post code - 05/22. Patient was readmitted to the hospital on May 11, 2017. The patient was recently discharged from the hospital on April 22, 2017 after treatment for acute pancreatitis. PAST MEDICAL HISTORY 1. Hypertension 2. Diabetes mellitus 3. Chronic pancreatitis 4. Portal vein thrombosis. 5. Chronic back pain. 6. Gastroesophageal reflux disease 7. Posttraumatic stress disorder 8. Gastroparesis. PAST SURGICAL HISTORY: History of hysterectomy. History of appendectomy. . ALLERGIES SULFA CIPROFLOXACIN ANTIBIOTICS: Ceftriaxone. Flagyl. SOCIAL HISTORY The patient is . She smokes half-a-pack of cigarettes a day. No alcohol use. No illicit drugs. OBJECTIVE: Vital Signs Date Time Temp Pulse Resp B/P Pulse Ox O2 Delivery O2 Flow Rate FiO2 05/23/17 11:41 98 35 05/23/17 10:00 104 05/23/17 08:27 98 35 05/23/17 08:00 35 05/23/17 08:00 98.6 100 16 102/82 95 05/23/17 08:00 104 05/23/17 06:00 101 05/23/17 04:03 98 40 05/23/17 04:00 40 05/23/17 04:00 99.1 108 16 100/62 97 125/69 05/23/17 04:00 108 05/23/17 02:00 104 05/23/17 01:03 100 50 05/23/17 00:00 99.5 104 16 105/66 100 127/76 05/23/17 00:00 104 05/23/17 00:00 50 05/22/17 22:03 99 50 05/22/17 22:00 111 05/22/17 20:00 50 05/22/17 20:00 107 05/22/17 20:00 99.8 107 16 109/64 99 117/76 05/22/17 19:10 99 50 05/22/17 18:00 100 05/22/17 16:00 50 05/22/17 16:00 100 05/22/17 16:00 97.5 106 16 126/83 96 05/22/17 14:00 100 05/22/17 12:00 100 05/22/17 12:00 97.8 100 16 135/93 95 05/22/17 12:00 70 05/22/17 05/22/17 05/23/17 15:00 23:00 07:00 Intake Total 185 ml 795 ml Output Total 400 ml 750 ml Balance -215 ml 45 ml IV Total 185 ml 795 ml Output Urine Total 400 ml 550 ml Gastric Drainage Total 200 ml Laboratory Tests Test 05/21/17 05/21/17 05/22/17 05/22/17 21:10 21:55 03:24 11:42 White Blood Count 17.6 TH/MM3 20.5 TH/MM3 21.1 TH/MM3 Red Blood Count 3.11 MIL/MM3 3.07 MIL/MM3 2.84 MIL/MM3 Hemoglobin 8.5 GM/DL 8.3 GM/DL 7.9 GM/DL 7.9 GM/DL Hematocrit 27.0 % 25.7 % 22.6 % 23.4 % Mean Corpuscular Volume 87.0 FL 83.5 FL 79.6 FL Mean Corpuscular Hemoglobin 27.3 PG 27.0 PG 27.7 PG Mean Corpuscular Hemoglobin 31.4 % 32.4 % 34.8 % Concent Red Cell Distribution Width 17.6 % 17.6 % 16.5 % Platelet Count 86 TH/MM3 90 TH/MM3 75 TH/MM3 Mean Platelet Volume 8.1 FL 7.6 FL 7.5 FL Neutrophils (%) (Auto) 84.6 % 90.4 % Lymphocytes (%) (Auto) 11.5 % 5.0 % Monocytes (%) (Auto) 2.1 % 4.1 % Eosinophils (%) (Auto) 0.7 % 0.1 % Basophils (%) (Auto) 1.1 % 0.4 % Neutrophils # (Auto) 17.3 TH/MM3 19.1 TH/MM3 Lymphocytes # (Auto) 2.4 TH/MM3 1.1 TH/MM3 Monocytes # (Auto) 0.4 TH/MM3 0.9 TH/MM3 Eosinophils # (Auto) 0.1 TH/MM3 0.0 TH/MM3 Basophils # (Auto) 0.2 TH/MM3 0.1 TH/MM3 CBC Comment AUTO DIFF AUTO DIFF Differential Total Cells 100 100 Counted Neutrophils % (Manual) 65 % 49 % Band Neutrophils % 27 % 39 % Lymphocytes % 5 % 6 % Monocytes % 1 % 1 % Neutrophils # (Manual) 19.3 TH/MM3 19.6 TH/MM3 Metamyelocytes 1 % 2 % Myelocytes 1 % 3 % Nucleated Red Blood Cells 2 /100 WBC 3 /100 WBC Differential Comment FINAL DIFF FINAL DIFF MANUAL MANUAL Platelet Estimate LOW LOW Platelet Morphology Comment NORMAL NORMAL Toxic Granulation 1+ Test 05/23/17 03:40 White Blood Count 19.1 TH/MM3 Red Blood Count 2.36 MIL/MM3 Hemoglobin 6.4 GM/DL Hematocrit 18.6 % Mean Corpuscular Volume 79.0 FL Mean Corpuscular Hemoglobin 27.1 PG Mean Corpuscular Hemoglobin 34.2 % Concent Red Cell Distribution Width 17.7 % Platelet Count 165 TH/MM3 Mean Platelet Volume 9.0 FL Laboratory Tests Test 05/21/17 05/21/17 05/21/17 05/22/17 21:00 21:10 21:55 03:24 Sodium Level 144 MEQ/L 144 MEQ/L Potassium Level 4.3 MEQ/L 3.1 MEQ/L Chloride Level 109 MEQ/L 108 MEQ/L Carbon Dioxide Level 11.0 MEQ/L 26.6 MEQ/L Anion Gap 24 MEQ/L 9 MEQ/L Blood Urea Nitrogen 4 MG/DL 5 MG/DL Creatinine 0.90 MG/DL 0.73 MG/DL Estimat Glomerular Filtration 66 ML/MIN 84 ML/MIN Rate Random Glucose 359 MG/DL 204 MG/DL Calcium Level 6.5 MG/DL 6.9 MG/DL Protein Corrected Calcium 9.4 MG/DL 8.1 MG/DL Total Creatine Kinase 39 U/L Total Protein 2.3 GM/DL 4.8 GM/DL Lactic Acid Level 14.7 mmol/L 10.7 mmol/L 1.3 mmol/L Phosphorus Level 3.8 MG/DL Magnesium Level 1.7 MG/DL Total Bilirubin 0.9 MG/DL Aspartate Amino Transf 518 U/L (AST/SGOT) Alanine Aminotransferase 205 U/L (ALT/SGPT) Alkaline Phosphatase 118 U/L Troponin I 0.47 NG/ML Albumin 2.1 GM/DL Lipase 503 U/L Test 05/23/17 03:40 Sodium Level 146 MEQ/L Potassium Level 3.5 MEQ/L Chloride Level 111 MEQ/L Carbon Dioxide Level 25.8 MEQ/L Anion Gap 9 MEQ/L Blood Urea Nitrogen 11 MG/DL Creatinine 0.85 MG/DL Estimat Glomerular Filtration 70 ML/MIN Rate Random Glucose 119 MG/DL Calcium Level 6.8 MG/DL Protein Corrected Calcium 8.4 MG/DL Phosphorus Level 3.6 MG/DL Magnesium Level 2.1 MG/DL Direct Bilirubin 0.1 MG/DL Aspartate Amino Transf 99 U/L (AST/SGOT) Alanine Aminotransferase 93 U/L (ALT/SGPT) Total Protein 4.2 GM/DL Albumin 1.7 GM/DL IMAGING: Chest X-Ray 05/23/17 0600 Signed Impressions: Service Date/Time: Tuesday, May 23, 2017 04:24 - CONCLUSION: Stable left lower lobe consolidation. Harvey Stack MD Splenic Arteriogram 05/22/17 0000 Signed Impressions: Service Date/Time: Monday, May 22, 2017 00:11 - CONCLUSION: Splenic hilar pseudoaneurysm embolized as described in detail above. Tim Valencia MD Splenic Arteriogram 05/22/17 0000 Signed Impressions: Service Date/Time: Monday, May 22, 2017 00:11 - CONCLUSION: Splenic hilar pseudoaneurysm embolized as described in detail above. Tim Valencia MD Chest X-Ray 05/21/17 0000 Signed Impressions: Service Date/Time: Sunday, May 21, 2017 20:32 - CONCLUSION: 1. Interval intubation and placement of right internal jugular central venous line with no visualized pneumothorax on this supine exam. 2. Mild patchy opacity at the left lung base which appears improved. Feng Mahoney MD Chest CT 05/21/17 0000 Signed Impressions: Service Date/Time: Sunday, May 21, 2017 22:36 - CONCLUSION: 1. Small bilateral pleural effusions with consolidation in both posterior lung bases. There is elevation of the left hemidiaphragm. 2. Complex fluid collection again noted in the left upper abdomen with internal catheters. Feng Mahoney MD Abdomen/Pelvis CT 05/21/17 0000 Signed Impressions: Service Date/Time: Sunday, May 21, 2017 22:36 - CONCLUSION: 1. The abdominal aorta is within normal limits with no evidence of aneurysm or dissection. 2. Large complex fluid collection again noted in left upper abdomen with no normal spleen identified. This is slightly smaller in size and has 2 internal drainage catheters. The air-fluid level seen on the plain film is located within this collection. There is no true free air. 3. Smaller cystic structure posterior to the stomach which is not significantly changed. 4. Mildly nonspecific, nonobstructive bowel gas pattern. 5. Small bilateral pleural effusions with consolidation in both posterior lung bases. Feng Mahoney MD ADDENDUM: Attention to the splenic hilar region reveals a 15 mm pseudoaneurysm arising from a proximal branch of the splenic artery immediately adjacent to the above-described heterogeneous collection and presumed to reflect source for recent known hemorrhage. Tim Valencia MD Abdomen X-Ray 05/21/17 0000 Signed Impressions: Service Date/Time: Sunday, May 21, 2017 21:42 - CONCLUSION: Possible free air in the upper abdomen which may be present in the previous noted large complex fluid collection. A CT is pending for further evaluation. Feng Mahoney MD Chest X-Ray 05/20/17 1400 Signed Impressions: Service Date/Time: Saturday, May 20, 2017 15:12 - CONCLUSION: 1. Drainage catheters over the left lower chest and upper abdomen region. 2. Suspected bibasilar areas of consolidation, atelectasis and effusions. When compared to the prior examination, the right-sided changes appear worse. The left-sided changes appear stable. Tim Chadwick MD PHYSICAL EXAMINATION GENERAL: Intubated and on the vent. HEENT: No icterus. NECK: Supple without adenopathy. LUNGS: Good air movement. Clear. HEART: Regular S1, S2 without murmurs. ABDOMEN: Distended, soft, non tender. EXTREMITIES: No clubbing, cyanosis or edema. SKIN: No rash. NEUROLOGIC: Awakens on the vent. Follows commands. IMPRESSION Pancreatitis acute. Infected pancreatic pseudocyst. Strep viridans group on culture from 05/11. (Patient status post endoscopic ultrasound with sphincterotomy, balloon dilatation and the double pigtail stent placement into the common bile duct.) Post pseudocyst gastrostomy. GI bleed. - Post splenic artery aneurysm embolization 05/22. Acute respiratory failure. Leukocytosis probably reactive. RECOMMENDATIONS 1. Continue ceftriaxone. 2. Continue Flagyl. 3. Follow WBC. 4. Monitor temps. 5. Monitor clinical status. 6. Reculture if temp spikes. Anderson Sharpe MD May 23, 2017 11:54
[2017-05-23 12:50] LABS: AUTOMATED NEUTROPHIL # 18.2 TH/MM3 (1.8-7.7); BASOPHIL # 0.1 TH/MM3 (0-0.2); BASOPHIL % 0.4 % (0.0-2.0); EOSINOPHIL # 0.1 TH/MM3 (0-0.4); EOSINOPHIL % 0.3 % (0.0-4.0); LYMPH % 7.2 % (9.0-44.0); LYMPHOCYTE # 1.6 TH/MM3 (1.0-4.8); MEAN CELL VOLUME 80.8 FL (80.0-100.0); MEAN CORPUSCULAR HEMOGLOBIN 26.9 PG (27.0-34.0); MEAN CORPUSCULAR HGB CONC 33.3 % (32.0-36.0); MONO % 10.9 % (0.0-8.0); NEUT % 81.2 % (16.0-70.0); PLATELET COUNT 194 TH/MM3 (150-450); RED BLOOD COUNT 2.59 MIL/MM3 (4.00-5.30); RED CELL DISTRIBUTION WIDTH 17.2 % (11.6-17.2); WHITE BLOOD COUNT 22.4 TH/MM3 (4.0-11.0)
[2017-05-23 12:51] LABS: HEMO FLAGS AUTO DIFF
[2017-05-23 12:54] LABS: HEMATOCRIT 20.9 % (35.0-46.0)
[2017-05-23 13:36] LABS: BANDS 16 % (0-6); CORRECTED NUCLEATED RBC 4 /100 WBC (0-0); NEUTROPHIL # MANUAL DIFF 21.3 TH/MM3 (1.8-7.7); POLYS (SEG NEUTROPHILS) 79 % (16-70); WBC DIFF SAMPLE 100
[2017-05-23 13:38] LABS: PLATELET ESTIMATE SMEAR NORMAL (NORMAL); PLATELET MORPHOLOGY NORMAL (NORMAL); SCAN/DIFF FINAL DIFF MANUAL
--- NOTE | 2017-05-23 14:58 | HHI.CCPN ---
Subjective Remarks/Hospital Course Hospital Course: 52 y/o woman with chronic pancreatitis underwent endoscopic pseudocyst- gastrostomy today in OR. Cyst was mature and there is no evidence of tract leak. Unable to wean from ventilator after procedure, complicated by large left subphrenic collection, left pleural effusion, and consolidation of left lower lobe. 05/18: continues to be intubated, but awake and alert at this point. endorses pain over LUQ. denies other complaints. ultrasound of left chest with significant effusion. 05/19: IR guided left chest tube placed yesterday with 490 mL milky serous fluid drained. pulmonary mechanics slightly improved. somewhat agitated overnight. still follows commands. 05/20: extubated yesterday. tolerating regular diet. clinically improving. chest tube put out ~150cc/12h, serous. cultures have been NGTD. denies complaints. pain better controlled. Subjective: 05/21: Re consulted secondary to acute lower GI bleed. Halicat was called secondary to bright red blood per rectum. Patient was hypotensive and pale. Brought to room 514 and was intubated without anesthesia. Started on vasopressors. Received massive transfusion protocol. Notify Dr. Escamilla /GI. No intervention from his standpoint. Notify Dr. Villalpando and recommended no surgical intervention at this time due to complexity of medical to localize source of bleeding. Currently down for CT abdomen/pelvis. IR notified. 05/22: Patient is status post splenic embolization early this a.m.. She remains intubated and sedated, due to large fluid shifts no sedation holiday today. OGT output 300 cc since 12 midnight. Hemoglobin this a.m. 7.9 patient receiving 1 unit of packed red blood cells post transfusion hemoglobin pending. 05/23: Minimal OGT output, less than 100 cc over the last 12 hours. The patient was noted to have a decrease in hemoglobin this a.m., was transfused 1 unit PRBCs. Posttransfusion hemoglobin minimally changed, repeat hemoglobin pending. Plans to transfuse if hemoglobin less than 7, and continue serial monitoring every 6 hours. GCS 11 T. Patient successfully managed CPAP trials for approximately 4 hours. Plans to continue CPAP trials. Objective Vital Signs Date Time Temp Pulse Resp B/P Pulse Ox O2 Delivery O2 Flow Rate FiO2 05/23/17 13:15 40 05/23/17 12:00 104 05/23/17 12:00 98.6 16 118/67 96 05/21/17 19:45 3.00 05/21/17 08:00 Room Air Intake and Output 05/22/17 05/22/17 05/23/17 08:00 16:00 00:00 Intake Total 4803 ml 185 ml Output Total 1950 ml 400 ml Balance 2853 ml -215 ml Result Diagram: 05/23/17 1120 05/23/17 0340 Imaging Last Impressions Chest X-Ray 05/21/17 0000 Signed Impressions: Service Date/Time: Sunday, May 21, 2017 20:32 - CONCLUSION: 1. Interval intubation and placement of right internal jugular central venous line with no visualized pneumothorax on this supine exam. 2. Mild patchy opacity at the left lung base which appears improved. Feng Mahoney MD Abdomen X-Ray 05/21/17 0000 Signed Impressions: Service Date/Time: Sunday, May 21, 2017 21:42 - CONCLUSION: Possible free air in the upper abdomen which may be present in the previous noted large complex fluid collection. A CT is pending for further evaluation. Feng Mahoney MD Chest Tube Insertion 05/18/17 1308 Signed Impressions: Service Date/Time: Thursday, May 18, 2017 13:33 - CONCLUSION: Uncomplicated left chest tube placement. If Gram stain is negative the tube can be removed. Chest x-ray is pending in the a.m. Seamus Costa MD FACR Chest Ultrasound 05/18/17 0000 Signed Impressions: Service Date/Time: Thursday, May 18, 2017 09:09 - CONCLUSION: 1. There is a moderate pleural effusion on the left. A iris was placed on the skin surface. Venkata Costa MD Abdomen/Pelvis CT 05/17/17 1447 Signed Impressions: Service Date/Time: April 15:05 - CONCLUSION: 1. There is a 14.8 x 11.8 cm complex fluid collection in the left upper quadrant. This appears to represent liquefaction of the spleen post splenic infarction. There was apparently a large pseudocyst which traversed up into the splenic hilum. There is still considerable residual splenic tissue. There is a drain which decompresses this collection into the stomach. There is gas within this. The examination also demonstrates a 3.8 x 4.6 cm fluid collection posterior to the stomach. Both of these are unchanged from previous. 2. No findings to indicate bowel obstruction. 3. Bilateral pleural effusion with consolidative changes in the left lung base. 4. Small amount of free fluid within the pelvis. 5. Vega catheter in good position. Venkata Costa MD GI Procedure 05/17/17 0000 Signed Impressions: Service Date/Time: April 17:06 - CONCLUSION: 1. Interval placement of second stent catheter in the left upper quadrant. 2. The previously noted stent catheter is unchanged in appearance. 3. Nonspecific bowel gas pattern. Feng Mahoney MD Objective Remarks GENERAL: 52-year-old female, intubated and sedated. SKIN: Warm and dry. HEAD: Atraumatic. Normocephalic. EYES: Pupils equal and round about 2 mm bilaterally and reactive. No scleral icterus. No injection or drainage. ENT: No nasal bleeding or discharge. Mucous membranes pink and moist. Orotracheally intubated NECK: Trachea midline. No JVD. CARDIOVASCULAR: Regular rate and rhythm. S1, S2. No S4. RESPIRATORY: Scattered rhonchi heard throughout all lung baker.. Breath sounds equal bilaterally. GASTROINTESTINAL: Abdomen soft, no tenderness elicited. Hypoactive bowel sounds significant. MUSCULOSKELETAL: Extremities without significant peripheral, or edema. No obvious deformities. NEUROLOGICAL: Sedated on the ventilator.RASS -2. When sedation decreased the patient is alert and following commands. Procedures S/P splenic embolization Urinary Catheter: Yes Vega insert reason: Measure Accurate Output A/P Assessment and Plan Neuro/Psych: Posttraumatic stress disorder Acute toxic metabolic encephalopathy Currently on fentanyl infusion for sedation while intubated for ventilator synchrony Goal of RASS -2 Daily sedation vacation Holding BuSpar 30 mg twice a day medication for anxiety CV: Severe shock secondary to hypovolemia Lactic acidosis Status post splenic artery embolization Status post 6 PRBCs/6 FFP 1 cryoprecipitate. 1 platelet Normal saline at 84 cc /hour 05/22 Currently off all vasopressors after massive transfusion Trending lactates until cleared Resp: Acute respiratory failure PRVC 16/500/1.1//50 Ventilator bundle Duo nebs every 6 hours with albuterol every 2 hours PRN Spontaneous breathing trials daily Continue CPAP trials 05/23-chest x-ray stable left lower lobe consolidation GI: Lower GI bleed Chronic Pancreatitis with pseudocyst - persistent, stable. S/P cyst-gastrostomy 05/17/17I Status post endoscopic ultrasound with sphincterotomy, balloon dilatation and the double pigtail stent placement into the common bile duct. Discussed with Dr. Escamilla - plan for stat CT abdomen/pelvis. - Splenic artery embolization KUB revealed possible free air in the abdomen. Jean Paul Fuentes did not recommend surgery Noted dressing left abd C/D/I : Vega catheter for accurate I's and O's in a critically ill patient Endo: Hyperglycemia Sliding scale insulin with Accu-Cheks to maintain euglycemia Renal: Monitor urine output Accurate I's and O's Heme: Acute post hemorrhagic blood loss anemia Elevated PTT Leukocytosis Thrombocytopenia S/P 05/21 massive transfusion protocol 5 mg Amicar 1 Monitor CBC daily. Follow trends Hgb 7.9, 1 u PRBC this am Post transfusion hgb 7.0 Serial Hgb q 6 hr- transfuse for Hgb < 7.0 or clinical indication for hemodynamic instability ID: Pseudocyst infection - strep viridian 05/11 Continue Rocephin 2 g IV every 24 hours for an infected pseudocyst Infectious disease following Dr. Sharpe Panculture 2 blood culture - NGTD FEN: Replace electrolytes as clinically indicated MSK: PT evaluate and treat Access -Right IJ CVL/left femoral Cordis day #3 placed 05/21 Prophylaxis - GI - Protonix - DVT - SCDs/pharmacological prophylaxis contraindicated with acute hemorrhage Critical Care: This patient remains critically ill with one or more organ systems which are or may become a threat to life. I have spent in excess of 30 minutes discontinuously in the care and management of this patient. This time is exclusive of procedures, and includes, but is not limited to, evaluation of the patient, review of the medical record, discussions with family, consultants, nursing staff, or respiratory therapy, and documentation in the medical record. 1. Acute hypoxic Respiratory Failure - resolved. 2. left pleural effusion - resolved. 3. Plan: 1. d/c art line 2. oob to chair and ambulating tid. 3. pt/ot consult 4. advance diet as tolerated. 5. continue current pain regimen. 6. wean NC o2 for spo2 > 90% 7. will remove chest tube today. follow up cxr 8. f/u cultures: currently NGTD. stable for transfer to floor. will consult hospitalists. Physician Anita Sung MD May 23, 2017 14:57
[2017-05-23 15:53] LABS: REVIEW FLAG FINAL
[2017-05-23 15:57] LABS: HEMATOCRIT 20.1 % (35.0-46.0)
[2017-05-23] MEDS ORDERED: IOHEXOL 350 MG/ML 50 ML BTL (for RAD DIAG) IV ONE (17:43)
--- NOTE | 2017-05-23 19:28 | RADRPT ---
EXAM DATE/TIME: 05/23/2017 17:25 [facility] COMPARISON: CTA ABDOMEN & PELVIS W 3D RECON, May 21, 2017, 22:36. INDICATIONS : Decreased hemogolbin. Possible internal hemorrhage and clotting. IV CONTRAST: 100 cc Omnipaque 350 (iohexol) IV RADIATION DOSE: 12.17 CTDIvol (mGy) MEDICAL HISTORY : Hypertension. Pancreatitis. Gastroparesis. SURGICAL HISTORY : Appendectomy. Hysterectomy. section. ENCOUNTER: Initial ACUITY: 2 days PAIN SCALE: 0/10 LOCATION: abdomen and legs TECHNIQUE: Volumetric scanning was performed using a multi-row detector CT scanner. The data was post processed with a variety of visualization algorithms including full volume maximum intensity projection, multi -planar sliding thin slab reformation, curved planar reformation, and surface rendering techniques. Using automated exposure control and adjustment of the mA and/or kV according to patient size, radiat ion dose was kept as low as reasonably achievable to obtain optimal diagnostic quality images. DICO M format image data is available electronically for review and comparison. FINDINGS: There are small bilateral pleural effusions with mild consolidation in both lung bases. A large compl ex collection with air-fluid level and gas is again noted in the left upper abdomen. Again noted to c ontain multiple internal drains which extend into the stomach. There is a stable smaller cystic colle ction posterior to the pancreas. Calcifications are again noted. A Vega catheter is present in t he bladder. A small amount of ascitic fluid is noted in the right side of the pelvis. ABDOMINAL AORTA: The lumen is smooth without significant narrowing or aneurysmal dilation. The proximal celiac and page perior mesenteric arteries are patent and normal in diameter. There are solitary renal arteries bila terally without gross abnormality. BIFURCATION: Normal. RIGHT PELVIS: The right common iliac, internal iliac, and external iliac vessels are patent without luminal irregul arity. LEFT PELVIS: The left common iliac, internal iliac, and external iliac vessels are patent and without luminal irre gularity. RIGHT THIGH: The superficial femoral and profunda vessels are patent without luminal irregularity. LEFT THIGH: The superficial femoral and profunda vessels are patent without luminal irregularity. RIGHT KNEE: The distal femoral and popliteal arteries are patent without luminal irregularity. LEFT KNEE: The distal femoral and popliteal arteries are patent without luminal irregularity. RIGHT LEG: The trifurcation is intact. LEFT LEG: The trifurcation is intact. CONCLUSION: 1. The aorta and other vascular structures are intact with no focal aneurysm. 2. No evidence of large hematoma. 3. Large complex collection again noted in the left upper abdomen with air-fluid level and gas. There are internal drains again noted. Feng Mahoney MD on May 23, 2017 at 19:20 Board Certified Radiologist. This report was verified electronically.
--- NOTE | 2017-05-23 19:31 | RADRPT ---
EXAM DATE/TIME: 05/23/2017 17:25 [facility] COMPARISON: CTA ABDOMEN & PELVIS W 3D RECON, May 21, 2017, 22:36. INDICATIONS : hemogolbin. Possible internal hemorrhage. IV CONTRAST: 100 cc Omnipaque 350 (iohexol) IV ; Cumulative dose for multiple exams. ORAL CONTRAST: No oral contrast ingested. RADIATION DOSE: ; Reconstructed from previous dataset MEDICAL HISTORY : Hypertension. Pancreatitis. Gastroparesis. SURGICAL HISTORY : Appendectomy. Hysterectomy. section. ENCOUNTER: Initial ACUITY: 2 days PAIN SCALE: 0/10 LOCATION: abdomen TECHNIQUE: Volumetric scanning was performed using a multi-row detector CT scanner. The data was post processed with a variety of visualization algorithms including full volume maximum intensity projection, multi -planar sliding thin slab reformation, curved planar reformation, and surface rendering techniques. Using automated exposure control and adjustment of the mA and/or kV according to patient size, radiat ion dose was kept as low as reasonably achievable to obtain optimal diagnostic quality images. DICOM format image data is available electronically for review and comparison. FINDINGS: Small bilateral pleural effusions are again noted and there is consolidation in the lung bases. A lar ge complex collection is again noted in the left upper abdomen with large air-fluid level and multipl e areas of gas. There are internal drains again noted which extended into the stomach. There is a sma ller more cystic collection noted posterior to the stomach which appears slightly smaller in size com pared to the prior study and now measures approximately 3.7 x 3.4 cm in diameter compared to 4.3 x 4. 2 cm. A small amount ascitic fluid is again noted in the right side of the pelvis. Pancreatic calcifi cations are again noted. ABDOMINAL AORTA: The lumen is smooth without significant narrowing or aneurismal dilation. The proximal celiac and sup erior mesenteric arteries are patent and normal in diameter. There are solitary renal arteries bilat erally without gross abnormality. BIFURCATION: Normal. RIGHT PELVIS: The right common iliac, internal iliac and external iliac vessels are patent without luminal irregula rity. LEFT PELVIS: The left common iliac, internal iliac and external iliac vessels are patent and without luminal irreg ularity. CONCLUSION: 1. The aorta and vascular structures remain intact with no aneurysm 2. No evidence of large hematoma. 3. Large complex collection again noted in the left upper quadrant of the abdomen with air fluid leve l and multiple gas bubbles. Internal drainage catheters remain in place. 4. The smaller, more cystic structure posterior to the stomach has decreased mildly in size. Feng Mahoney MD on May 23, 2017 at 19:25 Board Certified Radiologist. This report was verified electronically.
[2017-05-23] MEDS: cefTRIAXone INJ 2,000 MG in SODIUM CHLORIDE 0.9% INJ 100 ML IV SCH (20:34)
--- NOTE | 2017-05-23 21:49 | MB ---
cc: PACO CHEUNG DATE OF CONSULTATION 05/23/17 REASON FOR CONSULTATION Concerns regarding the possibility the patient has a bleeding disorder because of a prolonged PTT. PATIENT PROFILE The patient is a 52 year old female. She is . She has not had any alcohol since August 2017 and prior to this was a heavy consumer of alcohol. She smokes 1/2 pack of cigarettes per day. HISTORY OF PRESENT ILLNESS: The patient is a 52 year old female who has a history of heavy alcohol intake and chronic pancreatitis. She presented to the emergency room on 05/10/17 with abdominal pain and vomiting. At the time of presentation, she had a CT scan of the abdomen and pelvis showing a 14 cm subphrenic fluid collection on the left which had enlarged when compared to a previous scan. She had evidence of chronic portal vein thrombosis. She has chronic calcific pancreatitis. On 05/11/17, she had a PT of 10.8. On 05/21/17, she had a PT of 15.9, and a PTT of 94, with a fibrinogen of 125. She was given four units of fresh frozen plasma on 05/21. She was given four units of packed cells. She was given a platelet transfusion on 05/21 with a platelet count of 90,000. The next PT is 05/22 and is 12.4, with a PTT of 27, and fibrinogen of 275. On 05/22, she had a mixing study which is not helpful in the sense that the PT was only minimally prolonged at 12.7 and it corrected to a normal value. This is not particularly meaningful in that the initial elevation was only minimally elevated. The PTT was 27 which is normal and therefore there was nothing to correct with FFP On 10/27/16, she had a PTT of 143. She has an arterial line. She has a central line. I am told that there is no heparin infusing through either line. She presently is not having any bleeding from the lines or the Vega catheter and she does not have any ecchymoses. She had a chest x-ray done today, 05/23, showing stable left lower lobe consolidation. A CT of the abdomen and pelvis shows a large complex collection again noted in the left upper quadrant of the abdomen with air fluid levels and multiple gas bubbles. The small more cystic structure posterior to the stomach has decreased in size. Her hemoglobin today is 6.7, on 05/22 it was 7.9. PAST SURGICAL HISTORY 1. Hysterectomy 2. Appendectomy 3. Caesarean section PAST MEDICAL HISTORY 1. Hypertension 2. Diabetes 3. Chronic pancreatitis 4. Portal vein thrombosis MEDICATIONS Current, 1. Duonebs 2. Flagyl 3. Propofol 4. Vitamin B12 5. Fentanyl 6. Ceftriaxone 7. Ondansetron 8. Tylenol as needed I cannot find any evidence of the patient receiving heparin and the nurses tell me that heparin is not used to flush the line. ALLERGIES CIPROFLOXACIN SULFA. FAMILY HISTORY Not able to obtain. REVIEW OF SYSTEMS The patient is awake and can answer yes or no questions and she tells me she has pain in the left upper abdomen. PHYSICAL EXAMINATION GENERAL: An intubated female. She is awake and alert. VITAL SIGNS: Blood pressure 130/70, respiratory rate 18, pulse 100, afebrile. O2 saturation 99% FIO2 is 35%. HEENT: Head is normocephalic. Sclerae and conjunctivae are normal. There is no adenopathy. BREASTS: Without masses. HEART: Regular rhythm LUNGS: Decreased sounds at the bases. ABDOMEN: Mild fullness left upper quadrant with tenderness. EXTREMITIES: Trace edema. MUSCULOSKELETAL: Muscle wasting. NEUROLOGIC: Moves all extremities well and can understand conversation and answers appropriately yes and now. SKIN: Careful examination of the skin does not reveal anything to suggest a bleeding disorder, very minimal ecchymosis. There is no bleeding at IV sites and there is nothing to suggest a diffuse bleeding disorder. ASSESSMENT The patient had a PTT of 94 on 05/21 and a PT of 15.9. To see a PTT this long suggests a heparin effect. What is odd is the following day everything was essentially corrected. The PTT was 27. There is a no evidence of a circulating anticoagulant as this would not correct with FFP. At this point, it is unclear to me whether she had a deficiency in factors which was corrected with fresh frozen plasma or whether the severe prolongation of the PTT was related to blood being drawn from either the arterial line or the central line. In any case, the PTT was normal yesterday. The PT was minimally prolonged and today I see no evidence of clinically meaningful bleeding. PLAN I have requested the blood be drawn from a peripheral vein tomorrow and not through a line as I believe this will better reflect her coagulation status. I have asked that PT/PTT and fibrinogen be drawn tomorrow am. Presently, I do no see a reason to give her any additional factors. It would not surprise me if her fibrinogen falls as I suspect there is some degree of liver disease, but the severe prolongation of the PTT with the minimal prolongation of the PT still remains poorly explained. MD LILLI Hawthorne/ /8:59 PM /9:13 PM LESLIE
[2017-05-24] VITALS (17 sets, daily range): BP systolic 116–146; BP diastolic 65–82; PULSE 99–119; RESP 12–20; TEMP 98.7–99.8; O2SAT 92–100
[2017-05-24 01:24] LABS: AUTOMATED NEUTROPHIL # 18.6 TH/MM3 (1.8-7.7); BASOPHIL # 0.1 TH/MM3 (0-0.2); BASOPHIL % 0.4 % (0.0-2.0); EOSINOPHIL # 0.1 TH/MM3 (0-0.4); EOSINOPHIL % 0.3 % (0.0-4.0); HEMATOCRIT 27.1 % (35.0-46.0); LYMPH % 5.8 % (9.0-44.0); LYMPHOCYTE # 1.3 TH/MM3 (1.0-4.8); MEAN CORPUSCULAR HEMOGLOBIN 27.7 PG (27.0-34.0); MEAN CORPUSCULAR HGB CONC 33.3 % (32.0-36.0); MONO % 13.1 % (0.0-8.0); NEUT % 80.4 % (16.0-70.0); PLATELET COUNT 224 TH/MM3 (150-450); RED BLOOD COUNT 3.26 MIL/MM3 (4.00-5.30); WHITE BLOOD COUNT 23.2 TH/MM3 (4.0-11.0)
[2017-05-24 01:26] LABS: HEMO FLAGS AUTO DIFF
[2017-05-24 03:02] LABS: BANDS 24 % (0-6); CORRECTED NUCLEATED RBC 4 /100 WBC (0-0); NEUTROPHIL # MANUAL DIFF 21.6 TH/MM3 (1.8-7.7); PLATELET ESTIMATE SMEAR NORMAL (NORMAL); PLATELET MORPHOLOGY NORMAL (NORMAL); POLYS (SEG NEUTROPHILS) 69 % (16-70); SCAN/DIFF FINAL DIFF MANUAL; WBC DIFF SAMPLE 100
[2017-05-24 03:03] LABS: HOWELL-JOLLY BODIES PRESENT (NONE SEEN)
[2017-05-24] MEDS: PANTOPRAZOLE SODIUM 40 MG VIAL IV PUSH SCH ×2 (03:15→14:44)
[2017-05-24] MEDS: fentaNYL DRIP 250 ML IV SCH (03:15)
[2017-05-24] MEDS: RESP: ALBUTEROL 2.5 MG/IPRATROPIUM 0.5 MG NEB (SCH) NEB ×4 (03:24→21:50)
[2017-05-24] MEDS: INSULIN NovoLIN REGULAR SUPPLEMENTAL SCALE SQ SCH ×7 (04:00→23:33)
[2017-05-24] MEDS: metroNIDAZOLE 500 MG INJ 100 ML IV SCH ×3 (04:19→20:31)
[2017-05-24 04:36] LABS: AUTOMATED NEUTROPHIL # 18.6 TH/MM3 (1.8-7.7); BASOPHIL # 0.1 TH/MM3 (0-0.2); BASOPHIL % 0.3 % (0.0-2.0); EOSINOPHIL # 0.1 TH/MM3 (0-0.4); EOSINOPHIL % 0.3 % (0.0-4.0); HEMATOCRIT 26.3 % (35.0-46.0); LYMPH % 6.4 % (9.0-44.0); LYMPHOCYTE # 1.5 TH/MM3 (1.0-4.8); MEAN CORPUSCULAR HGB CONC 34.1 % (32.0-36.0); MONO % 12.6 % (0.0-8.0); NEUT % 80.4 % (16.0-70.0); PLATELET COUNT 239 TH/MM3 (150-450); RED BLOOD COUNT 3.21 MIL/MM3 (4.00-5.30); RED CELL DISTRIBUTION WIDTH 16.4 % (11.6-17.2); WHITE BLOOD COUNT 23.1 TH/MM3 (4.0-11.0)
[2017-05-24 04:48] LABS: HEMO FLAGS AUTO DIFF
[2017-05-24 05:07] LABS: ALKALINE PHOSPHATASE 82 U/L (45-117); ALT (GPT) 45 U/L (10-53); ANION GAP 6 MEQ/L (5-15); AST (GOT) 37 U/L (15-37); BLOOD UREA NITROGEN 13 MG/DL (7-18); CHLORIDE 112 MEQ/L (98-107); GLOMERULAR FILTRATION RATE 71 ML/MIN (>89); MAGNESIUM 2.2 MG/DL (1.5-2.5); POTASSIUM 3.6 MEQ/L (3.5-5.1); SODIUM (NA) 147 MEQ/L (136-145); TOTAL BILIRUBIN ADULT 0.6 MG/DL (0.2-1.0)
[2017-05-24 05:32] LABS: PROTHROMBIN TIME - PATIENT 10.8 SEC (9.8-11.6)
[2017-05-24 05:55] LABS: BANDS 14 % (0-6); CORRECTED NUCLEATED RBC 2 /100 WBC (0-0); MYELOCYTES 3 % (0-0); PLATELET ESTIMATE SMEAR NORMAL (NORMAL); PLATELET MORPHOLOGY NORMAL (NORMAL); POLYS (SEG NEUTROPHILS) 74 % (16-70); SCAN/DIFF FINAL DIFF MANUAL; WBC DIFF SAMPLE 100
[2017-05-24] MEDS: CHLORHEXIDINE 0.12% (ORAL KIT) 15 ML CUP MT SCH ×2 (07:35→20:00)
[2017-05-24] MEDS: CYANOCOBALAMIN 1,000 MCG TAB PO SCH (08:20)
[2017-05-24] MEDS: NYSTATIN 100,000 U/GM PWD 15 GM BTL TOPICAL SCH ×2 (08:20→20:31)
[2017-05-24] MEDS: SODIUM CHLORIDE 0.9% FLUSH 10 ML FLUSH IVF SCH (08:20)
[2017-05-24 09:58] LABS: BLOOD GAS BASE EXCESS 1.2 mmol/L (-2-2); BLOOD GAS HCO3 25 mmol/L (22-26); BLOOD GAS METHEMOGLOBIN 1.3 % (0-2); BLOOD GAS O2 HGB SATURATION 96 % (90-100); BLOOD GAS PCO2 37 mmHg (38-42); BLOOD GAS PO2 122 mmHg (61-120); BLOOD GAS TOTAL HGB 10.3 G/DL (12.0-16.0); TEMP CORR TO 98.6
[2017-05-24 09:59] LABS: CRITICAL VALUE NO; DRAW SITE RT RADIAL; FIO2 35 %; NUMBER OF ARTERIAL PUNCTURES 1; OXYGEN DEVICE VENTILATOR; STAT NO; ULNAR PULSE PRESENT; VENT SETTINGS CPAP5/5PS
[2017-05-24] MEDS ORDERED: PHENOL 1.4% SOLN 180 ML BTL OROPHARYNG PRN (10:45)
--- NOTE | 2017-05-24 10:47 | HHI.CCPN ---
Subjective Remarks/Hospital Course Hospital Course: 52 y/o woman with chronic pancreatitis underwent endoscopic pseudocyst- gastrostomy today in OR. Cyst was mature and there is no evidence of tract leak. Unable to wean from ventilator after procedure, complicated by large left subphrenic collection, left pleural effusion, and consolidation of left lower lobe. 05/18: continues to be intubated, but awake and alert at this point. endorses pain over LUQ. denies other complaints. ultrasound of left chest with significant effusion. 05/19: IR guided left chest tube placed yesterday with 490 mL milky serous fluid drained. pulmonary mechanics slightly improved. somewhat agitated overnight. still follows commands. 05/20: extubated yesterday. tolerating regular diet. clinically improving. chest tube put out ~150cc/12h, serous. cultures have been NGTD. denies complaints. pain better controlled. Subjective: 05/21: Re consulted secondary to acute lower GI bleed. Halicat was called secondary to bright red blood per rectum. Patient was hypotensive and pale. Brought to room 514 and was intubated without anesthesia. Started on vasopressors. Received massive transfusion protocol. Notify Dr. Escamilla /GI. No intervention from his standpoint. Notify Dr. Villalpando and recommended no surgical intervention at this time due to complexity of medical to localize source of bleeding. Currently down for CT abdomen/pelvis. IR notified. 05/22: Patient is status post splenic embolization early this a.m.. She remains intubated and sedated, due to large fluid shifts no sedation holiday today. OGT output 300 cc since 12 midnight. Hemoglobin this a.m. 7.9 patient receiving 1 unit of packed red blood cells post transfusion hemoglobin pending. 05/23: Minimal OGT output, less than 100 cc over the last 12 hours. The patient was noted to have a decrease in hemoglobin this a.m., was transfused 1 unit PRBCs. Posttransfusion hemoglobin minimally changed, repeat hemoglobin pending. Plans to transfuse if hemoglobin less than 7, and continue serial monitoring every 6 hours. GCS 11 T. Patient successfully managed CPAP trials for approximately 4 hours. Plans to continue CPAP trials. 05/24: Hemoglobin decreased yesterday afternoon, CT angiogram of the abdomen pelvis and lower extremities obtained. No pseudoaneurysm/aneurysm found. Patient received additional unit of packed red blood cells yesterday. Hemoglobin stable for the last 12 hours, to continue to monitor. Hematology consulted appreciate recommendations, mixing study was found to be slightly abnormal. CPAP trial successful plan for extubation this morning, and advancement to clear liquid diet. Objective Vital Signs Date Time Temp Pulse Resp B/P Pulse Ox O2 Delivery O2 Flow Rate FiO2 05/24/17 10:25 96 Nasal Cannula 2 05/24/17 10:00 117 05/24/17 08:39 35 05/24/17 08:00 99.8 15 136/74 Intake and Output 05/23/17 05/23/17 05/24/17 08:00 16:00 00:00 Intake Total 795 ml 314 ml 715 ml Output Total 750 ml 250 ml 750 ml Balance 45 ml 64 ml -35 ml Result Diagram: 05/24/17 0413 05/24/17 0413 Other Results Laboratory Tests Test 05/24/17 09:30 Blood Gas Puncture Site RT RADIAL Blood Gas Patient Temperature 98.6 Blood Gas HCO3 25 mmol/L (22-26) Blood Gas Base Excess 1.2 mmol/L (-2-2) Blood Gas Oxygen Saturation 96 % (90-100) Arterial Blood pH 7.44 (7.380-7.420) Arterial Blood Partial 37 mmHg (38-42) Pressure CO2 Arterial Blood Partial 122 mmHg Pressure O2 (61-120) Arterial Blood Oxygen Content 14.0 Vol % (12.0-20.0) Arterial Blood 2.0 % (0-4) Carboxyhemoglobin Arterial Blood Methemoglobin 1.3 % (0-2) Blood Gas Hemoglobin 10.3 G/DL (12.0-16.0) Oxygen Delivery Device VENTILATOR Blood Gas Ventilator Setting CPAP5/5PS Blood Gas Inspired Oxygen 35 % Imaging Last Impressions Chest X-Ray 05/21/17 0000 Signed Impressions: Service Date/Time: Sunday, May 21, 2017 20:32 - CONCLUSION: 1. Interval intubation and placement of right internal jugular central venous line with no visualized pneumothorax on this supine exam. 2. Mild patchy opacity at the left lung base which appears improved. Feng Mahoney MD Abdomen X-Ray 05/21/17 0000 Signed Impressions: Service Date/Time: Sunday, May 21, 2017 21:42 - CONCLUSION: Possible free air in the upper abdomen which may be present in the previous noted large complex fluid collection. A CT is pending for further evaluation. Feng Mahoney MD Chest Tube Insertion 05/18/17 1308 Signed Impressions: Service Date/Time: Thursday, May 18, 2017 13:33 - CONCLUSION: Uncomplicated left chest tube placement. If Gram stain is negative the tube can be removed. Chest x-ray is pending in the a.m. Seamus Costa MD FACR Chest Ultrasound 05/18/17 0000 Signed Impressions: Service Date/Time: Thursday, May 18, 2017 09:09 - CONCLUSION: 1. There is a moderate pleural effusion on the left. A iris was placed on the skin surface. Venkata Costa MD Abdomen/Pelvis CT 05/17/17 1447 Signed Impressions: Service Date/Time: April 15:05 - CONCLUSION: 1. There is a 14.8 x 11.8 cm complex fluid collection in the left upper quadrant. This appears to represent liquefaction of the spleen post splenic infarction. There was apparently a large pseudocyst which traversed up into the splenic hilum. There is still considerable residual splenic tissue. There is a drain which decompresses this collection into the stomach. There is gas within this. The examination also demonstrates a 3.8 x 4.6 cm fluid collection posterior to the stomach. Both of these are unchanged from previous. 2. No findings to indicate bowel obstruction. 3. Bilateral pleural effusion with consolidative changes in the left lung base. 4. Small amount of free fluid within the pelvis. 5. Vega catheter in good position. Venkata Costa MD GI Procedure 05/17/17 0000 Signed Impressions: Service Date/Time: April 17:06 - CONCLUSION: 1. Interval placement of second stent catheter in the left upper quadrant. 2. The previously noted stent catheter is unchanged in appearance. 3. Nonspecific bowel gas pattern. Feng Mahoney MD Objective Remarks GENERAL: 52-year-old female, intubated, alert SKIN: Warm and dry. HEAD: Atraumatic. Normocephalic. EYES: Pupils equal and round about 2 mm bilaterally and reactive. No scleral icterus. No injection or drainage. ENT: No nasal bleeding or discharge. Mucous membranes pink and moist. Orotracheally intubated NECK: Trachea midline. No JVD. CARDIOVASCULAR: Regular rate and rhythm. S1, S2. No S4. RESPIRATORY: Clear to auscultation. Breath sounds equal bilaterally. GASTROINTESTINAL: Abdomen soft, no tenderness elicited. Hypoactive bowel sounds. MUSCULOSKELETAL: Extremities without significant peripheral, or edema. No obvious deformities. NEUROLOGICAL: Sedated on the ventilator.RASS 0. Patient is alert and following commands. A/P Assessment and Plan Neuro/Psych: Posttraumatic stress disorder Acute toxic metabolic encephalopathy Discontinue fentanyl infusion Goal of RASS -2 Dilaudid 1 mg every 3 hours when necessary for pain, transition to by mouth narcotics Holding BuSpar 30 mg twice a day medication for anxiety CV: Severe shock secondary to hypovolemia Lactic acidosis Status post splenic artery embolization Status post 6 PRBCs/6 FFP 1 cryoprecipitate. 1 platelet Normal saline at 84 cc /hour 05/22 Currently off all vasopressors after massive transfusion 05/23 3 u PRBC transfused Resp: Acute respiratory failure-resolved PRVC 16/500/1.11/30/49 CPAP trial successful SBT- RSBI 15, FVC 2200, Nif -30, positive cuff leak, land extubation 05/23-chest x-ray stable left lower lobe consolidation Initiate aggressive pulmonary toileting incentive spirometry GI: Lower GI bleed Chronic Pancreatitis with pseudocyst - persistent, stable. S/P cyst-gastrostomy 05/17/17I Status post endoscopic ultrasound with sphincterotomy, balloon dilatation and the double pigtail stent placement into the common bile duct. Discussed with Dr. Escamilla - plan for stat CT abdomen/pelvis. - Splenic artery embolization KUB revealed possible free air in the abdomen. Jean Paul Fuentes did not recommend surgery Noted dressing left abd C/D/I : Vega catheter for accurate I's and O's in a critically ill patient Endo: Hyperglycemia Sliding scale insulin with Accu-Cheks to maintain euglycemia Renal: Monitor urine output Accurate I's and O's Heme: Acute post hemorrhagic blood loss anemia Elevated PTT Leukocytosis Thrombocytopenia S/P 05/21 massive transfusion protocol 5 mg Amicar 1 Monitor CBC daily. Follow trends Hgb 7.9, 1 u PRBC this am Post transfusion hgb 7.0 Serial Hgb q 6 hr- transfuse for Hgb < 7.0 or clinical indication for hemodynamic instability Hematology consult- F/u rceommendations ID: Pseudocyst infection - strep viridian 05/11 Continue Rocephin 2 g IV every 24 hours for an infected pseudocyst Infectious disease following Dr. Sharpe Panculture 2 blood culture - NGTD FEN: Replace electrolytes as clinically indicated MSK: PT evaluate and treat Access -Right IJ CVL/left femoral Cordis day discontinue 05/24 Prophylaxis - GI - Protonix - DVT - SCDs/pharmacological prophylaxis contraindicated with acute hemorrhage Critical Care: Level 3 1. Acute hypoxic Respiratory Failure - resolved. 2. left pleural effusion - resolved. 3. Plan: 1. d/c art line 2. oob to chair and ambulating tid. 3. pt/ot consult 4. advance diet as tolerated. 5. continue current pain regimen. 6. wean NC o2 for spo2 > 90% 7. will remove chest tube today. follow up cxr 8. f/u cultures: currently NGTD. stable for transfer to floor. will consult hospitalists. Physician Anita Sung MD May 24, 2017 10:47
--- NOTE | 2017-05-24 11:16 | HHI.IDPN ---
Note Infectious Disease Note Patient is extubated and alert. On nasal canula. No current complaints. Afebrile. WBC elevated. Post thoracentesis 01/18. chest tube placed and removed. Post pseudocyst gastrostomy. 05/17. Post code - 05/22. 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 Patient was readmitted to the hospital on May 11, 2017. The patient was recently discharged from the hospital on April 22, 2017 after treatment for acute pancreatitis. PAST MEDICAL HISTORY 1. Hypertension 2. Diabetes mellitus 3. Chronic pancreatitis 4. Portal vein thrombosis. 5. Chronic back pain. 6. Gastroesophageal reflux disease 7. Posttraumatic stress disorder 8. Gastroparesis. PAST SURGICAL HISTORY: History of hysterectomy. History of appendectomy. . ALLERGIES SULFA CIPROFLOXACIN ANTIBIOTICS: Ceftriaxone. Flagyl. SOCIAL HISTORY The patient is . She smokes half-a-pack of cigarettes a day. No alcohol use. No illicit drugs. OBJECTIVE: Vital Signs Date Time Temp Pulse Resp B/P Pulse Ox O2 Delivery O2 Flow Rate FiO2 05/24/17 10:25 96 Nasal Cannula 2 05/24/17 10:25 96 Nasal Cannula 2.00 05/24/17 10:00 117 05/24/17 08:39 35 05/24/17 08:00 99.8 118 15 136/74 96 05/24/17 08:00 35 05/24/17 08:00 Arterial Line 05/24/17 08:00 115 05/24/17 07:42 95 35 05/24/17 06:00 103 05/24/17 04:32 98 35 05/24/17 04:00 35 05/24/17 04:00 99.0 105 12 120/65 97 05/24/17 04:00 105 05/24/17 02:00 100 05/24/17 00:50 97 35 05/24/17 00:00 99 05/24/17 00:00 35 05/24/17 00:00 98.9 99 12 129/73 100 05/23/17 22:00 99 05/23/17 20:00 35 05/23/17 20:00 99.4 105 12 128/69 97 05/23/17 20:00 102 05/23/17 19:37 99 35 05/23/17 18:00 104 05/23/17 17:52 100 100 05/23/17 16:00 35 05/23/17 16:00 98.6 102 16 129/66 96 05/23/17 16:00 104 05/23/17 14:50 97 35 05/23/17 14:00 104 05/23/17 13:15 40 05/23/17 12:00 35 05/23/17 12:00 104 05/23/17 12:00 98.6 102 16 118/67 96 05/23/17 11:41 98 35 05/23/17 05/23/17 05/24/17 14:59 22:59 06:59 Intake Total 314 ml 715 ml 330 ml Output Total 250 ml 750 ml 425 ml Balance 64 ml -35 ml -95 ml IV Total 314 ml 415 ml 330 ml Packed Cells 300 ml Output Urine Total 250 ml 750 ml 425 ml Laboratory Tests Test 05/22/17 05/23/17 05/23/17 05/23/17 11:42 03:40 11:20 14:50 Hemoglobin 7.9 GM/DL 6.4 GM/DL 7.0 GM/DL 6.7 GM/DL Hematocrit 23.4 % 18.6 % 20.9 % 20.1 % White Blood Count 19.1 TH/MM3 22.4 TH/MM3 Red Blood Count 2.36 MIL/MM3 2.59 MIL/MM3 Mean Corpuscular Volume 79.0 FL 80.8 FL Mean Corpuscular Hemoglobin 27.1 PG 26.9 PG Mean Corpuscular Hemoglobin 34.2 % 33.3 % Concent Red Cell Distribution Width 17.7 % 17.2 % Platelet Count 165 TH/MM3 194 TH/MM3 Mean Platelet Volume 9.0 FL 9.1 FL Neutrophils (%) (Auto) 81.2 % Lymphocytes (%) (Auto) 7.2 % Monocytes (%) (Auto) 10.9 % Eosinophils (%) (Auto) 0.3 % Basophils (%) (Auto) 0.4 % Neutrophils # (Auto) 18.2 TH/MM3 Lymphocytes # (Auto) 1.6 TH/MM3 Monocytes # (Auto) 2.4 TH/MM3 Eosinophils # (Auto) 0.1 TH/MM3 Basophils # (Auto) 0.1 TH/MM3 CBC Comment AUTO DIFF Differential Total Cells 100 Counted Neutrophils % (Manual) 79 % Band Neutrophils % 16 % Lymphocytes % 3 % Monocytes % 2 % Neutrophils # (Manual) 21.3 TH/MM3 Nucleated Red Blood Cells 4 /100 WBC Differential Comment FINAL DIFF MANUAL Platelet Estimate NORMAL Platelet Morphology Comment NORMAL Test 05/24/17 05/24/17 01:05 04:13 White Blood Count 23.2 TH/MM3 23.1 TH/MM3 Red Blood Count 3.26 MIL/MM3 3.21 MIL/MM3 Hemoglobin 9.0 GM/DL 9.0 GM/DL Hematocrit 27.1 % 26.3 % Mean Corpuscular Volume 83.0 FL 82.0 FL Mean Corpuscular Hemoglobin 27.7 PG 28.0 PG Mean Corpuscular Hemoglobin 33.3 % 34.1 % Concent Red Cell Distribution Width 16.0 % 16.4 % Platelet Count 224 TH/MM3 239 TH/MM3 Mean Platelet Volume 8.6 FL 8.4 FL Neutrophils (%) (Auto) 80.4 % 80.4 % Lymphocytes (%) (Auto) 5.8 % 6.4 % Monocytes (%) (Auto) 13.1 % 12.6 % Eosinophils (%) (Auto) 0.3 % 0.3 % Basophils (%) (Auto) 0.4 % 0.3 % Neutrophils # (Auto) 18.6 TH/MM3 18.6 TH/MM3 Lymphocytes # (Auto) 1.3 TH/MM3 1.5 TH/MM3 Monocytes # (Auto) 3.0 TH/MM3 2.9 TH/MM3 Eosinophils # (Auto) 0.1 TH/MM3 0.1 TH/MM3 Basophils # (Auto) 0.1 TH/MM3 0.1 TH/MM3 CBC Comment AUTO DIFF AUTO DIFF Differential Total Cells 100 100 Counted Neutrophils % (Manual) 69 % 74 % Band Neutrophils % 24 % 14 % Lymphocytes % 1 % 4 % Monocytes % 6 % 5 % Neutrophils # (Manual) 21.6 TH/MM3 21.0 TH/MM3 Nucleated Red Blood Cells 4 /100 WBC 2 /100 WBC Differential Comment FINAL DIFF FINAL DIFF MANUAL MANUAL Platelet Estimate NORMAL NORMAL Platelet Morphology Comment NORMAL NORMAL [place] Bodies PRESENT Myelocytes 3 % Dohle Bodies Laboratory Tests Test 05/23/17 05/24/17 03:40 04:13 Sodium Level 146 MEQ/L 147 MEQ/L Potassium Level 3.5 MEQ/L 3.6 MEQ/L Chloride Level 111 MEQ/L 112 MEQ/L Carbon Dioxide Level 25.8 MEQ/L 29.0 MEQ/L Anion Gap 9 MEQ/L 6 MEQ/L Blood Urea Nitrogen 11 MG/DL 13 MG/DL Creatinine 0.85 MG/DL 0.84 MG/DL Estimat Glomerular Filtration 70 ML/MIN 71 ML/MIN Rate Random Glucose 119 MG/DL 137 MG/DL Calcium Level 6.8 MG/DL 8.0 MG/DL Protein Corrected Calcium 8.4 MG/DL Phosphorus Level 3.6 MG/DL 2.5 MG/DL Magnesium Level 2.1 MG/DL 2.2 MG/DL Total Bilirubin 0.3 MG/DL 0.6 MG/DL Direct Bilirubin 0.1 MG/DL Indirect Bilirubin 0.2 MG/DL Aspartate Amino Transf 99 U/L 37 U/L (AST/SGOT) Alanine Aminotransferase 93 U/L 45 U/L (ALT/SGPT) Alkaline Phosphatase 78 U/L 82 U/L Total Protein 4.5 GM/DL 5.0 GM/DL Albumin 1.7 GM/DL 1.7 GM/DL Lactic Acid Level 1.1 mmol/L Lipase 102 U/L IMAGING: Last 48 hours Impressions Chest X-Ray 05/23/17 0600 Signed Impressions: Service Date/Time: Tuesday, May 23, 2017 04:24 - CONCLUSION: Stable left lower lobe consolidation. Harvey Stack MD Aorta w/Runoff CTA 05/23/17 0000 Signed Impressions: Service Date/Time: Tuesday, May 23, 2017 17:25 - CONCLUSION: 1. The aorta and other vascular structures are intact with no focal aneurysm. 2. No evidence of large hematoma. 3. Large complex collection again noted in the left upper abdomen with air-fluid level and gas. There are internal drains again noted. Feng Mahoney MD Abdomen/Pelvis CT 05/23/17 0000 Signed Impressions: Service Date/Time: Tuesday, May 23, 2017 17:25 - CONCLUSION: 1. The aorta and vascular structures remain intact with no aneurysm 2. No evidence of large hematoma. 3. Large complex collection again noted in the left upper quadrant of the abdomen with air fluid level and multiple gas bubbles. Internal drainage catheters remain in place. 4. The smaller, more cystic structure posterior to the stomach has decreased mildly in size. Feng Mahoney MD Splenic Arteriogram 05/22/17 0000 Signed Impressions: Service Date/Time: Monday, May 22, 2017 00:11 - CONCLUSION: Splenic hilar pseudoaneurysm embolized as described in detail above. Tim Valencia MD Chest X-Ray 05/21/17 0000 Signed Impressions: Service Date/Time: Sunday, May 21, 2017 20:32 - CONCLUSION: 1. Interval intubation and placement of right internal jugular central venous line with no visualized pneumothorax on this supine exam. 2. Mild patchy opacity at the left lung base which appears improved. Feng Mahoney MD Chest CT 05/21/17 0000 Signed Impressions: Service Date/Time: Sunday, May 21, 2017 22:36 - CONCLUSION: 1. Small bilateral pleural effusions with consolidation in both posterior lung bases. There is elevation of the left hemidiaphragm. 2. Complex fluid collection again noted in the left upper abdomen with internal catheters. Feng Mahoney MD Abdomen/Pelvis CT 05/21/17 0000 Signed Impressions: Service Date/Time: Sunday, May 21, 2017 22:36 - CONCLUSION: 1. The abdominal aorta is within normal limits with no evidence of aneurysm or dissection. 2. Large complex fluid collection again noted in left upper abdomen with no normal spleen identified. This is slightly smaller in size and has 2 internal drainage catheters. The air-fluid level seen on the plain film is located within this collection. There is no true free air. 3. Smaller cystic structure posterior to the stomach which is not significantly changed. 4. Mildly nonspecific, nonobstructive bowel gas pattern. 5. Small bilateral pleural effusions with consolidation in both posterior lung bases. Feng Mahoney MD ADDENDUM: Attention to the splenic hilar region reveals a 15 mm pseudoaneurysm arising from a proximal branch of the splenic artery immediately adjacent to the above-described heterogeneous collection and presumed to reflect source for recent known hemorrhage. Tim Valencia MD Abdomen X-Ray 05/21/17 0000 Signed Impressions: Service Date/Time: Sunday, May 21, 2017 21:42 - CONCLUSION: Possible free air in the upper abdomen which may be present in the previous noted large complex fluid collection. A CT is pending for further evaluation. Feng Mahoney MD Chest X-Ray 05/20/17 1400 Signed Impressions: Service Date/Time: Saturday, May 20, 2017 15:12 - CONCLUSION: 1. Drainage catheters over the left lower chest and upper abdomen region. 2. Suspected bibasilar areas of consolidation, atelectasis and effusions. When compared to the prior examination, the right-sided changes appear worse. The left-sided changes appear stable. Tim Chadwikc MD PHYSICAL EXAMINATION GENERAL: Extubated. No distress. HEENT: No icterus. No thrush. Moist mucosa. NECK: Supple without adenopathy. LUNGS: Good air movement. Clear BS. HEART: Regular S1, S2 without murmurs. ABDOMEN: Distended, soft, non tender. EXTREMITIES: No clubbing, cyanosis or edema. SKIN: No rash. NEUROLOGIC: Non focal. IMPRESSION Pancreatitis acute. Infected pancreatic pseudocyst. Strep viridans group on culture from 05/11. (Patient status post endoscopic ultrasound with sphincterotomy, balloon dilatation and the double pigtail stent placement into the common bile duct.) Post pseudocyst gastrostomy. GI bleed. - Post splenic artery aneurysm embolization 05/22. Acute respiratory failure. Leukocytosis probably reactive. RECOMMENDATIONS 1. Continue ceftriaxone. 2. Continue Flagyl. 3. Follow WBC. 4. Monitor temps. 5. Monitor clinical status. Anderson Sharpe MD May 24, 2017 11:16
[2017-05-24] MEDS: HYDROmorphone HCL PF 1 MG/ML VIAL IV PUSH PRN ×5 (11:36→23:33)
--- NOTE | 2017-05-24 14:21 | PD.ONC.PN ---
Subjective Subjective Remarks Afebrile overnight. Patient resting in bed with at bedside. Still with some abdominal pain. Otherwise feels better. Objective Data Date Time Temp Pulse Resp B/P Pulse Ox O2 Delivery O2 Flow Rate FiO2 05/24/17 12:00 99.6 111 16 146/80 97 05/24/17 12:00 106 05/24/17 10:25 96 Nasal Cannula 2 05/24/17 10:25 96 Nasal Cannula 2.00 05/24/17 10:00 117 05/24/17 08:39 35 05/24/17 08:00 99.8 118 15 136/74 96 05/24/17 08:00 35 05/24/17 08:00 Arterial Line 05/24/17 08:00 115 05/24/17 07:42 95 35 05/24/17 06:00 103 05/24/17 04:32 98 35 05/24/17 04:00 35 05/24/17 04:00 99.0 105 12 120/65 97 05/24/17 04:00 105 05/24/17 02:00 100 05/24/17 00:50 97 35 05/24/17 00:00 99 05/24/17 00:00 35 05/24/17 00:00 98.9 99 12 129/73 100 05/23/17 22:00 99 05/23/17 20:00 35 05/23/17 20:00 99.4 105 12 128/69 97 05/23/17 20:00 102 05/23/17 19:37 99 35 05/23/17 18:00 104 05/23/17 17:52 100 100 05/23/17 16:00 35 05/23/17 16:00 98.6 102 16 129/66 96 05/23/17 16:00 104 05/23/17 14:50 97 35 05/24/17 05/24/17 05/24/17 07:00 15:00 23:00 Intake Total 330 ml Output Total 425 ml Balance -95 ml Result Diagram: 05/24/17 0413 05/24/17 0413 Laboratory Results Laboratory Tests Test 05/23/17 05/24/17 05/24/17 05/24/17 14:50 01:05 04:13 04:28 Hemoglobin 6.7 GM/DL 9.0 GM/DL 9.0 GM/DL Hematocrit 20.1 % 27.1 % 26.3 % White Blood Count 23.2 TH/MM3 23.1 TH/MM3 Red Blood Count 3.26 MIL/MM3 3.21 MIL/MM3 Mean Corpuscular Volume 83.0 FL 82.0 FL Mean Corpuscular Hemoglobin 27.7 PG 28.0 PG Mean Corpuscular Hemoglobin 33.3 % 34.1 % Concent Red Cell Distribution Width 16.0 % 16.4 % Platelet Count 224 TH/MM3 239 TH/MM3 Mean Platelet Volume 8.6 FL 8.4 FL Neutrophils (%) (Auto) 80.4 % 80.4 % Lymphocytes (%) (Auto) 5.8 % 6.4 % Monocytes (%) (Auto) 13.1 % 12.6 % Eosinophils (%) (Auto) 0.3 % 0.3 % Basophils (%) (Auto) 0.4 % 0.3 % Neutrophils # (Auto) 18.6 TH/MM3 18.6 TH/MM3 Lymphocytes # (Auto) 1.3 TH/MM3 1.5 TH/MM3 Monocytes # (Auto) 3.0 TH/MM3 2.9 TH/MM3 Eosinophils # (Auto) 0.1 TH/MM3 0.1 TH/MM3 Basophils # (Auto) 0.1 TH/MM3 0.1 TH/MM3 CBC Comment AUTO DIFF AUTO DIFF Differential Total Cells 100 100 Counted Neutrophils % (Manual) 69 % 74 % Band Neutrophils % 24 % 14 % Lymphocytes % 1 % 4 % Monocytes % 6 % 5 % Neutrophils # (Manual) 21.6 TH/MM3 21.0 TH/MM3 Nucleated Red Blood Cells 4 /100 WBC 2 /100 WBC Differential Comment FINAL DIFF FINAL DIFF MANUAL MANUAL Platelet Estimate NORMAL NORMAL Platelet Morphology Comment NORMAL NORMAL [place] Bodies PRESENT Myelocytes 3 % Dohle Bodies Sodium Level 147 MEQ/L Potassium Level 3.6 MEQ/L Chloride Level 112 MEQ/L Carbon Dioxide Level 29.0 MEQ/L Anion Gap 6 MEQ/L Blood Urea Nitrogen 13 MG/DL Creatinine 0.84 MG/DL Estimat Glomerular Filtration 71 ML/MIN Rate Random Glucose 137 MG/DL Lactic Acid Level 1.1 mmol/L Calcium Level 8.0 MG/DL Phosphorus Level 2.5 MG/DL Magnesium Level 2.2 MG/DL Total Bilirubin 0.6 MG/DL Aspartate Amino Transf 37 U/L (AST/SGOT) Alanine Aminotransferase 45 U/L (ALT/SGPT) Alkaline Phosphatase 82 U/L Total Protein 5.0 GM/DL Albumin 1.7 GM/DL Lipase 102 U/L Prothrombin Time 10.8 SEC Prothromb Time International 1.0 RATIO Ratio Activated Partial 27.0 SEC Thromboplast Time Fibrinogen 541 mg/dL Test 05/24/17 09:30 Blood Gas Puncture Site RT RADIAL Blood Gas Patient Temperature 98.6 Blood Gas HCO3 25 mmol/L Blood Gas Base Excess 1.2 mmol/L Blood Gas Oxygen Saturation 96 % Arterial Blood pH 7.44 Arterial Blood Partial 37 mmHg Pressure CO2 Arterial Blood Partial 122 mmHg Pressure O2 Arterial Blood Oxygen Content 14.0 Vol % Arterial Blood 2.0 % Carboxyhemoglobin Arterial Blood Methemoglobin 1.3 % Blood Gas Hemoglobin 10.3 G/DL Oxygen Delivery Device VENTILATOR Blood Gas Ventilator Setting CPAP5/5PS Blood Gas Inspired Oxygen 35 % Administered Medications Medications (Trade) Dose Ordered Sig/Bandar Route PRN Reason Start Time Stop Time Status Last Admin Dose Admin Ondansetron HCl (Zofran Inj) 4 mg Q6HR PRN IV PUSH nausea 05/11/17 02:45 05/17/17 15:28 Cyanocobalamin (Vitamin B12) 1,000 mcg DAILY PO 05/11/17 09:00 05/24/17 08:20 Acetaminophen/ Hydrocodone Bitart ([place] 5-325 Mg) 1 tab Q6H PRN PO BREAKTHROUGH PAIN 05/11/17 10:30 Hold 05/21/17 19:00 Acetaminophen (Tylenol) 650 mg Q6H PRN PO fever > 100.4 05/14/17 00:15 05/16/17 17:58 Polyethylene Glycol 34 gm 34 gm DAILY PO 05/15/17 21:00 Hold 05/20/17 08:50 Ceftriaxone Sodium/Sodium Chloride (Rocephin Inj/NS Inj) 100 ml @ 200 mls/hr Q24H IV 05/16/17 22:00 05/23/17 20:34 Oxycodone HCl (Roxicodone) 5 mg Q4H PRN PO pain 1-7 05/19/17 18:00 Hold 05/21/17 17:37 Nystatin 1 applic 1 applic Q12HR TOPICAL 05/21/17 13:00 05/24/17 08:20 Metronidazole (Flagyl 500 Mg Inj) 100 ml @ 100 mls/hr Q8H IV 05/21/17 22:00 05/24/17 13:55 Chlorhexidine Gluconate (Peridex 0.12% Liq) 15 ml BID@08,20 MT 05/22/17 08:00 05/24/17 07:35 Insulin Human Regular (NovoLIN R SUPPLEMENTAL SCALE) 1 Q4HR SQ 05/22/17 04:00 05/22/17 20:00 Pantoprazole Sodium (Protonix Inj) 40 mg Q12H IV PUSH 05/22/17 04:00 05/24/17 03:15 Phenol (Chloraseptic [place]) 2 spray Q2H PRN OROPHARYNG PHARYNGITIS 05/24/17 10:45 05/24/17 11:36 Hydromorphone HCl (Dilaudid Pf Inj) 1 mg Q3HR PRN IV PUSH PAIN SCALE 7 TO 10 05/24/17 10:45 05/24/17 11:36 Objective Remarks GENERAL: Middle aged female upright in bed, fatigued but otherwise in nad. SKIN: Warm and dry. HEAD: Normocephalic. EYES: No injection or drainage. NECK: Supple, trachea midline. CARDIOVASCULAR: Regular rate and rhythm RESPIRATORY: Breath sounds equal bilaterally. No accessory muscle use. GASTROINTESTINAL: Abdomen soft, mildly tender to palpation, nondistended. EXTREMITIES: No cyanosis NEUROLOGICAL: No obvious focal deficit. Awake, alert, and oriented x3. Assessment/Plan Assessment 52y/o female admitted with abdominal pain. Hematology consulted for prolonged PTT. Plan 1. PTT from today is within normal limits. previous prolonged result likely d/t contamination or introduction of heparin into the sample. 2. hematology will sign off. please call or reconsult if needed. Chanel Ng May 24, 2017 14:20 Arnoldo Trinh MD May 24, 2017 19:06
[2017-05-24] MEDS: ONDANSETRON HCL 4 MG/2 ML VIAL IV PUSH PRN ×2 (14:44→21:02)
--- NOTE | 2017-05-24 15:12 | HHI.GIFU ---
Subjective Remarks Resting in bed. Extubated earlier today. Does have abdominal pain, left sided pain, but controlled. Taking clear liquids- pain is worse with po intake, but feels as long as she goes slow, this will improve. C/O being "puffy." Objective Vitals I&O Vital Signs Date Time Temp Pulse Resp B/P Pulse Ox O2 Delivery O2 Flow Rate FiO2 05/24/17 12:00 99.6 111 16 146/80 97 05/24/17 12:00 106 05/24/17 10:25 96 Nasal Cannula 2 05/24/17 10:25 96 Nasal Cannula 2.00 05/24/17 10:00 117 05/24/17 08:39 35 05/24/17 08:00 99.8 118 15 136/74 96 05/24/17 08:00 35 05/24/17 08:00 Arterial Line 05/24/17 08:00 115 05/24/17 07:42 95 35 05/24/17 06:00 103 05/24/17 04:32 98 35 05/24/17 04:00 35 05/24/17 04:00 99.0 105 12 120/65 97 05/24/17 04:00 105 05/24/17 02:00 100 05/24/17 00:50 97 35 05/24/17 00:00 99 05/24/17 00:00 35 05/24/17 00:00 98.9 99 12 129/73 100 05/23/17 22:00 99 05/23/17 20:00 35 05/23/17 20:00 99.4 105 12 128/69 97 05/23/17 20:00 102 05/23/17 19:37 99 35 05/23/17 18:00 104 05/23/17 17:52 100 100 05/23/17 16:00 35 05/23/17 16:00 98.6 102 16 129/66 96 05/23/17 16:00 104 I/O 05/23/17 05/23/17 05/23/17 05/24/17 05/24/17 05/24/17 07:00 15:00 23:00 07:00 15:00 23:00 Intake Total 795 ml 314 ml 715 ml 330 ml Output Total 750 ml 250 ml 750 ml 425 ml Balance 45 ml 64 ml -35 ml -95 ml IV Total 795 ml 314 ml 415 ml 330 ml Packed Cells 300 ml Output Urine Total 550 ml 250 ml 750 ml 425 ml Gastric Drainage Total 200 ml Laboratory Laboratory Tests Test 05/24/17 05/24/17 05/24/17 05/24/17 01:05 04:13 04:28 09:30 White Blood Count 23.2 23.1 Red Blood Count 3.26 3.21 Hemoglobin 9.0 9.0 Hematocrit 27.1 26.3 Mean Corpuscular Volume 83.0 82.0 Mean Corpuscular Hemoglobin 27.7 28.0 Mean Corpuscular Hemoglobin 33.3 34.1 Concent Red Cell Distribution Width 16.0 16.4 Platelet Count 224 239 Mean Platelet Volume 8.6 8.4 Neutrophils (%) (Auto) 80.4 80.4 Lymphocytes (%) (Auto) 5.8 6.4 Monocytes (%) (Auto) 13.1 12.6 Eosinophils (%) (Auto) 0.3 0.3 Basophils (%) (Auto) 0.4 0.3 Neutrophils # (Auto) 18.6 18.6 Lymphocytes # (Auto) 1.3 1.5 Monocytes # (Auto) 3.0 2.9 Eosinophils # (Auto) 0.1 0.1 Basophils # (Auto) 0.1 0.1 CBC Comment AUTO DIFF AUTO DIFF Differential Total Cells 100 100 Counted Neutrophils % (Manual) 69 74 Band Neutrophils % 24 14 Lymphocytes % 1 4 Monocytes % 6 5 Neutrophils # (Manual) 21.6 21.0 Nucleated Red Blood Cells 4 2 Differential Comment FINAL DIFF FINAL DIFF MANUAL MANUAL Platelet Estimate NORMAL NORMAL Platelet Morphology Comment NORMAL NORMAL [place] Bodies PRESENT Myelocytes 3 Dohle Bodies Sodium Level 147 Potassium Level 3.6 Chloride Level 112 Carbon Dioxide Level 29.0 Anion Gap 6 Blood Urea Nitrogen 13 Creatinine 0.84 Estimat Glomerular Filtration 71 Rate Random Glucose 137 Lactic Acid Level 1.1 Calcium Level 8.0 Phosphorus Level 2.5 Magnesium Level 2.2 Total Bilirubin 0.6 Aspartate Amino Transf 37 (AST/SGOT) Alanine Aminotransferase 45 (ALT/SGPT) Alkaline Phosphatase 82 Total Protein 5.0 Albumin 1.7 Lipase 102 Prothrombin Time 10.8 Prothromb Time International 1.0 Ratio Activated Partial 27.0 Thromboplast Time Fibrinogen 541 Blood Gas Puncture Site RT RADIAL Blood Gas Patient Temperature 98.6 Blood Gas HCO3 25 Blood Gas Base Excess 1.2 Blood Gas Oxygen Saturation 96 Arterial Blood pH 7.44 Arterial Blood Partial 37 Pressure CO2 Arterial Blood Partial 122 Pressure O2 Arterial Blood Oxygen Content 14.0 Arterial Blood 2.0 Carboxyhemoglobin Arterial Blood Methemoglobin 1.3 Blood Gas Hemoglobin 10.3 Oxygen Delivery Device VENTILATOR Blood Gas Ventilator Setting CPAP5/5PS Blood Gas Inspired Oxygen 35 Imaging Last Impressions Chest X-Ray 05/23/17 0600 Signed Impressions: Service Date/Time: Tuesday, May 23, 2017 04:24 - CONCLUSION: Stable left lower lobe consolidation. Harvey Stack MD Aorta w/Runoff CTA 05/23/17 0000 Signed Impressions: Service Date/Time: Tuesday, May 23, 2017 17:25 - CONCLUSION: 1. The aorta and other vascular structures are intact with no focal aneurysm. 2. No evidence of large hematoma. 3. Large complex collection again noted in the left upper abdomen with air-fluid level and gas. There are internal drains again noted. Feng Mahoney MD Abdomen/Pelvis CT 05/23/17 0000 Signed Impressions: Service Date/Time: Tuesday, May 23, 2017 17:25 - CONCLUSION: 1. The aorta and vascular structures remain intact with no aneurysm 2. No evidence of large hematoma. 3. Large complex collection again noted in the left upper quadrant of the abdomen with air fluid level and multiple gas bubbles. Internal drainage catheters remain in place. 4. The smaller, more cystic structure posterior to the stomach has decreased mildly in size. Feng Mahoney MD Splenic Arteriogram 05/22/17 0000 Signed Impressions: Service Date/Time: Monday, May 22, 2017 00:11 - CONCLUSION: Splenic hilar pseudoaneurysm embolized as described in detail above. Tim Valencia MD Chest CT 05/21/17 0000 Signed Impressions: Service Date/Time: Sunday, May 21, 2017 22:36 - CONCLUSION: 1. Small bilateral pleural effusions with consolidation in both posterior lung bases. There is elevation of the left hemidiaphragm. 2. Complex fluid collection again noted in the left upper abdomen with internal catheters. Feng Mahoney MD Abdomen X-Ray 05/21/17 0000 Signed Impressions: Service Date/Time: Sunday, May 21, 2017 21:42 - CONCLUSION: Possible free air in the upper abdomen which may be present in the previous noted large complex fluid collection. A CT is pending for further evaluation. Feng Mahoney MD Chest Tube Insertion 05/18/17 1308 Signed Impressions: Service Date/Time: Thursday, May 18, 2017 13:33 - CONCLUSION: Uncomplicated left chest tube placement. If Gram stain is negative the tube can be removed. Chest x-ray is pending in the a.m. Seamus Costa MD FACR Chest Ultrasound 05/18/17 0000 Signed Impressions: Service Date/Time: Thursday, May 18, 2017 09:09 - CONCLUSION: 1. There is a moderate pleural effusion on the left. A iris was placed on the skin surface. Venkata Costa MD GI Procedure 05/17/17 0000 Signed Impressions: Service Date/Time: April 17:06 - CONCLUSION: 1. Interval placement of second stent catheter in the left upper quadrant. 2. The previously noted stent catheter is unchanged in appearance. 3. Nonspecific bowel gas pattern. Feng Mahoney MD Physical Exam HEENT: Normocephalic, atraumatic. CHEST: Resp. even/unlabored. Diminished bases. CARDIAC: ST ABDOMEN: Abdomen soft, mildly distended, mild diffuse abdominal tenderness- more so on left side. bowel sounds active EXTREMITIES: No cyanosis SKIN: normal. [employer]IC: lethargic, oriented Assessment and Plan Plan ASSESSMENT: - Massive bleeding secondary to splenic pseudoaneurysm. Pt had sudden onset of rectal bleeding evening of 05/21/early 05/22 and he was transferred to the unit. S/P Angiogram with embolization of splenic hilar pseudoaneurysm by IR (05/22/17). No further bleeding. S/P 14 units PRBC, 4 units liquid plasma, 4 units FFP, 1 unit platelets, 1 cryoprecipitate. HH has remained stable today, 9.0/26.3. - Acute on chronic pancreatitis with large pseudocyst formation. Pt with 4 year hx of pancreatitis (states she has more than 10-12 episodes per year). States last episode was last month. Abdomen/Pelvis CT (05/10/17)---> 1. 14 x 10 CM sub-phrenic fluid collection on the left larger than on the prior study. This could be related to pseudocyst or perhaps splenic hematoma. The findings have worsened when compared with the prior examination. 2. Chronic calcific pancreatitis 3. Chronic portal vein thrombosis. She quit ETOH use >1 year ago. She reports that she was told more than a year ago that she had a pseudocyst and needed it removed, but that the [facility] will not approve this. States she was told one month ago that her ibuprofen use may have caused her pancreatitis and stopped this. Of note, we did recommend EUS with FNA in past, but she did not follow up and she we were unable to contact her by phone or mail. S/P EUS w/ cyst gastrostomy (05/11/17) --> EGD findings Normal esophagus, Bulging in the stomach with food residue, Normal duodenum, EUS findings with hypoechoic homogeneous cyst, which was aspirated and dark lactose brownish aspirate was obtained and sent for culture and labs, s/p 7 [place] 7 cm double pigtail stent placement. Lipase normalized. Abdomen/Pelvis CT (05/17/17)----> 1. There is a 14.8 x 11.8 cm complex fluid collection in the left upper quadrant. This appears to represent liquefaction of the spleen post splenic infarction. There was apparently a large pseudocyst which traversed up into the splenic hilum. There is still considerable residual splenic tissue. There is a drain which decompresses this collection into the stomach. There is gas within this. The examination also demonstrates a 3.8 x 4.6 cm fluid collection posterior to the stomach. Both of these are unchanged from previous. 2. No findings to indicate bowel obstruction. 3. Bilateral pleural effusion with consolidative changes in the left lung base. 4. Small amount of free fluid within the pelvis. 5. Vega catheter in good position. S/P EUS with cyst gastrostomy (05/17/17)----> Pancreatic pseudocyst. Ceftriaxone, Flagyl. 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 S/P Angiogram with embolization of splenic hilar pseudoaneurysm by IR (05/22/17). S/P multiple transfusions. No further bleeding. HH stable 9.0.3. - Fever/Leukocytosis. WBC 23.1. Ceftriaxone. Flagyl. - Respiratory failure, left pleural effusion. S/P CT insertion on left during this hospitalization. S/P extubation today. No respiratory distress. - Elevated LFTs. Improved. T. Bili 0.6, AST 37, ALT 45, Alk Phosph 82. - Chronic portal vein thrombosis. This is chronic. - Abnormal weight loss. Reports 30 lb weight loss in 3 months. Unintentional - Hx elevated chromogranin level. During a previous hospitalization, she complained of flushing, diarrhea, abdominal pain. She was evaluated with chromogranin A 108.0 (significantly high), Gastrin 86, VIP less than 50. She did not fu. She is not having flushing or diarrhea at this time. PLAN: - Clear liquids - Monitor HH - Transfuse as necessary - Monitor labs - Cont. PPI - Cont. Abx per ID recommendations, ceftriaxone, flagyl - Repeat imaging in 1 month to reassess cyst - EGD w/ stent removal 2-3m - Further recommendations to follow based on results of above - Pt seen and examined by Dr. Escamilla and myself and this note is written on his behalf Jordyn Puente May 24, 2017 15:12
[2017-05-24 16:26] LABS: HEMATOCRIT 26.6 % (35.0-46.0); REVIEW FLAG FINAL
[2017-05-24] MEDS ORDERED: ACETAMINOPHEN 1000 MG/100 ML VIAL IV ONE (17:00)
[2017-05-24] MEDS: LIPASE/PROTEASE/AMYLASE (24,000/76,000/120,000) CAP PO SCH (18:32)
[2017-05-24] MEDS: cefTRIAXone INJ 2,000 MG in SODIUM CHLORIDE 0.9% INJ 100 ML IV SCH (20:31)
[2017-05-25] VITALS (12 sets, daily range): BP systolic 129–158; BP diastolic 70–92; PULSE 90–113; RESP 16–22; TEMP 97.6–98.5; O2SAT 92–96
[2017-05-25] MEDS: HYDROmorphone HCL PF 1 MG/ML VIAL IV PUSH PRN ×7 (02:23→22:34)
[2017-05-25] MEDS: PANTOPRAZOLE SODIUM 40 MG VIAL IV PUSH SCH ×2 (02:23→14:38)
[2017-05-25] MEDS: INSULIN NovoLIN REGULAR SUPPLEMENTAL SCALE SQ SCH ×5 (04:00→20:00)
[2017-05-25] MEDS: RESP: ALBUTEROL 2.5 MG/IPRATROPIUM 0.5 MG NEB (SCH) NEB ×4 (04:11→20:59)
[2017-05-25] MEDS: metroNIDAZOLE 500 MG INJ 100 ML IV SCH ×3 (05:16→20:03)
[2017-05-25 05:42] LABS: HEMATOCRIT 24.8 % (35.0-46.0); MEAN CELL VOLUME 83.9 FL (80.0-100.0); MEAN CORPUSCULAR HEMOGLOBIN 27.5 PG (27.0-34.0); MEAN CORPUSCULAR HGB CONC 32.8 % (32.0-36.0); PLATELET COUNT 278 TH/MM3 (150-450); RED BLOOD COUNT 2.95 MIL/MM3 (4.00-5.30); RED CELL DISTRIBUTION WIDTH 16.3 % (11.6-17.2); REVIEW FLAG FINAL; WHITE BLOOD COUNT 21.1 TH/MM3 (4.0-11.0)
[2017-05-25 06:36] LABS: BICARBONATE 26.8 MEQ/L (21.0-32.0); MAGNESIUM 1.9 MG/DL (1.5-2.5)
[2017-05-25] MEDS: CHLORHEXIDINE 0.12% (ORAL KIT) 15 ML CUP MT SCH ×2 (07:17→20:00)
[2017-05-25] MEDS: CYANOCOBALAMIN 1,000 MCG TAB PO SCH (08:15)
[2017-05-25] MEDS: ONDANSETRON HCL 4 MG/2 ML VIAL IV PUSH PRN ×2 (08:15→14:38)
[2017-05-25] MEDS: SODIUM CHLORIDE 0.9% FLUSH 10 ML FLUSH IVF SCH (08:15)
[2017-05-25] MEDS: LIPASE/PROTEASE/AMYLASE (24,000/76,000/120,000) CAP PO SCH ×3 (08:15→18:24)
[2017-05-25] MEDS: NYSTATIN 100,000 U/GM PWD 15 GM BTL TOPICAL SCH ×2 (08:16→20:04)
[2017-05-25] MEDS ORDERED: POTASSIUM PHOSPHATE INJ 30 MMOL in SODIUM CHLOR 0.9% 250 ML INJ 250 ML IV ONE (09:15)
--- NOTE | 2017-05-25 09:29 | HHI.GIFU ---
Subjective Remarks Resting in bed. Continues to have abdominal/left sided pain- no improvement, "9 " on scale 0-10. No n/v. Had 3 melanotic stools overnight. No vomiting. Nausea controlled with zofran. Objective Vitals I&O Vital Signs Date Time Temp Pulse Resp B/P Pulse Ox O2 Delivery O2 Flow Rate FiO2 05/25/17 08:10 95 Nasal Cannula 2.00 05/25/17 08:00 96 05/25/17 08:00 98.2 92 18 141/83 93 05/25/17 06:00 102 05/25/17 04:00 96 05/25/17 04:00 98.3 96 16 129/70 92 05/25/17 02:00 113 05/25/17 00:00 98.3 106 20 142/80 92 05/25/17 00:00 106 05/24/17 22:00 106 05/24/17 21:51 94 Nasal Cannula 2.00 05/24/17 20:00 98.7 107 20 130/82 92 05/24/17 20:00 107 05/24/17 18:00 119 05/24/17 16:00 98.8 110 15 116/66 94 05/24/17 16:00 107 05/24/17 14:00 105 05/24/17 12:00 99.6 111 16 146/80 97 05/24/17 12:00 106 05/24/17 10:25 96 Nasal Cannula 2 05/24/17 10:25 96 Nasal Cannula 2.00 05/24/17 10:00 117 I/O 05/24/17 05/24/17 05/24/17 05/25/17 05/25/17 05/25/17 07:00 15:00 23:00 07:00 15:00 23:00 Intake Total 330 ml 730 ml 748 ml 675 ml Output Total 425 ml 500 ml 350 ml 525 ml Balance -95 ml 230 ml 398 ml 150 ml Intake Oral 600 ml 480 ml 480 ml IV Total 330 ml 130 ml 268 ml 195 ml Output Urine Total 425 ml 500 ml 350 ml 525 ml # Bowel Movements 2 2 Laboratory Laboratory Tests Test 05/24/17 05/24/17 05/24/17 05/25/17 09:30 15:50 22:40 05:20 Blood Gas Puncture Site RT RADIAL Blood Gas Patient Temperature 98.6 Blood Gas HCO3 25 Blood Gas Base Excess 1.2 Blood Gas Oxygen Saturation 96 Arterial Blood pH 7.44 Arterial Blood Partial 37 Pressure CO2 Arterial Blood Partial 122 Pressure O2 Arterial Blood Oxygen Content 14.0 Arterial Blood 2.0 Carboxyhemoglobin Arterial Blood Methemoglobin 1.3 Blood Gas Hemoglobin 10.3 Oxygen Delivery Device VENTILATOR Blood Gas Ventilator Setting CPAP5/5PS Blood Gas Inspired Oxygen 35 Hemoglobin 8.9 8.5 8.1 Hematocrit 26.6 25.0 24.8 White Blood Count 21.1 Red Blood Count 2.95 Mean Corpuscular Volume 83.9 Mean Corpuscular Hemoglobin 27.5 Mean Corpuscular Hemoglobin 32.8 Concent Red Cell Distribution Width 16.3 Platelet Count 278 Mean Platelet Volume 7.9 Sodium Level 141 Potassium Level 3.0 Chloride Level 105 Carbon Dioxide Level 26.8 Anion Gap 9 Blood Urea Nitrogen 9 Creatinine 0.69 Estimat Glomerular Filtration 89 Rate Random Glucose 155 Calcium Level 8.1 Phosphorus Level 1.7 Magnesium Level 1.9 Imaging Last Impressions Chest X-Ray 05/23/17 0600 Signed Impressions: Service Date/Time: Tuesday, May 23, 2017 04:24 - CONCLUSION: Stable left lower lobe consolidation. Harvey Stack MD Aorta w/Runoff CTA 05/23/17 0000 Signed Impressions: Service Date/Time: Tuesday, May 23, 2017 17:25 - CONCLUSION: 1. The aorta and other vascular structures are intact with no focal aneurysm. 2. No evidence of large hematoma. 3. Large complex collection again noted in the left upper abdomen with air-fluid level and gas. There are internal drains again noted. Feng Mahoney MD Abdomen/Pelvis CT 05/23/17 0000 Signed Impressions: Service Date/Time: Tuesday, May 23, 2017 17:25 - CONCLUSION: 1. The aorta and vascular structures remain intact with no aneurysm 2. No evidence of large hematoma. 3. Large complex collection again noted in the left upper quadrant of the abdomen with air fluid level and multiple gas bubbles. Internal drainage catheters remain in place. 4. The smaller, more cystic structure posterior to the stomach has decreased mildly in size. Feng Mahoney MD Splenic Arteriogram 05/22/17 0000 Signed Impressions: Service Date/Time: Monday, May 22, 2017 00:11 - CONCLUSION: Splenic hilar pseudoaneurysm embolized as described in detail above. Tim Valencia MD Chest CT 05/21/17 0000 Signed Impressions: Service Date/Time: Sunday, May 21, 2017 22:36 - CONCLUSION: 1. Small bilateral pleural effusions with consolidation in both posterior lung bases. There is elevation of the left hemidiaphragm. 2. Complex fluid collection again noted in the left upper abdomen with internal catheters. Feng Mahoney MD Abdomen X-Ray 05/21/17 0000 Signed Impressions: Service Date/Time: Sunday, May 21, 2017 21:42 - CONCLUSION: Possible free air in the upper abdomen which may be present in the previous noted large complex fluid collection. A CT is pending for further evaluation. Feng Mahoney MD Chest Tube Insertion 05/18/17 1308 Signed Impressions: Service Date/Time: Thursday, May 18, 2017 13:33 - CONCLUSION: Uncomplicated left chest tube placement. If Gram stain is negative the tube can be removed. Chest x-ray is pending in the a.. Seamus Costa MD FACR Chest Ultrasound 05/18/17 0000 Signed Impressions: Service Date/Time: Thursday, May 18, 2017 09:09 - CONCLUSION: 1. There is a moderate pleural effusion on the left. A iris was placed on the skin surface. Venkata Costa MD GI Procedure 05/17/17 0000 Signed Impressions: Service Date/Time: April 17:06 - CONCLUSION: 1. Interval placement of second stent catheter in the left upper quadrant. 2. The previously noted stent catheter is unchanged in appearance. 3. Nonspecific bowel gas pattern. Feng Mahoney MD Physical Exam HEENT: Normocephalic, atraumatic. CHEST: Resp. even/unlabored. Diminished bases. CARDIAC: ST ABDOMEN: Abdomen soft, mildly distended, moderate diffuse abdominal tenderness - more so on left side. bowel sounds active EXTREMITIES: No cyanosis SKIN: normal. [employer]: lethargic, oriented Assessment and Plan Plan ASSESSMENT: - Acute on chronic pancreatitis with large pseudocyst formation. Pt with 4 year hx of pancreatitis (states she has more than 10-12 episodes per year). States last episode was last month. Abdomen/Pelvis CT (05/10/17)---> 1. 14 x 10 CM sub-phrenic fluid collection on the left larger than on the prior study. This could be related to pseudocyst or perhaps splenic hematoma. The findings have worsened when compared with the prior examination. 2. Chronic calcific pancreatitis 3. Chronic portal vein thrombosis. She quit ETOH use >1 year ago. She reports that she was told more than a year ago that she had a pseudocyst and needed it removed, but that the [facility] will not approve this. States she was told one month ago that her ibuprofen use may have caused her pancreatitis and stopped this. Of note, we did recommend EUS with FNA in past, but she did not follow up and she we were unable to contact her by phone or mail. S/P EUS w/ cyst gastrostomy (05/11/17) --> EGD findings Normal esophagus, Bulging in the stomach with food residue, Normal duodenum, EUS findings with hypoechoic homogeneous cyst, which was aspirated and dark lactose brownish aspirate was obtained and sent for culture and labs, s/p 7 Pashto 7 cm double pigtail stent placement. Lipase normalized. Abdomen/Pelvis CT (05/17/17)----> 1. There is a 14.8 x 11.8 cm complex fluid collection in the left upper quadrant. This appears to represent liquefaction of the spleen post splenic infarction. There was apparently a large pseudocyst which traversed up into the splenic hilum. There is still considerable residual splenic tissue. There is a drain which decompresses this collection into the stomach. There is gas within this. The examination also demonstrates a 3.8 x 4.6 cm fluid collection posterior to the stomach. Both of these are unchanged from previous. 2. No findings to indicate bowel obstruction. 3. Bilateral pleural effusion with consolidative changes in the left lung base. 4. Small amount of free fluid within the pelvis. 5. Vega catheter in good position. S/P EUS with cyst gastrostomy (05/17/17)----> Pancreatic pseudocyst. Rpt. Abdomen/Pelvis CT (05/23/17)----> 1. The aorta and vascular structures remain intact with no aneurysm 2. No evidence of large hematoma. 3. Large complex collection again noted in the left upper quadrant of the abdomen with air fluid level and multiple gas bubbles. Internal drainage catheters remain in place. 4. The smaller, more cystic structure posterior to the stomach has decreased mildly in size. Pt continues to have abdominal pain- no improvement. WBC 21.1. D/W Dr. Corbett, pancreatic fluid thick/loculated, difficult to drain. Will d/w IR to see if they feel they would be able to drain the large pseudocyst. Will reconsult GS for evaluation for possible debridement. If not able to be drained by IR and no plans for surgical debridement, consider tx to tertiary. Ceftriaxone, Flagyl. Creon. Massive bleeding secondary to splenic pseudoaneurysm. Pt had sudden onset of rectal bleeding evening of 05/21/early 05/22 and he was transferred to the unit. S/P Angiogram with embolization of splenic hilar pseudoaneurysm by IR (05/22/17 ). No further bleeding. S/P 14 units PRBC, 4 units liquid plasma, 4 units FFP , 1 unit platelets, 1 cryoprecipitate. Aorta w/Runoff CTA (05/23/17)----> 1. The aorta and other vascular structures are intact with no focal aneurysm. 2. No evidence of large hematoma. 3. Large complex collection again noted in the left upper abdomen with air-fluid level and gas. There are internal drains again noted. She did have 3 melanotic stools overnight. HH 8.1/24.8. 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 S/P Angiogram with embolization of splenic hilar pseudoaneurysm by IR (05/22/17). S/P multiple transfusions. S/P CTA with no evidence of further bleeding. No further bleeding. . - Fever/Leukocytosis. WBC 21.1. Ceftriaxone. Flagyl. - Respiratory failure, left pleural effusion. S/P CT insertion on left during this hospitalization. S/P extubation yesterday No respiratory distress. - Elevated LFTs. Improved. - Chronic portal vein thrombosis. This is chronic. - Abnormal weight loss. Reports 30 lb weight loss in 3 months. Unintentional - Hx elevated chromogranin level. During a previous hospitalization, she complained of flushing, diarrhea, abdominal pain. She was evaluated with chromogranin A 108.0 (significantly high), Gastrin 86, VIP less than 50. She did not fu. She is not having flushing or diarrhea at this time. PLAN: - Clear liquids - Cont. PPI' - Reconsult GS for evaluation persistent large pseudocyst, possible drainage/ debridement - Will d/w with IR to see if they feel they would be able to drain large pseudocyst (s/p EUS with cyst gastrostomy x 2) - Monitor HH - Transfuse as necessary - Monitor labs - Cont. PPI - Cont. Abx per ID recommendations, ceftriaxone, flagyl - If IR unable to drain and no plans for surgical intervention, consider tx to tertiary - At d/c will need Repeat imaging in 1 month to reassess cyst, EGD w/ stent removal 2-3m - Further recommendations to follow based on results of above - Pt seen and examined by Dr. Escamilla and myself and this note is written on his behalf Jordyn Puente May 25, 2017 09:29
--- NOTE | 2017-05-25 11:43 | HHI.PR ---
Subjective Subjective Notes Reconsulted due to concern for large pseudocyst s/p endoscopic cyst-gastrostomy with persistence due to complexity. Pt currently c/o abdominal pain, +melanotic stools, Pt otherwise appears stable, tolerating clears. Objective Vitals/I&O Vital Signs Date Time Temp Pulse Resp B/P Pulse Ox O2 Delivery O2 Flow Rate FiO2 05/25/17 10:00 102 05/25/17 08:10 95 Nasal Cannula 2.00 05/25/17 08:00 98.2 18 141/83 05/24/17 08:39 35 Labs Laboratory Tests Test 05/24/17 05/24/17 05/25/17 15:50 22:40 05:20 Hemoglobin 8.9 8.5 8.1 Hematocrit 26.6 25.0 24.8 White Blood Count 21.1 Red Blood Count 2.95 Mean Corpuscular Volume 83.9 Mean Corpuscular Hemoglobin 27.5 Mean Corpuscular Hemoglobin 32.8 Concent Red Cell Distribution Width 16.3 Platelet Count 278 Mean Platelet Volume 7.9 Sodium Level 141 Potassium Level 3.0 Chloride Level 105 Carbon Dioxide Level 26.8 Anion Gap 9 Blood Urea Nitrogen 9 Creatinine 0.69 Estimat Glomerular Filtration 89 Rate Random Glucose 155 Calcium Level 8.1 Phosphorus Level 1.7 Magnesium Level 1.9 Radiology Last 48 hours Impressions Chest Tube Insertion 05/18/17 1308 Signed Impressions: Service Date/Time: Thursday, May 18, 2017 13:33 - CONCLUSION: Uncomplicated left chest tube placement. If Gram stain is negative the tube can be removed. Chest x-ray is pending in the a.m. Seamus Costa MD FACR Chest Ultrasound 05/18/17 0000 Signed Impressions: Service Date/Time: Thursday, May 18, 2017 09:09 - CONCLUSION: 1. There is a moderate pleural effusion on the left. A iris was placed on the skin surface. Venkata Costa MD Abdomen X-Ray 05/18/17 0000 Signed Impressions: Service Date/Time: Thursday, May 18, 2017 15:45 - CONCLUSION: 1. Orogastric tube tip or overlies distal stomach. Additional catheters present in the left upper quadrant. No free air. Tyrel Aguilar MD Abdomen/Pelvis CT 05/17/17 1447 Signed Impressions: Service Date/Time: April 15:05 - CONCLUSION: 1. There is a 14.8 x 11.8 cm complex fluid collection in the left upper quadrant. This appears to represent liquefaction of the spleen post splenic infarction. There was apparently a large pseudocyst which traversed up into the splenic hilum. There is still considerable residual splenic tissue. There is a drain which decompresses this collection into the stomach. There is gas within this. The examination also demonstrates a 3.8 x 4.6 cm fluid collection posterior to the stomach. Both of these are unchanged from previous. 2. No findings to indicate bowel obstruction. 3. Bilateral pleural effusion with consolidative changes in the left lung base. 4. Small amount of free fluid within the pelvis. 5. Vega catheter in good position. Venkata Costa MD GI Procedure 05/17/17 0000 Signed Impressions: Service Date/Time: April 17:06 - CONCLUSION: 1. Interval placement of second stent catheter in the left upper quadrant. 2. The previously noted stent catheter is unchanged in appearance. 3. Nonspecific bowel gas pattern. Feng Mahoney MD Chest X-Ray 05/17/17 0000 Signed Impressions: Service Date/Time: April 19:07 - CONCLUSION: 1. Interval intubation and placement of right internal jugular central venous line. There is no visualized pneumothorax however the sensitivity is limited on this single view supine study. 2. New diffuse opacity in the left lung as well as consolidation in the right upper lobe which could represent partial collapse. 3. Volume loss in the right hemithorax with mediastinal shift to the right. Feng Mahoney MD Abdomen X-Ray 05/17/17 0000 Signed Impressions: Service Date/Time: April 19:10 - CONCLUSION: 1. No definite evidence of free air however there is a large ill-defined gas collection in the upper and left abdomen which likely represents gas in the previous known large complex fluid collection was seen on the recent CT.. 2. Nonspecific bowel gas pattern most consistent with an ileus. 3. 2 stent catheters are now identified in the left upper quadrant. Feng Mahoney MD Cardiovascular: Regular Lungs: Clear Abdomen: Other (soft, +ttp, no rebound, no peritoneal signs) A/P Assessment and Plan Complex medical surgical issues including large pancreatic pseudocyst s/p cyst- gastrostomy with minimal improvement. Surgery reconsulted for possible intervention PLAN - I discussed with Dr. Chan. No surgical intervention at this time. Agree with attempt for IR drain. If IR unable to drain Recommend possible transfer to tertiary center. - diet Clear liquids, Monitor HH, Transfuse prn, Cont. Abx per ID - General surgery will be available if needed. Apolinra Herrera MD May 25, 2017 11:43
[2017-05-25] MEDS: busPIRone HCL 10 MG TAB PO SCH ×2 (12:05→20:02)
[2017-05-25] MEDS: ACETAMINOPHEN/HYDROcodone 325 MG/5 MG TAB PO PRN ×2 (12:10→20:02)
[2017-05-25] MEDS ORDERED: ICU - MAGNESIUM OXIDE 400 MG TAB PO PRN (13:15)
[2017-05-25] MEDS ORDERED: ICU - POTASSIUM CHLORIDE/AQUEOUS SOLN 20 MEQ/100 ML IVPB IV PRN (13:15)
[2017-05-25] MEDS ORDERED: POTASSIUM CHLORIDE 25 MEQ EFFERVESCENT TAB PO PRN (13:15)
[2017-05-25] MEDS ORDERED: ICU - CALL ORDERING PHYSICIAN PRN (13:15)
[2017-05-25] MEDS ORDERED: ICU - D/C ICU ELECTROLYTE ORDERS PRN (13:15)
[2017-05-25] MEDS ORDERED: ICU - POTASSIUM PHOSPHATE MONOBASIC 500 MG TAB PO PRN (13:15)
[2017-05-25] MEDS ORDERED: ICU - POTASSIUM PHOSPHATE 30 MMOL/NS 250 ML IV PRN ×2 (13:15)
[2017-05-25] MEDS ORDERED: ICU - SODIUM PHOSPHATE 30 MMOL/NS 250 ML IV PRN ×2 (13:15)
[2017-05-25] MEDS ORDERED: ICU - MAGNESIUM SULFATE 4 GM/NS 100 ML IV PRN ×2 (13:15)
[2017-05-25] MEDS ORDERED: ICU - MAGNESIUM SULFATE 2 GM/NS 100 ML IV PRN ×2 (13:15)
--- NOTE | 2017-05-25 13:43 | HHI.CCPN ---
Subjective Remarks/Hospital Course Hospital Course: 52 y/o woman with chronic pancreatitis underwent endoscopic pseudocyst- gastrostomy today in OR. Cyst was mature and there is no evidence of tract leak. Unable to wean from ventilator after procedure, complicated by large left subphrenic collection, left pleural effusion, and consolidation of left lower lobe. 05/18: continues to be intubated, but awake and alert at this point. endorses pain over LUQ. denies other complaints. ultrasound of left chest with significant effusion. 05/19: IR guided left chest tube placed yesterday with 490 mL milky serous fluid drained. pulmonary mechanics slightly improved. somewhat agitated overnight. still follows commands. 05/20: extubated yesterday. tolerating regular diet. clinically improving. chest tube put out ~150cc/12h, serous. cultures have been NGTD. denies complaints. pain better controlled. Subjective: 05/21: Re consulted secondary to acute lower GI bleed. Halicat was called secondary to bright red blood per rectum. Patient was hypotensive and pale. Brought to room 514 and was intubated without anesthesia. Started on vasopressors. Received massive transfusion protocol. Notify Dr. Escamilla /GI. No intervention from his standpoint. Notify Dr. Villalpando and recommended no surgical intervention at this time due to complexity of medical to localize source of bleeding. Currently down for CT abdomen/pelvis. IR notified. 05/22: Patient is status post splenic embolization early this a.m.. She remains intubated and sedated, due to large fluid shifts no sedation holiday today. OGT output 300 cc since 12 midnight. Hemoglobin this a.m. 7.9 patient receiving 1 unit of packed red blood cells post transfusion hemoglobin pending. 05/23: Minimal OGT output, less than 100 cc over the last 12 hours. The patient was noted to have a decrease in hemoglobin this a.m., was transfused 1 unit PRBCs. Posttransfusion hemoglobin minimally changed, repeat hemoglobin pending. Plans to transfuse if hemoglobin less than 7, and continue serial monitoring every 6 hours. GCS 11 T. Patient successfully managed CPAP trials for approximately 4 hours. Plans to continue CPAP trials. 05/24: Hemoglobin decreased yesterday afternoon, CT angiogram of the abdomen pelvis and lower extremities obtained. No pseudoaneurysm/aneurysm found. Patient received additional unit of packed red blood cells yesterday. Hemoglobin stable for the last 12 hours, to continue to monitor. Hematology consulted appreciate recommendations, mixing study was found to be slightly abnormal. CPAP trial successful plan for extubation this morning, and advancement to clear liquid diet. 05/25: Patient was extubated yesterday, tolerated a clear liquid diet. Patient placed on multimodal pain medications, persistent pain pre-existing pseudocyst. GI following with plans for drainage, possible surgery possible IR drainage. Objective Vital Signs Date Time Temp Pulse Resp B/P Pulse Ox O2 Delivery O2 Flow Rate FiO2 05/25/17 12:00 90 05/25/17 12:00 98.1 18 152/92 95 05/25/17 08:10 Nasal Cannula 2.00 05/24/17 08:39 35 Intake and Output 05/24/17 05/24/17 05/25/17 08:00 16:00 00:00 Intake Total 330 ml 730 ml 748 ml Output Total 425 ml 500 ml 350 ml Balance -95 ml 230 ml 398 ml Result Diagram: 05/25/17 0520 05/25/17 0520 Imaging Last Impressions Chest X-Ray 05/21/17 0000 Signed Impressions: Service Date/Time: Sunday, May 21, 2017 20:32 - CONCLUSION: 1. Interval intubation and placement of right internal jugular central venous line with no visualized pneumothorax on this supine exam. 2. Mild patchy opacity at the left lung base which appears improved. Feng Mahoney MD Abdomen X-Ray 05/21/17 0000 Signed Impressions: Service Date/Time: Sunday, May 21, 2017 21:42 - CONCLUSION: Possible free air in the upper abdomen which may be present in the previous noted large complex fluid collection. A CT is pending for further evaluation. Feng Mahoney MD Chest Tube Insertion 05/18/17 1308 Signed Impressions: Service Date/Time: Thursday, May 18, 2017 13:33 - CONCLUSION: Uncomplicated left chest tube placement. If Gram stain is negative the tube can be removed. Chest x-ray is pending in the a.m. Seamus Costa MD FACR Chest Ultrasound 05/18/17 0000 Signed Impressions: Service Date/Time: Thursday, May 18, 2017 09:09 - CONCLUSION: 1. There is a moderate pleural effusion on the left. A iris was placed on the skin surface. Venkata Costa MD Abdomen/Pelvis CT 05/17/17 1447 Signed Impressions: Service Date/Time: April 15:05 - CONCLUSION: 1. There is a 14.8 x 11.8 cm complex fluid collection in the left upper quadrant. This appears to represent liquefaction of the spleen post splenic infarction. There was apparently a large pseudocyst which traversed up into the splenic hilum. There is still considerable residual splenic tissue. There is a drain which decompresses this collection into the stomach. There is gas within this. The examination also demonstrates a 3.8 x 4.6 cm fluid collection posterior to the stomach. Both of these are unchanged from previous. 2. No findings to indicate bowel obstruction. 3. Bilateral pleural effusion with consolidative changes in the left lung base. 4. Small amount of free fluid within the pelvis. 5. Vega catheter in good position. Venkata Costa MD GI Procedure 05/17/17 0000 Signed Impressions: Service Date/Time: April 17:06 - CONCLUSION: 1. Interval placement of second stent catheter in the left upper quadrant. 2. The previously noted stent catheter is unchanged in appearance. 3. Nonspecific bowel gas pattern. Feng Mahoney MD Objective Remarks GENERAL: 52-year-old female, awake and alert SKIN: Warm and dry. HEAD: Atraumatic. Normocephalic. EYES: Pupils equal and round about 2 mm bilaterally and reactive. No scleral icterus. No injection or drainage. ENT: No nasal bleeding or discharge. Mucous membranes pink and moist. NECK: Trachea midline. No JVD. CARDIOVASCULAR: Regular rate and rhythm. S1, S2. No S4. RESPIRATORY: Clear to auscultation. Breath sounds equal bilaterally. GASTROINTESTINAL: Abdomen soft, no tenderness elicited. Hypoactive bowel sounds. MUSCULOSKELETAL: Extremities without significant peripheral, or edema. No obvious deformities. NEUROLOGICAL: Patient is alert and following commands. Urinary Catheter: Yes Vega insert reason: Measure Accurate Output A/P Assessment and Plan Neuro/Psych: Posttraumatic stress disorder Acute toxic metabolic encephalopathy Goal of RASS -2 Dilaudid 1 mg every 3 hours when necessary for pain, transition to by mouth narcotics, oxycodone, and hydrocodone PO PRN BuSpar 30 mg twice a day medication for anxiety CV: Severe shock secondary to hypovolemia-resolved Lactic acidosis Status post splenic artery embolization Status post 6 PRBCs/6 FFP 1 cryoprecipitate. 1 platelet Normal saline at 42cc /hour 05/22 Currently off all vasopressors after massive transfusion 05/23 3 u PRBC transfused Resp: Acute respiratory failure-resolved O2 at 2 L nasal cannula, to maintain O2 sat greater than 92% Incentive spirometry 3 hour while awake 05/23-chest x-ray stable left lower lobe consolidation GI: Lower GI bleed Chronic Pancreatitis with pseudocyst - persistent, stable. S/P cyst-gastrostomy 05/17/17I Status post endoscopic ultrasound with sphincterotomy, balloon dilatation and the double pigtail stent placement into the common bile duct. Discussed with Dr. Escamilla - plan for stat CT abdomen/pelvis. - Splenic artery embolization KUB revealed possible free air in the abdomen. Jean Paul Fuentes did not recommend surgery Noted dressing left abd C/D/I GI- following plan for drainage of existing pseudocyst : Vega catheter for accurate I's and O's in a critically ill patient Endo: Hyperglycemia Sliding scale insulin with Accu-Cheks to maintain euglycemia Renal: Monitor urine output Accurate I's and O's Heme: Acute post hemorrhagic blood loss anemia Elevated PTT Leukocytosis Thrombocytopenia S/P 05/21 massive transfusion protocol 5 mg Amicar 1 Monitor CBC daily. Follow trends Hgb 7.9, 1 u PRBC this am Post transfusion hgb 7.0 Serial Hgb q 6 hr- transfuse for Hgb < 7.0 or clinical indication for hemodynamic instability Hematology consult- F/U recommendations ID: Pseudocyst infection - strep viridian 05/11 Continue Rocephin 2 g IV every 24 hours for an infected pseudocyst Infectious disease following Dr. Sharpe Panculture 2 blood culture - NGTD FEN: Replace electrolytes as clinically indicated MSK: PT evaluate and treat Access -Right IJ CVL/left femoral Cordis day discontinue 05/24 Prophylaxis - GI - Protonix - DVT - SCDs/pharmacological prophylaxis contraindicated with acute hemorrhage Critical Care: Discussed with patient has been [employer] at bedside. Planned transfer to [facility] in the a.m. Level 2 1. Acute hypoxic Respiratory Failure - resolved. 2. left pleural effusion - resolved. 3. Plan: 1. d/c art line 2. oob to chair and ambulating tid. 3. pt/ot consult 4. advance diet as tolerated. 5. continue current pain regimen. 6. wean NC o2 for spo2 > 90% 7. will remove chest tube today. follow up cxr 8. f/u cultures: currently NGTD. stable for transfer to floor. will consult hospitalists. Physician Anita Sung MD May 25, 2017 13:43
[2017-05-25] MEDS: ICU - POTASSIUM CHLORIDE/AQUEOUS SOLN 40 MEQ/100 ML IVPB IV PRN ×2 (13:53→16:18)
--- NOTE | 2017-05-25 16:41 | HHI.IDPN ---
Note Infectious Disease Note Patient feels okay. On nasal canula. Notes pain in abdomen radiating to the back. Afebrile. Post thoracentesis 05/18. chest tube placed and removed. Post pseudocyst gastrostomy. 05/17. Post code - 05/22. 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 Patient was readmitted to the hospital on May 11, 2017. The patient was recently discharged from the hospital on April 22, 2017 after treatment for acute pancreatitis. PAST MEDICAL HISTORY 1. Hypertension 2. Diabetes mellitus 3. Chronic pancreatitis 4. Portal vein thrombosis. 5. Chronic back pain. 6. Gastroesophageal reflux disease 7. Posttraumatic stress disorder 8. Gastroparesis. PAST SURGICAL HISTORY: History of hysterectomy. History of appendectomy. . ALLERGIES SULFA CIPROFLOXACIN ANTIBIOTICS: Ceftriaxone. Flagyl. OBJECTIVE: Vital Signs Date Time Temp Pulse Resp B/P Pulse Ox O2 Delivery O2 Flow Rate FiO2 05/25/17 16:00 98.5 96 22 147/86 92 05/25/17 16:00 90 05/25/17 14:00 95 05/25/17 12:00 90 05/25/17 12:00 98.1 95 18 152/92 95 05/25/17 10:00 102 05/25/17 08:10 95 Nasal Cannula 2.00 05/25/17 08:00 96 05/25/17 08:00 98.2 92 18 141/83 93 05/25/17 06:00 102 05/25/17 04:00 96 05/25/17 04:00 98.3 96 16 129/70 92 05/25/17 02:00 113 05/25/17 00:00 98.3 106 20 142/80 92 05/25/17 00:00 106 05/24/17 22:00 106 05/24/17 21:51 94 Nasal Cannula 2.00 05/24/17 20:00 98.7 107 20 130/82 92 05/24/17 20:00 107 05/24/17 18:00 119 05/24/17 05/24/17 05/25/17 15:00 23:00 07:00 Intake Total 730 ml 748 ml 675 ml Output Total 500 ml 350 ml 525 ml Balance 230 ml 398 ml 150 ml Intake Oral 600 ml 480 ml 480 ml IV Total 130 ml 268 ml 195 ml Output Urine Total 500 ml 350 ml 525 ml # Bowel Movements 2 2 Laboratory Tests Test 05/24/17 05/24/17 05/24/17 05/24/17 01:05 04:13 15:50 22:40 White Blood Count 23.2 TH/MM3 23.1 TH/MM3 Red Blood Count 3.26 MIL/MM3 3.21 MIL/MM3 Hemoglobin 9.0 GM/DL 9.0 GM/DL 8.9 GM/DL 8.5 GM/DL Hematocrit 27.1 % 26.3 % 26.6 % 25.0 % Mean Corpuscular Volume 83.0 FL 82.0 FL Mean Corpuscular Hemoglobin 27.7 PG 28.0 PG Mean Corpuscular Hemoglobin 33.3 % 34.1 % Concent Red Cell Distribution Width 16.0 % 16.4 % Platelet Count 224 TH/MM3 239 TH/MM3 Mean Platelet Volume 8.6 FL 8.4 FL Neutrophils (%) (Auto) 80.4 % 80.4 % Lymphocytes (%) (Auto) 5.8 % 6.4 % Monocytes (%) (Auto) 13.1 % 12.6 % Eosinophils (%) (Auto) 0.3 % 0.3 % Basophils (%) (Auto) 0.4 % 0.3 % Neutrophils # (Auto) 18.6 TH/MM3 18.6 TH/MM3 Lymphocytes # (Auto) 1.3 TH/MM3 1.5 TH/MM3 Monocytes # (Auto) 3.0 TH/MM3 2.9 TH/MM3 Eosinophils # (Auto) 0.1 TH/MM3 0.1 TH/MM3 Basophils # (Auto) 0.1 TH/MM3 0.1 TH/MM3 CBC Comment AUTO DIFF AUTO DIFF Differential Total Cells 100 100 Counted Neutrophils % (Manual) 69 % 74 % Band Neutrophils % 24 % 14 % Lymphocytes % 1 % 4 % Monocytes % 6 % 5 % Neutrophils # (Manual) 21.6 TH/MM3 21.0 TH/MM3 Nucleated Red Blood Cells 4 /100 WBC 2 /100 WBC Differential Comment FINAL DIFF FINAL DIFF MANUAL MANUAL Platelet Estimate NORMAL NORMAL Platelet Morphology Comment NORMAL NORMAL [place] Bodies PRESENT Myelocytes 3 % Dohle Bodies Test 05/25/17 05:20 White Blood Count 21.1 TH/MM3 Red Blood Count 2.95 MIL/MM3 Hemoglobin 8.1 GM/DL Hematocrit 24.8 % Mean Corpuscular Volume 83.9 FL Mean Corpuscular Hemoglobin 27.5 PG Mean Corpuscular Hemoglobin 32.8 % Concent Red Cell Distribution Width 16.3 % Platelet Count 278 TH/MM3 Mean Platelet Volume 7.9 FL Laboratory Tests Test 05/24/17 05/25/17 04:13 05:20 Sodium Level 147 MEQ/L 141 MEQ/L Potassium Level 3.6 MEQ/L 3.0 MEQ/L Chloride Level 112 MEQ/L 105 MEQ/L Carbon Dioxide Level 29.0 MEQ/L 26.8 MEQ/L Anion Gap 6 MEQ/L 9 MEQ/L Blood Urea Nitrogen 13 MG/DL 9 MG/DL Creatinine 0.84 MG/DL 0.69 MG/DL Estimat Glomerular Filtration 71 ML/MIN 89 ML/MIN Rate Random Glucose 137 MG/DL 155 MG/DL Lactic Acid Level 1.1 mmol/L Calcium Level 8.0 MG/DL 8.1 MG/DL Phosphorus Level 2.5 MG/DL 1.7 MG/DL Magnesium Level 2.2 MG/DL 1.9 MG/DL Total Bilirubin 0.6 MG/DL Aspartate Amino Transf 37 U/L (AST/SGOT) Alanine Aminotransferase 45 U/L (ALT/SGPT) Alkaline Phosphatase 82 U/L Total Protein 5.0 GM/DL Albumin 1.7 GM/DL Lipase 102 U/L IMAGING: Chest X-Ray 05/23/17 0600 Signed Impressions: Service Date/Time: Tuesday, May 23, 2017 04:24 - CONCLUSION: Stable left lower lobe consolidation. Harvey Stack MD Aorta w/Runoff CTA 05/23/17 0000 Signed Impressions: Service Date/Time: Tuesday, May 23, 2017 17:25 - CONCLUSION: 1. The aorta and other vascular structures are intact with no focal aneurysm. 2. No evidence of large hematoma. 3. Large complex collection again noted in the left upper abdomen with air-fluid level and gas. There are internal drains again noted. Feng Mahoney MD Abdomen/Pelvis CT 05/23/17 0000 Signed Impressions: Service Date/Time: Tuesday, May 23, 2017 17:25 - CONCLUSION: 1. The aorta and vascular structures remain intact with no aneurysm 2. No evidence of large hematoma. 3. Large complex collection again noted in the left upper quadrant of the abdomen with air fluid level and multiple gas bubbles. Internal drainage catheters remain in place. 4. The smaller, more cystic structure posterior to the stomach has decreased mildly in size. Feng Mahoney MD Splenic Arteriogram 05/22/17 Signed Impressions: Service Date/Time: Monday, May 22, 2017 00:11 - CONCLUSION: Splenic hilar pseudoaneurysm embolized as described in detail above. Tim Valencia MD Chest X-Ray 05/21/17 Signed Impressions: Service Date/Time: Sunday, May 21, 2017 20:32 - CONCLUSION: 1. Interval intubation and placement of right internal jugular central venous line with no visualized pneumothorax on this supine exam. 2. Mild patchy opacity at the left lung base which appears improved. Feng Mahoney MD Chest CT 05/21/17 Signed Impressions: Service Date/Time: Sunday, May 21, 2017 22:36 - CONCLUSION: 1. Small bilateral pleural effusions with consolidation in both posterior lung bases. There is elevation of the left hemidiaphragm. 2. Complex fluid collection again noted in the left upper abdomen with internal catheters. Feng Mahoney MD Abdomen/Pelvis CT 05/21/17 Signed Impressions: Service Date/Time: Sunday, May 21, 2017 22:36 - CONCLUSION: 1. The abdominal aorta is within normal limits with no evidence of aneurysm or dissection. 2. Large complex fluid collection again noted in left upper abdomen with no normal spleen identified. This is slightly smaller in size and has 2 internal drainage catheters. The air-fluid level seen on the plain film is located within this collection. There is no true free air. 3. Smaller cystic structure posterior to the stomach which is not significantly changed. 4. Mildly nonspecific, nonobstructive bowel gas pattern. 5. Small bilateral pleural effusions with consolidation in both posterior lung bases. Feng Mahoney MD ADDENDUM: Attention to the splenic hilar region reveals a 15 mm pseudoaneurysm arising from a proximal branch of the splenic artery immediately adjacent to the above-described heterogeneous collection and presumed to reflect source for recent known hemorrhage. Tim Valencia MD Abdomen X-Ray 05/21/17 Signed Impressions: Service Date/Time: Sunday, May 21, 2017 21:42 - CONCLUSION: Possible free air in the upper abdomen which may be present in the previous noted large complex fluid collection. A CT is pending for further evaluation. Feng Mahoney MD Chest X-Ray 05/20/17 1400 Signed Impressions: Service Date/Time: Saturday, May 20, 2017 15:12 - CONCLUSION: 1. Drainage catheters over the left lower chest and upper abdomen region. 2. Suspected bibasilar areas of consolidation, atelectasis and effusions. When compared to the prior examination, the right-sided changes appear worse. The left-sided changes appear stable. Tim Chadwick MD PHYSICAL EXAMINATION GENERAL: No acute distress. HEENT: No icterus. No thrush. Moist mucosa. NECK: Supple without adenopathy. LUNGS: Clear BS. HEART: Regular S1, S2 without murmurs. ABDOMEN: Distended, soft, non tender. EXTREMITIES: No clubbing, cyanosis or edema. SKIN: No rash. NEUROLOGIC: Non focal. IMPRESSION Pancreatitis acute. Infected pancreatic pseudocyst. Strep viridans group on culture from 05/11. (Patient status post endoscopic ultrasound with sphincterotomy, balloon dilatation and the double pigtail stent placement into the common bile duct.) Post pseudocyst gastrostomy. GI bleed. - Post splenic artery aneurysm embolization 05/22. Acute respiratory failure. Leukocytosis probably reactive. RECOMMENDATIONS 1. Continue ceftriaxone. 2. Continue Flagyl. 3. Follow WBC. 4. Monitor temps. Anderson Sharpe MD May 25, 2017 16:41
[2017-05-25] MEDS: cefTRIAXone INJ 2,000 MG in SODIUM CHLORIDE 0.9% INJ 100 ML IV SCH (22:37)
[2017-05-26] VITALS (7 sets, daily range): BP systolic 127–152; BP diastolic 71–96; PULSE 101–110; RESP 16–22; TEMP 97.6–98.6; O2SAT 94–98
[2017-05-26] MEDS: HYDROmorphone HCL PF 1 MG/ML VIAL IV PUSH PRN ×7 (01:21→21:53)
[2017-05-26] MEDS: ACETAMINOPHEN/HYDROcodone 325 MG/5 MG TAB PO PRN ×4 (02:34→20:16)
[2017-05-26] MEDS: RESP: ALBUTEROL 2.5 MG/IPRATROPIUM 0.5 MG NEB (SCH) NEB ×2 (03:22→07:32)
[2017-05-26] MEDS: INSULIN NovoLIN REGULAR SUPPLEMENTAL SCALE SQ SCH ×7 (04:00→21:54)
[2017-05-26] MEDS: ONDANSETRON HCL 4 MG/2 ML VIAL IV PUSH PRN ×3 (04:55→18:38)
[2017-05-26] MEDS: PANTOPRAZOLE SODIUM 40 MG VIAL IV PUSH SCH ×2 (05:59→14:11)
[2017-05-26] MEDS: metroNIDAZOLE 500 MG INJ 100 ML IV SCH ×3 (06:00→20:17)
[2017-05-26 06:50] LABS: BICARBONATE 22.6 MEQ/L (21.0-32.0); MAGNESIUM 1.7 MG/DL (1.5-2.5); POTASSIUM 3.5 MEQ/L (3.5-5.1)
[2017-05-26 07:10] LABS: HEMATOCRIT 25.7 % (35.0-46.0); MEAN CELL VOLUME 85.8 FL (80.0-100.0); MEAN CORPUSCULAR HEMOGLOBIN 28.3 PG (27.0-34.0); PLATELET COUNT 367 TH/MM3 (150-450); RED BLOOD COUNT 2.99 MIL/MM3 (4.00-5.30); REVIEW FLAG FINAL; WHITE BLOOD COUNT 15.6 TH/MM3 (4.0-11.0)
[2017-05-26] MEDS: CHLORHEXIDINE 0.12% (ORAL KIT) 15 ML CUP MT SCH ×2 (08:00→20:00)
[2017-05-26] MEDS: LIPASE/PROTEASE/AMYLASE (24,000/76,000/120,000) CAP PO SCH ×3 (08:12→18:39)
[2017-05-26] MEDS: CYANOCOBALAMIN 1,000 MCG TAB PO SCH (08:13)
[2017-05-26] MEDS: busPIRone HCL 10 MG TAB PO SCH ×2 (08:13→20:15)
[2017-05-26] MEDS: NYSTATIN 100,000 U/GM PWD 15 GM BTL TOPICAL SCH ×2 (08:13→20:16)
[2017-05-26] MEDS: SODIUM CHLORIDE 0.9% FLUSH 10 ML FLUSH IVF SCH (08:13)
--- NOTE | 2017-05-26 09:35 | HHI.GIFU ---
Subjective Remarks Pt stable overnight. She was transferred out of ICU yesterday. Abd pain is relatively unchanged. No vomiting. Tolerating liquids. She complains of bladder spasms and wants her Vega catheter removed. (Heather Lin) Objective Vitals I&O Vital Signs Date Time Temp Pulse Resp B/P Pulse Ox O2 Delivery O2 Flow Rate FiO2 05/26/17 07:33 97 Nasal Cannula 2.00 05/26/17 04:00 98.1 110 18 127/71 94 05/26/17 00:00 98.6 108 18 136/85 98 05/25/17 20:59 92 Nasal Cannula 2.00 05/25/17 20:45 93 05/25/17 16:00 98.5 96 22 147/86 92 05/25/17 16:00 90 05/25/17 16:00 97.6 98 18 158/84 96 05/25/17 14:00 95 05/25/17 12:00 90 05/25/17 12:00 98.1 95 18 152/92 95 05/25/17 10:00 102 I/O 05/25/17 05/25/17 05/25/17 05/26/17 05/26/17 05/26/17 07:00 15:00 23:00 07:00 15:00 23:00 Intake Total 675 ml 1000 ml 240 ml 388 ml Output Total 525 ml 1250 ml 2400 ml Balance 150 ml -250 ml -2160 ml 388 ml Intake Oral 480 ml 500 ml 240 ml IV Total 195 ml 500 ml 388 ml Output Urine Total 525 ml 1250 ml 2400 ml # Bowel Movements 2 1 0 Laboratory Laboratory Tests Test 05/26/17 05/26/17 01:48 04:54 Potassium Level 3.6 3.5 White Blood Count 15.6 Red Blood Count 2.99 Hemoglobin 8.5 Hematocrit 25.7 Mean Corpuscular Volume 85.8 Mean Corpuscular Hemoglobin 28.3 Mean Corpuscular Hemoglobin 33.0 Concent Red Cell Distribution Width 17.0 Platelet Count 367 Mean Platelet Volume 8.4 Sodium Level 138 Chloride Level 104 Carbon Dioxide Level 22.6 Anion Gap 11 Blood Urea Nitrogen 7 Creatinine 0.66 Estimat Glomerular Filtration 94 Rate Random Glucose 142 Calcium Level 8.7 Phosphorus Level 2.0 Magnesium Level 1.7 Imaging Last Impressions Chest X-Ray 05/23/17 0600 Signed Impressions: Service Date/Time: Tuesday, May 23, 2017 04:24 - CONCLUSION: Stable left lower lobe consolidation. Harvey Stack MD Aorta w/Runoff CTA 05/23/17 0000 Signed Impressions: Service Date/Time: Tuesday, May 23, 2017 17:25 - CONCLUSION: 1. The aorta and other vascular structures are intact with no focal aneurysm. 2. No evidence of large hematoma. 3. Large complex collection again noted in the left upper abdomen with air-fluid level and gas. There are internal drains again noted. Feng Mahoney MD Abdomen/Pelvis CT 05/23/17 0000 Signed Impressions: Service Date/Time: Tuesday, May 23, 2017 17:25 - CONCLUSION: 1. The aorta and vascular structures remain intact with no aneurysm 2. No evidence of large hematoma. 3. Large complex collection again noted in the left upper quadrant of the abdomen with air fluid level and multiple gas bubbles. Internal drainage catheters remain in place. 4. The smaller, more cystic structure posterior to the stomach has decreased mildly in size. Feng Mahoney MD Splenic Arteriogram 05/22/17 0000 Signed Impressions: Service Date/Time: Monday, May 22, 2017 00:11 - CONCLUSION: Splenic hilar pseudoaneurysm embolized as described in detail above. Tim Valencia MD Chest CT 05/21/17 0000 Signed Impressions: Service Date/Time: Sunday, May 21, 2017 22:36 - CONCLUSION: 1. Small bilateral pleural effusions with consolidation in both posterior lung bases. There is elevation of the left hemidiaphragm. 2. Complex fluid collection again noted in the left upper abdomen with internal catheters. Feng Mahoney MD Abdomen X-Ray 05/21/17 0000 Signed Impressions: Service Date/Time: Sunday, May 21, 2017 21:42 - CONCLUSION: Possible free air in the upper abdomen which may be present in the previous noted large complex fluid collection. A CT is pending for further evaluation. Feng Mahoney MD Chest Tube Insertion 05/18/17 1308 Signed Impressions: Service Date/Time: Thursday, May 18, 2017 13:33 - CONCLUSION: Uncomplicated left chest tube placement. If Gram stain is negative the tube can be removed. Chest x-ray is pending in the a.m. Seamus Costa MD FACR Chest Ultrasound 05/18/17 0000 Signed Impressions: Service Date/Time: Thursday, May 18, 2017 09:09 - CONCLUSION: 1. There is a moderate pleural effusion on the left. A iris was placed on the skin surface. Venkata Costa MD GI Procedure 05/17/17 0000 Signed Impressions: Service Date/Time: April 17:06 - CONCLUSION: 1. Interval placement of second stent catheter in the left upper quadrant. 2. The previously noted stent catheter is unchanged in appearance. 3. Nonspecific bowel gas pattern. Feng Mahoney MD Physical Exam HEENT: Normocephalic, atraumatic. CHEST: Resp. even/unlabored. Diminished bases. CARDIAC: ST ABDOMEN: Abdomen soft, mildly distended, moderate diffuse abdominal tenderness - more so on left side. bowel sounds active EXTREMITIES: No cyanosis SKIN: normal. CLOTH BOLT BANDER: lethargic, oriented (Heather Lin) Assessment and Plan Plan ASSESSMENT: - Acute on chronic pancreatitis with large pseudocyst formation. Pt with 4 year hx of pancreatitis (states she has more than 10-12 episodes per year). States last episode was last month. Abdomen/Pelvis CT (05/10/17)---> 1. 14 x 10 CM sub-phrenic fluid collection on the left larger than on the prior study. This could be related to pseudocyst or perhaps splenic hematoma. The findings have worsened when compared with the prior examination. 2. Chronic calcific pancreatitis 3. Chronic portal vein thrombosis. She quit ETOH use >1 year ago. She reports that she was told more than a year ago that she had a pseudocyst and needed it removed, but that the [facility] will not approve this. States she was told one month ago that her ibuprofen use may have caused her pancreatitis and stopped this. Of note, we did recommend EUS with FNA in past, but she did not follow up and she we were unable to contact her by phone or mail. S/P EUS w/ cyst gastrostomy (05/11/17) --> EGD findings Normal esophagus, Bulging in the stomach with food residue, Normal duodenum, EUS findings with hypoechoic homogeneous cyst, which was aspirated and dark lactose brownish aspirate was obtained and sent for culture and labs, s/p 7 Maori 7 cm double pigtail stent placement. Lipase normalized. Abdomen/Pelvis CT (05/17/17)----> 1. There is a 14.8 x 11.8 cm complex fluid collection in the left upper quadrant. This appears to represent liquefaction of the spleen post splenic infarction. There was apparently a large pseudocyst which traversed up into the splenic hilum. There is still considerable residual splenic tissue. There is a drain which decompresses this collection into the stomach. There is gas within this. The examination also demonstrates a 3.8 x 4.6 cm fluid collection posterior to the stomach. Both of these are unchanged from previous. 2. No findings to indicate bowel obstruction. 3. Bilateral pleural effusion with consolidative changes in the left lung base. 4. Small amount of free fluid within the pelvis. 5. Vega catheter in good position. S/P EUS with cyst gastrostomy (05/17/17)----> Pancreatic pseudocyst. Rpt. Abdomen/Pelvis CT (05/23/17)----> 1. The aorta and vascular structures remain intact with no aneurysm 2. No evidence of large hematoma. 3. Large complex collection again noted in the left upper quadrant of the abdomen with air fluid level and multiple gas bubbles. Internal drainage catheters remain in place. 4. The smaller, more cystic structure posterior to the stomach has decreased mildly in size. Pt continues to have abdominal pain- no improvement. WBC 21.1. D/W Dr. Corbett, pancreatic fluid thick/loculated, difficult to drain. Will d/w IR to see if they feel they would be able to drain the large pseudocyst. GS reconsulted on but no surgical intervention felt to be necessary at this time. GS agreed with IR evaluation for possible drain placement. If not able to be drained by IR and no plans for surgical debridement, consider tx to tertiary. Ceftriaxone, Flagyl. Creon. - Massive bleeding secondary to splenic pseudoaneurysm. Pt had sudden onset of rectal bleeding evening of 05/21/early 05/22 and he was transferred to the unit. S/P Angiogram with embolization of splenic hilar pseudoaneurysm by IR (05/22/17 ). No further bleeding. S/P 14 units PRBC, 4 units liquid plasma, 4 units FFP , 1 unit platelets, 1 cryoprecipitate. Aorta w/Runoff CTA (05/23/17)----> 1. The aorta and other vascular structures are intact with no focal aneurysm. 2. No evidence of large hematoma. 3. Large complex collection again noted in the left upper abdomen with air-fluid level and gas. There are internal drains again noted. She did have 3 melanotic stools overnight. HH 8.5/25.7 (05/26). 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 S/P Angiogram with embolization of splenic hilar pseudoaneurysm by IR (05/22/17). S/P multiple transfusions. S/P CTA with no evidence of further bleeding. No further bleeding. . - Fever/Leukocytosis. WBC 15.6. Ceftriaxone. Flagyl. - Respiratory failure, left pleural effusion. S/P CT insertion on left during this hospitalization. S/P extubation on 05/24. No respiratory distress. Pt transferred out of ICU. - Elevated LFTs. Improved. - Chronic portal vein thrombosis. This is chronic. - Abnormal weight loss. Reports 30 lb weight loss in 3 months. Unintentional - Hx elevated chromogranin level. During a previous hospitalization, she complained of flushing, diarrhea, abdominal pain. She was evaluated with chromogranin A 108.0 (significantly high), Gastrin 86, VIP less than 50. She did not fu. She is not having flushing or diarrhea at this time. PLAN: - Clear liquids - Cont. PPI - Will continue to attempted to reach IR. Attempts were made yesterday and this morning but unfortunately unable to speak with radiologist to see if they feel they would be able to drain large pseudocyst (s /p EUS with cyst gastrostomy x 2). - Monitor HH - Transfuse as necessary - Monitor labs - Cont. PPI - Cont. Abx per ID recommendations, ceftriaxone, flagyl - If IR unable to drain and no plans for surgical intervention, consider tx to tertiary - At d/c will need Repeat imaging in 1 month to reassess cyst, EGD w/ stent removal 2-3m - Further recommendations to follow based on results of above - Pt seen and examined by Dr. Corbett and myself and this note is written on his behalf (Heather Lin) Physician Comments Patient seen and examined Agree with above Continue with current supportive care Monitor labs Unable to offer the patient endoscopic therapy at this point If IR is unable to provide relief then patient is better served by being transferred to a tertiary center (Steve Corbett MD) Heather Lin May 26, 2017 09:35 Steve Corbett MD May 26, 2017 20:40
--- NOTE | 2017-05-26 15:26 | HHI.PR ---
Subjective Remarks Follow up pancreatitis, pseudocyst. Patient still having abdominal pain. Denies cough, dyspnea, chest pain. States that she wants to get out of bed. Objective Vitals Vital Signs Date Time Temp Pulse Resp B/P Pulse Ox O2 Delivery O2 Flow Rate FiO2 05/26/17 08:00 98.1 105 16 144/87 96 05/26/17 07:33 97 Nasal Cannula 2.00 05/26/17 04:00 98.1 110 18 127/71 94 05/26/17 00:00 98.6 108 18 136/85 98 05/25/17 20:59 92 Nasal Cannula 2.00 05/25/17 20:45 93 05/25/17 16:00 98.5 96 22 147/86 92 05/25/17 16:00 90 05/25/17 16:00 97.6 98 18 158/84 96 I/O 05/25/17 05/25/17 05/25/17 05/26/17 05/26/17 05/26/17 07:00 15:00 23:00 07:00 15:00 23:00 Intake Total 675 ml 1000 ml 240 ml 388 ml Output Total 525 ml 1250 ml 2400 ml Balance 150 ml -250 ml -2160 ml 388 ml Intake Oral 480 ml 500 ml 240 ml IV Total 195 ml 500 ml 388 ml Output Urine Total 525 ml 1250 ml 2400 ml # Bowel Movements 2 1 0 Result Diagram: 05/26/17 0454 05/26/17 0454 Imaging Last Impressions Chest X-Ray 05/23/17 0600 Signed Impressions: Service Date/Time: Tuesday, May 23, 2017 04:24 - CONCLUSION: Stable left lower lobe consolidation. Harvey Stack MD Aorta w/Runoff CTA 05/23/17 0000 Signed Impressions: Service Date/Time: Tuesday, May 23, 2017 17:25 - CONCLUSION: 1. The aorta and other vascular structures are intact with no focal aneurysm. 2. No evidence of large hematoma. 3. Large complex collection again noted in the left upper abdomen with air-fluid level and gas. There are internal drains again noted. Feng Mahoney MD Abdomen/Pelvis CT 05/23/17 0000 Signed Impressions: Service Date/Time: Tuesday, May 23, 2017 17:25 - CONCLUSION: 1. The aorta and vascular structures remain intact with no aneurysm 2. No evidence of large hematoma. 3. Large complex collection again noted in the left upper quadrant of the abdomen with air fluid level and multiple gas bubbles. Internal drainage catheters remain in place. 4. The smaller, more cystic structure posterior to the stomach has decreased mildly in size. Feng Mahoney MD Splenic Arteriogram 05/22/17 0000 Signed Impressions: Service Date/Time: Monday, May 22, 2017 00:11 - CONCLUSION: Splenic hilar pseudoaneurysm embolized as described in detail above. Tim Valencia MD Chest CT 05/21/17 0000 Signed Impressions: Service Date/Time: Sunday, May 21, 2017 22:36 - CONCLUSION: 1. Small bilateral pleural effusions with consolidation in both posterior lung bases. There is elevation of the left hemidiaphragm. 2. Complex fluid collection again noted in the left upper abdomen with internal catheters. Feng Mahoney MD Abdomen X-Ray 05/21/17 0000 Signed Impressions: Service Date/Time: Sunday, May 21, 2017 21:42 - CONCLUSION: Possible free air in the upper abdomen which may be present in the previous noted large complex fluid collection. A CT is pending for further evaluation. Feng Mahoney MD Chest Tube Insertion 05/18/17 1308 Signed Impressions: Service Date/Time: Thursday, May 18, 2017 13:33 - CONCLUSION: Uncomplicated left chest tube placement. If Gram stain is negative the tube can be removed. Chest x-ray is pending in the a.m. Seamus Costa MD FACR Chest Ultrasound 05/18/17 0000 Signed Impressions: Service Date/Time: Thursday, May 18, 2017 09:09 - CONCLUSION: 1. There is a moderate pleural effusion on the left. A iris was placed on the skin surface. Venkata Costa MD GI Procedure 05/17/17 0000 Signed Impressions: Service Date/Time: April 17:06 - CONCLUSION: 1. Interval placement of second stent catheter in the left upper quadrant. 2. The previously noted stent catheter is unchanged in appearance. 3. Nonspecific bowel gas pattern. eFng Mahoney MD Objective Remarks General: No acute distress. Heart: Regular rate and rhythm. No murmur. Lungs: Clear to auscultation bilaterally. No wheezes, rales, or rhonchi. Breathing is nonlabored. Abdomen: Soft, mildly distended. Diffuse tenderness to palpation without rebound or guarding. Extremities: No lower extremity edema. Psych: Alert and oriented. Procedures 05/11/17 endoscopic ultrasound with cyst gastrostomy 05/17/17 endoscopic ultrasound with cyst gastrostomy 05/18/17 chest tube placement 05/21/17 right IJ central line placement 05/21/17 arterial line placement 05/21/17 left femoral vein central line placement 05/21/17 orotracheal intubation 05/22/17 splenic hilar pseudoaneurysm embolization Urinary Catheter: Yes Assessment to: Remove Vascular Central Line Catheter: Yes Assessment to: Continue Line: Central Venous Catheter A/P Problem List: (1) Acute on chronic pancreatitis ICD Code: K85.9 Status: Acute (2) Pancreatic pseudocyst ICD Code: K86.3 Status: Acute (3) PVT (portal vein thrombosis) ICD Code: I81 Status: Acute Assessment and Plan 1. Chronic pancreatitis with pseudocyst: Persistent, stable. Appreciate GI recommendations. Dr. Chan does not recommend surgical intervention at this time. May have IR drain the cyst. 2. Acute respiratory failure: Resolved. Patient was extubated 05/23/17. 3. Acute posthemorrhagic blood loss anemia: Improved. Hemoglobin now stable. Patient received 14 units PRBCs. Status post splenic artery embolization. 4. Acute toxic metabolic encephalopathy: Improved. Patient is alert and oriented today. 5. PTSD: Continue BuSpar for anxiety. 6. Severe shock secondary to hypovolemia: Secondary to blood loss. Resolved. 7. Hyperglycemia: Monitor Accu-Cheks and cover with sliding scale insulin. 8. Pseudocyst infection: Appreciate infectious disease recommendations. Continue antibiotics. 9. GI prophylaxis: Protonix. 10. DVT prophylaxis: SCDs. Chemical prophylaxis contraindicated secondary to bleeding, anemia. Korey Mcfarland MD May 26, 2017 15:26
[2017-05-26] MEDS: cefTRIAXone INJ 2,000 MG in SODIUM CHLORIDE 0.9% INJ 100 ML IV SCH (21:53)
[2017-05-27] VITALS: BP 139/87; PULSE 96; RESP 19; TEMP 96.4; O2SAT 99
[2017-05-27] MEDS: HYDROmorphone HCL PF 1 MG/ML VIAL IV PUSH PRN ×7 (01:09→21:19)
[2017-05-27] MEDS: INSULIN NovoLIN REGULAR SUPPLEMENTAL SCALE SQ SCH ×6 (03:21→23:30)
[2017-05-27] MEDS: metroNIDAZOLE 500 MG INJ 100 ML IV SCH ×3 (03:21→20:31)
[2017-05-27] MEDS: PANTOPRAZOLE SODIUM 40 MG VIAL IV PUSH SCH ×2 (03:21→15:29)
[2017-05-27] MEDS: ACETAMINOPHEN/HYDROcodone 325 MG/5 MG TAB PO PRN ×4 (03:21→23:29)
[2017-05-27 05:39] LABS: AUTOMATED NEUTROPHIL # 8.7 TH/MM3 (1.8-7.7); BASOPHIL # 0.1 TH/MM3 (0-0.2); BASOPHIL % 0.8 % (0.0-2.0); EOSINOPHIL # 0.1 TH/MM3 (0-0.4); EOSINOPHIL % 0.9 % (0.0-4.0); HEMATOCRIT 25.1 % (35.0-46.0); HEMO FLAGS DIFF FINAL; LYMPH % 11.3 % (9.0-44.0); LYMPHOCYTE # 1.4 TH/MM3 (1.0-4.8); MEAN CELL VOLUME 85.3 FL (80.0-100.0); MEAN CORPUSCULAR HEMOGLOBIN 28.1 PG (27.0-34.0); MEAN CORPUSCULAR HGB CONC 32.9 % (32.0-36.0); MONO % 16.5 % (0.0-8.0); NEUT % 70.5 % (16.0-70.0); PLATELET COUNT 450 TH/MM3 (150-450); RED BLOOD COUNT 2.94 MIL/MM3 (4.00-5.30); RED CELL DISTRIBUTION WIDTH 16.7 % (11.6-17.2); WHITE BLOOD COUNT 12.4 TH/MM3 (4.0-11.0)
[2017-05-27 06:04] LABS: BICARBONATE 28.5 MEQ/L (21.0-32.0); MAGNESIUM 1.6 MG/DL (1.5-2.5); POTASSIUM 3.3 MEQ/L (3.5-5.1)
[2017-05-27] MEDS: ONDANSETRON HCL 4 MG/2 ML VIAL IV PUSH PRN ×2 (07:32→17:47)
[2017-05-27 08:00] VITALS: BP 146/94; PULSE 96; RESP 16; TEMP 97.2; O2SAT 97
[2017-05-27] MEDS: CHLORHEXIDINE 0.12% (ORAL KIT) 15 ML CUP MT SCH ×2 (08:00→19:45)
[2017-05-27] MEDS: NYSTATIN 100,000 U/GM PWD 15 GM BTL TOPICAL SCH ×3 (09:00→19:46)
[2017-05-27] MEDS: CYANOCOBALAMIN 1,000 MCG TAB PO SCH (09:30)
[2017-05-27] MEDS: LIPASE/PROTEASE/AMYLASE (24,000/76,000/120,000) CAP PO SCH ×3 (09:30→17:47)
[2017-05-27] MEDS: busPIRone HCL 10 MG TAB PO SCH ×2 (09:30→19:43)
[2017-05-27] MEDS: SODIUM CHLORIDE 0.9% FLUSH 10 ML FLUSH IVF SCH (09:31)
[2017-05-27 12:00] VITALS: BP 151/97; PULSE 94; RESP 17; TEMP 97.1; O2SAT 95
[2017-05-27] MEDS ORDERED: POTASSIUM CHLORIDE 10 MEQ CONTROLLED RELEASE TAB PO ONE (13:15)
--- NOTE | 2017-05-27 13:23 | HHI.PR ---
Subjective Remarks Follow up abdominal pain. Patient is requesting to have diet advanced. Now with worsening RUQ pain. She has been ambulating with a walker. She feels very weak. Objective Vitals Vital Signs Date Time Temp Pulse Resp B/P Pulse Ox O2 Delivery O2 Flow Rate FiO2 05/27/17 08:00 97.2 96 16 146/94 97 05/27/17 00:00 96.4 96 19 139/87 99 05/26/17 20:00 97.6 102 20 148/95 95 05/26/17 20:00 97.6 05/26/17 16:00 97.7 101 22 152/95 98 I/O 05/26/17 05/26/17 05/26/17 05/27/17 05/27/17 05/27/17 07:00 15:00 23:00 07:00 15:00 23:00 Intake Total 388 ml 720 ml 580 ml 440 ml Output Total 2000 ml 800 ml Balance 388 ml -1280 ml -220 ml 440 ml Intake Oral 720 ml 480 ml 240 ml IV Total 388 ml 100 ml 200 ml Output Urine Total 2000 ml 800 ml # Voids 4 2 # Bowel Movements 1 1 1 Result Diagram: 05/27/17 0429 05/27/17 0429 Imaging Last Impressions Chest X-Ray 05/23/17 0600 Signed Impressions: Service Date/Time: Tuesday, May 23, 2017 04:24 - CONCLUSION: Stable left lower lobe consolidation. Harvey Stack MD Aorta w/Runoff CTA 05/23/17 0000 Signed Impressions: Service Date/Time: Tuesday, May 23, 2017 17:25 - CONCLUSION: 1. The aorta and other vascular structures are intact with no focal aneurysm. 2. No evidence of large hematoma. 3. Large complex collection again noted in the left upper abdomen with air-fluid level and gas. There are internal drains again noted. Feng Mahoney MD Abdomen/Pelvis CT 05/23/17 0000 Signed Impressions: Service Date/Time: Tuesday, May 23, 2017 17:25 - CONCLUSION: 1. The aorta and vascular structures remain intact with no aneurysm 2. No evidence of large hematoma. 3. Large complex collection again noted in the left upper quadrant of the abdomen with air fluid level and multiple gas bubbles. Internal drainage catheters remain in place. 4. The smaller, more cystic structure posterior to the stomach has decreased mildly in size. Feng Mahoney MD Splenic Arteriogram 05/22/17 0000 Signed Impressions: Service Date/Time: Monday, May 22, 2017 00:11 - CONCLUSION: Splenic hilar pseudoaneurysm embolized as described in detail above. Tim Valencia MD Chest CT 05/21/17 0000 Signed Impressions: Service Date/Time: Sunday, May 21, 2017 22:36 - CONCLUSION: 1. Small bilateral pleural effusions with consolidation in both posterior lung bases. There is elevation of the left hemidiaphragm. 2. Complex fluid collection again noted in the left upper abdomen with internal catheters. Feng Mahoney MD Abdomen X-Ray 05/21/17 0000 Signed Impressions: Service Date/Time: Sunday, May 21, 2017 21:42 - CONCLUSION: Possible free air in the upper abdomen which may be present in the previous noted large complex fluid collection. A CT is pending for further evaluation. Feng Mahoney MD Chest Tube Insertion 05/18/17 1308 Signed Impressions: Service Date/Time: Thursday, May 18, 2017 13:33 - CONCLUSION: Uncomplicated left chest tube placement. If Gram stain is negative the tube can be removed. Chest x-ray is pending in the a.m. Seamus Costa MD FACR Chest Ultrasound 05/18/17 0000 Signed Impressions: Service Date/Time: Thursday, May 18, 2017 09:09 - CONCLUSION: 1. There is a moderate pleural effusion on the left. A iris was placed on the skin surface. Venkata Costa MD GI Procedure 05/17/17 0000 Signed Impressions: Service Date/Time: April 17:06 - CONCLUSION: 1. Interval placement of second stent catheter in the left upper quadrant. 2. The previously noted stent catheter is unchanged in appearance. 3. Nonspecific bowel gas pattern. Feng Mahoney MD Objective Remarks General: No acute distress. Heart: Regular rate and rhythm. No murmur. Lungs: Clear to auscultation bilaterally. No wheezes, rales, or rhonchi. Breathing is nonlabored. Abdomen: Soft, mildly distended. Diffuse tenderness to palpation without rebound or guarding. Extremities: No lower extremity edema. Psych: Alert and oriented. Procedures 05/11/17 endoscopic ultrasound with cyst gastrostomy 05/17/17 endoscopic ultrasound with cyst gastrostomy 05/18/17 chest tube placement 05/21/17 right IJ central line placement 05/21/17 arterial line placement 05/21/17 left femoral vein central line placement 05/21/17 orotracheal intubation 05/22/17 splenic hilar pseudoaneurysm embolization Urinary Catheter: No Vascular Central Line Catheter: Yes Assessment to: Continue Line: Central Venous Catheter A/P Problem List: (1) Acute on chronic pancreatitis ICD Code: K85.9 Status: Acute (2) Pancreatic pseudocyst ICD Code: K86.3 Status: Acute (3) PVT (portal vein thrombosis) ICD Code: I81 Status: Acute (4) GI bleed ICD Code: K92.2 Status: Acute (5) Anemia ICD Code: D64.9 Status: Chronic (6) Anxiety ICD Code: F41.9 Status: Chronic (7) HTN (hypertension) ICD Code: I10 Status: Chronic (8) Hypokalemia ICD Code: E87.6 Status: Acute Assessment and Plan 1. Chronic pancreatitis with pseudocyst: Persistent, stable. Appreciate GI recommendations. Dr. Chan does not recommend surgical intervention at this time. May have IR drain the cyst vs transfer to tertiary care center. 2. Acute respiratory failure: Resolved. Patient was extubated 05/23/17. 3. Acute posthemorrhagic blood loss anemia: Improved. Hemoglobin now stable. Patient received 14 units PRBCs. Status post splenic artery embolization. 4. Acute toxic metabolic encephalopathy: Improved. Patient is alert and oriented today. 5. PTSD: Continue BuSpar for anxiety. 6. Severe shock secondary to hypovolemia: Secondary to blood loss. Resolved. 7. Hyperglycemia: Monitor Accu-Cheks and cover with sliding scale insulin. 8. Pseudocyst infection: Appreciate infectious disease recommendations. Continue antibiotics. 9. GI prophylaxis: Protonix. 10. DVT prophylaxis: SCDs. Chemical prophylaxis contraindicated secondary to bleeding, anemia. 11. Hypokalemia: Supplement potassium. Korey Mcfarland MD May 27, 2017 13:23
[2017-05-27 14:00] VITALS: BP 150/90; PULSE 93; RESP 18; TEMP 98.5; O2SAT 93
[2017-05-27] MEDS: LORATADINE 10 MG TAB PO SCH (15:28)
--- NOTE | 2017-05-27 16:55 | HHI.GIFU ---
Subjective Remarks Pt resting in bed, visiting with . She has new onset RUQ pain. Tolerating clears and wants diet advanced. She is also having lower abd pain. + BM (Ruby Green) Objective Vitals I&O Vital Signs Date Time Temp Pulse Resp B/P Pulse Ox O2 Delivery O2 Flow Rate FiO2 05/27/17 14:49 Nasal Cannula 2.00 05/27/17 12:00 97.1 94 17 151/97 95 05/27/17 08:00 97.2 96 16 146/94 97 05/27/17 00:00 96.4 96 19 139/87 99 05/26/17 20:00 97.6 102 20 148/95 95 05/26/17 20:00 97.6 I/O 05/26/17 05/26/17 05/26/17 05/27/17 05/27/17 05/27/17 07:00 15:00 23:00 07:00 15:00 23:00 Intake Total 388 ml 720 ml 580 ml 440 ml 680 ml Output Total 2000 ml 800 ml Balance 388 ml -1280 ml -220 ml 440 ml 680 ml Intake Oral 720 ml 480 ml 240 ml IV Total 388 ml 100 ml 200 ml 680 ml Output Urine Total 2000 ml 800 ml # Voids 4 2 # Bowel Movements 1 1 1 Laboratory Laboratory Tests Test 05/27/17 04:29 White Blood Count 12.4 Red Blood Count 2.94 Hemoglobin 8.3 Hematocrit 25.1 Mean Corpuscular Volume 85.3 Mean Corpuscular Hemoglobin 28.1 Mean Corpuscular Hemoglobin 32.9 Concent Red Cell Distribution Width 16.7 Platelet Count 450 Mean Platelet Volume 8.1 Neutrophils (%) (Auto) 70.5 Lymphocytes (%) (Auto) 11.3 Monocytes (%) (Auto) 16.5 Eosinophils (%) (Auto) 0.9 Basophils (%) (Auto) 0.8 Neutrophils # (Auto) 8.7 Lymphocytes # (Auto) 1.4 Monocytes # (Auto) 2.0 Eosinophils # (Auto) 0.1 Basophils # (Auto) 0.1 CBC Comment DIFF FINAL Differential Comment Sodium Level 141 Potassium Level 3.3 Chloride Level 106 Carbon Dioxide Level 28.5 Anion Gap 7 Blood Urea Nitrogen 4 Creatinine 0.66 Estimat Glomerular Filtration 94 Rate Random Glucose 113 Calcium Level 8.1 Magnesium Level 1.6 Imaging Last Impressions Chest X-Ray 05/23/17 0600 Signed Impressions: Service Date/Time: Tuesday, May 23, 2017 04:24 - CONCLUSION: Stable left lower lobe consolidation. Havrey Stack MD Aorta w/Runoff CTA 05/23/17 0000 Signed Impressions: Service Date/Time: Tuesday, May 23, 2017 17:25 - CONCLUSION: 1. The aorta and other vascular structures are intact with no focal aneurysm. 2. No evidence of large hematoma. 3. Large complex collection again noted in the left upper abdomen with air-fluid level and gas. There are internal drains again noted. Feng Mahoney MD Abdomen/Pelvis CT 05/23/17 0000 Signed Impressions: Service Date/Time: Tuesday, May 23, 2017 17:25 - CONCLUSION: 1. The aorta and vascular structures remain intact with no aneurysm 2. No evidence of large hematoma. 3. Large complex collection again noted in the left upper quadrant of the abdomen with air fluid level and multiple gas bubbles. Internal drainage catheters remain in place. 4. The smaller, more cystic structure posterior to the stomach has decreased mildly in size. Feng Mahoney MD Splenic Arteriogram 05/22/17 0000 Signed Impressions: Service Date/Time: Monday, May 22, 2017 00:11 - CONCLUSION: Splenic hilar pseudoaneurysm embolized as described in detail above. Tim Valencia MD Chest CT 05/21/17 0000 Signed Impressions: Service Date/Time: Sunday, May 21, 2017 22:36 - CONCLUSION: 1. Small bilateral pleural effusions with consolidation in both posterior lung bases. There is elevation of the left hemidiaphragm. 2. Complex fluid collection again noted in the left upper abdomen with internal catheters. Feng Mahoney MD Abdomen X-Ray 05/21/17 0000 Signed Impressions: Service Date/Time: Sunday, May 21, 2017 21:42 - CONCLUSION: Possible free air in the upper abdomen which may be present in the previous noted large complex fluid collection. A CT is pending for further evaluation. Feng Mahoney MD Chest Tube Insertion 05/18/17 1308 Signed Impressions: Service Date/Time: Thursday, May 18, 2017 13:33 - CONCLUSION: Uncomplicated left chest tube placement. If Gram stain is negative the tube can be removed. Chest x-ray is pending in the a.m. Seamus Costa MD FACR Chest Ultrasound 05/18/17 0000 Signed Impressions: Service Date/Time: Thursday, May 18, 2017 09:09 - CONCLUSION: 1. There is a moderate pleural effusion on the left. A iris was placed on the skin surface. Venkata Costa MD GI Procedure 05/17/17 0000 Signed Impressions: Service Date/Time: April 17:06 - CONCLUSION: 1. Interval placement of second stent catheter in the left upper quadrant. 2. The previously noted stent catheter is unchanged in appearance. 3. Nonspecific bowel gas pattern. Feng Mahoney MD Physical Exam HEENT: Normocephalic, atraumatic. CHEST: Resp. even/unlabored. Diminished bases. CARDIAC: ST ABDOMEN: Abdomen soft, mildly distended, RUQ TTP, lower abd TTP. bowel sounds active EXTREMITIES: No cyanosis SKIN: normal. [employer]D [employer]: alert, oriented (Ruby Green [employer]) Assessment and Plan Plan ASSESSMENT: - Acute on chronic pancreatitis with large pseudocyst formation. Pt with 4 year hx of pancreatitis (states she has more than 10-12 episodes per year). States last episode was last month. Abdomen/Pelvis CT (05/10/17)---> 1. 14 x 10 CM sub-phrenic fluid collection on the left larger than on the prior study. This could be related to pseudocyst or perhaps splenic hematoma. The findings have worsened when compared with the prior examination. 2. Chronic calcific pancreatitis 3. Chronic portal vein thrombosis. She quit ETOH use >1 year ago. She reports that she was told more than a year ago that she had a pseudocyst and needed it removed, but that the [facility] will not [facility] this. States she was told one month ago that her ibuprofen use may have caused her pancreatitis and stopped this. Of note, we did recommend EUS with FNA in past, but she did not follow up and she we were unable to contact her by phone or mail. S/P EUS w/ cyst gastrostomy (05/11/17) --> EGD findings Normal esophagus, Bulging in the stomach with food residue, Normal duodenum, EUS findings with hypoechoic homogeneous cyst, which was aspirated and dark lactose brownish aspirate was obtained and sent for culture and labs, s/p 7 Vietnamese 7 cm double pigtail stent placement. Lipase normalized. Abdomen/Pelvis CT (05/17/17)----> 1. There is a 14.8 x 11.8 cm complex fluid collection in the left upper quadrant. This appears to represent liquefaction of the spleen post splenic infarction. There was apparently a large pseudocyst which traversed up into the splenic hilum. There is still considerable residual splenic tissue. There is a drain which decompresses this collection into the stomach. There is gas within this. The examination also demonstrates a 3.8 x 4.6 cm fluid collection posterior to the stomach. Both of these are unchanged from previous. 2. No findings to indicate bowel obstruction. 3. Bilateral pleural effusion with consolidative changes in the left lung base. 4. Small amount of free fluid within the pelvis. 5. Vega catheter in good position. S/P EUS with cyst gastrostomy (05/17/17)----> Pancreatic pseudocyst. Rpt. Abdomen/Pelvis CT (05/23/17)----> 1. The aorta and vascular structures remain intact with no aneurysm 2. No evidence of large hematoma. 3. Large complex collection again noted in the left upper quadrant of the abdomen with air fluid level and multiple gas bubbles. Internal drainage catheters remain in place. 4. The smaller, more cystic structure posterior to the stomach has decreased mildly in size. Pt continues to have abdominal pain- no improvement. WBC 21.1. D/W Dr. Corbett, pancreatic fluid thick/loculated, difficult to drain. Will d/w IR to see if they feel they would be able to drain the large pseudocyst. GS reconsulted on but no surgical intervention felt to be necessary at this time. GS agreed with IR evaluation for possible drain placement. If not able to be drained by IR and no plans for surgical debridement, consider tx to tertiary. Ceftriaxone, Flagyl. Creon. - Massive bleeding secondary to splenic pseudoaneurysm. Pt had sudden onset of rectal bleeding evening of 05/21/early 05/22 and he was transferred to the unit. S/P Angiogram with embolization of splenic hilar pseudoaneurysm by IR (05/22/17 ). No further bleeding. S/P 14 units PRBC, 4 units liquid plasma, 4 units FFP , 1 unit platelets, 1 cryoprecipitate. Aorta w/Runoff CTA (05/23/17)----> 1. The aorta and other vascular structures are intact with no focal aneurysm. 2. No evidence of large hematoma. 3. Large complex collection again noted in the left upper abdomen with air-fluid level and gas. There are internal drains again noted. She did have 3 melanotic stools overnight. 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 S/P Angiogram with embolization of splenic hilar pseudoaneurysm by IR (05/22/17). S/P multiple transfusions. S/P CTA with no evidence of further bleeding. No further bleeding. . - Fever/Leukocytosis. trending down Ceftriaxone. Flagyl. - Respiratory failure, left pleural effusion. S/P CT insertion on left during this hospitalization. S/P extubation on 05/24. No respiratory distress. Pt transferred out of ICU. - Elevated LFTs. Improved. - Chronic portal vein thrombosis. This is chronic. - Abnormal weight loss. Reports 30 lb weight loss in 3 months. Unintentional - Hx elevated chromogranin level. During a previous hospitalization, she complained of flushing, diarrhea, abdominal pain. She was evaluated with chromogranin A 108.0 (significantly high), Gastrin 86, VIP less than 50. She did not fu. She is not having flushing or diarrhea at this time. PLAN: - CT abd - Clear liquids - Cont. PPI - consult IR - Monitor HH - Transfuse as necessary - Monitor labs - Cont. Abx per ID recommendations, ceftriaxone, flagyl - If IR unable to drain and no plans for surgical intervention, consider tx to tertiary - At d/c will need Repeat imaging in 1 month to reassess cyst, EGD w/ stent removal 2-3m - Further recommendations to follow based on results of above - Pt seen and examined by Dr. Bender and myself and this note is written on her behalf (Ruby Green) Physician Comments seen, examined agree with above (Beatriz Bender MD) Ruby Green May 27, 2017 16:55 Beatriz Bender MD May 27, 2017 19:32
[2017-05-27] MEDS ORDERED: DIATRIZOATE MEGLUM/DIATRIZOATE SOD 9 ML CUP PO ONE (17:30)
[2017-05-27 19:44] VITALS: O2SAT 95
[2017-05-27 20:00] VITALS: BP 129/85; PULSE 99; RESP 17; TEMP 97.4; O2SAT 94
[2017-05-27] MEDS ORDERED: IOHEXOL 350 MG/ML 10 ML VIAL (for RAD DIAG) IV ONE (20:11)
[2017-05-27] MEDS: cefTRIAXone INJ 2,000 MG in SODIUM CHLORIDE 0.9% INJ 100 ML IV SCH (20:31)
--- NOTE | 2017-05-27 21:20 | RADRPT ---
EXAM DATE/TIME: 05/27/2017 20:09 [facility] COMPARISON: CT ABDOMEN & PELVIS W CONTRAST, May 15, 2017, 15:16. INDICATIONS : New onset right upper quadrant pain. IV CONTRAST: 99 cc Omnipaque 350 (iohexol) IV ORAL CONTRAST: Prescribed oral contrast ingested. RADIATION DOSE: 14.66 CTDIvol (mGy) MEDICAL HISTORY : Cardiovascular disease. Hypertension. Pancreatitis. Diabetes. Liver disease. SURGICAL HISTORY : Appendectomy. Hysterectomy. ENCOUNTER: Initial ACUITY: 1 day PAIN SCALE: 8/10 LOCATION: Right upper quadrant TECHNIQUE: Volumetric scanning of the abdomen and pelvis was performed. Using automated exposure control and ad justment of the mA and/or kV according to patient size, radiation dose was kept as low as reasonably achievable to obtain optimal diagnostic quality images. DICOM format image data is available electro nically for review and comparison. FINDINGS: There continues to be a complex fluid collection in the left upper quadrant. This appears to be inte rnally drained into the stomach. This measures approximately 10.7 x 9.0 x 12.3 cm. It appears relat ively stable in size. There previously had been hemorrhage in this region. The hemorrhage is no patricia sacha present. Except for the spleen is not clearly seen. The pancreas appears small. There is calci fication seen throughout the pancreas. There is a second fluid collection seen posterior to the stom ach and superior to the pancreas measuring 4.6 cm. This is unchanged. The liver appears grossly intact. There are numerous vascular structures in the portohepas likely re presenting cavernous transformation of the portal vein. This is typically seen following chronic por calvin vein occlusion. This was present previously. The adrenal glands and kidneys appear unremarkable . There is a mild amount of ascites seen in the pericolic gutter regions and then extending into the pelvis. There is a bowel suture at the rectum. Significantly dilated bowel is not seen. There are mild bilateral pleural effusions being worse on the left. There is some suspected atelectasis or co nsolidation at the left lung base. CONCLUSION: 1. Persistent complex collection in the left upper quadrant. This is internally drained into the sto mach. On the prior exam there was high density material representing hemorrhage. This has evolved. New areas of hemorrhage are not seen. 2. Persistent unchanged 4.6 cm fluid collection seen posterior to the stomach and superior to the joy creas likely representing a second pseudo cyst. 3. The previously seen questionable inflammatory change at the superior left side of the colon are no t present on today's exam. 4. Calcification throughout the pancreas with pancreatic atrophy consistent with chronic pancreatitis . 5. Cavernous transformation of the portal vein. This is typically seen following chronic occlusion o f the portal vein. 6. Persistent mild ascites. 7. Persistent mild bilateral pleural effusion being worse on the left with some accompanying atelecta sis or consolidation at the left lower lobe. Tim Chadwick MD on May 27, 2017 at 20:21 Board Certified Radiologist. This report was verified electronically.
[2017-05-28] VITALS: BP 129/85; PULSE 99; RESP 17; TEMP 97.4; O2SAT 94
[2017-05-28] MEDS: HYDROmorphone HCL PF 1 MG/ML VIAL IV PUSH PRN ×7 (00:23→18:14)
[2017-05-28] MEDS: ONDANSETRON HCL 4 MG/2 ML VIAL IV PUSH PRN ×3 (03:28→18:14)
[2017-05-28] MEDS: PANTOPRAZOLE SODIUM 40 MG VIAL IV PUSH SCH ×2 (03:29→14:57)
[2017-05-28] MEDS: metroNIDAZOLE 500 MG INJ 100 ML IV SCH ×2 (05:20→12:33)
[2017-05-28] MEDS: INSULIN NovoLIN REGULAR SUPPLEMENTAL SCALE SQ SCH ×3 (05:21→16:01)
[2017-05-28] MEDS: ACETAMINOPHEN/HYDROcodone 325 MG/5 MG TAB PO PRN ×2 (05:39→11:33)
[2017-05-28 06:03] LABS: AUTOMATED NEUTROPHIL # 8.2 TH/MM3 (1.8-7.7); BASOPHIL # 0.2 TH/MM3 (0-0.2); BASOPHIL % 1.4 % (0.0-2.0); EOSINOPHIL # 0.1 TH/MM3 (0-0.4); EOSINOPHIL % 1.1 % (0.0-4.0); HEMATOCRIT 25.2 % (35.0-46.0); HEMO FLAGS DIFF FINAL; LYMPH % 11.2 % (9.0-44.0); LYMPHOCYTE # 1.3 TH/MM3 (1.0-4.8); MEAN CELL VOLUME 85.7 FL (80.0-100.0); MEAN CORPUSCULAR HEMOGLOBIN 27.8 PG (27.0-34.0); MEAN CORPUSCULAR HGB CONC 32.5 % (32.0-36.0); MONO % 17.3 % (0.0-8.0); PLATELET COUNT 544 TH/MM3 (150-450); RED BLOOD COUNT 2.95 MIL/MM3 (4.00-5.30); RED CELL DISTRIBUTION WIDTH 17.2 % (11.6-17.2); WHITE BLOOD COUNT 11.9 TH/MM3 (4.0-11.0)
[2017-05-28 07:23] LABS: ALKALINE PHOSPHATASE 110 U/L (45-117); ALT (GPT) 15 U/L (10-53); ANION GAP 9 MEQ/L (5-15); AST (GOT) 10 U/L (15-37); BICARBONATE 26.5 MEQ/L (21.0-32.0); BLOOD UREA NITROGEN 3 MG/DL (7-18); CHLORIDE 104 MEQ/L (98-107); GLOMERULAR FILTRATION RATE 88 ML/MIN (>89); SODIUM (NA) 139 MEQ/L (136-145); TOTAL BILIRUBIN ADULT 0.3 MG/DL (0.2-1.0)
[2017-05-28 08:00] VITALS: BP 127/80; PULSE 91; RESP 18; TEMP 97.6; O2SAT 90
[2017-05-28] MEDS: CHLORHEXIDINE 0.12% (ORAL KIT) 15 ML CUP MT SCH ×2 (08:00→20:00)
[2017-05-28 08:25] LABS: POTASSIUM 2.9 MEQ/L (3.5-5.1)
[2017-05-28] MEDS ORDERED: POTASSIUM CHLOR 20 MEQ PREMIX 100 ML IV ONE (08:30)
[2017-05-28] MEDS: busPIRone HCL 10 MG TAB PO SCH ×2 (08:34→20:13)
[2017-05-28] MEDS: CYANOCOBALAMIN 1,000 MCG TAB PO SCH (08:34)
[2017-05-28] MEDS: SODIUM CHLORIDE 0.9% FLUSH 10 ML FLUSH IVF SCH (08:35)
[2017-05-28] MEDS: LORATADINE 10 MG TAB PO SCH (08:35)
[2017-05-28] MEDS: LIPASE/PROTEASE/AMYLASE (24,000/76,000/120,000) CAP PO SCH ×3 (08:35→18:14)
[2017-05-28] MEDS: NYSTATIN 100,000 U/GM PWD 15 GM BTL TOPICAL SCH (08:36)
[2017-05-28] MEDS ORDERED: POTASSIUM CHLORIDE 10 MEQ CONTROLLED RELEASE TAB PO ONE (08:45)
--- NOTE | 2017-05-28 09:44 | HHI.PR ---
Subjective Remarks Patient reports persistent RUQ pain. Reports right sided pleuritic pain. Tolerating liquid diet. Still having diarrhea but stool not black. No blood. K is low this AM. Objective Vitals Vital Signs Date Time Temp Pulse Resp B/P Pulse Ox O2 Delivery O2 Flow Rate FiO2 05/28/17 08:00 97.6 91 18 127/80 90 05/28/17 00:00 97.4 99 17 129/85 94 05/27/17 20:00 97.4 99 17 129/85 94 05/27/17 19:44 95 Nasal Cannula 2.00 05/27/17 14:49 Nasal Cannula 2.00 05/27/17 14:00 98.5 93 18 150/90 93 05/27/17 12:00 97.1 94 17 151/97 95 I/O 05/27/17 05/27/17 05/27/17 05/28/17 05/28/17 05/28/17 07:00 15:00 23:00 07:00 15:00 23:00 Intake Total 440 ml 1400 ml 970 ml 240 ml Balance 440 ml 1400 ml 970 ml 240 ml Intake Oral 240 ml 720 ml 720 ml 240 ml IV Total 200 ml 680 ml 250 ml # Voids 2 1 2 # Bowel Movements 1 1 Result Diagram: 05/28/17 0522 05/28/17 0522 Imaging Last Impressions Abdomen/Pelvis CT 05/27/17 0000 Signed Impressions: Service Date/Time: Saturday, May 27, 2017 20:09 - CONCLUSION: 1. Persistent complex collection in the left upper quadrant. This is internally drained into the stomach. On the prior exam there was high density material representing hemorrhage. This has evolved. New areas of hemorrhage are not seen. 2. Persistent unchanged 4.6 cm fluid collection seen posterior to the stomach and superior to the pancreas likely representing a second pseudo cyst. 3. The previously seen questionable inflammatory change at the superior left side of the colon are not present on today's exam. 4. Calcification throughout the pancreas with pancreatic atrophy consistent with chronic pancreatitis. 5. Cavernous transformation of the portal vein. This is typically seen following chronic occlusion of the portal vein. 6. Persistent mild ascites. 7. Persistent mild bilateral pleural effusion being worse on the left with some accompanying atelectasis or consolidation at the left lower lobe. Tim Chadwick MD Chest X-Ray 05/23/17 0600 Signed Impressions: Service Date/Time: Tuesday, May 23, 2017 04:24 - CONCLUSION: Stable left lower lobe consolidation. Harvey Stack MD Aorta w/Runoff CTA 05/23/17 0000 Signed Impressions: Service Date/Time: Tuesday, May 23, 2017 17:25 - CONCLUSION: 1. The aorta and other vascular structures are intact with no focal aneurysm. 2. No evidence of large hematoma. 3. Large complex collection again noted in the left upper abdomen with air-fluid level and gas. There are internal drains again noted. Feng Mahoney MD Splenic Arteriogram 05/22/17 0000 Signed Impressions: Service Date/Time: Monday, May 22, 2017 00:11 - CONCLUSION: Splenic hilar pseudoaneurysm embolized as described in detail above. Tim Valencia MD Chest CT 05/21/17 0000 Signed Impressions: Service Date/Time: Sunday, May 21, 2017 22:36 - CONCLUSION: 1. Small bilateral pleural effusions with consolidation in both posterior lung bases. There is elevation of the left hemidiaphragm. 2. Complex fluid collection again noted in the left upper abdomen with internal catheters. Feng Mahoney MD Abdomen X-Ray 05/21/17 0000 Signed Impressions: Service Date/Time: Sunday, May 21, 2017 21:42 - CONCLUSION: Possible free air in the upper abdomen which may be present in the previous noted large complex fluid collection. A CT is pending for further evaluation. Feng Mahoney MD Chest Tube Insertion 05/18/17 1308 Signed Impressions: Service Date/Time: Thursday, May 18, 2017 13:33 - CONCLUSION: Uncomplicated left chest tube placement. If Gram stain is negative the tube can be removed. Chest x-ray is pending in the a.m. Seamus Costa MD FACR Chest Ultrasound 05/18/17 0000 Signed Impressions: Service Date/Time: Thursday, May 18, 2017 09:09 - CONCLUSION: 1. There is a moderate pleural effusion on the left. A iris was placed on the skin surface. Venkata Costa MD GI Procedure 05/17/17 0000 Signed Impressions: Service Date/Time: April 17:06 - CONCLUSION: 1. Interval placement of second stent catheter in the left upper quadrant. 2. The previously noted stent catheter is unchanged in appearance. 3. Nonspecific bowel gas pattern. Feng Mahoney MD Objective Remarks GENERAL: This is a well-nourished, well-developed patient, in no apparent distress. CARDIOVASCULAR: Normal rate and regular rhythm without murmurs, gallops, or rubs. RESPIRATORY: Endorsed pleuritic pain on the right. Breath sounds equal and clear to auscultation bilaterally. GASTROINTESTINAL: Abdomen soft, diffusely tender to palpation, more tender in the mid epigastric and right upper quadrant. Normal active bowel sounds MUSCULOSKELETAL: Extremities with 2+ bilateral lower extremity edema. NEURO: Alert & Oriented x4 to person, place, time, situation. Moves all ext x4 PSYCH: Appropriate mood and affect. Procedures 05/11/17 endoscopic ultrasound with cyst gastrostomy 05/17/17 endoscopic ultrasound with cyst gastrostomy 05/18/17 chest tube placement 05/21/17 right IJ central line placement 05/21/17 arterial line placement 05/21/17 left femoral vein central line placement 05/21/17 orotracheal intubation 05/22/17 splenic hilar pseudoaneurysm embolization Line: Central Venous Catheter A/P Problem List: (1) Acute on chronic pancreatitis ICD Code: K85.9 Status: Acute (2) Pancreatic pseudocyst ICD Code: K86.3 Status: Acute (3) PVT (portal vein thrombosis) ICD Code: I81 Status: Acute (4) GI bleed ICD Code: K92.2 Status: Acute (5) Anemia ICD Code: D64.9 Status: Chronic (6) Anxiety ICD Code: F41.9 Status: Chronic (7) HTN (hypertension) ICD Code: I10 Status: Chronic (8) Hypokalemia ICD Code: E87.6 Status: Acute Assessment and Plan 52-year-old female with Chronic pancreatitis with pseudocyst: Persistent. Appreciate GI recommendations. Discussed with GI. Per IR consultation, the material inside the pseudocysts is too viscous for drainage. Surgical intervention is recommended. Patient will be transferred to [facility]. Pseudocyst infection: Appreciate infectious disease recommendations. Continue antibiotics. On Rocephin. Acute respiratory failure: Resolved. Patient was extubated 05/23/17. Acute posthemorrhagic blood loss anemia: Improved. Hemoglobin now stable. Patient received a total of 14 units PRBCs. Status post splenic artery embolization. Acute toxic metabolic encephalopathy: Resolved. Patient is alert and oriented today. PTSD: Continue BuSpar for anxiety. Severe shock secondary to hypovolemia: Secondary to blood loss. Resolved. Hyperglycemia: Monitor Accu-Cheks and cover with sliding scale insulin. GI prophylaxis: Protonix. DVT prophylaxis: SCDs. Chemical prophylaxis contraindicated secondary to bleeding, anemia. Hypokalemia: Supplement potassium. Deuce Pack MD May 28, 2017 09:44
--- NOTE | 2017-05-28 10:43 | RADRPT ---
EXAM DATE/TIME: 05/28/2017 10:20 COMPARISON: CT ABDOMEN & PELVIS W CONTRAST, May 27, 2017, 20:09. INDICATIONS : Drain pseudocyst FINDINGS/ CONCLUSION: I reviewed the CT scan of the abdomen. Patient does have a pseudocyst in the abdomen filled with markos ris with multiple drainage catheters extending from pseudocyst into the stomach. The material is not being drained through these catheters. This material is predominantly thick and very viscous and does not lend itself to percutaneous draina ge. Surgical drainage may be of benefit. Thanks for this consultation. Seamus Costa MD FACR on May 28, 2017 at 10:27 Board Certified Radiologist. This report was verified electronically.
[2017-05-28 11:05] VITALS: O2SAT 96
[2017-05-28 12:00] VITALS: BP 164/96; PULSE 88; RESP 19; TEMP 96; O2SAT 96
--- NOTE | 2017-05-28 14:50 | HHI.IDPN ---
Note Infectious Disease Note Patient frustrated about liquid diet. No fever. CT shows new fluid collection around pancreas. Worried about edema of the legs. On nasal canula. Afebrile. Post thoracentesis 05/18. chest tube placed and removed. Post pseudocyst gastrostomy. 05/17. Post code - 05/22. 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 Patient was readmitted to the hospital on May 11, 2017. The patient was recently discharged from the hospital on April 22, 2017 after treatment for acute pancreatitis. PAST MEDICAL HISTORY 1. Hypertension 2. Diabetes mellitus 3. Chronic pancreatitis 4. Portal vein thrombosis. 5. Chronic back pain. 6. Gastroesophageal reflux disease 7. Posttraumatic stress disorder 8. Gastroparesis. PAST SURGICAL HISTORY: History of hysterectomy. History of appendectomy. . ALLERGIES SULFA CIPROFLOXACIN ANTIBIOTICS: Ceftriaxone. Flagyl. OBJECTIVE: Vital Signs Date Time Temp Pulse Resp B/P Pulse Ox O2 Delivery O2 Flow Rate FiO2 05/28/17 12:00 96.0 88 19 164/96 96 05/28/17 11:05 96 Nasal Cannula 2.00 05/28/17 08:00 97.6 91 18 127/80 90 05/28/17 00:00 97.4 99 17 129/85 94 05/27/17 20:00 97.4 99 17 129/85 94 05/27/17 19:44 95 Nasal Cannula 2.00 05/27/17 14:49 Nasal Cannula 2.00 05/27/17 05/27/17 05/28/17 15:00 23:00 07:00 Intake Total 1400 ml 970 ml 240 ml Balance 1400 ml 970 ml 240 ml Intake Oral 720 ml 720 ml 240 ml IV Total 680 ml 250 ml # Voids 1 2 # Bowel Movements 1 Laboratory Tests Test 05/27/17 05/28/17 04:29 05:22 White Blood Count 12.4 TH/MM3 11.9 TH/MM3 Red Blood Count 2.94 MIL/MM3 2.95 MIL/MM3 Hemoglobin 8.3 GM/DL 8.2 GM/DL Hematocrit 25.1 % 25.2 % Mean Corpuscular Volume 85.3 FL 85.7 FL Mean Corpuscular Hemoglobin 28.1 PG 27.8 PG Mean Corpuscular Hemoglobin 32.9 % 32.5 % Concent Red Cell Distribution Width 16.7 % 17.2 % Platelet Count 450 TH/MM3 544 TH/MM3 Mean Platelet Volume 8.1 FL 7.8 FL Neutrophils (%) (Auto) 70.5 % 69.0 % Lymphocytes (%) (Auto) 11.3 % 11.2 % Monocytes (%) (Auto) 16.5 % 17.3 % Eosinophils (%) (Auto) 0.9 % 1.1 % Basophils (%) (Auto) 0.8 % 1.4 % Neutrophils # (Auto) 8.7 TH/MM3 8.2 TH/MM3 Lymphocytes # (Auto) 1.4 TH/MM3 1.3 TH/MM3 Monocytes # (Auto) 2.0 TH/MM3 2.1 TH/MM3 Eosinophils # (Auto) 0.1 TH/MM3 0.1 TH/MM3 Basophils # (Auto) 0.1 TH/MM3 0.2 TH/MM3 CBC Comment DIFF FINAL DIFF FINAL Differential Comment Laboratory Tests Test 05/27/17 05/28/17 04:29 05:22 Sodium Level 141 MEQ/L 139 MEQ/L Potassium Level 3.3 MEQ/L 2.9 MEQ/L Chloride Level 106 MEQ/L 104 MEQ/L Carbon Dioxide Level 28.5 MEQ/L 26.5 MEQ/L Anion Gap 7 MEQ/L 9 MEQ/L Blood Urea Nitrogen 4 MG/DL 3 MG/DL Creatinine 0.66 MG/DL 0.70 MG/DL Estimat Glomerular Filtration 94 ML/MIN 88 ML/MIN Rate Random Glucose 113 MG/DL 142 MG/DL Calcium Level 8.1 MG/DL 8.3 MG/DL Magnesium Level 1.6 MG/DL Total Bilirubin 0.3 MG/DL Aspartate Amino Transf 10 U/L (AST/SGOT) Alanine Aminotransferase 15 U/L (ALT/SGPT) Alkaline Phosphatase 110 U/L Total Protein 5.1 GM/DL Albumin 1.7 GM/DL Lipase 90 U/L IMAGING: Abdomen/Pelvis CT 05/27/17 0000 Signed Impressions: Service Date/Time: Saturday, May 27, 2017 20:09 - CONCLUSION: 1. Persistent complex collection in the left upper quadrant. This is internally drained into the stomach. On the prior exam there was high density material representing hemorrhage. This has evolved. New areas of hemorrhage are not seen. 2. Persistent unchanged 4.6 cm fluid collection seen posterior to the stomach and superior to the pancreas likely representing a second pseudo cyst. 3. The previously seen questionable inflammatory change at the superior left side of the colon are not present on today's exam. 4. Calcification throughout the pancreas with pancreatic atrophy consistent with chronic pancreatitis. 5. Cavernous transformation of the portal vein. This is typically seen following chronic occlusion of the portal vein. 6. Persistent mild ascites. 7. Persistent mild bilateral pleural effusion being worse on the left with some accompanying atelectasis or consolidation at the left lower lobe. Tim Chadwick MD Chest X-Ray 05/23/17 0600 Signed Impressions: Service Date/Time: Tuesday, May 23, 2017 04:24 - CONCLUSION: Stable left lower lobe consolidation. Harvey Stack MD Aorta w/Runoff CTA 05/23/17 0000 Signed Impressions: Service Date/Time: Tuesday, May 23, 2017 17:25 - CONCLUSION: 1. The aorta and other vascular structures are intact with no focal aneurysm. 2. No evidence of large hematoma. 3. Large complex collection again noted in the left upper abdomen with air-fluid level and gas. There are internal drains again noted. Feng Mahoney MD Abdomen/Pelvis CT 05/23/17 0000 Signed Impressions: Service Date/Time: Tuesday, May 23, 2017 17:25 - CONCLUSION: 1. The aorta and vascular structures remain intact with no aneurysm 2. No evidence of large hematoma. 3. Large complex collection again noted in the left upper quadrant of the abdomen with air fluid level and multiple gas bubbles. Internal drainage catheters remain in place. 4. The smaller, more cystic structure posterior to the stomach has decreased mildly in size. Feng Mahoney MD Splenic Arteriogram 05/22/17 0000 Signed Impressions: Service Date/Time: Monday, May 22, 2017 00:11 - CONCLUSION: Splenic hilar pseudoaneurysm embolized as described in detail above. Tim Valencia MD Chest X-Ray 05/21/17 0000 Signed Impressions: Service Date/Time: Sunday, May 21, 2017 20:32 - CONCLUSION: 1. Interval intubation and placement of right internal jugular central venous line with no visualized pneumothorax on this supine exam. 2. Mild patchy opacity at the left lung base which appears improved. Feng Mahoney MD Chest CT 05/21/17 0000 Signed Impressions: Service Date/Time: Sunday, May 21, 2017 22:36 - CONCLUSION: 1. Small bilateral pleural effusions with consolidation in both posterior lung bases. There is elevation of the left hemidiaphragm. 2. Complex fluid collection again noted in the left upper abdomen with internal catheters. Feng Mahoney MD Abdomen/Pelvis CT 05/21/17 0000 Signed Impressions: Service Date/Time: Sunday, May 21, 2017 22:36 - CONCLUSION: 1. The abdominal aorta is within normal limits with no evidence of aneurysm or dissection. 2. Large complex fluid collection again noted in left upper abdomen with no normal spleen identified. This is slightly smaller in size and has 2 internal drainage catheters. The air-fluid level seen on the plain film is located within this collection. There is no true free air. 3. Smaller cystic structure posterior to the stomach which is not significantly changed. 4. Mildly nonspecific, nonobstructive bowel gas pattern. 5. Small bilateral pleural effusions with consolidation in both posterior lung bases. Feng Mahoney MD ADDENDUM: Attention to the splenic hilar region reveals a 15 mm pseudoaneurysm arising from a proximal branch of the splenic artery immediately adjacent to the above-described heterogeneous collection and presumed to reflect source for recent known hemorrhage. Tim Valencia MD Abdomen X-Ray 05/21/17 0000 Signed Impressions: Service Date/Time: Sunday, May 21, 2017 21:42 - CONCLUSION: Possible free air in the upper abdomen which may be present in the previous noted large complex fluid collection. A CT is pending for further evaluation. Feng Mahoney MD Chest X-Ray 05/20/17 1400 Signed Impressions: Service Date/Time: Saturday, May 20, 2017 15:12 - CONCLUSION: 1. Drainage catheters over the left lower chest and upper abdomen region. 2. Suspected bibasilar areas of consolidation, atelectasis and effusions. When compared to the prior examination, the right-sided changes appear worse. The left-sided changes appear stable. Tim Chadwick MD PHYSICAL EXAMINATION GENERAL: No acute distress. HEENT: No icterus. No thrush. Moist mucosa. NECK: Supple without adenopathy. LUNGS: Clear BS. HEART: Regular S1, S2 without murmurs. ABDOMEN: Distended, soft, non tender. EXTREMITIES: No clubbing, cyanosis. 2+ edema of the lower exts. SKIN: No rash. NEUROLOGIC: Non focal. IMPRESSION Pancreatitis acute. Infected pancreatic pseudocyst. Strep viridans group on culture from 05/11. (Patient status post endoscopic ultrasound with sphincterotomy, balloon dilatation and the double pigtail stent placement into the common bile duct.) Post pseudocyst gastrostomy. Persistent fátima pancreatic fluid collection. GI bleed. - Post splenic artery aneurysm embolization 05/22. Acute respiratory failure. Leukocytosis probably reactive vs infection. Decreasing. RECOMMENDATIONS 1. Continue ceftriaxone. 2. Stop Flagyl. 3. Follow WBC. 4. Monitor temps. Anderson Sharpe MD May 28, 2017 14:50
[2017-05-28] MEDS: oxyCODONE/ACETAMINOPHEN 7.5 MG/325 MG TAB PO PRN ×2 (15:59→20:13)
[2017-05-28 16:00] VITALS: BP 149/87; PULSE 91; RESP 18; TEMP 98.2; O2SAT 91
--- NOTE | 2017-05-28 16:00 | HHI.DS ---
Discharge Summary Admission Date May 11, 2017 at 00:16 Discharge Date: May 28, 2017 Admitting Diagnosis pancreatic pseudocyst (1) Acute on chronic pancreatitis ICD Code: K85.9 (2) Pancreatic pseudocyst ICD Code: K86.3 (3) PVT (portal vein thrombosis) ICD Code: I81 (4) GI bleed ICD Code: K92.2 (5) Anemia ICD Code: D64.9 (6) Anxiety ICD Code: F41.9 (7) HTN (hypertension) ICD Code: I10 (8) Hypokalemia ICD Code: E87.6 Procedures 05/11/17 endoscopic ultrasound with cyst gastrostomy 05/17/17 endoscopic ultrasound with cyst gastrostomy 05/18/17 chest tube placement 05/21/17 right IJ central line placement 05/21/17 arterial line placement 05/21/17 left femoral vein central line placement 05/21/17 orotracheal intubation 05/22/17 splenic hilar pseudoaneurysm embolization Brief History - From Admission Patient presented to the emergency room due to severe, diffuse abdominal pain with associated nausea and vomiting. Emesis was yellow, no coffee-ground or bright red blood. Patient denies any black stools. CT abdomen and pelvis in the emergency room demonstrates a fluid collection which is increased in size from prior images. Patient was admitted for pancreatic pseudocyst and possible necrotizing pancreatitis. CBC/BMP: 05/28/17 0522 05/28/17 0522 Significant Findings Laboratory Tests Test 05/26/17 05/27/17 05/28/17 04:54 04:29 05:22 White Blood Count 15.6 TH/MM3 12.4 TH/MM3 11.9 TH/MM3 (4.0-11.0) (4.0-11.0) (4.0-11.0) Red Blood Count 2.99 MIL/MM3 2.94 MIL/MM3 2.95 MIL/MM3 (4.00-5.30) (4.00-5.30) (4.00-5.30) Hemoglobin 8.5 GM/DL 8.3 GM/DL 8.2 GM/DL (11.6-15.3) (11.6-15.3) (11.6-15.3) Hematocrit 25.7 % 25.1 % 25.2 % (35.0-46.0) (35.0-46.0) (35.0-46.0) Random Glucose 142 MG/DL 113 MG/DL 142 MG/DL (74-106) (74-106) (74-106) Phosphorus Level 2.0 MG/DL (2.5-4.9) Neutrophils (%) (Auto) 70.5 % (16.0-70.0) Monocytes (%) (Auto) 16.5 % 17.3 % (0.0-8.0) (0.0-8.0) Neutrophils # (Auto) 8.7 TH/MM3 8.2 TH/MM3 (1.8-7.7) (1.8-7.7) Monocytes # (Auto) 2.0 TH/MM3 2.1 TH/MM3 (0-0.9) (0-0.9) Potassium Level 3.3 MEQ/L 2.9 MEQ/L (3.5-5.1) (3.5-5.1) Blood Urea Nitrogen 4 MG/DL (7-18) 3 MG/DL (7-18) Calcium Level 8.1 MG/DL 8.3 MG/DL (8.5-10.1) (8.5-10.1) Platelet Count 544 TH/MM3 (150-450) Estimat Glomerular Filtration 88 ML/MIN (>89) Rate Aspartate Amino Transf 10 U/L (15-37) (AST/SGOT) Total Protein 5.1 GM/DL (6.4-8.2) Albumin 1.7 GM/DL (3.4-5.0) Imaging Last Impressions Abdomen/Pelvis CT 05/27/17 0000 Signed Impressions: Service Date/Time: Saturday, May 27, 2017 20:09 - CONCLUSION: 1. Persistent complex collection in the left upper quadrant. This is internally drained into the stomach. On the prior exam there was high density material representing hemorrhage. This has evolved. New areas of hemorrhage are not seen. 2. Persistent unchanged 4.6 cm fluid collection seen posterior to the stomach and superior to the pancreas likely representing a second pseudo cyst. 3. The previously seen questionable inflammatory change at the superior left side of the colon are not present on today's exam. 4. Calcification throughout the pancreas with pancreatic atrophy consistent with chronic pancreatitis. 5. Cavernous transformation of the portal vein. This is typically seen following chronic occlusion of the portal vein. 6. Persistent mild ascites. 7. Persistent mild bilateral pleural effusion being worse on the left with some accompanying atelectasis or consolidation at the left lower lobe. Tim Chadwick MD Chest X-Ray 05/23/17 0600 Signed Impressions: Service Date/Time: Tuesday, May 23, 2017 04:24 - CONCLUSION: Stable left lower lobe consolidation. Harvey Stack MD Aorta w/Runoff CTA 05/23/17 0000 Signed Impressions: Service Date/Time: Tuesday, May 23, 2017 17:25 - CONCLUSION: 1. The aorta and other vascular structures are intact with no focal aneurysm. 2. No evidence of large hematoma. 3. Large complex collection again noted in the left upper abdomen with air-fluid level and gas. There are internal drains again noted. Feng Mahoney MD Splenic Arteriogram 05/22/17 0000 Signed Impressions: Service Date/Time: Monday, May 22, 2017 00:11 - CONCLUSION: Splenic hilar pseudoaneurysm embolized as described in detail above. Tim Valencia MD Chest CT 05/21/17 0000 Signed Impressions: Service Date/Time: Sunday, May 21, 2017 22:36 - CONCLUSION: 1. Small bilateral pleural effusions with consolidation in both posterior lung bases. There is elevation of the left hemidiaphragm. 2. Complex fluid collection again noted in the left upper abdomen with internal catheters. Feng Mahoney MD Abdomen X-Ray 05/21/17 0000 Signed Impressions: Service Date/Time: Sunday, May 21, 2017 21:42 - CONCLUSION: Possible free air in the upper abdomen which may be present in the previous noted large complex fluid collection. A CT is pending for further evaluation. Feng Mahoney MD Chest Tube Insertion 05/18/17 1308 Signed Impressions: Service Date/Time: Thursday, May 18, 2017 13:33 - CONCLUSION: Uncomplicated left chest tube placement. If Gram stain is negative the tube can be removed. Chest x-ray is pending in the a.m. Seamus Costa MD FACR Chest Ultrasound 05/18/17 0000 Signed Impressions: Service Date/Time: Thursday, May 18, 2017 09:09 - CONCLUSION: 1. There is a moderate pleural effusion on the left. A iris was placed on the skin surface. Venkata Costa MD GI Procedure 05/17/17 0000 Signed Impressions: Service Date/Time: April 17:06 - CONCLUSION: 1. Interval placement of second stent catheter in the left upper quadrant. 2. The previously noted stent catheter is unchanged in appearance. 3. Nonspecific bowel gas pattern. Feng Mahoney MD PE at Discharge GENERAL: This is a well-nourished, well-developed patient, in no apparent distress. CARDIOVASCULAR: Normal rate and regular rhythm without murmurs, gallops, or rubs. RESPIRATORY: Endorsed pleuritic pain on the right. Breath sounds equal and clear to auscultation bilaterally. GASTROINTESTINAL: Abdomen soft, diffusely tender to palpation, more tender in the mid epigastric and right upper quadrant. Normal active bowel sounds MUSCULOSKELETAL: Extremities with 2+ bilateral lower extremity edema. NEURO: Alert & Oriented x4 to person, place, time, situation. Moves all ext x4 PSYCH: Appropriate mood and affect. Hospital Course 52-year-old female initially admitted for acute on chronic pancreatitis with pseudocysts. Patient has had a prolonged hospitalization with multiple complications. She is status post EUS with cyst gastrostomy. However pseudocyst seems to be persisting. She is being evaluated by interventional radiology when indicated their viscous material in the cyst therefore cannot be drained. Patient will be transferred to a tertiary care center at [facility] for possible surgical intervention. Other conditions treated during this hospitalization include: Hemorrhage secondary to splenic pseudoaneurysm. Patient underwent embolization of splenic artery embolization by IR (05/22/17). No further bleeding. S/P 14 units PRBC, 4 units liquid plasma, 4 units FFP, Pseudocyst infection: Appreciate infectious disease recommendations. Continue antibiotics. On Rocephin. Acute respiratory failure: Resolved. Patient was extubated 05/23/17. Acute toxic metabolic encephalopathy: Resolved. Patient is alert and oriented today. PTSD: Continue BuSpar for anxiety. Severe shock secondary to hypovolemia: Secondary to blood loss. Resolved. Hyperglycemia: Monitor Accu-Cheks and cover with sliding scale insulin. GI prophylaxis: Protonix. Hypokalemia: Supplement potassium. Pt Condition on Discharge: Stable Discharge Disposition: Disch to Another Hospital Discharge Time: > 30 minutes Discharge Instructions DIET: Follow Instructions for: Full Liquid Diet Activities you can perform: Regular-No Restrictions Continued Medications: Albuterol 18 GM Inh (Ventolin Hfa 18 GM Inh) 90 Mcg/Act Aer 2 PUFF INH Q4H PRN SHORTNESS OF BREATH #1 Ref 0 INHALER Atenolol (Atenolol) 50 Mg Tab 50 MG PO DAILY Blood Pressure Management Ref 0 TAB Buspirone (Buspirone) 30 Mg Tab 30 MG PO BID Anxiety Ref 0 TAB Calcium Ascorbate (Calcium Ascorbate) 500 Mg Tab 500 MG PO DAILY Calcium Supplement Ref 0 TAB Cyanocobalamin (Vitamin B-12) 1,000 Mcg Tab 1000 MCG PO DAILY Nutritional Supplement #1 Ref 0 BOTTLE Insulin Aspart Inj (Novolog Inj) 1,000 Unit/10 Ml Vial 0 SQ DIRECTED Sliding Scale as directed. Blood Sugar Management #10 Ref 0 ML Insulin Glargine Inj (Lantus Inj) 1,000 Unit/10 Ml Vial 15 UNITS SQ DAILY Blood Sugar Management Ref 0 VIAL Pancrelipase (Creon) 12,000-38,000-60,000 Units Cap 1 CAP PO TIDPC Digestive Aid #90 Ref 0 CAP Pantoprazole (Protonix) 40 Mg Tab 40 MG PO DAILY Reflux #30 Ref 0 TAB Discontinued Medications: Ibuprofen (Ibuprofen) 600 Mg Tab 600 MG PO TID Arthritis Pain Ref 0 TAB Deuce Pack MD May 28, 2017 16:00
--- NOTE | 2017-05-28 16:08 | HHI.GIFU ---
Subjective Remarks Resting in bed. Continues to have abdominal pain- no improvement. Has nausea, but feels this is more related to the clear liquids and would like her diet increased. Dr. Costa reviewed films and does not feel that he can drain the pseudocyst secondary to the material is predominantly thick and very viscous and does not lend itself to percutaneous drainage. Surgical drainage may be of benefit, s/p GS evaluation, no surgical intervention at this time---> If IR unable to drain Recommend possible transfer to tertiary center. Objective Vitals I&O Vital Signs Date Time Temp Pulse Resp B/P Pulse Ox O2 Delivery O2 Flow Rate FiO2 05/28/17 12:00 96.0 88 19 164/96 96 05/28/17 11:05 96 Nasal Cannula 2.00 05/28/17 08:00 97.6 91 18 127/80 90 05/28/17 00:00 97.4 99 17 129/85 94 05/27/17 20:00 97.4 99 17 129/85 94 05/27/17 19:44 95 Nasal Cannula 2.00 I/O 05/27/17 05/27/17 05/27/17 05/28/17 05/28/17 05/28/17 07:00 15:00 23:00 07:00 15:00 23:00 Intake Total 440 ml 1400 ml 970 ml 240 ml 71 ml Balance 440 ml 1400 ml 970 ml 240 ml 71 ml Intake Oral 240 ml 720 ml 720 ml 240 ml IV Total 200 ml 680 ml 250 ml 71 ml # Voids 2 1 2 # Bowel Movements 1 1 Laboratory Laboratory Tests Test 05/28/17 05:22 White Blood Count 11.9 Red Blood Count 2.95 Hemoglobin 8.2 Hematocrit 25.2 Mean Corpuscular Volume 85.7 Mean Corpuscular Hemoglobin 27.8 Mean Corpuscular Hemoglobin 32.5 Concent Red Cell Distribution Width 17.2 Platelet Count 544 Mean Platelet Volume 7.8 Neutrophils (%) (Auto) 69.0 Lymphocytes (%) (Auto) 11.2 Monocytes (%) (Auto) 17.3 Eosinophils (%) (Auto) 1.1 Basophils (%) (Auto) 1.4 Neutrophils # (Auto) 8.2 Lymphocytes # (Auto) 1.3 Monocytes # (Auto) 2.1 Eosinophils # (Auto) 0.1 Basophils # (Auto) 0.2 CBC Comment DIFF FINAL Differential Comment Sodium Level 139 Potassium Level 2.9 Chloride Level 104 Carbon Dioxide Level 26.5 Anion Gap 9 Blood Urea Nitrogen 3 Creatinine 0.70 Estimat Glomerular Filtration 88 Rate Random Glucose 142 Calcium Level 8.3 Total Bilirubin 0.3 Aspartate Amino Transf 10 (AST/SGOT) Alanine Aminotransferase 15 (ALT/SGPT) Alkaline Phosphatase 110 Total Protein 5.1 Albumin 1.7 Lipase 90 Imaging Last Impressions Abdomen/Pelvis CT 05/27/17 0000 Signed Impressions: Service Date/Time: Saturday, May 27, 2017 20:09 - CONCLUSION: 1. Persistent complex collection in the left upper quadrant. This is internally drained into the stomach. On the prior exam there was high density material representing hemorrhage. This has evolved. New areas of hemorrhage are not seen. 2. Persistent unchanged 4.6 cm fluid collection seen posterior to the stomach and superior to the pancreas likely representing a second pseudo cyst. 3. The previously seen questionable inflammatory change at the superior left side of the colon are not present on today's exam. 4. Calcification throughout the pancreas with pancreatic atrophy consistent with chronic pancreatitis. 5. Cavernous transformation of the portal vein. This is typically seen following chronic occlusion of the portal vein. 6. Persistent mild ascites. 7. Persistent mild bilateral pleural effusion being worse on the left with some accompanying atelectasis or consolidation at the left lower lobe. Tim Chadwick MD Chest X-Ray 05/23/17 0600 Signed Impressions: Service Date/Time: Tuesday, May 23, 2017 04:24 - CONCLUSION: Stable left lower lobe consolidation. Harvey Stack MD Aorta w/Runoff CTA 05/23/17 0000 Signed Impressions: Service Date/Time: Tuesday, May 23, 2017 17:25 - CONCLUSION: 1. The aorta and other vascular structures are intact with no focal aneurysm. 2. No evidence of large hematoma. 3. Large complex collection again noted in the left upper abdomen with air-fluid level and gas. There are internal drains again noted. Feng Mahoney MD Splenic Arteriogram 05/22/17 0000 Signed Impressions: Service Date/Time: Monday, May 22, 2017 00:11 - CONCLUSION: Splenic hilar pseudoaneurysm embolized as described in detail above. Tim Valencia MD Chest CT 05/21/17 0000 Signed Impressions: Service Date/Time: Sunday, May 21, 2017 22:36 - CONCLUSION: 1. Small bilateral pleural effusions with consolidation in both posterior lung bases. There is elevation of the left hemidiaphragm. 2. Complex fluid collection again noted in the left upper abdomen with internal catheters. Feng Mahoney MD Abdomen X-Ray 05/21/17 0000 Signed Impressions: Service Date/Time: Sunday, May 21, 2017 21:42 - CONCLUSION: Possible free air in the upper abdomen which may be present in the previous noted large complex fluid collection. A CT is pending for further evaluation. Feng Mahoney MD Chest Tube Insertion 05/18/17 1308 Signed Impressions: Service Date/Time: Thursday, May 18, 2017 13:33 - CONCLUSION: Uncomplicated left chest tube placement. If Gram stain is negative the tube can be removed. Chest x-ray is pending in the a.m. Seamus Costa MD FACR Chest Ultrasound 05/18/17 0000 Signed Impressions: Service Date/Time: Thursday, May 18, 2017 09:09 - CONCLUSION: 1. There is a moderate pleural effusion on the left. A iris was placed on the skin surface. Venkata Costa MD GI Procedure 05/17/17 0000 Signed Impressions: Service Date/Time: April 17:06 - CONCLUSION: 1. Interval placement of second stent catheter in the left upper quadrant. 2. The previously noted stent catheter is unchanged in appearance. 3. Nonspecific bowel gas pattern. Feng Mahoney MD Physical Exam HEENT: Normocephalic, atraumatic. CHEST: Resp. even/unlabored. Diminished bases. CARDIAC: ST ABDOMEN: Abdomen soft, mildly distended, Epigastric/LUQ tenderness-moderate. bowel sounds active EXTREMITIES: No cyanosis SKIN: normal. FURNITURE FINISHER: alert, oriented Assessment and Plan Plan ASSESSMENT: - Acute on chronic pancreatitis with large pseudocyst formation. Pt with 4 year hx of pancreatitis (states she has more than 10-12 episodes per year). States last episode was last month. Abdomen/Pelvis CT (05/10/17)---> 1. 14 x 10 CM sub-phrenic fluid collection on the left larger than on the prior study. This could be related to pseudocyst or perhaps splenic hematoma. The findings have worsened when compared with the prior examination. 2. Chronic calcific pancreatitis 3. Chronic portal vein thrombosis. She quit ETOH use >1 year ago. She reports that she was told more than a year ago that she had a pseudocyst and needed it removed, but that the [facility] will not approve this. States she was told one month ago that her ibuprofen use may have caused her pancreatitis and stopped this. Of note, we did recommend EUS with FNA in past, but she did not follow up and she we were unable to contact her by phone or mail. S/P EUS w/ cyst gastrostomy (05/11/17) --> EGD findings Normal esophagus, Bulging in the stomach with food residue, Normal duodenum, EUS findings with hypoechoic homogeneous cyst, which was aspirated and dark lactose brownish aspirate was obtained and sent for culture and labs, s/p 7 Upper Sorbian 7 cm double pigtail stent placement. Lipase normalized. Abdomen/Pelvis CT (05/17/17)----> 1. There is a 14.8 x 11.8 cm complex fluid collection in the left upper quadrant. This appears to represent liquefaction of the spleen post splenic infarction. There was apparently a large pseudocyst which traversed up into the splenic hilum. There is still considerable residual splenic tissue. There is a drain which decompresses this collection into the stomach. There is gas within this. The examination also demonstrates a 3.8 x 4.6 cm fluid collection posterior to the stomach. Both of these are unchanged from previous. 2. No findings to indicate bowel obstruction. 3. Bilateral pleural effusion with consolidative changes in the left lung base. 4. Small amount of free fluid within the pelvis. 5. Vega catheter in good position. S/P EUS with cyst gastrostomy (05/17/17)----> Pancreatic pseudocyst. Rpt. Abdomen/Pelvis CT (05/23/17)----> 1. The aorta and vascular structures remain intact with no aneurysm 2. No evidence of large hematoma. 3. Large complex collection again noted in the left upper quadrant of the abdomen with air fluid level and multiple gas bubbles. Internal drainage catheters remain in place. 4. The smaller, more cystic structure posterior to the stomach has decreased mildly in size. D/W Dr. Corbett, pancreatic fluid thick/loculated, difficult to drain. S/P Rpt GS evaluation, no surgical intervention at this time---> If IR unable to drain Recommend possible transfer to tertiary center. Dr. Costa reviewed films and does not feel that he can drain the pseudocyst secondary to the material is predominantly thick and very viscous and does not lend itself to percutaneous drainage. Surgical drainage may be of benefit. Call placed to [facility] ( ), spoke to Chantel , will have Dr. Carmona with Pancreatic/Biliary surgery call back to review case. Clinically, still with significant abdominal pain. Requesting diet be advanced. Ceftriaxone, Creon. - Massive bleeding secondary to splenic pseudoaneurysm. Pt had sudden onset of rectal bleeding evening of 05/21/early 05/22 and he was transferred to the unit. S/P Angiogram with embolization of splenic hilar pseudoaneurysm by IR (05/22/17 ). No further bleeding. S/P 14 units PRBC, 4 units liquid plasma, 4 units FFP , 1 unit platelets, 1 cryoprecipitate. Aorta w/Runoff CTA (05/23/17)----> 1. The aorta and other vascular structures are intact with no focal aneurysm. 2. No evidence of large hematoma. 3. Large complex collection again noted in the left upper abdomen with air-fluid level and gas. There are internal drains again noted. No further obvious GI bleeding. HH stable 8.2/25.2. 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 S/P Angiogram with embolization of splenic hilar pseudoaneurysm by IR (05/22/17). S/P multiple transfusions. S/P CTA with no evidence of further bleeding. No further bleeding. - Fever/Leukocytosis. WBC improving, 11.9. Ceftriaxone. ID following. - Respiratory failure, left pleural effusion. S/P CT insertion on left during this hospitalization. S/P extubation on 05/24. No respiratory distress. Pt transferred out of ICU. - Elevated LFTs. Improved. - Chronic portal vein thrombosis. This is chronic. - Abnormal weight loss. Reports 30 lb weight loss in 3 months. Unintentional - Hx elevated chromogranin level. During a previous hospitalization, she complained of flushing, diarrhea, abdominal pain. She was evaluated with chromogranin A 108.0 (significantly high), Gastrin 86, VIP less than 50. She did not fu. She is not having flushing or diarrhea at this time. PLAN: - Tx to [facility] when bed available. - Low fat diet - Cont. PPI - Cont. Creon - Monitor HH - Transfuse as necessary - Monitor labs - Cont. Abx per ID recommendations, ceftriaxone - IR unable to drain pseudocyst - S/P GS evaluation, no plans for surgical intervention, recommend tx to tertiary if IR unable to drain - Spoke to Dr. Carmona (pancreatic/biliary surgery), will accept patient- Faxed facesheet and [facility] [phone] - PL consult to assist with transfer. Assist with transfer agreement - At d/c will need Repeat imaging in 1 month to reassess cyst, EGD w/ stent removal 2-3m - Further recommendations to follow based on results of above - Pt seen and examined by Dr. Escamilla and myself and this note is written on his behalf Jordyn Puente May 28, 2017 16:08
== END 2017-05-28 20:02 | disposition short-term general hospital (02) | DRG 405 ==
LOC: NEPE 19:44 → NEDA 05-11 00:16 → NEPGCP 05-11 02:18 → N05A 05-11 18:43 → N03B 05-17 18:50 → N03A 05-17 20:21 → HOCB 05-20 16:27 → HIME 05-21 19:59 → N07B 05-25 16:51
PROVIDERS: ADMIT Family Medicine; ATTEND Family Medicine
PROC: BF47ZZZ Ultrasonography of Pancreas (ICD-10-PCS; 2017-05-11)
PROC: 0DJ08ZZ Inspection of Upper Intestinal Tract, Via Natural or Artificial Opening Endoscopic (ICD-10-PCS; 2017-05-11)
PROC: 0F9G40Z Drainage of Pancreas with Drainage Device, Percutaneous Endoscopic Approach (ICD-10-PCS; principal; 2017-05-11 15:45)
PROC: 30233N1 Transfusion of Nonautologous Red Blood Cells into Peripheral Vein, Percutaneous Approach (ICD-10-PCS; 2017-05-16)
PROC: 0F9G40Z Drainage of Pancreas with Drainage Device, Percutaneous Endoscopic Approach (ICD-10-PCS; 2017-05-17)
PROC: 5A1945Z Respiratory Ventilation, 24-96 Consecutive Hours (ICD-10-PCS; 2017-05-17)
PROC: 0W9B30Z Drainage of Left Pleural Cavity with Drainage Device, Percutaneous Approach (ICD-10-PCS; 2017-05-18)
PROC: 02HV33Z Insertion of Infusion Device into Superior Vena Cava, Percutaneous Approach (ICD-10-PCS; 2017-05-21)
PROC: 04HY32Z Insertion of Monitoring Device into Lower Artery, Percutaneous Approach (ICD-10-PCS; 2017-05-21)
PROC: 0BH17EZ Insertion of Endotracheal Airway into Trachea, Via Natural or Artificial Opening (ICD-10-PCS; 2017-05-21)
PROC: 5A1945Z Respiratory Ventilation, 24-96 Consecutive Hours (ICD-10-PCS; 2017-05-21)
PROC: 30233L1 Transfusion of Nonautologous Fresh Plasma into Peripheral Vein, Percutaneous Approach (ICD-10-PCS; 2017-05-21)
PROC: 30233R1 Transfusion of Nonautologous Platelets into Peripheral Vein, Percutaneous Approach (ICD-10-PCS; 2017-05-21)
PROC: 30233K1 Transfusion of Nonautologous Frozen Plasma into Peripheral Vein, Percutaneous Approach (ICD-10-PCS; 2017-05-21)
PROC: 04L43DZ Occlusion of Splenic Artery with Intraluminal Device, Percutaneous Approach (ICD-10-PCS; 2017-05-22)
PROC: B4131ZZ Fluoroscopy of Splenic Arteries using Low Osmolar Contrast (ICD-10-PCS; 2017-05-22)
PROC: B4141ZZ Fluoroscopy of Superior Mesenteric Artery using Low Osmolar Contrast (ICD-10-PCS; 2017-05-22)
PROC: BF47ZZZ Ultrasonography of Pancreas (ICD-10-PCS; 2017-05-22)
PROC: 30233M1 Transfusion of Nonautologous Plasma Cryoprecipitate into Peripheral Vein, Percutaneous Approach (ICD-10-PCS; 2017-05-22)
DX: K86.3 Pseudocyst of pancreas (principal); K85.92 Acute pancreatitis with infected necrosis, unspecified; J96.01 Acute respiratory failure with hypoxia; R57.1 Hypovolemic shock; I81 Portal vein thrombosis; A41.9 Sepsis, unspecified organism; J90 Pleural effusion, not elsewhere classified; G92 Toxic encephalopathy; J18.9 Pneumonia, unspecified organism; D62 Acute posthemorrhagic anemia; E87.2 Acidosis; K92.2 Gastrointestinal hemorrhage, unspecified; I72.8 Aneurysm of other specified arteries; K86.1 Other chronic pancreatitis; E11.65 Type 2 diabetes mellitus with hyperglycemia; I10 Essential (primary) hypertension; K21.9 Gastro-esophageal reflux disease without esophagitis; F17.210 Nicotine dependence, cigarettes, uncomplicated; E87.6 Hypokalemia; G89.29 Other chronic pain; B95.4 Other streptococcus as the cause of diseases classified elsewhere; D69.6 Thrombocytopenia, unspecified; F43.10 Post-traumatic stress disorder, unspecified; E86.1 Hypovolemia; N32.89 Other specified disorders of bladder; K59.00 Constipation, unspecified; D73.5 Infarction of spleen; R63.4 Abnormal weight loss; Z79.4 Long term (current) use of insulin; Z91.19 Patient's noncompliance with other medical treatment and regimen; Z88.2 Allergy status to sulfonamides; Z88.1 Allergy status to other antibiotic agents
CPT/HCPCS: 31500; 32557; 36245; 36246; 36430; 36556; 36600; 36620; 37243; 43242; 43259; 71010; 71250; 74000; 74174; 74176; 74177; 75635; 75726; 75774; 76000; 76604; 76937; 80048; 80053; 80069; 80076; 80307; 81001; 82272; 82550; 82805; 82948; 83605; 83690; 83735; 83880; 84100; 84132; 84155; 84484; 85007; 85014; 85018; 85025; 85027; 85335; 85384; 85610; 85730; 86301; 86850; 86900; 86901; 86920; 86927; 86965; 87040; 87070; 87186; 87205; 87640; 87641; 94002; 94003; 94150; 94640; 94664; 94667; 94668; 96361; 96374; 96376; C1726; C1729; C1760; C1769; C1887; C1894; C2625; C9113; J0131; J0690; J0696; J1170; J1650; J2370; J2405; J2543; J2710; J2930; J3010; J3475; J3480; J7030; J7050; P9016; P9017; P9035; Q9963; Q9967